=== PATIENT | female | born 1965 | race Asian ===

== ENCOUNTER 2021-03-09 21:14 | Emergency (ER) | payer OTHER, BC ==
--- NOTE | 2021-03-09 22:01 | EDM.PDOC ---
ED HPI GENERAL MEDICAL PROBLEM - General Chief Complaint: Fever Stated Complaint: HAD SURGERY LAST MONDAY/NOW HAS A FEVER Time Seen by Provider: 03/09/21 21:37 Source of Information: Reports: Patient, Family () History Limitations: Reports: No Limitations - History of Present Illness INITIAL COMMENTS - FREE TEXT/NARRATIVE: Mrs. Mullen is a very pleasant 55-year-old woman who now presents to the ED with a fever. She states that she underwent a laparoscopic complete hysterectomy for treatment of cervical cancer at [facility] in [place] 1 week ago today, 03/02/2021. She states that the pathology report was clean, and that no further treatment is necessary. She states that she was discharged home with a p rescription for [place], but told to take ibuprofen if her pain was only mild. She denies being given any other prescriptions, such as an antibiotic. The patient states that she was doing well until this afternoon, when she started feeling chilled. She had her go buy a thermometer, and found that she had a temperature of 103.4 degrees around 20:00 this evening. She took 2 regular strength acetaminophen at that time, and took a shower, with a subsequent temperature of 102.5. She spoke to her surgeon, who recommended that she come to the ED to be evaluated. The patient denies having any significant abdominal pain, or any other fever related symptoms, such as cough, dyspnea, nausea, vomiting, constipation, diarrhea, urinary symptoms, or a rash. Here in the ED, the patient is found to be tachycardic at 128 bpm, with tachypnea of 28 rpm. She has a slight fever of 100.4 degrees. Her oxygen saturation is 96% on room air. She appears to be very comfortable lying on the gurney, in no acute distress. The patient has not received a COVID vaccine. The patient's PCP is Dr. Jerman Davalos. Her Gynecologic Surgeon at [facility] in [place] is Dr. Delmi Birch. Her Treasury Accountant is Dr. Marilin Victor. Right Abdomen Pain Score (Numeric/FACES): 5 - Related Data Allergies Allergy/AdvReac Type Severity Reaction Status Date / Time No Known Allergies Allergy Verified 03/09/21 21:30 Home Meds: Home Meds Hydrocodone-Acetaminophen 5 - 325 mg PO ASDIRECTED PRN 03/09/21 [History] Sennosides [Senna] 8.6 - 50 mg PO DAILY 03/09/21 [History] lisinopriL [Lisinopril] 20 mg PO DAILY 03/09/21 [History] Past Medical History Cardiovascular History: Reports: Hypertension Oncologic (Cancer) History: Reports: Cervix (s/p hysterectomy) - Past Surgical History GI Surgical History: Reports: Cholecystectomy (around 2018) Female Surgical History: Reports: Hysterectomy (complete, 03/02/2021) Social & Family History - Tobacco Use Tobacco Use Status *Q: Never Tobacco User - Caffeine Use Caffeine Use: Reports: Coffee, Tea - Alcohol Use Alcohol Use History: Yes Alcohol Use Frequency: Rarely - Recreational Drug Use Recreational Drug Use: No - Living Situation & Occupation Living situation: Reports: , with Spouse, with Family (2 kids) Occupation: Employed ([employer]) ED ROS GENERAL - Review of Systems Review Of Systems: Comprehensive ROS is negative, except as noted in HPI. ED EXAM, GENERAL - Physical Exam Exam: See Below Exam Limited By: No Limitations General Appearance: Alert, WD/WN, No Apparent Distress Eye Exam: Bilateral Eye: EOMI, Normal Inspection Ears: Normal External Exam, Hearing Grossly Normal Nose: Normal Inspection Throat/Mouth: Normal Inspection, Normal Lips, Normal Voice, No Airway Compromise Head: Atraumatic, Normocephalic Neck: Normal Inspection, Full Range of Motion Respiratory/Chest: No Respiratory Distress, Lungs Clear, Normal Breath Sounds, No Accessory Muscle Use Cardiovascular: Normal Peripheral Pulses, No Edema, No Gallop, No JVD, No Murmur, No Rub, Tachycardia (regular) Peripheral Pulses: 3+: Radial (L), Radial (R) GI/Abdominal: Normal Bowel Sounds, Soft, Non-Tender (including no kalina- incisional tenderness), No Organomegaly, No Distention, No Abnormal Bruit, No Mass, Other (All laparoscopic surgical wounds are C/D/I, with steri-strips still attached. No surrounding erythema or swelling.) Back Exam: Normal Inspection, Full Range of Motion, NT Extremities: Normal Inspection, Normal Range of Motion, No Pedal Edema, Normal Capillary Refill Neurological: Alert, Oriented, Normal Cognition, No Motor/Sensory Deficits Psychiatric: Normal Affect Skin Exam: Warm, Dry, Intact, Normal Color, No Rash Course - Vital Signs Last Recorded V/S: Last Vital Signs Temp 38.0 C 03/09/21 21:27 Pulse 128 H 03/09/21 21:27 Resp 28 H 03/09/21 21:27 BP 106/76 03/09/21 21:27 Pulse Ox 96 03/09/21 21:27 - Orders/Labs/Meds Orders: Active Orders 24 hr Category Date Time Status Ang Chest [CT] Stat Exams 03/09/21 23:26 Taken Chest 2V [CR] Stat Exams 03/09/21 21:55 Taken CULTURE URINE [MREF] Stat Lab 03/09/21 22:08 Received Sodium Chloride 0.9% [Normal Saline] 1,000 ml Med 03/09/21 23:30 Active IV ASDIRECTED Medication Orders Sodium Chloride (Normal Saline) 1,000 mls @ 150 mls/hr IV ASDIRECTED LILA Last Admin: 03/09/21 23:38 Dose: 150 mls/hr Documented by: ILIA Labs: Laboratory Tests 03/09/21 03/09/21 03/09/21 Range/Units 22:05 22:08 22:25 WBC 14.53 H (3.98-10.04) K/mm3 RBC 3.99 (3.98-5.22) M/mm3 Hgb 12.2 (11.2-15.7) gm/dl Hct 36.0 (34.1-44.9) % MCV 90.2 (79.4-94.8) fl MCH 30.6 (25.6-32.2) pg MCHC 33.9 (32.2-35.5) g/dl RDW Std Deviation 41.9 (36.4-46.3) fL Plt Count 481 H (182-369) K/mm3 MPV 9.0 L (9.4-12.3) fl Neutrophils % (Manual) 66 H (40-60) % Band Neutrophils % 0 (0-10) % Lymphocytes % (Manual) 19 L (20-40) % Atypical Lymphs % 0 % Monocytes % (Manual) 8 (2-10) % Eosinophils % (Manual) 7 H (0.7-5.8) % Basophils % (Manual) 0 L (0.1-1.2) Platelet Estimate Increased Anisocytosis 1+ slight RBC Morph Comment Abnormal D-Dimer, Quantitative (0.19-0.50) mg/L Sodium (136-145) mEq/L Potassium (3.5-5.1) mEq/L Chloride (98-107) mEq/L Carbon Dioxide (21-32) mEq/L Anion Gap (5-15) BUN (7-18) mg/dL Creatinine (0.55-1.02) mg/dL Est Cr Clr Drug Dosing mL/min Estimated GFR (MDRD) (>60) mL/min BUN/Creatinine Ratio (14-18) Glucose (70-99) mg/dL Calcium (8.5-10.1) mg/dL Magnesium (1.8-2.4) mg/dL Total Bilirubin (0.2-1.0) mg/dL AST (15-37) U/L ALT (14-59) U/L Alkaline Phosphatase (46-116) U/L C-Reactive Protein (<1.0) mg/dL Total Protein (6.4-8.2) g/dl Albumin (3.4-5.0) g/dl Globulin gm/dL Albumin/Globulin Ratio (1-2) Urine Color Light yellow (Yellow) Urine Appearance Slt cloudy H (Clear) Urine pH 6.5 (5.0-8.0) Ur Specific [place] 1.010 (1.005-1.030) Urine Protein Negative (Negative) Urine Glucose (UA) Negative (Negative) Urine Ketones Negative (Negative) Urine Occult Blood 2+ H (Negative) Urine Nitrite Negative (Negative) Urine Bilirubin Negative (Negative) Urine Urobilinogen 0.2 (0.2-1.0) Ur Leukocyte Esterase 2+ H (Negative) Urine RBC 0-5 (0-5) /hpf Urine WBC 20-30 H (0-5) /hpf Ur Squamous Epith Cells 5-10 H (0-5) /hpf Urine Bacteria Few (FEW) /hpf Urine Mucus Few (FEW) /hpf Influenza Type A RNA Negative (NEGATIVE) Influenza Type B RNA Negative (NEGATIVE) SARS-CoV-2 RNA (MISBAH) Negative (NEGATIVE) 03/09/21 03/09/21 Range/Units 22:25 22:25 WBC (3.98-10.04) K/mm3 RBC (3.98-5.22) M/mm3 Hgb (11.2-15.7) gm/dl Hct (34.1-44.9) % MCV (79.4-94.8) fl MCH (25.6-32.2) pg MCHC (32.2-35.5) g/dl RDW Std Deviation (36.4-46.3) fL Plt Count (182-369) K/mm3 MPV (9.4-12.3) fl Neutrophils % (Manual) (40-60) % Band Neutrophils % (0-10) % Lymphocytes % (Manual) (20-40) % Atypical Lymphs % % Monocytes % (Manual) (2-10) % Eosinophils % (Manual) (0.7-5.8) % Basophils % (Manual) (0.1-1.2) Platelet Estimate Anisocytosis RBC Morph Comment D-Dimer, Quantitative 2.44 H (0.19-0.50) mg/L Sodium 135 L (136-145) mEq/L Potassium 3.8 (3.5-5.1) mEq/L Chloride 100 (98-107) mEq/L Carbon Dioxide 22 (21-32) mEq/L Anion Gap 16.8 H (5-15) BUN 12 (7-18) mg/dL Creatinine 1.0 (0.55-1.02) mg/dL Est Cr Clr Drug Dosing 44.58 mL/min Estimated GFR (MDRD) 57 (>60) mL/min BUN/Creatinine Ratio 12.0 L (14-18) Glucose 183 H (70-99) mg/dL Calcium 8.8 (8.5-10.1) mg/dL Magnesium 1.9 (1.8-2.4) mg/dL Total Bilirubin 0.7 (0.2-1.0) mg/dL AST 15 (15-37) U/L ALT 25 (14-59) U/L Alkaline Phosphatase 60 (46-116) U/L C-Reactive Protein 11.5 H* (<1.0) mg/dL Total Protein 7.9 (6.4-8.2) g/dl Albumin 3.4 (3.4-5.0) g/dl Globulin 4.5 gm/dL Albumin/Globulin Ratio 0.8 L (1-2) Urine Color (Yellow) Urine Appearance (Clear) Urine pH (5.0-8.0) Ur Specific [place] (1.005-1.030) Urine Protein (Negative) Urine Glucose (UA) (Negative) Urine Ketones (Negative) Urine Occult Blood (Negative) Urine Nitrite (Negative) Urine Bilirubin (Negative) Urine Urobilinogen (0.2-1.0) Ur Leukocyte Esterase (Negative) Urine RBC (0-5) /hpf Urine WBC (0-5) /hpf Ur Squamous Epith Cells (0-5) /hpf Urine Bacteria (FEW) /hpf Urine Mucus (FEW) /hpf Influenza Type A RNA (NEGATIVE) Influenza Type B RNA (NEGATIVE) SARS-CoV-2 RNA (MISBAH) (NEGATIVE) Meds: Medications Generic Name Dose Route Start Last Admin Trade Name Freq PRN Reason Stop Dose Admin Sodium Chloride 1,000 mls @ 150 mls/hr 03/09/21 23:30 03/09/21 23:38 Normal Saline IV 150 mls/hr ASDIRECTED [facility] Administration - Re-Assessments/Exams Free Text/Narrative Re-Assessment/Exam: 03/09/21 21:57 As above, the patient underwent a laparoscopic hysterectomy 1 week ago to do, then developed chills this afternoon, with a fever of 103.4 degrees this evening, down to 100.4 here in the ED, after she took 2 tablets of acetaminophen. She has no other complaints to suggest a source, and her physical exam, including her abdomen, is completely unremarkable. Because her surgeon sent her here for an evaluation, I have ordered a work-up that includes several blood tests, a urinalysis by clean-catch, a swab for the SARS-CoV-2 virus and influenza A + B viruses, and a chest x-ray. 03/09/21 23:00 Two-view chest radiograph appears to be grossly normal. The cardiac silhouette is within normal limits. No pulmonary vascular congestion. No pleural effusions. No focal infiltrate. No pneumothorax. Formal read per the Radiologist pending. The patient's CBC is remarkable for leukocytosis of 14.53, but with 0% bandemia. She has thrombocytosis of 481,000, with the remainder of her CBC being unremarkable. Her CMP is remarkable for an anion gap slightly elevated at 16.8, but with a bicarbonate normal at 22. She has hyperglycemia of 183, with remainder of her CMP being unremarkable. Her magnesium level is within normal limits at 1.9. Her CRP is significantly elevated at 11.5. Her D-dimer is significantly elevated at 2.44. Her urinalysis is remarkable for a slightly cloudy appearance, with 2+ occult blood and 0-5 RBCs, 2+ leukocyte esterase with 20-30 WBCs, nitrate negative with few bacteria, and 5-10 squamous epithelial cells. Her swab for the SARS-CoV-2 virus and influenza A + B viruses is negative for all. 03/09/21 23:27 Test results discussed with the patient and her . As above, the patient's CRP and D-dimer are elevated, although both of these could be from recent surgery. My suspicion for a pulmonary embolus is very low, however, a pulmonary embolus can cause a fever, therefore I feel it necessary to recommend a CT angiogram to rule out a PE. The patient and her agreed. 03/10/21 00:59 CT angiogram of the chest is read by [facility] as: 1. No evidence of pulmonary embolism. 2. Hepatic steatosis. 03/10/21 01:06 Test results discussed with patient and her . As above, with the exception of hyperglycemia, tonight's work-up is unremarkable, with no finding of an infection. It is possible that the patient's thermometer does not work very well, but if it is true that the patient had a fever, it is most likely viral in etiology. I recommended that the patient notify her surgeon in the morning of her negative work-up. I would also like her to follow-up with Dr. Davalos regarding her hyperglycemia, as she likely has prediabetes. Departure - Departure Time of Disposition: 01:07 Disposition: Home, Self-Care 01 Condition: Good Clinical Impression: Fever of unknown origin, Hyperglycemia - Discharge Information *PRESCRIPTION DRUG MONITORING PROGRAM REVIEWED*: Not Applicable *COPY OF PRESCRIPTION DRUG MONITORING REPORT IN PATIENT ANTONIO: Not Applicable Referrals: Jerman Davalos MD [Primary Care Provider] - Marilin Victor MD [Physician] - Delmi Birch MD [Ordering Only Provider] - Forms: ED Department Discharge Additional Instructions: You were seen in the emergency room after developing chills and fever. Work-up in the ER included numerous blood tests, a urinalysis, a swab for the SARS-CoV-2 virus and influenza A + B viruses, a chest x-ray, and a CT angiogram of your chest. Your work-up found your blood sugar to be elevated at 183. This indicates that you have either prediabetes or actual diabetes. The remainder of your work-up was unremarkable. No evidence for an infection was found. The cause of your fever is not known. It is possible that your thermometer does not work very well, however, if in fact you had a fever, it may be due to a virus. We recommend that you notify the office of your Surgeon, Dr. Delmi Birch, of your negative work-up, in the morning. We recommend that you follow-up with your PCP, Dr. Jerman Davalos, for further evaluation of your elevated blood sugar. If any other problems, please do not hesitate to return to the ER. Sepsis Event Note (ED) - Evaluation Sepsis Screening Result: No Definite Risk - Focused Exam Vital Signs: Vital Signs Temp Pulse Resp BP Pulse Ox 03/09/21 21:27 38.0 C 128 H 28 H 106/76 96 - My Orders Last 24 Hours: My Active Orders 03/09/21 21:55 Chest 2V [CR] Stat 03/09/21 22:08 CULTURE URINE [MREF] Stat 03/09/21 23:26 Ang Chest [CT] Stat 03/09/21 23:30 Sodium Chloride 0.9% [Normal Saline] 1,000 ml IV ASDIRECTED - Assessment/Plan Last 24 Hours: My Active Orders 03/09/21 21:55 Chest 2V [CR] Stat 03/09/21 22:08 CULTURE URINE [MREF] Stat 03/09/21 23:26 Ang Chest [CT] Stat 03/09/21 23:30 Sodium Chloride 0.9% [Normal Saline] 1,000 ml IV ASDIRECTED
[2021-03-09 22:48] LABS: CORONAVIRUS COVID-19 NAA NEGATIVE (NEGATIVE)
[2021-03-09] MEDS ORDERED: Sodium Chloride 0.9% 1,000 ML IV SCH (23:30)
--- NOTE | 2021-03-10 07:58 | CR ---
Chest: 2 views of the chest were obtained. Comparison: Subsequent chest CT study performed on 03/10/21. Heart size and mediastinum are normal. Lungs are clear with no acute parenchymal change. Bony structures are within normal limits for the patient's age. Surgical clips are seen from prior cholecystectomy. Impression: 1. Nothing acute is seen on 2 view chest x-ray. 2. Previous cholecystectomy. Diagnostic code #2
--- NOTE | 2021-03-10 08:05 | CT ---
CT chest Technique: Multiple axial sections through the chest were obtained. Intravenous contrast was utilized. Study has been performed as a pulmonary angiogram protocol. Findings: Thoracic aorta shows no aneurysm. Pulmonary arteries are well opacified. No filling defects are seen to indicate pulmonary embolism. Mediastinum and hilar regions show no adenopathy or mass. No pericardial thickening is seen. Diffuse fatty infiltration is noted within the liver. Small hiatal hernia is noted. Lung window settings were reviewed and show minimal atelectasis within the left lung base. No acute parenchymal change is seen. Bone window settings were reviewed. Minimal scattered degenerative change is seen within the spine. No acute osseous abnormality is appreciated. Impression: 1. Fatty infiltration within the liver. Small hiatal hernia. 2. No findings of pulmonary embolism. 3. Nothing acute is appreciated on contrast enhanced chest CT. Diagnostic code #3 I agree with preliminary report from [facility] finalized on 03/10/21, 1:56 AM CDT, code 1
== END 2021-03-10 01:33 | disposition home or self-care (01) ==
LOC: JD.ED 21:14
DX: R50.9 Fever, unspecified (principal); R73.9 Hyperglycemia, unspecified; I10 Essential (primary) hypertension; Z90.710 Acquired absence of both cervix and uterus; Z20.822 Contact with and (suspected) exposure to COVID-19; Z79.899 Other long term (current) drug therapy
CPT/HCPCS: 0240U; 36415; 71046; 71275; 80053; 81001; 83735; 85007; 85027; 85379; 86140; 87086; 87186; 99284; J7030

== ENCOUNTER 2021-06-01 05:52 | Inpatient (IN) | payer OTHER, BC ==
[2021-06-01] MEDS ORDERED: Dexamethasone 4 MG Tab PO STA (06:30)
--- NOTE | 2021-06-01 06:41 | EDM.PDOC ---
ED HPI GENERAL MEDICAL PROBLEM - General Chief Complaint: Respiratory Problem Stated Complaint: COVID +/LOW OXYGEN LEVEL Time Seen by Provider: 06/01/21 06:02 Source of Information: Reports: Patient, Family () History Limitations: Reports: No Limitations - History of Present Illness INITIAL COMMENTS - FREE TEXT/NARRATIVE: Mrs. Mullen is a very pleasant 56-year-old woman who now presents to the ED due to hypoxemia after testing positive for COVID-19. She states that she developed fever and a chills last 05/25/2021. She saw her PCP on 05/26/2021, where blood work was reportedly normal. She was not tested for the SARS-CoV-2 virus at that time. She subsequently took Tylenol and ibuprofen to treat her symptoms, but her symptoms persisted, where for she saw her PCP again this past 05/31/2021. A swab for the SARS-CoV-2 virus returned positive. Chest x-ray reportedly revealed "pneumonia" however, the patient cannot elaborate on what was seen. There was a discussion regarding treatment with an infusion of monoclonal antibodies, however, no specific arrangements were made. She was instructed to monitor her oxygen saturation at home, and go to the ED if it dropped. The patient reports that her oxygen saturation was in the upper-80s this morning, wherefore she came to the ED as instructed. The patient states that she has had a nonproductive cough, but no dyspnea or chest pain. She feels generally weak. She has not had any nausea or vomiting. Here in the ED, the patient is found to be tachycardic at 122 bpm and tachypneic at 32 rpm. She is afebrile, saturating 86% on room air. I placed her on 1 L of oxygen per nasal cannula, raising her SpO2 to 96%. Prior to 05/25/2021, the patient denies having a recent fever, chills, sore throat, ear pain, nasal or sinus congestion, cough, dyspnea, chest pain, palpitations, nausea, vomiting, constipation, diarrhea, abdominal pain, urinary symptoms, recent weight gain or weight loss, recent bloody bowel movements or black bowel movements, recent joint aches, headaches, or rashes. The patient's PCP is Dr. Jerman Davalos. Her Jewel Blocker And Sawyer is Dr. Marilin Santiago. Her Gynecologic Surgeon is Dr. Delmi Birch, at [facility] in [place]. She has not received a COVID vaccination. Chest Pain Score (Numeric/FACES): 4 - Related Data Allergies Allergy/AdvReac Type Severity Reaction Status Date / Time No Known Allergies Allergy Verified 06/01/21 13:49 Home Meds: Home Meds lisinopriL [Lisinopril] 20 mg PO DAILY 03/09/21 [History] Past Medical History Cardiovascular History: Reports: Hypertension Oncologic (Cancer) History: Reports: Cervix (s/p hysterectomy) - Infectious Disease History Infectious Disease History: Reports: Novel Coronavirus (dx'd 05/31/2021) - Past Surgical History GI Surgical History: Reports: Cholecystectomy (around 2018) Female Surgical History: Reports: Hysterectomy (complete, 03/02/2021) Social & Family History - Tobacco Use Tobacco Use Status *Q: Never Tobacco User Second Hand Smoke Exposure: No - Caffeine Use Caffeine Use: Reports: None - Alcohol Use Alcohol Use History: Yes Alcohol Use Frequency: Rarely - Recreational Drug Use Recreational Drug Use: No - Living Situation & Occupation Living situation: Reports: , with Spouse, with Family (2 kids) Occupation: Employed ([employer]) ED ROS GENERAL - Review of Systems Review Of Systems: Comprehensive ROS is negative, except as noted in HPI. ED EXAM, GENERAL - Physical Exam Exam: See Below Exam Limited By: No Limitations General Appearance: Alert, WD/WN, No Apparent Distress Eye Exam: Bilateral Eye: EOMI, Normal Inspection Ears: Normal External Exam, Hearing Grossly Normal Nose: Normal Inspection Throat/Mouth: Normal Inspection, Normal Lips, Normal Voice, No Airway Compromise Head: Atraumatic, Normocephalic Neck: Normal Inspection, Full Range of Motion Respiratory/Chest: No Respiratory Distress, Lungs Clear, Normal Breath Sounds, No Accessory Muscle Use. No: Decreased Breath Sounds, Crackles, Rhonchi, Wheezing, Stridor, Prolonged Expiration Cardiovascular: Normal Peripheral Pulses, No Edema, No Gallop, No JVD, No Murmur, No Rub, Tachycardia (regular) Peripheral Pulses: 3+: Radial (L), Radial (R) GI/Abdominal: Normal Bowel Sounds, Soft, Non-Tender, No Organomegaly, No Distention, No Abnormal Bruit, No Mass Back Exam: Normal Inspection, Full Range of Motion, NT Extremities: Normal Inspection, Normal Range of Motion, No Pedal Edema, Normal Capillary Refill Neurological: Alert, Oriented, Normal Cognition, No Motor/Sensory Deficits Psychiatric: Normal Affect Skin Exam: Warm, Dry, Intact, Normal Color, No Rash #1 Interpretation EKG Date: 06/01/21 Time: 06:04 Rhythm: Other (Sinus tachycardia) Rate (Beats/Min): 107 [place]: Normal P-Wave: Present QRS: Normal ST-T: Normal QT: Normal Comparison: NA - No Prior EKG Course - Vital Signs Last Recorded V/S: Last Vital Signs Temp 36.9 C 06/01/21 16:55 Pulse 85 06/01/21 16:55 Resp 16 06/01/21 16:55 BP 120/59 L 06/01/21 16:55 Pulse Ox 91 L 06/01/21 16:57 - Orders/Labs/Meds Orders: Active Orders 24 hr Category Date Time Status Admission Status [Patient Status] [ADT] Routine ADT 06/01/21 09:08 Active Acapella [RT Chest Physiotherapy] [RC] ASDIRECTED Care 06/01/21 09:11 Active Cardiac Monitoring [RC] . DIRECTED Care 06/01/21 09:08 Active Height and Weight [RC] 06 Care 06/01/21 11:28 Active Intake and Output [RC] 04,16 Care 06/01/21 11:28 Active Oxygen Therapy [RC] ASDIRECTED Care 06/01/21 09:10 Active Pulse Oximetry [RC] CONTINUOUS Care 06/01/21 11:28 Active RT Incentive Spirometry [RC] ASDIRECTED Care 06/01/21 09:11 Active Up ad Kayla [RC] ASDIRECTED Care 06/01/21 11:28 Active Vital Signs [RC] 03,09,15,21 Care 06/01/21 11:28 Active patient positioning [Positioning, Patient] [RC] Care 06/01/21 09:11 Active ASDIRECTED Respiratory Care Assess and Treatment [CONS] Routine Cons 06/01/21 11:29 Active BLOOD CULTURE [MREF] Stat Lab 06/01/21 06:10 Received BLOOD CULTURE [MREF] Stat Lab 06/01/21 06:22 Received C-REACTIVE PROTEIN [CHEM] AM Lab 06/02/21 05:11 Ordered C-REACTIVE PROTEIN [CHEM] AM Lab 06/03/21 05:11 Ordered C-REACTIVE PROTEIN [CHEM] AM Lab 06/04/21 05:11 Ordered C-REACTIVE PROTEIN [CHEM] AM Lab 06/05/21 05:11 Ordered CBC WITH AUTO DIFF [HEME] AM Lab 06/02/21 05:11 Ordered CBC WITH AUTO DIFF [HEME] AM Lab 06/03/21 05:11 Ordered CBC WITH AUTO DIFF [HEME] AM Lab 06/04/21 05:11 Ordered CBC WITH AUTO DIFF [HEME] AM Lab 06/05/21 05:11 Ordered COMPREHENSIVE METABOLIC PN,CMP [CHEM] AM Lab 06/02/21 05:11 Ordered COMPREHENSIVE METABOLIC PN,CMP [CHEM] AM Lab 06/03/21 05:11 Ordered COMPREHENSIVE METABOLIC PN,CMP [CHEM] AM Lab 06/04/21 05:11 Ordered COMPREHENSIVE METABOLIC PN,CMP [CHEM] AM Lab 06/05/21 05:11 Ordered MAGNESIUM [CHEM] AM Lab 06/02/21 05:11 Ordered MAGNESIUM [CHEM] AM Lab 06/03/21 05:11 Ordered MAGNESIUM [CHEM] AM Lab 06/04/21 05:11 Ordered MAGNESIUM [CHEM] AM Lab 06/05/21 05:11 Ordered Blood Culture x2 Reflex Set [OM.PC] Stat Oth 06/01/21 06:27 Ordered Isolation [COMM] Routine Oth 06/01/21 11:28 Ordered Pulse Oximetry Continuous Monitoring [OM.PC] Routine Oth 06/01/21 09:10 Active Code Status [Resuscitation Status] Stat Resus Stat 06/01/21 09:09 Ordered Medication Orders Acetaminophen (Acetaminophen 325 Mg Tab) 650 mg PO Q4H PRN PRN Reason: Pain (Mild 1-3)/fever Albuterol (Albuterol 6.7 Gm Inhaler) 0 gm INH Q2H PRN PRN Reason: SOB/Wheezing Dexamethasone (Dexamethasone 4 Mg Tab) 6 mg PO DAILY LILA Stop: 06/10/21 09:01 Enoxaparin Sodium (Enoxaparin 40 Mg/0.4 Ml Syringe) 40 mg SUBCUT DAILY [facility] Last Admin: 06/01/21 13:29 Dose: 40 mg Documented by: ZHEN Famotidine (Famotidine 20 Mg Tab) 20 mg PO BID [facility] Remdesivir 100 mg/ Sodium (Chloride) 100 mls @ 100 mls/hr IV Q24H LILA Stop: 06/05/21 16:29 Insulin Human Lispro (Insulin Lispro 100 Unit/Ml 10 Ml Vial) 0 unit SUBCUT QIDACANDBED [facility]; Protocol Last Admin: 06/01/21 18:39 Dose: 2 unit Documented by: ZHEN Ondansetron HCl (Ondansetron 4 Mg/2 Ml Sdv) 4 mg IV Q6H PRN PRN Reason: Nausea/Vomiting Labs: Laboratory Tests 06/01/21 06/01/21 06/01/21 Range/Units 06:10 06:10 06:10 WBC 4.89 (3.98-10.04) K/mm3 RBC 4.01 (3.98-5.22) M/mm3 Hgb 12.0 (11.2-15.7) gm/dl Hct 35.2 (34.1-44.9) % MCV 87.8 (79.4-94.8) fl MCH 29.9 (25.6-32.2) pg MCHC 34.1 (32.2-35.5) g/dl RDW Std Deviation 40.4 (36.4-46.3) fL Plt Count 400 H D (182-369) K/mm3 MPV 9.3 L (9.4-12.3) fl Neutrophils % (Manual) 58 (40-60) % Band Neutrophils % 12 H (0-10) % Lymphocytes % (Manual) 26 (20-40) % Atypical Lymphs % 0 % Monocytes % (Manual) 4 (2-10) % Eosinophils % (Manual) 0 L (0.7-5.8) % Basophils % (Manual) 0 L (0.1-1.2) Platelet Estimate Adequate Plt Morphology Comment Normal RBC Morph Comment Normal Sodium 135 L (136-145) mEq/L Potassium 3.6 (3.5-5.1) mEq/L Chloride 100 (98-107) mEq/L Carbon Dioxide 22 (21-32) mEq/L Anion Gap 16.6 H (5-15) BUN 12 (7-18) mg/dL Creatinine 0.9 (0.55-1.02) mg/dL Est Cr Clr Drug Dosing 48.94 mL/min Estimated GFR (MDRD) > 60 (>60) mL/min BUN/Creatinine Ratio 13.3 L (14-18) Glucose 188 H (70-99) mg/dL Hemoglobin A1c ( - 5.6) % Lactic Acid 1.3 (0.4-2.0) mmol/L Calcium 8.3 L (8.5-10.1) mg/dL Magnesium 1.8 (1.8-2.4) mg/dL Ferritin (8-252) ng/ml Total Bilirubin 0.3 (0.2-1.0) mg/dL AST 54 H (15-37) U/L ALT 47 (14-59) U/L Alkaline Phosphatase 45 L (46-116) U/L Lactate Dehydrogenase (81-234) U/L Troponin I < 0.017 (0.00-0.056) ng/mL C-Reactive Protein (<1.0) mg/dL Total Protein 8.0 (6.4-8.2) g/dl Albumin 3.1 L (3.4-5.0) g/dl Globulin 4.9 gm/dL Albumin/Globulin Ratio 0.6 L (1-2) 06/01/21 06/01/21 06/01/21 Range/Units 06:10 06:10 06:10 WBC (3.98-10.04) K/mm3 RBC (3.98-5.22) M/mm3 Hgb (11.2-15.7) gm/dl Hct (34.1-44.9) % MCV (79.4-94.8) fl MCH (25.6-32.2) pg MCHC (32.2-35.5) g/dl RDW Std Deviation (36.4-46.3) fL Plt Count (182-369) K/mm3 MPV (9.4-12.3) fl Neutrophils % (Manual) (40-60) % Band Neutrophils % (0-10) % Lymphocytes % (Manual) (20-40) % Atypical Lymphs % % Monocytes % (Manual) (2-10) % Eosinophils % (Manual) (0.7-5.8) % Basophils % (Manual) (0.1-1.2) Platelet Estimate Plt Morphology Comment RBC Morph Comment Sodium (136-145) mEq/L Potassium (3.5-5.1) mEq/L Chloride (98-107) mEq/L Carbon Dioxide (21-32) mEq/L Anion Gap (5-15) BUN (7-18) mg/dL Creatinine (0.55-1.02) mg/dL Est Cr Clr Drug Dosing mL/min Estimated GFR (MDRD) (>60) mL/min BUN/Creatinine Ratio (14-18) Glucose (70-99) mg/dL Hemoglobin A1c ( - 5.6) % Lactic Acid (0.4-2.0) mmol/L Calcium (8.5-10.1) mg/dL Magnesium (1.8-2.4) mg/dL Ferritin 1858 H (8-252) ng/ml Total Bilirubin (0.2-1.0) mg/dL AST (15-37) U/L ALT (14-59) U/L Alkaline Phosphatase (46-116) U/L Lactate Dehydrogenase 408 H (81-234) U/L Troponin I (0.00-0.056) ng/mL C-Reactive Protein 8.4 H* (<1.0) mg/dL Total Protein (6.4-8.2) g/dl Albumin (3.4-5.0) g/dl Globulin gm/dL Albumin/Globulin Ratio (1-2) // Range/Units 06:10 WBC (3.98-10.04) K/mm3 RBC (3.98-5.22) M/mm3 Hgb (11.2-15.7) gm/dl Hct (34.1-44.9) % MCV (79.4-94.8) fl MCH (25.6-32.2) pg MCHC (32.2-35.5) g/dl RDW Std Deviation (36.4-46.3) fL Plt Count (182-369) K/mm3 MPV (9.4-12.3) fl Neutrophils % (Manual) (40-60) % Band Neutrophils % (0-10) % Lymphocytes % (Manual) (20-40) % Atypical Lymphs % % Monocytes % (Manual) (2-10) % Eosinophils % (Manual) (0.7-5.8) % Basophils % (Manual) (0.1-1.2) Platelet Estimate Plt Morphology Comment RBC Morph Comment Sodium (136-145) mEq/L Potassium (3.5-5.1) mEq/L Chloride (98-107) mEq/L Carbon Dioxide (21-32) mEq/L Anion Gap (5-15) BUN (7-18) mg/dL Creatinine (0.55-1.02) mg/dL Est Cr Clr Drug Dosing mL/min Estimated GFR (MDRD) (>60) mL/min BUN/Creatinine Ratio (14-18) Glucose (70-99) mg/dL Hemoglobin A1c 7.7 H ( - 5.6) % Lactic Acid (0.4-2.0) mmol/L Calcium (8.5-10.1) mg/dL Magnesium (1.8-2.4) mg/dL Ferritin (8-252) ng/ml Total Bilirubin (0.2-1.0) mg/dL AST (15-37) U/L ALT (14-59) U/L Alkaline Phosphatase (46-116) U/L Lactate Dehydrogenase (81-234) U/L Troponin I (0.00-0.056) ng/mL C-Reactive Protein (<1.0) mg/dL Total Protein (6.4-8.2) g/dl Albumin (3.4-5.0) g/dl Globulin gm/dL Albumin/Globulin Ratio (1-2) Meds: Medications Generic Name Dose Route Start Last Admin Trade Name Freq PRN Reason Stop Dose Admin Acetaminophen 650 mg 06/01/21 11:46 Acetaminophen 325 Mg Tab PO Q4H PRN Pain (Mild 1-3)/fever Albuterol 0 gm 06/01/21 11:46 Albuterol 6.7 Gm Inhaler INH Q2H PRN SOB/Wheezing Dexamethasone 6 mg 06/02/21 09:00 Dexamethasone 4 Mg Tab PO 06/10/21 09:01 DAILY [facility] Enoxaparin Sodium 40 mg 06/01/21 09:00 06/01/21 13:29 Enoxaparin 40 Mg/0.4 Ml Syringe SUBCUT 40 mg DAILY LILA Administration Famotidine 20 mg 06/01/21 21:00 Famotidine 20 Mg Tab PO BID [facility] Remdesivir 100 mg/ Sodium 100 mls @ 100 mls/hr 06/02/21 15:30 Chloride IV 06/05/21 16:29 Q24H [facility] Insulin Human Lispro 0 unit 06/01/21 17:00 06/01/21 18:39 Insulin Lispro 100 Unit/Ml 10 Ml Vial SUBCUT 2 unit QIDACANDBED LILA Administration Protocol Ondansetron HCl 4 mg 06/01/21 11:46 Ondansetron 4 Mg/2 Ml Sdv IV Q6H PRN Nausea/Vomiting Discontinued Medications Generic Name Dose Route Start Last Admin Trade Name Marimar PRN Reason Stop Dose Admin Dexamethasone 6 mg 06/01/21 06:30 06/01/21 06:56 Dexamethasone 4 Mg Tab PO 06/01/21 06:31 6 mg ONETIME STA Administration Magnesium Sulfate 2 gm/ Premix 50 mls @ 25 mls/hr 06/01/21 11:31 06/01/21 13:30 IV 06/01/21 13:30 25 mls/hr ONETIME ONE Administration Remdesivir 200 mg/ Sodium 250 mls @ 250 mls/hr 06/01/21 15:30 06/01/21 15:40 Chloride IV 06/01/21 16:29 250 mls/hr ONETIME ONE Administration - Re-Assessments/Exams Free Text/Narrative Re-Assessment/Exam: 06/01/21 06:31 As above, the patient developed a fever and chills last Monday, saw Dr. Davalos last Monday where blood work was reportedly unremarkable, but because her symptoms persisted, she saw him again this past Monday, where a COVID test returned positive. A chest x-ray reportedly revealed pneumonia, but she is not able to elaborate. They discussed her getting an infusion of monoclonal antibodies, but no actual arrangements were made. She has been monitoring her oxygen saturation at home, and when it dipped down to the upper 80s this morning, she came to the ED. She is tachycardic and tachypneic, afebrile, but saturating 86% on room air. I placed her on 1 L of oxygen per nasal cannula, and she is currently saturating 96% on room air. She states that she has had a nonproductive cough but no dyspnea. She has been feeling general ly weak. Her examination is grossly unremarkable. An ECG, obtained at triage, demonstrates sinus tachycardia, but no ischemic changes. I have ordered a work- up that includes several blood tests and a chest x-ray. Because she is hypoxemic, she no longer qualifies for treatment of a monoclonal antibody infusion, however, she does qualify for treatment with dexamethasone. I have ordered 6 mg po. 06/01/21 07:17 Two-view chest radiograph reviewed. The cardiac silhouette is within normal limits. No pulmonary vascular congestion. No pleural effusions. The lung markings are more prominent than usual, suggesting bilateral hazy infiltrates, however, this may be due to poor aeration due to a poor inspiratory effort. No pneumothorax. Formal read per the Radiologist pending. 06/01/21 07:43 The patient's CBC is remarkable for thrombocytosis of 400,000, and is otherwise unremarkable. Her CMP is remarkable for slight hyponatremia of 135, and hyperglycemia of 188, with remainder of her CMP being unremarkable. Her magnesium level is within normal limits at 1.8. Her troponin is undetectably low. Her lactic acid level is within normal limits at 1.3. Results of her CRP are pending. Case discussed with Dr. Neal here in the ED. He accepted the patient for admission to Med-Surg. Departure - Departure Time of Disposition: 07:46 Disposition: Admitted As Inpatient 64 Condition: Good Clinical Impression: COVID-19, Hypoxemia - Discharge Information *PRESCRIPTION DRUG MONITORING PROGRAM REVIEWED*: Not Applicable *COPY OF PRESCRIPTION DRUG MONITORING REPORT IN PATIENT ANTONIO: Not Applicable Sepsis Event Note (ED) - Evaluation Sepsis Screening Result: Possible Sepsis Risk - My Orders Last 24 Hours: My Active Orders 06/01/21 06:10 BLOOD CULTURE [MREF] Stat 06/01/21 06:22 BLOOD CULTURE [MREF] Stat 06/01/21 06:27 Blood Culture x2 Reflex Set [OM.PC] Stat - Assessment/Plan Last 24 Hours: My Active Orders 06/01/21 06:10 BLOOD CULTURE [MREF] Stat 06/01/21 06:22 BLOOD CULTURE [MREF] Stat 06/01/21 06:27 Blood Culture x2 Reflex Set [OM.PC] Stat
--- NOTE | 2021-06-01 07:47 | PCM.HP.2 ---
<Rommel Jacques - Last Filed: 06/01/21 14:49> H&P History of Present Illness - General Date of Service: 06/01/21 Admit Problem/Dx: Hypoxia Source of Information: Patient, Family, Old Records, Provider, RN, RN Notes Reviewed History Limitations: Reports: No Limitations - History of Present Illness Initial Comments - Free Text/Narative: This is a 56-year-old female who presents the ED with low saturations after testing positive for COVID-19. She reports on 05/25/2021 she noted fever and chills. She saw her PCP the next day, 05/26/2021 and blood work was done which she states was normal, however she was not tested for COVID-19. She try to get by utilizing Tylenol and ibuprofen but her symptoms continued and she returned to her PCP on 05/31/2021 where she tested positive for SARS-CoV-2 RNA. Chest x- ray at that time was obtained and per the patient showed "pneumonia" however the patient is not sure what exactly was seen. They talked about monoclonal antibody infusion but she ultimately refused. She was instructed to return home and monitor her oxygen saturations. She was told if her saturations drop she should return to the ED. She noted saturations in the 80s this morning and came to the ED as instructed. She reports nonproductive cough but no acute dyspnea o r chest pain. She feels weak. Denies any nausea or vomiting. She has not received the Covid vaccine. In the ED twelve-lead EKG is obtained showing sinus tachycardia 107 bpm with no ischemic changes. Temp is 36.9 Celsius. Pulse 97. Respirations 29. Blood pressure 98/64. Pulse ox is 86%, rising to 96% on 1 L. Labs are obtained showing a WBC of 4.89. Hemoglobin 12.0. Platelet 400,000. Neutrophils 58%. Sodium 135. Potassium 3.6. Chloride 100. Carbon dioxide 22. Anion gap 16.6. BUN is 12. Creatinine 0.9. GFR greater than 60. Glucose 188. Lactic acid 1.3. Magnesium 1.8. Total bilirubin 0.3. AST is 54, ALT 47, alkaline phosphatase 45. Troponin less than 0.017. Protein 8.0. Albumin 3.1. CRP is 8.4 chest x-ray shows bilateral hazy infiltrates consistent with COVID-19 p neumonia. She is given 6 mg dexamethasone. She carries a history of hypertension and cervical cancer status post hysterectomy. She was never a smoker. Her PCP is Dr. Yao. Chest Pain Score (Numeric/FACES): 4 - Related Data Allergies/Adverse Reactions: Allergies Allergy/AdvReac Type Severity Reaction Status Date / Time No Known Allergies Allergy Verified 06/01/21 13:49 Home Medications: Home Meds lisinopriL [Lisinopril] 20 mg PO DAILY 03/09/21 [History] Past Medical History Cardiovascular History: Reports: Hypertension Oncologic (Cancer) History: Reports: Cervix Other Oncologic History: stage 1 - Infectious Disease History Infectious Disease History: Reports: Novel Coronavirus - Past Surgical History GI Surgical History: Reports: Cholecystectomy Female Surgical History: Reports: Hysterectomy Social & Family History - Tobacco Use Tobacco Use Status *Q: Never Tobacco User Second Hand Smoke Exposure: No - Caffeine Use Caffeine Use: Reports: None - Recreational Drug Use Recreational Drug Use: No - Living Situation & Occupation Living situation: Reports: , with Spouse, with Family (2 kids) Occupation: Employed ([employer]) H&P Review of Systems - Review of Systems: Review Of Systems: See Below General: Reports: Chills, Malaise, Weakness, Fatigue. Denies: Fever HEENT: Reports: No Symptoms. Denies: Headaches, Sore Throat Pulmonary: Reports: Cough. Denies: Shortness of Breath, Wheezing, Pleuritic Chest Pain, Sputum Cardiovascular: Reports: Dyspnea on Exertion. Denies: Chest Pain, Palpitations, Orthopnea, Edema, Lightheadedness Gastrointestinal: Reports: No Symptoms. Denies: Abdominal Pain, Constipation, Diarrhea, Nausea, Vomiting Genitourinary: Reports: No Symptoms. Denies: Pain Musculoskeletal: Reports: No Symptoms Skin: Reports: No Symptoms. Denies: Cyanosis Psychiatric: Reports: No Symptoms. Denies: Confusion Neurological: Denies: Pre-Existing Deficit, Difficulty Walking, Gait Disturbance Hematologic/Lymphatic: Reports: No Symptoms. Denies: Anemia Immunologic: Reports: No Symptoms Exam - Exam Exam: See Below - Vital Signs Vital Signs: Last Vital Signs Temp 98.5 F 06/01/21 06:01 Pulse 97 06/01/21 06:33 Resp 29 H 06/01/21 06:33 BP 98/64 06/01/21 06:33 Pulse Ox 96 06/01/21 06:33 Weight: 137 lb - Exam Quality Assessment: Supplemental Oxygen (2L), DVT Prophylaxis. No: Urinary Catheter General: Alert, Oriented, Cooperative. No: Mild Distress HEENT: Conjunctiva Clear, EACs Clear, Mucosa Moist & [place], Posterior Pharynx Clear Neck: Supple, Trachea Midline Lungs: Clear to Auscultation, Normal Respiratory Effort. No: Crackles, Rales, Rhonchi, Wheezing Cardiovascular: Regular Rate, Regular Rhythm GI/Abdominal Exam: Normal Bowel Sounds, Soft, Non-Tender, No Distention (Female) Exam: Deferred Rectal (Female) Exam: Deferred Back Exam: Normal Inspection, Full Range of Motion Extremities: Normal Inspection, Normal Range of Motion, Non-Tender, No Pedal Edema, Normal Capillary Refill Peripheral Pulses: 3+: Radial (L), Radial (R), Dorsalis Pedis (L), Dorsalis Pedis (R) Skin: Warm, Dry, Intact Neurological: Cranial Nerves Intact (Grossly) Neuro Extensive - Mental Status: Alert, Oriented x3 - Patient Data Lab Results Last 24 hrs: Laboratory Results - last 24 hr 06/01/21 06/01/21 06/01/21 Range/Units 06:10 06:10 06:10 WBC 4.89 (3.98-10.04) K/mm3 RBC 4.01 (3.98-5.22) M/mm3 Hgb 12.0 (11.2-15.7) gm/dl Hct 35.2 (34.1-44.9) % MCV 87.8 (79.4-94.8) fl MCH 29.9 (25.6-32.2) pg MCHC 34.1 (32.2-35.5) g/dl RDW Std Deviation 40.4 (36.4-46.3) fL Plt Count 400 H D (182-369) K/mm3 MPV 9.3 L (9.4-12.3) fl Neutrophils % (Manual) 58 (40-60) % Band Neutrophils % 12 H (0-10) % Lymphocytes % (Manual) 26 (20-40) % Atypical Lymphs % 0 % Monocytes % (Manual) 4 (2-10) % Eosinophils % (Manual) 0 L (0.7-5.8) % Basophils % (Manual) 0 L (0.1-1.2) Platelet Estimate Adequate Plt Morphology Comment Normal RBC Morph Comment Normal Sodium 135 L (136-145) mEq/L Potassium 3.6 (3.5-5.1) mEq/L Chloride 100 (98-107) mEq/L Carbon Dioxide 22 (21-32) mEq/L Anion Gap 16.6 H (5-15) BUN 12 (7-18) mg/dL Creatinine 0.9 (0.55-1.02) mg/dL Est Cr Clr Drug Dosing 48.94 mL/min Estimated GFR (MDRD) > 60 (>60) mL/min BUN/Creatinine Ratio 13.3 L (14-18) Glucose 188 H (70-99) mg/dL Lactic Acid 1.3 (0.4-2.0) mmol/L Calcium 8.3 L (8.5-10.1) mg/dL Magnesium 1.8 (1.8-2.4) mg/dL Total Bilirubin 0.3 (0.2-1.0) mg/dL AST 54 H (15-37) U/L ALT 47 (14-59) U/L Alkaline Phosphatase 45 L (46-116) U/L Troponin I < 0.017 (0.00-0.056) ng/mL Total Protein 8.0 (6.4-8.2) g/dl Albumin 3.1 L (3.4-5.0) g/dl Globulin 4.9 gm/dL Albumin/Globulin Ratio 0.6 L (1-2) Result Diagrams: 06/01/21 06:10 06/01/21 06:10 Sepsis Event Note - Evaluation Sepsis Screening Result: No Definite Risk - Focused Exam Vital Signs: Vital Signs Temp Pulse Resp BP Pulse Ox 06/01/21 06:33 97 29 H 98/64 96 06/01/21 06:01 98.5 F 122 H 32 H 105/68 86 L - Problem List (1) HTN (hypertension) SNOMED Code(s): 01706842 ICD Code: I10 - ESSENTIAL (PRIMARY) HYPERTENSION Status: Chronic Priority: Low Current Visit: No Qualifiers: Hypertension type: unspecified Qualified Code(s): I10 - Essential (primary) hypertension (2) S/P hysterectomy SNOMED Code(s): 870696868, 039139176, 308907620 ICD Code: Z90.710 - ACQUIRED ABSENCE OF BOTH CERVIX AND UTERUS Status: Chronic Priority: Low Current Visit: No (3) History of cervical cancer Status: Chronic Priority: Low Current Visit: No (4) COVID-19 SNOMED Code(s): 793823714 ICD Code: U07.1 - COVID-19 Status: Acute Priority: High Current Visit: Yes (5) Hyperglycemia SNOMED Code(s): 25299712 ICD Code: R73.9 - HYPERGLYCEMIA, UNSPECIFIED Status: Acute Current Visit: No (6) Hypoxemia SNOMED Code(s): 855074386 ICD Code: R09.02 - HYPOXEMIA Status: Acute Current Visit: No Problem List Initiated/Reviewed/Updated: Yes Orders Last 24hrs: Active Orders 24 hr Category Date Time Status EKG Documentation Completion [RC] STAT Care 06/01/21 06:26 Active Chest 2V [CR] Stat Exams 06/01/21 06:25 Taken BLOOD CULTURE [MREF] Stat Lab 06/01/21 06:10 Received BLOOD CULTURE [MREF] Stat Lab 06/01/21 06:22 Received C-REACTIVE PROTEIN [CHEM] Stat Lab 06/01/21 07:14 Ordered Blood Culture x2 Reflex Set [OM.PC] Stat Oth 06/01/21 06:27 Ordered Assessment/Plan Comment:: Assessment - day of admission 04/01/2021 * 56-year-old female who presents the ED with low saturations after testing positive for COVID-19 * History of hypertension and cervical cancer status post hysterectomy. * On 05/25/2021 she noted fever and chills. * Saw her PCP on 05/26/2021 and blood work was done which she states was normal, however she was not tested for COVID-19 * Utilizing Tylenol and ibuprofen but her symptoms continued * Returned to her PCP on 05/31/2021 where she tested positive for SARS-CoV-2 RNA. * Chest x-ray at that time was obtained and per the patient showed "pneumonia" however the patient is not sure what exactly was seen. * Noted saturations in the 80s this morning and came to the ED as instructed * Reports nonproductive cough but no acute dyspnea or chest pain. She feels weak. Denies any nausea or vomiting. * Has not received the Covid vaccine. * 12-lead EKG is obtained showing sinus tachycardia 107 bpm with no ischemic changes. Temp is 36.9 Celsius. Pulse 97. Respirations 29. Blood pressure 98/64. Pulse ox is 86%, rising to 96% on 1 L. * Labs are obtained: * WBC 4.89 * Hemoglobin 12.0 * Platelet 400,000 * Neutrophils 58% * Sodium 135 * Potassium 3.6 * Chloride 100 * Carbon dioxide 22 * Anion gap 16.6 * BUN 12. Creatinine 0.9. GFR greater than 60 * Glucose 188 * Lactic acid 1.3 * Magnesium 1.8 * Total bilirubin 0.3 * AST is 54, ALT 47, alkaline phosphatase 45. * Troponin less than 0.017 * Protein 8.0 * Albumin 3.1 * CRP 8.4 * Chest x-ray shows bilateral hazy infiltrates consistent with COVID-19 pneumonia * She is given 6 mg dexamethasone. * Admitted to floor on telemetry for management of COVID-19 PNA and hypoxia PLAN: COVID-19 Hypoxemia * O2 as needed with goal saturations 88-95% * Start pepcid 20mg BID * 6mg dexamethasone - day 10/25 * She is outside window for remdesivir so we will hold off for now * IS/Acapella * Prone whenever able * RT consultation * Telemetry * Continuous pulse ox * Tylenol for fever * Airborne/contact isolation * Ambulate around the room * Will hold off PT and OT for now * Check D- Dimer * Check ferritin * Check LDH * Daily labs * Await blood cultures * CM consultation HTN (hypertension) * Hold home lisinopril for now * Monitor vital signs Hyperglycemia * Has had 2 readings with glucose >180 * Check A1C S/P hysterectomy History of cervical cancer * No acute concerns Code Status: Full Code PCP: Dr. Davalos DVT prophylaxis: Lovenox Disposition: Admit patient to medical floor on telemetry for management of COVID-19 pneumonia with hypoxia. - Mortality Measure Prognosis:: Good <Kade Neal Jr - Last Filed: 06/01/21 16:44> H&P History of Present Illness - General Admit Problem/Dx: Admission Diagnosis/Problem Admission Diagnosis/Problem Hypoxia Exam - Vital Signs Vital Signs: Last Vital Signs Temp 98.2 F 06/01/21 12:44 Pulse 82 06/01/21 12:46 Resp 17 06/01/21 12:44 BP 115/70 06/01/21 12:44 Pulse Ox 92 L 06/01/21 12:46 - Patient Data Lab Results Last 24 hrs: Laboratory Results - last 24 hr 06/01/21 06/01/21 06/01/21 Range/Units 06:10 06:10 06:10 WBC 4.89 (3.98-10.04) K/mm3 RBC 4.01 (3.98-5.22) M/mm3 Hgb 12.0 (11.2-15.7) gm/dl Hct 35.2 (34.1-44.9) % MCV 87.8 (79.4-94.8) fl MCH 29.9 (25.6-32.2) pg MCHC 34.1 (32.2-35.5) g/dl RDW Std Deviation 40.4 (36.4-46.3) fL Plt Count 400 H D (182-369) K/mm3 MPV 9.3 L (9.4-12.3) fl Neutrophils % (Manual) 58 (40-60) % Band Neutrophils % 12 H (0-10) % Lymphocytes % (Manual) 26 (20-40) % Atypical Lymphs % 0 % Monocytes % (Manual) 4 (2-10) % Eosinophils % (Manual) 0 L (0.7-5.8) % Basophils % (Manual) 0 L (0.1-1.2) Platelet Estimate Adequate Plt Morphology Comment Normal RBC Morph Comment Normal D-Dimer, Quantitative (0.19-0.50) mg/L Sodium 135 L (136-145) mEq/L Potassium 3.6 (3.5-5.1) mEq/L Chloride 100 (98-107) mEq/L Carbon Dioxide 22 (21-32) mEq/L Anion Gap 16.6 H (5-15) BUN 12 (7-18) mg/dL Creatinine 0.9 (0.55-1.02) mg/dL Est Cr Clr Drug Dosing 48.94 mL/min Estimated GFR (MDRD) > 60 (>60) mL/min BUN/Creatinine Ratio 13.3 L (14-18) Glucose 188 H (70-99) mg/dL Hemoglobin A1c ( - 5.6) % Lactic Acid 1.3 (0.4-2.0) mmol/L Calcium 8.3 L (8.5-10.1) mg/dL Magnesium 1.8 (1.8-2.4) mg/dL Ferritin (8-252) ng/ml Total Bilirubin 0.3 (0.2-1.0) mg/dL AST 54 H (15-37) U/L ALT 47 (14-59) U/L Alkaline Phosphatase 45 L (46-116) U/L Lactate Dehydrogenase (81-234) U/L Troponin I < 0.017 (0.00-0.056) ng/mL C-Reactive Protein (<1.0) mg/dL Total Protein 8.0 (6.4-8.2) g/dl Albumin 3.1 L (3.4-5.0) g/dl Globulin 4.9 gm/dL Albumin/Globulin Ratio 0.6 L (1-2) 06/01/21 06/01/21 06/01/21 Range/Units 06:10 06:10 06:10 WBC (3.98-10.04) K/mm3 RBC (3.98-5.22) M/mm3 Hgb (11.2-15.7) gm/dl Hct (34.1-44.9) % MCV (79.4-94.8) fl MCH (25.6-32.2) pg MCHC (32.2-35.5) g/dl RDW Std Deviation (36.4-46.3) fL Plt Count (182-369) K/mm3 MPV (9.4-12.3) fl Neutrophils % (Manual) (40-60) % Band Neutrophils % (0-10) % Lymphocytes % (Manual) (20-40) % Atypical Lymphs % % Monocytes % (Manual) (2-10) % Eosinophils % (Manual) (0.7-5.8) % Basophils % (Manual) (0.1-1.2) Platelet Estimate Plt Morphology Comment RBC Morph Comment D-Dimer, Quantitative (0.19-0.50) mg/L Sodium (136-145) mEq/L Potassium (3.5-5.1) mEq/L Chloride (98-107) mEq/L Carbon Dioxide (21-32) mEq/L Anion Gap (5-15) BUN (7-18) mg/dL Creatinine (0.55-1.02) mg/dL Est Cr Clr Drug Dosing mL/min Estimated GFR (MDRD) (>60) mL/min BUN/Creatinine Ratio (14-18) Glucose (70-99) mg/dL Hemoglobin A1c ( - 5.6) % Lactic Acid (0.4-2.0) mmol/L Calcium (8.5-10.1) mg/dL Magnesium (1.8-2.4) mg/dL Ferritin 1858 H (8-252) ng/ml Total Bilirubin (0.2-1.0) mg/dL AST (15-37) U/L ALT (14-59) U/L Alkaline Phosphatase (46-116) U/L Lactate Dehydrogenase 408 H (81-234) U/L Troponin I (0.00-0.056) ng/mL C-Reactive Protein 8.4 H* (<1.0) mg/dL Total Protein (6.4-8.2) g/dl Albumin (3.4-5.0) g/dl Globulin gm/dL Albumin/Globulin Ratio (1-2) 06/01/21 06/01/21 Range/Units 06:10 12:03 WBC (3.98-10.04) K/mm3 RBC (3.98-5.22) M/mm3 Hgb (11.2-15.7) gm/dl Hct (34.1-44.9) % MCV (79.4-94.8) fl MCH (25.6-32.2) pg MCHC (32.2-35.5) g/dl RDW Std Deviation (36.4-46.3) fL Plt Count (182-369) K/mm3 MPV (9.4-12.3) fl Neutrophils % (Manual) (40-60) % Band Neutrophils % (0-10) % Lymphocytes % (Manual) (20-40) % Atypical Lymphs % % Monocytes % (Manual) (2-10) % Eosinophils % (Manual) (0.7-5.8) % Basophils % (Manual) (0.1-1.2) Platelet Estimate Plt Morphology Comment RBC Morph Comment D-Dimer, Quantitative 0.41 (0.19-0.50) mg/L Sodium (136-145) mEq/L Potassium (3.5-5.1) mEq/L Chloride (98-107) mEq/L Carbon Dioxide (21-32) mEq/L Anion Gap (5-15) BUN (7-18) mg/dL Creatinine (0.55-1.02) mg/dL Est Cr Clr Drug Dosing mL/min Estimated GFR (MDRD) (>60) mL/min BUN/Creatinine Ratio (14-18) Glucose (70-99) mg/dL Hemoglobin A1c 7.7 H ( - 5.6) % Lactic Acid (0.4-2.0) mmol/L Calcium (8.5-10.1) mg/dL Magnesium (1.8-2.4) mg/dL Ferritin (8-252) ng/ml Total Bilirubin (0.2-1.0) mg/dL AST (15-37) U/L ALT (14-59) U/L Alkaline Phosphatase (46-116) U/L Lactate Dehydrogenase (81-234) U/L Troponin I (0.00-0.056) ng/mL C-Reactive Protein (<1.0) mg/dL Total Protein (6.4-8.2) g/dl Albumin (3.4-5.0) g/dl Globulin gm/dL Albumin/Globulin Ratio (1-2) Result Diagrams: 06/01/21 06:10 06/01/21 06:10 Sepsis Event Note - Focused Exam Vital Signs: Vital Signs Temp Temp Pulse Pulse Resp BP BP 06/01/21 12:46 82 06/01/21 12:44 98.2 F 17 115/70 06/01/21 11:43 97.1 F 94 28 H 119/73 06/01/21 06:33 97 29 H 98/64 06/01/21 06:01 98.5 F 122 H 32 H 105/68 Pulse Ox 06/01/21 12:46 92 L 06/01/21 12:44 06/01/21 11:43 98 06/01/21 06:33 96 06/01/21 06:01 86 L Orders Last 24hrs: Active Orders 24 hr Category Date Time Status Admission Status [Patient Status] [ADT] Routine ADT 06/01/21 09:08 Active Acapella [RT Chest Physiotherapy] [RC] ASDIRECTED Care 06/01/21 09:11 Active Blood Glucose Check, Bedside [RC] QIDACANDBED Care 06/01/21 15:17 Active Cardiac Monitoring [RC] . DIRECTED Care 06/01/21 09:08 Active Height and Weight [RC] 06 Care 06/01/21 11:28 Active Intake and Output [RC] 04,16 Care 06/01/21 11:28 Active Oxygen Therapy [RC] ASDIRECTED Care 06/01/21 09:10 Active Pulse Oximetry [RC] CONTINUOUS Care 06/01/21 11:28 Active RT Incentive Spirometry [RC] ASDIRECTED Care 06/01/21 09:11 Active Up ad Kayla [RC] ASDIRECTED Care 06/01/21 11:28 Active Vital Signs [RC] 03,09,,21 Care 06/01/21 11:28 Active patient positioning [Positioning, Patient] [RC] Care 06/01/21 09:11 Active ASDIRECTED Consult to Case Management/Cyanide Furnace Operator [CONS] Cons 06/01/21 11:32 Active Routine Consult to Yard Specialist [CONS] Routine Cons 06/01/21 15:17 Active Respiratory Care Assess and Treatment [CONS] Routine Cons 06/01/21 11:29 Acti ve ADA Diabetic [[place] [employer] Diet] [DIET Diet 06/01/21 Dinner Active ] BLOOD CULTURE [MREF] Stat Lab 06/01/21 06:10 Received BLOOD CULTURE [MREF] Stat Lab 06/01/21 06:22 Received C-REACTIVE PROTEIN [CHEM] AM Lab 06/02/21 05:11 Ordered C-REACTIVE PROTEIN [CHEM] AM Lab 06/03/21 05:11 Ordered C-REACTIVE PROTEIN [CHEM] AM Lab 06/04/21 05:11 Ordered C-REACTIVE PROTEIN [CHEM] AM Lab 06/05/21 05:11 Ordered CBC WITH AUTO DIFF [HEME] AM Lab 06/02/21 05:11 Ordered CBC WITH AUTO DIFF [HEME] AM Lab 06/03/21 05:11 Ordered CBC WITH AUTO DIFF [HEME] AM Lab 06/04/21 05:11 Ordered CBC WITH AUTO DIFF [HEME] AM Lab 06/05/21 05:11 Ordered COMPREHENSIVE METABOLIC PN,CMP [CHEM] AM Lab 06/02/21 05:11 Ordered COMPREHENSIVE METABOLIC PN,CMP [CHEM] AM Lab 06/03/21 05:11 Ordered COMPREHENSIVE METABOLIC PN,CMP [CHEM] AM Lab 06/04/21 05:11 Ordered COMPREHENSIVE METABOLIC PN,CMP [CHEM] AM Lab 06/05/21 05:11 Ordered MAGNESIUM [CHEM] AM Lab 06/02/21 05:11 Ordered MAGNESIUM [CHEM] AM Lab 06/03/21 05:11 Ordered MAGNESIUM [CHEM] AM Lab 06/04/21 05:11 Ordered MAGNESIUM [CHEM] AM Lab 06/05/21 05:11 Ordered Acetaminophen [TylenoL] Med 06/01/21 11:46 Active 650 mg PO Q4H PRN Albuterol [Proventil HFA] Med 06/01/21 11:46 Active See Dose Instructions INH Q2H PRN Enoxaparin [Lovenox] Med 06/01/21 09:00 Active 40 mg SUBCUT DAILY Famotidine [Pepcid] Med 06/01/21 21:00 Active 20 mg PO BID Insulin Lispro [HumaLOG] Med 06/01/21 17:00 Active See Protocol SUBCUT QIDACANDBED Ondansetron [Zofran] Med 06/01/21 11:46 Active 4 mg IV Q6H PRN Remdesivir 100 mg Med 06/02/21 15:30 Active Sodium Chloride 0.9% [Normal Saline] 100 ml IV Q24H dexAMETHasone Med 06/02/21 09:00 Active 6 mg PO DAILY Blood Culture x2 Reflex Set [OM.PC] Stat Oth 06/01/21 06:27 Ordered Isolation [COMM] Routine Oth 06/01/21 11:28 Ordered Pulse Oximetry Continuous Monitoring [OM.PC] Routine Oth 06/01/21 09:10 Active Code Status [Resuscitation Status] Stat Resus Stat 06/01/21 09:09 Ordered Medication Orders Acetaminophen (Acetaminophen 325 Mg Tab) 650 mg PO Q4H PRN PRN Reason: Pain (Mild 1-3)/fever Albuterol (Albuterol 6.7 Gm Inhaler) 0 gm INH Q2H PRN PRN Reason: SOB/Wheezing Dexamethasone (Dexamethasone 4 Mg Tab) 6 mg PO DAILY [facility] Stop: 06/10/21 09:01 Enoxaparin Sodium (Enoxaparin 40 Mg/0.4 Ml Syringe) 40 mg SUBCUT DAILY [facility] Last Admin: 06/01/21 13:29 Dose: 40 mg Documented by: ZHEN Famotidine (Famotidine 20 Mg Tab) 20 mg PO BID [facility] Remdesivir 100 mg/ Sodium (Chloride) 100 mls @ 100 mls/hr IV Q24H [facility] Stop: 06/05/21 16:29 Insulin Human Lispro (Insulin Lispro 100 Unit/Ml 10 Ml Vial) 0 unit SUBCUT QIDACANDBED [facility]; Protocol Ondansetron HCl (Ondansetron 4 Mg/2 Ml Sdv) 4 mg IV Q6H PRN PRN Reason: Nausea/Vomiting Assessment/Plan Comment:: Case discussed in full. Agree with evaluation, assessment and plan.
--- NOTE | 2021-06-01 09:30 | CR ---
Chest: 2 views of the chest were obtained. Comparison: Prior chest CT study of 03/10/21 and chest x-ray of 03/09/21. Patchy areas of increased density are noted within both sides of the chest. Findings are an interval change from previous exam. Heart size and mediastinum are normal. Bony structures are unremarkable. Surgical clips are seen from prior cholecystectomy. Impression: 1. Increased density is seen on both sides of the chest most likely representing COVID pneumonia. Diagnostic code #3
[2021-06-01] MEDS ORDERED: Magnesium Sulfate/Water 2 GM in Premix Bag 1 BAG IV ONE (11:31)
[2021-06-01] MEDS ORDERED: Acetaminophen 325 MG Tab PO PRN (11:46)
[2021-06-01] MEDS ORDERED: Ondansetron 4 MG/2 ML SDV IV PRN (11:46)
[2021-06-01] MEDS: Enoxaparin 40 MG/0.4 ML Syringe SUBCUT SCH (13:29)
[2021-06-01 14:51] LABS: HEMOGLOBIN A1C 7.7 %
[2021-06-01] MEDS ORDERED: REMDESIVIR 200 MG in Sodium Chloride 0.9% 250 ML IV ONE (15:30)
[2021-06-01] MEDS: Insulin Lispro 100 UNIT/ML 10 ML Vial SUBCUT SCH ×2 (18:39→21:04)
[2021-06-01] MEDS: Famotidine 20 MG Tab PO SCH (21:05)
--- NOTE | 2021-06-02 07:22 | PCM.PN ---
<Rommel Jacques - Last Filed: 06/02/21 14:00> - General Info Date of Service: 06/02/21 Admission Dx/Problem (Free Text): Admission Diagnosis/Problem Admission Diagnosis/Problem Hypoxia Functional Status: Reports: Pain Controlled, Tolerating Diet, Ambulating, Urinating, Incentive Spirometry, Other (Acapella ). Denies: New Symptoms - Review of Systems General: Reports: Weakness, Fatigue, Malaise. Denies: Fever, Chills HEENT: Reports: No Symptoms. Denies: Headaches, Sore Throat Pulmonary: Reports: No Symptoms, Shortness of Breath, Cough. Denies: Pleuritic Chest Pain, Sputum, Wheezing Cardiovascular: Reports: No Symptoms, Dyspnea on Exertion. Denies: Chest Pain, Palpitations, Edema Gastrointestinal: Reports: No Symptoms. Denies: Abdominal Pain, Constipation, Diarrhea, Nausea, Vomiting Genitourinary: Reports: No Symptoms. Denies: Pain Musculoskeletal: Reports: No Symptoms Skin: Reports: No Symptoms. Denies: Cyanosis Neurological: Reports: No Symptoms. Denies: Confusion, Dizziness, Headache, Numbness, Pre-Existing Deficit, Syncope, Tingling, Difficulty Walking, Gait Disturbance Psychiatric: Reports: No Symptoms - Patient Data Vitals - Most Recent: Last Vital Signs Temp 98.5 F 06/02/21 03:00 Pulse 82 06/02/21 03:00 Resp 36 H 06/02/21 05:14 BP 100/58 L 06/02/21 03:00 Pulse Ox 93 L 06/02/21 05:26 Weight - Most Recent: 135 lb 1.6 oz I&O - Last 24 Hours: Intake & Output 06/01/21 06/02/21 06/02/21 22:59 06:59 14:59 Intake Total 820 Output Total 1200 Balance -380 Lab Results Last 24 Hours: Laboratory Results - last 24 hr 06/01/21 06/01/21 06/01/21 Range/Units 06:10 06:10 06:10 WBC (3.98-10.04) K/mm3 RBC (3.98-5.22) M/mm3 Hgb (11.2-15.7) gm/dl Hct (34.1-44.9) % MCV (79.4-94.8) fl MCH (25.6-32.2) pg MCHC (32.2-35.5) g/dl RDW Std Deviation (36.4-46.3) fL Plt Count (182-369) K/mm3 MPV (9.4-12.3) fl Neut % (Auto) (34.0-71.1) % Lymph % (Auto) (19.3-51.7) % [place] % (Auto) (4.7-12.5) % Eos % (Auto) (0.7-5.8) Baso % (Auto) (0.1-1.2) % Neut # (Auto) (1.56-6.13) K/mm3 Lymph # (Auto) (1.18-3.74) K/mm3 [place] # (Auto) (0.24-0.36) K/mm3 Eos # (Auto) (0.04-0.36) K/mm3 Baso # (Auto) (0.01-0.08) K/mm3 Manual Slide Review D-Dimer, Quantitative (0.19-0.50) mg/L Sodium (136-145) mEq/L Potassium (3.5-5.1) mEq/L Chloride (98-107) mEq/L Carbon Dioxide (21-32) mEq/L Anion Gap (5-15) BUN (7-18) mg/dL Creatinine (0.55-1.02) mg/dL Est Cr Clr Drug Dosing mL/min Estimated GFR (MDRD) (>60) mL/min BUN/Creatinine Ratio (14-18) Glucose (70-99) mg/dL POC Glucose (70-99) mg/dL Hemoglobin A1c ( - 5.6) % Calcium (8.5-10.1) mg/dL Magnesium (1.8-2.4) mg/dL Ferritin 1858 H (8-252) ng/ml Total Bilirubin (0.2-1.0) mg/dL AST (15-37) U/L ALT (14-59) U/L Alkaline Phosphatase (46-116) U/L Lactate Dehydrogenase 408 H (81-234) U/L C-Reactive Protein 8.4 H* (<1.0) mg/dL Total Protein (6.4-8.2) g/dl Albumin (3.4-5.0) g/dl Globulin gm/dL Albumin/Globulin Ratio (1-2) 06/01/21 06/01/21 06/01/21 Range/Units 06:10 12:03 17:53 WBC (3.98-10.04) K/mm3 RBC (3.98-5.22) M/mm3 Hgb (11.2-15.7) gm/dl Hct (34.1-44.9) % MCV (79.4-94.8) fl MCH (25.6-32.2) pg MCHC (32.2-35.5) g/dl RDW Std Deviation (36.4-46.3) fL Plt Count (182-369) K/mm3 MPV (9.4-12.3) fl Neut % (Auto) (34.0-71.1) % Lymph % (Auto) (19.3-51.7) % [place] % (Auto) (4.7-12.5) % Eos % (Auto) (0.7-5.8) Baso % (Auto) (0.1-1.2) % Neut # (Auto) (1.56-6.13) K/mm3 Lymph # (Auto) (1.18-3.74) K/mm3 [place] # (Auto) (0.24-0.36) K/mm3 Eos # (Auto) (0.04-0.36) K/mm3 Baso # (Auto) (0.01-0.08) K/mm3 Manual Slide Review D-Dimer, Quantitative 0.41 (0.19-0.50) mg/L Sodium (136-145) mEq/L Potassium (3.5-5.1) mEq/L Chloride (98-107) mEq/L Carbon Dioxide (21-32) mEq/L Anion Gap (5-15) BUN (7-18) mg/dL Creatinine (0.55-1.02) mg/dL Est Cr Clr Drug Dosing mL/min Estimated GFR (MDRD) (>60) mL/min BUN/Creatinine Ratio (14-18) Glucose (70-99) mg/dL POC Glucose 225 H (70-99) mg/dL Hemoglobin A1c 7.7 H ( - 5.6) % Calcium (8.5-10.1) mg/dL Magnesium (1.8-2.4) mg/dL Ferritin (8-252) ng/ml Total Bilirubin (0.2-1.0) mg/dL AST (15-37) U/L ALT (14-59) U/L Alkaline Phosphatase (46-116) U/L Lactate Dehydrogenase (81-234) U/L C-Reactive Protein (<1.0) mg/dL Total Protein (6.4-8.2) g/dl Albumin (3.4-5.0) g/dl Globulin gm/dL Albumin/Globulin Ratio (1-2) 06/01/21 06/02/21 06/02/21 Range/Units 20:58 05:21 05:21 WBC 5.54 (3.98-10.04) K/mm3 RBC 4.05 (3.98-5.22) M/mm3 Hgb 12.0 (11.2-15.7) gm/dl Hct 35.8 (34.1-44.9) % MCV 88.4 (79.4-94.8) fl MCH 29.6 (25.6-32.2) pg MCHC 33.5 (32.2-35.5) g/dl RDW Std Deviation 41.0 (36.4-46.3) fL Plt Count 441 H (182-369) K/mm3 MPV 9.6 (9.4-12.3) fl Neut % (Auto) 69.8 (34.0-71.1) % Lymph % (Auto) 18.6 L (19.3-51.7) % [place] % (Auto) 11.4 (4.7-12.5) % Eos % (Auto) 0 L (0.7-5.8) Baso % (Auto) 0.2 (0.1-1.2) % Neut # (Auto) 3.87 (1.56-6.13) K/mm3 Lymph # (Auto) 1.03 L (1.18-3.74) K/mm3 [place] # (Auto) 0.63 H (0.24-0.36) K/mm3 Eos # (Auto) 0.00 L (0.04-0.36) K/mm3 Baso # (Auto) 0.01 (0.01-0.08) K/mm3 Manual Slide Review Abnormal smear D-Dimer, Quantitative (0.19-0.50) mg/L Sodium 140 (136-145) mEq/L Potassium 4.1 (3.5-5.1) mEq/L Chloride 105 (98-107) mEq/L Carbon Dioxide 25 (21-32) mEq/L Anion Gap 14.1 (5-15) BUN 16 (7-18) mg/dL Creatinine 0.7 (0.55-1.02) mg/dL Est Cr Clr Drug Dosing 62.92 mL/min Estimated GFR (MDRD) > 60 (>60) mL/min BUN/Creatinine Ratio 22.9 H (14-18) Glucose 126 H (70-99) mg/dL POC Glucose 202 H (70-99) mg/dL Hemoglobin A1c ( - 5.6) % Calcium 8.5 (8.5-10.1) mg/dL Magnesium 2.4 (1.8-2.4) mg/dL Ferritin (8-252) ng/ml Total Bilirubin 0.2 (0.2-1.0) mg/dL AST 44 H (15-37) U/L ALT 41 (14-59) U/L Alkaline Phosphatase 48 (46-116) U/L Lactate Dehydrogenase (81-234) U/L C-Reactive Protein 6.8 H* (<1.0) mg/dL Total Protein 7.9 (6.4-8.2) g/dl Albumin 2.9 L (3.4-5.0) g/dl Globulin 5.0 gm/dL Albumin/Globulin Ratio 0.6 L (1-2) 06/02/21 Range/Units 06:33 WBC (3.98-10.04) K/mm3 RBC (3.98-5.22) M/mm3 Hgb (11.2-15.7) gm/dl Hct (34.1-44.9) % MCV (79.4-94.8) fl MCH (25.6-32.2) pg MCHC (32.2-35.5) g/dl RDW Std Deviation (36.4-46.3) fL Plt Count (182-369) K/mm3 MPV (9.4-12.3) fl Neut % (Auto) (34.0-71.1) % Lymph % (Auto) (19.3-51.7) % [place] % (Auto) (4.7-12.5) % Eos % (Auto) (0.7-5.8) Baso % (Auto) (0.1-1.2) % Neut # (Auto) (1.56-6.13) K/mm3 Lymph # (Auto) (1.18-3.74) K/mm3 [place] # (Auto) (0.24-0.36) K/mm3 Eos # (Auto) (0.04-0.36) K/mm3 Baso # (Auto) (0.01-0.08) K/mm3 Manual Slide Review D-Dimer, Quantitative (0.19-0.50) mg/L Sodium (136-145) mEq/L Potassium (3.5-5.1) mEq/L Chloride (98-107) mEq/L Carbon Dioxide (21-32) mEq/L Anion Gap (5-15) BUN (7-18) mg/dL Creatinine (0.55-1.02) mg/dL Est Cr Clr Drug Dosing mL/min Estimated GFR (MDRD) (>60) mL/min BUN/Creatinine Ratio (14-18) Glucose (70-99) mg/dL POC Glucose 124 H (70-99) mg/dL Hemoglobin A1c ( - 5.6) % Calcium (8.5-10.1) mg/dL Magnesium (1.8-2.4) mg/dL Ferritin (8-252) ng/ml Total Bilirubin (0.2-1.0) mg/dL AST (15-37) U/L ALT (14-59) U/L Alkaline Phosphatase (46-116) U/L Lactate Dehydrogenase (81-234) U/L C-Reactive Protein (<1.0) mg/dL Total Protein (6.4-8.2) g/dl Albumin (3.4-5.0) g/dl Globulin gm/dL Albumin/Globulin Ratio (1-2) Med Orders - Current: Current Medications Acetaminophen (Acetaminophen 325 Mg Tab) 650 mg PO Q4H PRN PRN Reason: Pain (Mild 1-3)/fever Albuterol (Albuterol 6.7 Gm Inhaler) 0 gm INH Q2H PRN PRN Reason: SOB/Wheezing Dexamethasone (Dexamethasone 4 Mg Tab) 6 mg PO DAILY [facility] Stop: 06/10/21 09:01 Enoxaparin Sodium (Enoxaparin 40 Mg/0.4 Ml Syringe) 40 mg SUBCUT DAILY [facility] Last Admin: 06/01/21 13:29 Dose: 40 mg Documented by: Famotidine (Famotidine 20 Mg Tab) 20 mg PO BID [facility] Last Admin: 06/01/21 21:05 Dose: 20 mg Documented by: Remdesivir 100 mg/ Sodium (Chloride) 100 mls @ 100 mls/hr IV Q24H [facility] Stop: 06/05/21 16:29 Insulin Human Lispro (Insulin Lispro 100 Unit/Ml 10 Ml Vial) 0 unit SUBCUT QIDACANDBED [facility]; Protocol Last Admin: 06/01/21 21:04 Dose: 2 unit Documented by: Ondansetron HCl (Ondansetron 4 Mg/2 Ml Sdv) 4 mg IV Q6H PRN PRN Reason: Nausea/Vomiting Discontinued Medications Dexamethasone (Dexamethasone 4 Mg Tab) 6 mg PO ONETIME STA Stop: 06/01/21 06:31 Last Admin: 06/01/21 06:56 Dose: 6 mg Documented by: Magnesium Sulfate 2 gm/ Premix 50 mls @ 25 mls/hr IV ONETIME ONE Stop: 06/01/21 13:30 Last Admin: 06/01/21 13:30 Dose: 25 mls/hr Documented by: Remdesivir 200 mg/ Sodium (Chloride) 250 mls @ 250 mls/hr IV ONETIME ONE Stop: 06/01/21 16:29 Last Admin: 06/01/21 15:40 Dose: 250 mls/hr Documented by: - Exam Quality Assessment: Supplemental Oxygen (High flow 50 L at 50% FiO2), DVT Prophylaxis. No: Urine Catheter General: Alert, Oriented, Cooperative, No Acute Distress HEENT: Pupils Equal, Pupils Reactive, Mucous Membr. Moist/[place] Neck: Supple, Trachea Midline Lungs: Normal Respiratory Effort, Decreased Breath Sounds. No: Crackles, Rales, Rhonchi, Wheezing Cardiovascular: Regular Rate, Regular Rhythm GI/Abdominal Exam: Normal Bowel Sounds, Soft, Non-Tender, No Distention (Female) Exam: Deferred Back Exam: Normal Inspection, Full Range of Motion Extremities: Normal Inspection, Normal Range of Motion, Non-Tender, No Pedal Edema, Normal Capillary Refill Peripheral Pulses: 3+: Radial (L), Radial (R), Dorsalis Pedis (L), Dorsalis Pedis (R) Skin: Warm, Dry, Intact Neurological: No New Focal Deficit Psy/Mental Status: Alert, Normal Affect, Normal Mood - Patient Data Lab Results Last 24 hrs: Laboratory Results - last 24 hr 06/01/21 06/01/21 06/01/21 Range/Units 06:10 06:10 06:10 WBC (3.98-10.04) K/mm3 RBC (3.98-5.22) M/mm3 Hgb (11.2-15.7) gm/dl Hct (34.1-44.9) % MCV (79.4-94.8) fl MCH (25.6-32.2) pg MCHC (32.2-35.5) g/dl RDW Std Deviation (36.4-46.3) fL Plt Count (182-369) K/mm3 MPV (9.4-12.3) fl Neut % (Auto) (34.0-71.1) % Lymph % (Auto) (19.3-51.7) % [place] % (Auto) (4.7-12.5) % Eos % (Auto) (0.7-5.8) Baso % (Auto) (0.1-1.2) % Neut # (Auto) (1.56-6.13) K/mm3 Lymph # (Auto) (1.18-3.74) K/mm3 [place] # (Auto) (0.24-0.36) K/mm3 Eos # (Auto) (0.04-0.36) K/mm3 Baso # (Auto) (0.01-0.08) K/mm3 Manual Slide Review D-Dimer, Quantitative (0.19-0.50) mg/L Sodium (136-145) mEq/L Potassium (3.5-5.1) mEq/L Chloride (98-107) mEq/L Carbon Dioxide (21-32) mEq/L Anion Gap (5-15) BUN (7-18) mg/dL Creatinine (0.55-1.02) mg/dL Est Cr Clr Drug Dosing mL/min Estimated GFR (MDRD) (>60) mL/min BUN/Creatinine Ratio (14-18) Glucose (70-99) mg/dL POC Glucose (70-99) mg/dL Hemoglobin A1c ( - 5.6) % Calcium (8.5-10.1) mg/dL Magnesium (1.8-2.4) mg/dL Ferritin 1858 H (8-252) ng/ml Total Bilirubin (0.2-1.0) mg/dL AST (15-37) U/L ALT (14-59) U/L Alkaline Phosphatase (46-116) U/L Lactate Dehydrogenase 408 H (81-234) U/L C-Reactive Protein 8.4 H* (<1.0) mg/dL Total Protein (6.4-8.2) g/dl Albumin (3.4-5.0) g/dl Globulin gm/dL Albumin/Globulin Ratio (1-2) 06/01/21 06/01/21 06/01/21 Range/Units 06:10 12:03 17:53 WBC (3.98-10.04) K/mm3 RBC (3.98-5.22) M/mm3 Hgb (11.2-15.7) gm/dl Hct (34.1-44.9) % MCV (79.4-94.8) fl MCH (25.6-32.2) pg MCHC (32.2-35.5) g/dl RDW Std Deviation (36.4-46.3) fL Plt Count (182-369) K/mm3 MPV (9.4-12.3) fl Neut % (Auto) (34.0-71.1) % Lymph % (Auto) (19.3-51.7) % [place] % (Auto) (4.7-12.5) % Eos % (Auto) (0.7-5.8) Baso % (Auto) (0.1-1.2) % Neut # (Auto) (1.56-6.13) K/mm3 Lymph # (Auto) (1.18-3.74) K/mm3 [place] # (Auto) (0.24-0.36) K/mm3 Eos # (Auto) (0.04-0.36) K/mm3 Baso # (Auto) (0.01-0.08) K/mm3 Manual Slide Review D-Dimer, Quantitative 0.41 (0.19-0.50) mg/L Sodium (136-145) mEq/L Potassium (3.5-5.1) mEq/L Chloride (98-107) mEq/L Carbon Dioxide (21-32) mEq/L Anion Gap (5-15) BUN (7-18) mg/dL Creatinine (0.55-1.02) mg/dL Est Cr Clr Drug Dosing mL/min Estimated GFR (MDRD) (>60) mL/min BUN/Creatinine Ratio (14-18) Glucose (70-99) mg/dL POC Glucose 225 H (70-99) mg/dL Hemoglobin A1c 7.7 H ( - 5.6) % Calcium (8.5-10.1) mg/dL Magnesium (1.8-2.4) mg/dL Ferritin (8-252) ng/ml Total Bilirubin (0.2-1.0) mg/dL AST (15-37) U/L ALT (14-59) U/L Alkaline Phosphatase (46-116) U/L Lactate Dehydrogenase (81-234) U/L C-Reactive Protein (<1.0) mg/dL Total Protein (6.4-8.2) g/dl Albumin (3.4-5.0) g/dl Globulin gm/dL Albumin/Globulin Ratio (1-2) 06/01/21 06/02/21 06/02/21 Range/Units 20:58 05:21 05:21 WBC 5.54 (3.98-10.04) K/mm3 RBC 4.05 (3.98-5.22) M/mm3 Hgb 12.0 (11.2-15.7) gm/dl Hct 35.8 (34.1-44.9) % MCV 88.4 (79.4-94.8) fl MCH 29.6 (25.6-32.2) pg MCHC 33.5 (32.2-35.5) g/dl RDW Std Deviation 41.0 (36.4-46.3) fL Plt Count 441 H (182-369) K/mm3 MPV 9.6 (9.4-12.3) fl Neut % (Auto) 69.8 (34.0-71.1) % Lymph % (Auto) 18.6 L (19.3-51.7) % [place] % (Auto) 11.4 (4.7-12.5) % Eos % (Auto) 0 L (0.7-5.8) Baso % (Auto) 0.2 (0.1-1.2) % Neut # (Auto) 3.87 (1.56-6.13) K/mm3 Lymph # (Auto) 1.03 L (1.18-3.74) K/mm3 [place] # (Auto) 0.63 H (0.24-0.36) K/mm3 Eos # (Auto) 0.00 L (0.04-0.36) K/mm3 Baso # (Auto) 0.01 (0.01-0.08) K/mm3 Manual Slide Review Abnormal smear D-Dimer, Quantitative (0.19-0.50) mg/L Sodium 140 (136-145) mEq/L Potassium 4.1 (3.5-5.1) mEq/L Chloride 105 (98-107) mEq/L Carbon Dioxide 25 (21-32) mEq/L Anion Gap 14.1 (5-15) BUN 16 (7-18) mg/dL Creatinine 0.7 (0.55-1.02) mg/dL Est Cr Clr Drug Dosing 62.92 mL/min Estimated GFR (MDRD) > 60 (>60) mL/min BUN/Creatinine Ratio 22.9 H (14-18) Glucose 126 H (70-99) mg/dL POC Glucose 202 H (70-99) mg/dL Hemoglobin A1c ( - 5.6) % Calcium 8.5 (8.5-10.1) mg/dL Magnesium 2.4 (1.8-2.4) mg/dL Ferritin (8-252) ng/ml Total Bilirubin 0.2 (0.2-1.0) mg/dL AST 44 H (15-37) U/L ALT 41 (14-59) U/L Alkaline Phosphatase 48 (46-116) U/L Lactate Dehydrogenase (81-234) U/L C-Reactive Protein 6.8 H* (<1.0) mg/dL Total Protein 7.9 (6.4-8.2) g/dl Albumin 2.9 L (3.4-5.0) g/dl Globulin 5.0 gm/dL Albumin/Globulin Ratio 0.6 L (1-2) 06/02/21 Range/Units 06:33 WBC (3.98-10.04) K/mm3 RBC (3.98-5.22) M/mm3 Hgb (11.2-15.7) gm/dl Hct (34.1-44.9) % MCV (79.4-94.8) fl MCH (25.6-32.2) pg MCHC (32.2-35.5) g/dl RDW Std Deviation (36.4-46.3) fL Plt Count (182-369) K/mm3 MPV (9.4-12.3) fl Neut % (Auto) (34.0-71.1) % Lymph % (Auto) (19.3-51.7) % [place] % (Auto) (4.7-12.5) % Eos % (Auto) (0.7-5.8) Baso % (Auto) (0.1-1.2) % Neut # (Auto) (1.56-6.13) K/mm3 Lymph # (Auto) (1.18-3.74) K/mm3 [place] # (Auto) (0.24-0.36) K/mm3 Eos # (Auto) (0.04-0.36) K/mm3 Baso # (Auto) (0.01-0.08) K/mm3 Manual Slide Review D-Dimer, Quantitative (0.19-0.50) mg/L Sodium (136-145) mEq/L Potassium (3.5-5.1) mEq/L Chloride (98-107) mEq/L Carbon Dioxide (21-32) mEq/L Anion Gap (5-15) BUN (7-18) mg/dL Creatinine (0.55-1.02) mg/dL Est Cr Clr Drug Dosing mL/min Estimated GFR (MDRD) (>60) mL/min BUN/Creatinine Ratio (14-18) Glucose (70-99) mg/dL POC Glucose 124 H (70-99) mg/dL Hemoglobin A1c ( - 5.6) % Calcium (8.5-10.1) mg/dL Magnesium (1.8-2.4) mg/dL Ferritin (8-252) ng/ml Total Bilirubin (0.2-1.0) mg/dL AST (15-37) U/L ALT (14-59) U/L Alkaline Phosphatase (46-116) U/L Lactate Dehydrogenase (81-234) U/L C-Reactive Protein (<1.0) mg/dL Total Protein (6.4-8.2) g/dl Albumin (3.4-5.0) g/dl Globulin gm/dL Albumin/Globulin Ratio (1-2) Result Diagrams: 06/02/21 05:21 06/02/21 05:21 Sepsis Event Note - Evaluation Sepsis Screening Result: No Definite Risk - Focused Exam Vital Signs: Vital Signs Temp Pulse Resp BP Pulse Ox Pulse Ox Pulse Ox 06/02/21 05:26 93 L 06/02/21 05:24 06/02/21 05:14 36 H 91 L 06/02/21 05:13 92 L 06/02/21 05:02 06/02/21 05:00 06/02/21 04:57 85 L 06/02/21 04:53 86 L 06/02/21 03:00 98.5 F 82 20 100/58 L 06/01/21 21:00 98.4 F 82 18 95/82 90 L Pulse Ox 06/02/21 05:26 06/02/21 05:24 95 06/02/21 05:14 06/02/21 05:13 06/02/21 05:02 93 L 06/02/21 05:00 93 L 06/02/21 04:57 06/02/21 04:53 06/02/21 03:00 06/01/21 21:00 - Problem List & Annotations (1) HTN (hypertension) SNOMED Code(s): 99092304 Code(s): I10 - ESSENTIAL (PRIMARY) HYPERTENSION Status: Chronic Priority: Low Current Visit: No Qualifiers: Hypertension type: unspecified Qualified Code(s): I10 - Essential (primary) hypertension (2) S/P hysterectomy SNOMED Code(s): 741553461, 735249939, 159120982 Code(s): Z90.710 - ACQUIRED ABSENCE OF BOTH CERVIX AND UTERUS Status: Chronic Priority: Low Current Visit: No (3) History of cervical cancer Status: Chronic Priority: Low Current Visit: No (4) COVID-19 SNOMED Code(s): 783515901 Code(s): U07.1 - COVID-19 Status: Acute Priority: High Current Visit: Yes (5) Hyperglycemia SNOMED Code(s): 21227685 Code(s): R73.9 - HYPERGLYCEMIA, UNSPECIFIED Status: Acute Current Visit: No (6) Hypoxemia SNOMED Code(s): 822285336 Code(s): R09.02 - HYPOXEMIA Status: Acute Current Visit: No (7) New onset type 2 diabetes mellitus SNOMED Code(s): 27397292 Code(s): E11.9 - TYPE 2 DIABETES MELLITUS WITHOUT COMPLICATIONS Status: Acute Priority: High Current Visit: Yes - Problem List Review Problem List Initiated/Reviewed/Updated: Yes - My Orders Last 24 Hours: My Active Orders 06/01/21 09:00 Enoxaparin [Lovenox] 40 mg SUBCUT DAILY 06/01/21 09:08 Admission Status [Patient Status] [ADT] Routine Cardiac Monitoring [RC] . DIRECTED 06/01/21 09:09 Code Status [Resuscitation Status] Stat 06/01/21 09:10 Oxygen Therapy [RC] ASDIRECTED Pulse Oximetry Continuous Monitoring [OM.PC] Routine 06/01/21 09:11 Acapella [RT Chest Physiotherapy] [RC] ASDIRECTED RT Incentive Spirometry [RC] ASDIRECTED patient positioning [Positioning, Patient] [RC] ASDIRECTED 06/01/21 11:28 Height and Weight [RC] 06 Intake and Output [RC] 04,16 Pulse Oximetry [RC] CONTINUOUS Up ad Kayla [RC] ASDIRECTED Vital Signs [RC] 03,09,15,21 Isolation [COMM] Routine 06/01/21 11:29 Respiratory Care Assess and Treatment [CONS] Routine 06/01/21 11:32 Consult to Case Management/Residential Team Leader [CONS] Routine 06/01/21 11:46 Acetaminophen [TylenoL] 650 mg PO Q4H PRN Albuterol [Proventil HFA] See Dose Instructions INH Q2H PRN Ondansetron [Zofran] 4 mg IV Q6H PRN 06/01/21 15:17 Blood Glucose Check, Bedside [RC] QIDACANDBED Consult to Wash Crew Person [CONS] Routine 06/01/21 Dinner ADA Diabetic [[employer] Diet] [DIET] Insulin Lispro [HumaLOG] See Protocol SUBCUT QIDACANDBED 06/01/21 21:00 Famotidine [Pepcid] 20 mg PO BID 06/02/21 09:00 dexAMETHasone 6 mg PO DAILY 06/02/21 15:30 Remdesivir 100 mg Sodium Chloride 0.9% [Normal Saline] 100 ml IV Q24H 06/03/21 05:11 C-REACTIVE PROTEIN [CHEM] AM CBC WITH AUTO DIFF [HEME] AM COMPREHENSIVE METABOLIC PN,CMP [CHEM] AM MAGNESIUM [CHEM] AM 06/04/21 05:11 C-REACTIVE PROTEIN [CHEM] AM CBC WITH AUTO DIFF [HEME] AM COMPREHENSIVE METABOLIC PN,CMP [CHEM] AM MAGNESIUM [CHEM] AM 06/05/21 05:11 C-REACTIVE PROTEIN [CHEM] AM CBC WITH AUTO DIFF [HEME] AM COMPREHENSIVE METABOLIC PN,CMP [CHEM] AM MAGNESIUM [CHEM] AM - Assessment Assessment:: Assessment - day of admission 04/01/2021 * 56-year-old female who presents the ED with low saturations after testing positive for COVID-19 * History of hypertension and cervical cancer status post hysterectomy. * On 05/25/2021 she noted fever and chills. * Saw her PCP on 05/26/2021 and blood work was done which she states was normal, however she was not tested for COVID-19 * Utilizing Tylenol and ibuprofen but her symptoms continued * Returned to her PCP on 05/31/2021 where she tested positive for SARS-CoV-2 RNA. * Chest x-ray at that time was obtained and per the patient showed "pneumonia" however the patient is not sure what exactly was seen. * Noted saturations in the 80s this morning and came to the ED as instructed * Reports nonproductive cough but no acute dyspnea or chest pain. She feels weak. Denies any nausea or vomiting. * Has not received the Covid vaccine. * 12-lead EKG is obtained showing sinus tachycardia 107 bpm with no ischemic changes. Temp is 36.9 Celsius. Pulse 97. Respirations 29. Blood pressure 98/64. Pulse ox is 86%, rising to 96% on 1 L. * Labs are obtained: * WBC 4.89 * Hemoglobin 12.0 * Platelet 400,000 * Neutrophils 58% * Sodium 135 * Potassium 3.6 * Chloride 100 * Carbon dioxide 22 * Anion gap 16.6 * BUN 12. Creatinine 0.9. GFR greater than 60 * Glucose 188 * Lactic acid 1.3 * Magnesium 1.8 * Total bilirubin 0.3 * AST is 54, ALT 47, alkaline phosphatase 45. * Troponin less than 0.017 * Protein 8.0 * Albumin 3.1 * CRP 8.4 * Chest x-ray shows bilateral hazy infiltrates consistent with COVID-19 pneumonia * She is given 6 mg dexamethasone. * Admitted to floor on telemetry for management of COVID-19 PNA and hypoxia 06/02/2021: This is a 56-year-old female who presented to ED with low saturations. She is recently been diagnosed with COVID-19 and was sent home with home monitoring. Her saturations were noted to be very low when she presented to her ED and was admitted. In the ED she was noted to have saturations in the low 90s on 2 L of oxygen. On the floor glucose was noted to be high and has been high on prior visits and her A1c was obtained which was 7.7. She was started on sliding scale insulin. Ferritin was 1858. LDH was 408. Today WBC is 5.54. Hemoglobin 12.0. Platelet 441,000. Neutrophils 69.8. Sodium 140. Potassium 4.1. Chloride 105. Carbon dioxide 25. Anion gap 14.1. BUN 16. Creatinine 0.7. GFR greater than 60. Glucose 126-225. Magnesium 2.4. Bilirubin 0.2. AST is 44, ALT 41, alkaline phosphatase 48. CRP is 6.8. Albumin 2.9. Unfortunately patient overnight had significant rapidly deteriorating oxygen saturations and was requiring up to 10 L. She was placed on high flow oxygen and is currently on 50 L with an FiO2 of 50%. Actemra 8 mg/kg was ordered today and her steroids were increased from 6 mg dexamethasone to 125 mg twice daily Solu-Medrol. She has been proning and nursing was instructed to continue to push for this. She does have incentive spirometry and Acapella in the room and has been using it. We will otherwise continue Covid treatment. Chest x-ray today is slightly worse than yesterday. We will check a procalcitonin. Dr. Neal, attending hospitalist, in to discuss plan with patient. Unknown length of stay due to severity of Covid symptoms. - Plan Plan:: COVID-19 Hypoxemia * O2 as needed with goal saturations 88-95% * Start pepcid 20mg BID * Discontinue dexamethasone and start 125 mg twice daily Solu-Medrol IV push. * Remdesivir - day 11/25 * Actemra given today * IS/Acapella * Prone whenever able * RT consultation * Telemetry * Continuous pulse ox * Tylenol for fever * Airborne/contact isolation * Ambulate around the room * Will hold off PT and OT for now * Daily labs * Await blood cultures * CM consultation * Started on high flow * Check procalcitonin HTN (hypertension) * Hold home lisinopril for now * Monitor vital signs Hyperglycemia Type II DM - new onset * Has had 2 readings with glucose >180 * A1C 7.7 * [employer] Person consultation once feeling better * health promotion educator consult once feeling better * Sliding scale low intensity insulin * QID AC and Bedtime blood glucose checks * Anticipate elevations in blood glucose due to steroids * Check urine microalbumin * Check UA without microscopy S/P hysterectomy History of cervical cancer * No acute concerns Code Status: Full Code PCP: Dr. Davalos DVT prophylaxis: Lovenox Disposition: Admit patient to medical floor on telemetry for management of COVID-19 pneumonia with hypoxia. Length of stay greater than 96 hours due to worsening Covid symptoms and requirement for treatment. <Kade Neal Jr - Last Filed: 06/02/21 18:18> - Patient Data Vitals - Most Recent: Last Vital Signs Temp 98.1 F 06/02/21 15:59 Pulse 83 06/02/21 15:59 Resp 18 06/02/21 15:59 BP 103/59 L 06/02/21 15:59 Pulse Ox 95 06/02/21 16:00 I&O - Last 24 Hours: Intake & Output 06/02/21 06/02/21 06/02/21 06:59 14:59 22:59 Intake Total 405 Output Total 500 Balance -95 Lab Results Last 24 Hours: Laboratory Results - last 24 hr 06/01/21 06/02/21 06/02/21 Range/Units 20:58 05:21 05:21 WBC 5.54 (3.98-10.04) K/mm3 RBC 4.05 (3.98-5.22) M/mm3 Hgb 12.0 (11.2-15.7) gm/dl Hct 35.8 (34.1-44.9) % MCV 88.4 (79.4-94.8) fl MCH 29.6 (25.6-32.2) pg MCHC 33.5 (32.2-35.5) g/dl RDW Std Deviation 41.0 (36.4-46.3) fL Plt Count 441 H (182-369) K/mm3 MPV 9.6 (9.4-12.3) fl Neut % (Auto) 69.8 (34.0-71.1) % Lymph % (Auto) 18.6 L (19.3-51.7) % [place] % (Auto) 11.4 (4.7-12.5) % Eos % (Auto) 0 L (0.7-5.8) Baso % (Auto) 0.2 (0.1-1.2) % Neut # (Auto) 3.87 (1.56-6.13) K/mm3 Lymph # (Auto) 1.03 L (1.18-3.74) K/mm3 [place] # (Auto) 0.63 H (0.24-0.36) K/mm3 Eos # (Auto) 0.00 L (0.04-0.36) K/mm3 Baso # (Auto) 0.01 (0.01-0.08) K/mm3 Manual Slide Review Abnormal smear Sodium 140 (136-145) mEq/L Potassium 4.1 (3.5-5.1) mEq/L Chloride 105 (98-107) mEq/L Carbon Dioxide 25 (21-32) mEq/L Anion Gap 14.1 (5-15) BUN 16 (7-18) mg/dL Creatinine 0.7 (0.55-1.02) mg/dL Est Cr Clr Drug Dosing 62.92 mL/min Estimated GFR (MDRD) > 60 (>60) mL/min BUN/Creatinine Ratio 22.9 H (14-18) Glucose 126 H (70-99) mg/dL POC Glucose 202 H (70-99) mg/dL Calcium 8.5 (8.5-10.1) mg/dL Magnesium 2.4 (1.8-2.4) mg/dL Total Bilirubin 0.2 (0.2-1.0) mg/dL AST 44 H (15-37) U/L ALT 41 (14-59) U/L Alkaline Phosphatase 48 (46-116) U/L C-Reactive Protein 6.8 H* (<1.0) mg/dL Total Protein 7.9 (6.4-8.2) g/dl Albumin 2.9 L (3.4-5.0) g/dl Globulin 5.0 gm/dL Albumin/Globulin Ratio 0.6 L (1-2) Urine Color (Yellow) Urine Appearance (Clear) Urine pH (5.0-8.0) Ur Specific [place] (1.005-1.030) Urine Protein (Negative) Urine Glucose (UA) (Negative) Urine Ketones (Negative) Urine Occult Blood (Negative) Urine Nitrite (Negative) Urine Bilirubin (Negative) Urine Urobilinogen (0.2-1.0) Ur Leukocyte Esterase (Negative) Ur Random Microalbumin (1.3-20.0) mg/L 06/02/21 06/02/21 06/02/21 Range/Units 06:33 11:11 14:45 WBC (3.98-10.04) K/mm3 RBC (3.98-5.22) M/mm3 Hgb (11.2-15.7) gm/dl Hct (34.1-44.9) % MCV (79.4-94.8) fl MCH (25.6-32.2) pg MCHC (32.2-35.5) g/dl RDW Std Deviation (36.4-46.3) fL Plt Count (182-369) K/mm3 MPV (9.4-12.3) fl Neut % (Auto) (34.0-71.1) % Lymph % (Auto) (19.3-51.7) % [place] % (Auto) (4.7-12.5) % Eos % (Auto) (0.7-5.8) Baso % (Auto) (0.1-1.2) % Neut # (Auto) (1.56-6.13) K/mm3 Lymph # (Auto) (1.18-3.74) K/mm3 [place] # (Auto) (0.24-0.36) K/mm3 Eos # (Auto) (0.04-0.36) K/mm3 Baso # (Auto) (0.01-0.08) K/mm3 Manual Slide Review Sodium (136-145) mEq/L Potassium (3.5-5.1) mEq/L Chloride (98-107) mEq/L Carbon Dioxide (21-32) mEq/L Anion Gap (5-15) BUN (7-18) mg/dL Creatinine (0.55-1.02) mg/dL Est Cr Clr Drug Dosing mL/min Estimated GFR (MDRD) (>60) mL/min BUN/Creatinine Ratio (14-18) Glucose (70-99) mg/dL POC Glucose 124 H 152 H (70-99) mg/dL Calcium (8.5-10.1) mg/dL Magnesium (1.8-2.4) mg/dL Total Bilirubin (0.2-1.0) mg/dL AST (15-37) U/L ALT (14-59) U/L Alkaline Phosphatase (46-116) U/L C-Reactive Protein (<1.0) mg/dL Total Protein (6.4-8.2) g/dl Albumin (3.4-5.0) g/dl Globulin gm/dL Albumin/Globulin Ratio (1-2) Urine Color Yellow (Yellow) Urine Appearance Slt cloudy H (Clear) Urine pH 6.0 (5.0-8.0) Ur Specific [place] 1.025 (1.005-1.030) Urine Protein 1+ H (Negative) Urine Glucose (UA) Negative (Negative) Urine Ketones Trace H (Negative) Urine Occult Blood Negative (Negative) Urine Nitrite Negative (Negative) Urine Bilirubin Negative (Negative) Urine Urobilinogen 0.2 (0.2-1.0) Ur Leukocyte Esterase Negative (Negative) Ur Random Microalbumin (1.3-20.0) mg/L 06/02/21 06/02/21 Range/Units 14:45 17:04 WBC (3.98-10.04) K/mm3 RBC (3.98-5.22) M/mm3 Hgb (11.2-15.7) gm/dl Hct (34.1-44.9) % MCV (79.4-94.8) fl MCH (25.6-32.2) pg MCHC (32.2-35.5) g/dl RDW Std Deviation (36.4-46.3) fL Plt Count (182-369) K/mm3 MPV (9.4-12.3) fl Neut % (Auto) (34.0-71.1) % Lymph % (Auto) (19.3-51.7) % [place] % (Auto) (4.7-12.5) % Eos % (Auto) (0.7-5.8) Baso % (Auto) (0.1-1.2) % Neut # (Auto) (1.56-6.13) K/mm3 Lymph # (Auto) (1.18-3.74) K/mm3 [place] # (Auto) (0.24-0.36) K/mm3 Eos # (Auto) (0.04-0.36) K/mm3 Baso # (Auto) (0.01-0.08) K/mm3 Manual Slide Review Sodium (136-145) mEq/L Potassium (3.5-5.1) mEq/L Chloride (98-107) mEq/L Carbon Dioxide (21-32) mEq/L Anion Gap (5-15) BUN (7-18) mg/dL Creatinine (0.55-1.02) mg/dL Est Cr Clr Drug Dosing mL/min Estimated GFR (MDRD) (>60) mL/min BUN/Creatinine Ratio (14-18) Glucose (70-99) mg/dL POC Glucose 268 H (70-99) mg/dL Calcium (8.5-10.1) mg/dL Magnesium (1.8-2.4) mg/dL Total Bilirubin (0.2-1.0) mg/dL AST (15-37) U/L ALT (14-59) U/L Alkaline Phosphatase (46-116) U/L C-Reactive Protein (<1.0) mg/dL Total Protein (6.4-8.2) g/dl Albumin (3.4-5.0) g/dl Globulin gm/dL Albumin/Globulin Ratio (1-2) Urine Color (Yellow) Urine Appearance (Clear) Urine pH (5.0-8.0) Ur Specific [place] (1.005-1.030) Urine Protein (Negative) Urine Glucose (UA) (Negative) Urine Ketones (Negative) Urine Occult Blood (Negative) Urine Nitrite (Negative) Urine Bilirubin (Negative) Urine Urobilinogen (0.2-1.0) Ur Leukocyte Esterase (Negative) Ur Random Microalbumin 29.7 H (1.3-20.0) mg/L [place] Results Last 24 Hours: Microbiology 06/01/21 06:22 Blood Culture - Preliminary Blood - Venous - Lab Draw 06/01/21 06:10 Blood Culture - Preliminary Blood - Venous Med Orders - Current: Current Medications Acetaminophen (Acetaminophen 325 Mg Tab) 650 mg PO Q4H PRN PRN Reason: Pain (Mild 1-3)/fever Albuterol (Albuterol 6.7 Gm Inhaler) 0 gm INH Q2H PRN PRN Reason: SOB/Wheezing Enoxaparin Sodium (Enoxaparin 40 Mg/0.4 Ml Syringe) 40 mg SUBCUT DAILY [facility] Last Admin: 06/02/21 09:29 Dose: 40 mg Documented by: Famotidine (Famotidine 20 Mg Tab) 20 mg PO BID [facility] Last Admin: 06/02/21 09:29 Dose: 20 mg Documented by: Remdesivir 100 mg/ Sodium (Chloride) 100 mls @ 100 mls/hr IV Q24H [facility] Stop: 06/05/21 16:29 Last Admin: 06/02/21 16:01 Dose: 100 mls/hr Documented by: Insulin Human Lispro (Insulin Lispro 100 Unit/Ml 10 Ml Vial) 0 unit SUBCUT QIDACANDBED [facility]; Protocol Last Admin: 06/02/21 17:35 Dose: 3 unit Documented by: Methylprednisolone Sodium Succinate (Methylprednisolone Sodium Succinate 125 Mg/2 Ml Sdv) 125 mg IVPUSH Q12H [facility] Last Admin: 06/02/21 09:29 Dose: 125 mg Documented by: Ondansetron HCl (Ondansetron 4 Mg/2 Ml Sdv) 4 mg IV Q6H PRN PRN Reason: Nausea/Vomiting Discontinued Medications Dexamethasone (Dexamethasone 4 Mg Tab) 6 mg PO ONETIME STA Stop: 06/01/21 06:31 Last Admin: 06/01/21 06:56 Dose: 6 mg Documented by: Dexamethasone (Dexamethasone 4 Mg Tab) 6 mg PO DAILY [facility] Stop: 06/10/21 09:01 Magnesium Sulfate 2 gm/ Premix 50 mls @ 25 mls/hr IV ONETIME ONE Stop: 06/01/21 13:30 Last Admin: 06/01/21 13:30 Dose: 25 mls/hr Documented by: Remdesivir 200 mg/ Sodium (Chloride) 250 mls @ 250 mls/hr IV ONETIME ONE Stop: 06/01/21 16:29 Last Admin: 06/01/21 15:40 Dose: 250 mls/hr Documented by: Tocilizumab 500 mg/ Sodium (Chloride) 105 mls @ 105 mls/hr IV ONETIME ONE Stop: 06/02/21 08:34 Last Admin: 06/02/21 09:28 Dose: 105 mls/hr Documented by: - Patient Data Lab Results Last 24 hrs: Laboratory Results - last 24 hr 06/01/21 06/02/21 06/02/21 Range/Units 20:58 05:21 05:21 WBC 5.54 (3.98-10.04) K/mm3 RBC 4.05 (3.98-5.22) M/mm3 Hgb 12.0 (11.2-15.7) gm/dl Hct 35.8 (34.1-44.9) % MCV 88.4 (79.4-94.8) fl MCH 29.6 (25.6-32.2) pg MCHC 33.5 (32.2-35.5) g/dl RDW Std Deviation 41.0 (36.4-46.3) fL Plt Count 441 H (182-369) K/mm3 MPV 9.6 (9.4-12.3) fl Neut % (Auto) 69.8 (34.0-71.1) % Lymph % (Auto) 18.6 L (19.3-51.7) % [place] % (Auto) 11.4 (4.7-12.5) % Eos % (Auto) 0 L (0.7-5.8) Baso % (Auto) 0.2 (0.1-1.2) % Neut # (Auto) 3.87 (1.56-6.13) K/mm3 Lymph # (Auto) 1.03 L (1.18-3.74) K/mm3 [place] # (Auto) 0.63 H (0.24-0.36) K/mm3 Eos # (Auto) 0.00 L (0.04-0.36) K/mm3 Baso # (Auto) 0.01 (0.01-0.08) K/mm3 Manual Slide Review Abnormal smear Sodium 140 (136-145) mEq/L Potassium 4.1 (3.5-5.1) mEq/L Chloride 105 (98-107) mEq/L Carbon Dioxide 25 (21-32) mEq/L Anion Gap 14.1 (5-15) BUN 16 (7-18) mg/dL Creatinine 0.7 (0.55-1.02) mg/dL Est Cr Clr Drug Dosing 62.92 mL/min Estimated GFR (MDRD) > 60 (>60) mL/min BUN/Creatinine Ratio 22.9 H (14-18) Glucose 126 H (70-99) mg/dL POC Glucose 202 H (70-99) mg/dL Calcium 8.5 (8.5-10.1) mg/dL Magnesium 2.4 (1.8-2.4) mg/dL Total Bilirubin 0.2 (0.2-1.0) mg/dL AST 44 H (15-37) U/L ALT 41 (14-59) U/L Alkaline Phosphatase 48 (46-116) U/L C-Reactive Protein 6.8 H* (<1.0) mg/dL Total Protein 7.9 (6.4-8.2) g/dl Albumin 2.9 L (3.4-5.0) g/dl Globulin 5.0 gm/dL Albumin/Globulin Ratio 0.6 L (1-2) Urine Color (Yellow) Urine Appearance (Clear) Urine pH (5.0-8.0) Ur Specific [place] (1.005-1.030) Urine Protein (Negative) Urine Glucose (UA) (Negative) Urine Ketones (Negative) Urine Occult Blood (Negative) Urine Nitrite (Negative) Urine Bilirubin (Negative) Urine Urobilinogen (0.2-1.0) Ur Leukocyte Esterase (Negative) Ur Random Microalbumin (1.3-20.0) mg/L 06/02/21 06/02/21 06/02/21 Range/Units 06:33 11:11 14:45 WBC (3.98-10.04) K/mm3 RBC (3.98-5.22) M/mm3 Hgb (11.2-15.7) gm/dl Hct (34.1-44.9) % MCV (79.4-94.8) fl MCH (25.6-32.2) pg MCHC (32.2-35.5) g/dl RDW Std Deviation (36.4-46.3) fL Plt Count (182-369) K/mm3 MPV (9.4-12.3) fl Neut % (Auto) (34.0-71.1) % Lymph % (Auto) (19.3-51.7) % [place] % (Auto) (4.7-12.5) % Eos % (Auto) (0.7-5.8) Baso % (Auto) (0.1-1.2) % Neut # (Auto) (1.56-6.13) K/mm3 Lymph # (Auto) (1.18-3.74) K/mm3 [place] # (Auto) (0.24-0.36) K/mm3 Eos # (Auto) (0.04-0.36) K/mm3 Baso # (Auto) (0.01-0.08) K/mm3 Manual Slide Review Sodium (136-145) mEq/L Potassium (3.5-5.1) mEq/L Chloride (98-107) mEq/L Carbon Dioxide (21-32) mEq/L Anion Gap (5-15) BUN (7-18) mg/dL Creatinine (0.55-1.02) mg/dL Est Cr Clr Drug Dosing mL/min Estimated GFR (MDRD) (>60) mL/min BUN/Creatinine Ratio (14-18) Glucose (70-99) mg/dL POC Glucose 124 H 152 H (70-99) mg/dL Calcium (8.5-10.1) mg/dL Magnesium (1.8-2.4) mg/dL Total Bilirubin (0.2-1.0) mg/dL AST (15-37) U/L ALT (14-59) U/L Alkaline Phosphatase (46-116) U/L C-Reactive Protein (<1.0) mg/dL Total Protein (6.4-8.2) g/dl Albumin (3.4-5.0) g/dl Globulin gm/dL Albumin/Globulin Ratio (1-2) Urine Color Yellow (Yellow) Urine Appearance Slt cloudy H (Clear) Urine pH 6.0 (5.0-8.0) Ur Specific [place] 1.025 (1.005-1.030) Urine Protein 1+ H (Negative) Urine Glucose (UA) Negative (Negative) Urine Ketones Trace H (Negative) Urine Occult Blood Negative (Negative) Urine Nitrite Negative (Negative) Urine Bilirubin Negative (Negative) Urine Urobilinogen 0.2 (0.2-1.0) Ur Leukocyte Esterase Negative (Negative) Ur Random Microalbumin (1.3-20.0) mg/L 06/02/21 06/02/21 Range/Units 14:45 17:04 WBC (3.98-10.04) K/mm3 RBC (3.98-5.22) M/mm3 Hgb (11.2-15.7) gm/dl Hct (34.1-44.9) % MCV (79.4-94.8) fl MCH (25.6-32.2) pg MCHC (32.2-35.5) g/dl RDW Std Deviation (36.4-46.3) fL Plt Count (182-369) K/mm3 MPV (9.4-12.3) fl Neut % (Auto) (34.0-71.1) % Lymph % (Auto) (19.3-51.7) % [place] % (Auto) (4.7-12.5) % Eos % (Auto) (0.7-5.8) Baso % (Auto) (0.1-1.2) % Neut # (Auto) (1.56-6.13) K/mm3 Lymph # (Auto) (1.18-3.74) K/mm3 [place] # (Auto) (0.24-0.36) K/mm3 Eos # (Auto) (0.04-0.36) K/mm3 Baso # (Auto) (0.01-0.08) K/mm3 Manual Slide Review Sodium (136-145) mEq/L Potassium (3.5-5.1) mEq/L Chloride (98-107) mEq/L Carbon Dioxide (21-32) mEq/L Anion Gap (5-15) BUN (7-18) mg/dL Creatinine (0.55-1.02) mg/dL Est Cr Clr Drug Dosing mL/min Estimated GFR (MDRD) (>60) mL/min BUN/Creatinine Ratio (14-18) Glucose (70-99) mg/dL POC Glucose 268 H (70-99) mg/dL Calcium (8.5-10.1) mg/dL Magnesium (1.8-2.4) mg/dL Total Bilirubin (0.2-1.0) mg/dL AST (15-37) U/L ALT (14-59) U/L Alkaline Phosphatase (46-116) U/L C-Reactive Protein (<1.0) mg/dL Total Protein (6.4-8.2) g/dl Albumin (3.4-5.0) g/dl Globulin gm/dL Albumin/Globulin Ratio (1-2) Urine Color (Yellow) Urine Appearance (Clear) Urine pH (5.0-8.0) Ur Specific [place] (1.005-1.030) Urine Protein (Negative) Urine Glucose (UA) (Negative) Urine Ketones (Negative) Urine Occult Blood (Negative) Urine Nitrite (Negative) Urine Bilirubin (Negative) Urine Urobilinogen (0.2-1.0) Ur Leukocyte Esterase (Negative) Ur Random Microalbumin 29.7 H (1.3-20.0) mg/L Result Diagrams: 06/02/21 05:21 06/02/21 05:21 [place] Results Last 24 hrs: Microbiology 06/01/21 06:22 Blood Culture - Preliminary Blood - Venous - Lab Draw 06/01/21 06:10 Blood Culture - Preliminary Blood - Venous Sepsis Event Note - Focused Exam Vital Signs: Vital Signs Temp Pulse Resp BP Pulse Ox 06/02/21 16:00 95 06/02/21 15:59 98.1 F 83 18 103/59 L 06/02/21 09:27 90 L 06/02/21 09:25 98.2 F 84 20 100/58 L - Plan Plan:: Case discussed in full. Agree with evaluation, assessment, and plan.
[2021-06-02] MEDS ORDERED: SODIUM CHLORIDE 0.9% IV ONE (07:35)
[2021-06-02] MEDS ORDERED: TOCILIZUMAB IV ONE (07:35)
[2021-06-02] MEDS: Insulin Lispro 100 UNIT/ML 10 ML Vial SUBCUT SCH ×4 (07:43→21:18)
[2021-06-02] MEDS ORDERED: Dexamethasone 4 MG Tab PO SCH (09:00)
[2021-06-02] MEDS: Enoxaparin 40 MG/0.4 ML Syringe SUBCUT SCH (09:29)
[2021-06-02] MEDS: methylPREDNISolone Sodium Succinate 125 MG/2 ML SDV IVPUSH SCH ×2 (09:29→20:05)
[2021-06-02] MEDS: Famotidine 20 MG Tab PO SCH ×2 (09:29→20:05)
--- NOTE | 2021-06-02 11:40 | CR ---
Chest: Portable view of the chest was obtained. Comparison: Prior chest x-ray of 06/01/21. Patchy increased density is seen within the left chest. Minimal increased density is noted within the right chest. Findings are felt to be fairly similar to most recent chest x-ray. Heart size and mediastinum are normal. Bony structures show nothing acute. Impression: 1. Stable increased density within both sides of the chest when compared to recent exam compatible with stable COVID pneumonia. Diagnostic code #3
[2021-06-02] MEDS: REMDESIVIR 100 MG in Sodium Chloride 0.9% 100 ML IV SCH (16:01)
--- NOTE | 2021-06-03 07:29 | PCM.PN ---
<Rommel Jacques - Last Filed: 06/03/21 10:54> - General Info Date of Service: 06/03/21 Admission Dx/Problem (Free Text): Admission Diagnosis/Problem Admission Diagnosis/Problem Hypoxia Functional Status: Reports: Pain Controlled, Tolerating Diet, Ambulating, Urinating, Incentive Spirometry, Other (Acapella ). Denies: New Symptoms - Review of Systems General: Reports: Weakness, Fatigue, Malaise. Denies: Fever, Chills HEENT: Reports: No Symptoms. Denies: Headaches, Sore Throat Pulmonary: Reports: Shortness of Breath, Cough. Denies: Sputum, Wheezing Cardiovascular: Reports: No Symptoms. Denies: Chest Pain, Palpitations, Dyspnea on Exertion, Edema Gastrointestinal: Reports: No Symptoms. Denies: Abdominal Pain, Constipation, Diarrhea, Nausea, Vomiting Genitourinary: Reports: No Symptoms. Denies: Pain Musculoskeletal: Reports: No Symptoms Skin: Reports: No Symptoms. Denies: Cyanosis Neurological: Reports: No Symptoms. Denies: Confusion, Dizziness, Headache, Numbness, Pre-Existing Deficit, Tingling, Difficulty Walking, Gait Disturbance Psychiatric: Reports: No Symptoms - Patient Data Vitals - Most Recent: Last Vital Signs Temp 98.4 F 06/03/21 05:14 Pulse 77 06/03/21 05:14 Resp 22 H 06/03/21 05:14 BP 121/72 06/03/21 05:14 Pulse Ox 93 L 06/03/21 05:14 Weight - Most Recent: 136 lb 9.6 oz I&O - Last 24 Hours: Intake & Output 06/02/21 06/03/21 06/03/21 22:59 06:59 14:59 Intake Total 405 Output Total 500 Balance -95 Lab Results Last 24 Hours: Laboratory Results - last 24 hr 06/02/21 06/02/21 06/02/21 Range/Units 11:11 14:45 14:45 WBC (3.98-10.04) K/mm3 RBC (3.98-5.22) M/mm3 Hgb (11.2-15.7) gm/dl Hct (34.1-44.9) % MCV (79.4-94.8) fl MCH (25.6-32.2) pg MCHC (32.2-35.5) g/dl RDW Std Deviation (36.4-46.3) fL Plt Count (182-369) K/mm3 MPV (9.4-12.3) fl Neut % (Auto) (34.0-71.1) % Lymph % (Auto) (19.3-51.7) % [place] % (Auto) (4.7-12.5) % Eos % (Auto) (0.7-5.8) Baso % (Auto) (0.1-1.2) % Neut # (Auto) (1.56-6.13) K/mm3 Lymph # (Auto) (1.18-3.74) K/mm3 [place] # (Auto) (0.24-0.36) K/mm3 Eos # (Auto) (0.04-0.36) K/mm3 Baso # (Auto) (0.01-0.08) K/mm3 Sodium (136-145) mEq/L Potassium (3.5-5.1) mEq/L Chloride (98-107) mEq/L Carbon Dioxide (21-32) mEq/L Anion Gap (5-15) BUN (7-18) mg/dL Creatinine (0.55-1.02) mg/dL Est Cr Clr Drug Dosing mL/min Estimated GFR (MDRD) (>60) mL/min BUN/Creatinine Ratio (14-18) Glucose (70-99) mg/dL POC Glucose 152 H (70-99) mg/dL Calcium (8.5-10.1) mg/dL Magnesium (1.8-2.4) mg/dL Total Bilirubin (0.2-1.0) mg/dL AST (15-37) U/L ALT (14-59) U/L Alkaline Phosphatase (46-116) U/L C-Reactive Protein (<1.0) mg/dL Total Protein (6.4-8.2) g/dl Albumin (3.4-5.0) g/dl Globulin gm/dL Albumin/Globulin Ratio (1-2) Urine Color Yellow (Yellow) Urine Appearance Slt cloudy H (Clear) Urine pH 6.0 (5.0-8.0) Ur Specific [place] 1.025 (1.005-1.030) Urine Protein 1+ H (Negative) Urine Glucose (UA) Negative (Negative) Urine Ketones Trace H (Negative) Urine Occult Blood Negative (Negative) Urine Nitrite Negative (Negative) Urine Bilirubin Negative (Negative) Urine Urobilinogen 0.2 (0.2-1.0) Ur Leukocyte Esterase Negative (Negative) Ur Random Microalbumin 29.7 H (1.3-20.0) mg/L 06/02/21 06/02/21 06/03/21 Range/Units 17:04 21:10 06:05 WBC 1.39 L* (3.98-10.04) K/mm3 RBC 4.24 (3.98-5.22) M/mm3 Hgb 12.6 (11.2-15.7) gm/dl Hct 37.1 (34.1-44.9) % MCV 87.5 (79.4-94.8) fl MCH 29.7 (25.6-32.2) pg MCHC 34.0 (32.2-35.5) g/dl RDW Std Deviation 40.0 (36.4-46.3) fL Plt Count 470 H (182-369) K/mm3 MPV 9.3 L (9.4-12.3) fl Neut % (Auto) 50.4 (34.0-71.1) % Lymph % (Auto) 34.5 (19.3-51.7) % [place] % (Auto) 13.7 H (4.7-12.5) % Eos % (Auto) 0 L (0.7-5.8) Baso % (Auto) 1.4 H (0.1-1.2) % Neut # (Auto) 0.70 L (1.56-6.13) K/mm3 Lymph # (Auto) 0.48 L (1.18-3.74) K/mm3 [place] # (Auto) 0.19 L (0.24-0.36) K/mm3 Eos # (Auto) 0.00 L (0.04-0.36) K/mm3 Baso # (Auto) 0.02 (0.01-0.08) K/mm3 Sodium (136-145) mEq/L Potassium (3.5-5.1) mEq/L Chloride (98-107) mEq/L Carbon Dioxide (21-32) mEq/L Anion Gap (5-15) BUN (7-18) mg/dL Creatinine (0.55-1.02) mg/dL Est Cr Clr Drug Dosing mL/min Estimated GFR (MDRD) (>60) mL/min BUN/Creatinine Ratio (14-18) Glucose (70-99) mg/dL POC Glucose 268 H 237 H (70-99) mg/dL Calcium (8.5-10.1) mg/dL Magnesium (1.8-2.4) mg/dL Total Bilirubin (0.2-1.0) mg/dL AST (15-37) U/L ALT (14-59) U/L Alkaline Phosphatase (46-116) U/L C-Reactive Protein (<1.0) mg/dL Total Protein (6.4-8.2) g/dl Albumin (3.4-5.0) g/dl Globulin gm/dL Albumin/Globulin Ratio (1-2) Urine Color (Yellow) Urine Appearance (Clear) Urine pH (5.0-8.0) Ur Specific [place] (1.005-1.030) Urine Protein (Negative) Urine Glucose (UA) (Negative) Urine Ketones (Negative) Urine Occult Blood (Negative) Urine Nitrite (Negative) Urine Bilirubin (Negative) Urine Urobilinogen (0.2-1.0) Ur Leukocyte Esterase (Negative) Ur Random Microalbumin (1.3-20.0) mg/L 06/03/21 06/03/21 Range/Units 06:05 06:38 WBC (3.98-10.04) K/mm3 RBC (3.98-5.22) M/mm3 Hgb (11.2-15.7) gm/dl Hct (34.1-44.9) % MCV (79.4-94.8) fl MCH (25.6-32.2) pg MCHC (32.2-35.5) g/dl RDW Std Deviation (36.4-46.3) fL Plt Count (182-369) K/mm3 MPV (9.4-12.3) fl Neut % (Auto) (34.0-71.1) % Lymph % (Auto) (19.3-51.7) % [place] % (Auto) (4.7-12.5) % Eos % (Auto) (0.7-5.8) Baso % (Auto) (0.1-1.2) % Neut # (Auto) (1.56-6.13) K/mm3 Lymph # (Auto) (1.18-3.74) K/mm3 [place] # (Auto) (0.24-0.36) K/mm3 Eos # (Auto) (0.04-0.36) K/mm3 Baso # (Auto) (0.01-0.08) K/mm3 Sodium 142 (136-145) mEq/L Potassium 4.3 (3.5-5.1) mEq/L Chloride 107 (98-107) mEq/L Carbon Dioxide 25 (21-32) mEq/L Anion Gap 14.3 (5-15) BUN 23 H (7-18) mg/dL Creatinine 0.8 (0.55-1.02) mg/dL Est Cr Clr Drug Dosing 55.06 mL/min Estimated GFR (MDRD) > 60 (>60) mL/min BUN/Creatinine Ratio 28.8 H (14-18) Glucose 196 H (70-99) mg/dL POC Glucose 203 H (70-99) mg/dL Calcium 8.5 (8.5-10.1) mg/dL Magnesium 2.3 (1.8-2.4) mg/dL Total Bilirubin 0.2 (0.2-1.0) mg/dL AST 38 H (15-37) U/L ALT 41 (14-59) U/L Alkaline Phosphatase 48 (46-116) U/L C-Reactive Protein 3.3 H* (<1.0) mg/dL Total Protein 7.7 (6.4-8.2) g/dl Albumin 2.8 L (3.4-5.0) g/dl Globulin 4.9 gm/dL Albumin/Globulin Ratio 0.6 L (1-2) Urine Color (Yellow) Urine Appearance (Clear) Urine pH (5.0-8.0) Ur Specific [place] (1.005-1.030) Urine Protein (Negative) Urine Glucose (UA) (Negative) Urine Ketones (Negative) Urine Occult Blood (Negative) Urine Nitrite (Negative) Urine Bilirubin (Negative) Urine Urobilinogen (0.2-1.0) Ur Leukocyte Esterase (Negative) Ur Random Microalbumin (1.3-20.0) mg/L [place] Results Last 24 Hours: Microbiology 06/01/21 06:22 Blood Culture - Preliminary Blood - Venous - Lab Draw 06/01/21 06:10 Blood Culture - Preliminary Blood - Venous Med Orders - Current: Current Medications Acetaminophen (Acetaminophen 325 Mg Tab) 650 mg PO Q4H PRN PRN Reason: Pain (Mild 1-3)/fever Albuterol (Albuterol 6.7 Gm Inhaler) 0 gm INH Q2H PRN PRN Reason: SOB/Wheezing Enoxaparin Sodium (Enoxaparin 40 Mg/0.4 Ml Syringe) 40 mg SUBCUT DAILY [facility] Last Admin: 06/02/21 09:29 Dose: 40 mg Documented by: Famotidine (Famotidine 20 Mg Tab) 20 mg PO BID [facility] Last Admin: 06/02/21 20:05 Dose: 20 mg Documented by: Remdesivir 100 mg/ Sodium (Chloride) 100 mls @ 100 mls/hr IV Q24H [facility] Stop: 06/05/21 16:29 Last Admin: 06/02/21 16:01 Dose: 100 mls/hr Documented by: Insulin Human Lispro (Insulin Lispro 100 Unit/Ml 10 Ml Vial) 0 unit SUBCUT QIDACANDBED [facility]; Protocol Last Admin: 06/02/21 21:18 Dose: 2 unit Documented by: Methylprednisolone Sodium Succinate (Methylprednisolone Sodium Succinate 125 Mg/2 Ml Sdv) 125 mg IVPUSH Q12H [facility] Last Admin: 06/02/21 20:05 Dose: 125 mg Documented by: Ondansetron HCl (Ondansetron 4 Mg/2 Ml Sdv) 4 mg IV Q6H PRN PRN Reason: Nausea/Vomiting Discontinued Medications Dexamethasone (Dexamethasone 4 Mg Tab) 6 mg PO ONETIME STA Stop: 06/01/21 06:31 Last Admin: 06/01/21 06:56 Dose: 6 mg Documented by: Dexamethasone (Dexamethasone 4 Mg Tab) 6 mg PO DAILY [facility] Stop: 06/10/21 09:01 Magnesium Sulfate 2 gm/ Premix 50 mls @ 25 mls/hr IV ONETIME ONE Stop: 06/01/21 13:30 Last Admin: 06/01/21 13:30 Dose: 25 mls/hr Documented by: Remdesivir 200 mg/ Sodium (Chloride) 250 mls @ 250 mls/hr IV ONETIME ONE Stop: 06/01/21 16:29 Last Admin: 06/01/21 15:40 Dose: 250 mls/hr Documented by: Tocilizumab 500 mg/ Sodium (Chloride) 105 mls @ 105 mls/hr IV ONETIME ONE Stop: 06/02/21 08:34 Last Admin: 06/02/21 09:28 Dose: 105 mls/hr Documented by: - Exam Quality Assessment: Supplemental Oxygen (High flow 60 L with FiO2 of 80%), DVT Prophylaxis. No: Urine Catheter General: Alert, Oriented, Cooperative, No Acute Distress HEENT: Pupils Equal, Pupils Reactive, Mucous Membr. Moist/[place] Neck: Supple, Trachea Midline Lungs: Normal Respiratory Effort, Decreased Breath Sounds. No: Crackles, Rhonchi, Wheezing Cardiovascular: Regular Rate, Regular Rhythm GI/Abdominal Exam: Normal Bowel Sounds, Soft, Non-Tender, No Distention (Female) Exam: Deferred Back Exam: Normal Inspection, Full Range of Motion Extremities: Normal Inspection, Normal Range of Motion, Non-Tender, No Pedal Edema, Normal Capillary Refill Peripheral Pulses: 3+: Radial (L), Radial (R), Dorsalis Pedis (L), Dorsalis Pedis (R) Skin: Warm, Dry, Intact Neurological: No New Focal Deficit Psy/Mental Status: Alert, Normal Affect, Normal Mood - Patient Data Lab Results Last 24 hrs: Laboratory Results - last 24 hr 06/02/21 06/02/21 06/02/21 Range/Units 11:11 14:45 14:45 WBC (3.98-10.04) K/mm3 RBC (3.98-5.22) M/mm3 Hgb (11.2-15.7) gm/dl Hct (34.1-44.9) % MCV (79.4-94.8) fl MCH (25.6-32.2) pg MCHC (32.2-35.5) g/dl RDW Std Deviation (36.4-46.3) fL Plt Count (182-369) K/mm3 MPV (9.4-12.3) fl Neut % (Auto) (34.0-71.1) % Lymph % (Auto) (19.3-51.7) % [place] % (Auto) (4.7-12.5) % Eos % (Auto) (0.7-5.8) Baso % (Auto) (0.1-1.2) % Neut # (Auto) (1.56-6.13) K/mm3 Lymph # (Auto) (1.18-3.74) K/mm3 [place] # (Auto) (0.24-0.36) K/mm3 Eos # (Auto) (0.04-0.36) K/mm3 Baso # (Auto) (0.01-0.08) K/mm3 Sodium (136-145) mEq/L Potassium (3.5-5.1) mEq/L Chloride (98-107) mEq/L Carbon Dioxide (21-32) mEq/L Anion Gap (5-15) BUN (7-18) mg/dL Creatinine (0.55-1.02) mg/dL Est Cr Clr Drug Dosing mL/min Estimated GFR (MDRD) (>60) mL/min BUN/Creatinine Ratio (14-18) Glucose (70-99) mg/dL POC Glucose 152 H (70-99) mg/dL Calcium (8.5-10.1) mg/dL Magnesium (1.8-2.4) mg/dL Total Bilirubin (0.2-1.0) mg/dL AST (15-37) U/L ALT (14-59) U/L Alkaline Phosphatase (46-116) U/L C-Reactive Protein (<1.0) mg/dL Total Protein (6.4-8.2) g/dl Albumin (3.4-5.0) g/dl Globulin gm/dL Albumin/Globulin Ratio (1-2) Urine Color Yellow (Yellow) Urine Appearance Slt cloudy H (Clear) Urine pH 6.0 (5.0-8.0) Ur Specific [place] 1.025 (1.005-1.030) Urine Protein 1+ H (Negative) Urine Glucose (UA) Negative (Negative) Urine Ketones Trace H (Negative) Urine Occult Blood Negative (Negative) Urine Nitrite Negative (Negative) Urine Bilirubin Negative (Negative) Urine Urobilinogen 0.2 (0.2-1.0) Ur Leukocyte Esterase Negative (Negative) Ur Random Microalbumin 29.7 H (1.3-20.0) mg/L 06/02/21 06/02/21 06/03/21 Range/Units 17:04 21:10 06:05 WBC 1.39 L* (3.98-10.04) K/mm3 RBC 4.24 (3.98-5.22) M/mm3 Hgb 12.6 (11.2-15.7) gm/dl Hct 37.1 (34.1-44.9) % MCV 87.5 (79.4-94.8) fl MCH 29.7 (25.6-32.2) pg MCHC 34.0 (32.2-35.5) g/dl RDW Std Deviation 40.0 (36.4-46.3) fL Plt Count 470 H (182-369) K/mm3 MPV 9.3 L (9.4-12.3) fl Neut % (Auto) 50.4 (34.0-71.1) % Lymph % (Auto) 34.5 (19.3-51.7) % [place] % (Auto) 13.7 H (4.7-12.5) % Eos % (Auto) 0 L (0.7-5.8) Baso % (Auto) 1.4 H (0.1-1.2) % Neut # (Auto) 0.70 L (1.56-6.13) K/mm3 Lymph # (Auto) 0.48 L (1.18-3.74) K/mm3 [place] # (Auto) 0.19 L (0.24-0.36) K/mm3 Eos # (Auto) 0.00 L (0.04-0.36) K/mm3 Baso # (Auto) 0.02 (0.01-0.08) K/mm3 Sodium (136-145) mEq/L Potassium (3.5-5.1) mEq/L Chloride (98-107) mEq/L Carbon Dioxide (21-32) mEq/L Anion Gap (5-15) BUN (7-18) mg/dL Creatinine (0.55-1.02) mg/dL Est Cr Clr Drug Dosing mL/min Estimated GFR (MDRD) (>60) mL/min BUN/Creatinine Ratio (14-18) Glucose (70-99) mg/dL POC Glucose 268 H 237 H (70-99) mg/dL Calcium (8.5-10.1) mg/dL Magnesium (1.8-2.4) mg/dL Total Bilirubin (0.2-1.0) mg/dL AST (15-37) U/L ALT (14-59) U/L Alkaline Phosphatase (46-116) U/L C-Reactive Protein (<1.0) mg/dL Total Protein (6.4-8.2) g/dl Albumin (3.4-5.0) g/dl Globulin gm/dL Albumin/Globulin Ratio (1-2) Urine Color (Yellow) Urine Appearance (Clear) Urine pH (5.0-8.0) Ur Specific [place] (1.005-1.030) Urine Protein (Negative) Urine Glucose (UA) (Negative) Urine Ketones (Negative) Urine Occult Blood (Negative) Urine Nitrite (Negative) Urine Bilirubin (Negative) Urine Urobilinogen (0.2-1.0) Ur Leukocyte Esterase (Negative) Ur Random Microalbumin (1.3-20.0) mg/L 06/03/21 06/03/21 Range/Units 06:05 06:38 WBC (3.98-10.04) K/mm3 RBC (3.98-5.22) M/mm3 Hgb (11.2-15.7) gm/dl Hct (34.1-44.9) % MCV (79.4-94.8) fl MCH (25.6-32.2) pg MCHC (32.2-35.5) g/dl RDW Std Deviation (36.4-46.3) fL Plt Count (182-369) K/mm3 MPV (9.4-12.3) fl Neut % (Auto) (34.0-71.1) % Lymph % (Auto) (19.3-51.7) % [place] % (Auto) (4.7-12.5) % Eos % (Auto) (0.7-5.8) Baso % (Auto) (0.1-1.2) % Neut # (Auto) (1.56-6.13) K/mm3 Lymph # (Auto) (1.18-3.74) K/mm3 [place] # (Auto) (0.24-0.36) K/mm3 Eos # (Auto) (0.04-0.36) K/mm3 Baso # (Auto) (0.01-0.08) K/mm3 Sodium 142 (136-145) mEq/L Potassium 4.3 (3.5-5.1) mEq/L Chloride 107 (98-107) mEq/L Carbon Dioxide 25 (21-32) mEq/L Anion Gap 14.3 (5-15) BUN 23 H (7-18) mg/dL Creatinine 0.8 (0.55-1.02) mg/dL Est Cr Clr Drug Dosing 55.06 mL/min Estimated GFR (MDRD) > 60 (>60) mL/min BUN/Creatinine Ratio 28.8 H (14-18) Glucose 196 H (70-99) mg/dL POC Glucose 203 H (70-99) mg/dL Calcium 8.5 (8.5-10.1) mg/dL Magnesium 2.3 (1.8-2.4) mg/dL Total Bilirubin 0.2 (0.2-1.0) mg/dL AST 38 H (15-37) U/L ALT 41 (14-59) U/L Alkaline Phosphatase 48 (46-116) U/L C-Reactive Protein 3.3 H* (<1.0) mg/dL Total Protein 7.7 (6.4-8.2) g/dl Albumin 2.8 L (3.4-5.0) g/dl Globulin 4.9 gm/dL Albumin/Globulin Ratio 0.6 L (1-2) Urine Color (Yellow) Urine Appearance (Clear) Urine pH (5.0-8.0) Ur Specific [place] (1.005-1.030) Urine Protein (Negative) Urine Glucose (UA) (Negative) Urine Ketones (Negative) Urine Occult Blood (Negative) Urine Nitrite (Negative) Urine Bilirubin (Negative) Urine Urobilinogen (0.2-1.0) Ur Leukocyte Esterase (Negative) Ur Random Microalbumin (1.3-20.0) mg/L Result Diagrams: 06/03/21 06:05 06/03/21 06:05 [place] Results Last 24 hrs: Microbiology 06/01/21 06:22 Blood Culture - Preliminary Blood - Venous - Lab Draw 06/01/21 06:10 Blood Culture - Preliminary Blood - Venous Sepsis Event Note - Evaluation Sepsis Screening Result: Possible Sepsis Risk - Focused Exam Vital Signs: Vital Signs Temp Pulse Resp BP Pulse Ox Pulse Ox 06/03/21 05:14 98.4 F 77 22 H 121/72 93 L 06/03/21 01:25 69 95 06/02/21 21:52 97 06/02/21 21:50 99 06/02/21 21:22 91 L 06/02/21 20:14 91 L 06/02/21 20:04 98.1 F 86 24 H 123/68 91 L - Problem List & Annotations (1) HTN (hypertension) SNOMED Code(s): 48281205 Code(s): I10 - ESSENTIAL (PRIMARY) HYPERTENSION Status: Chronic Priority: Low Current Visit: No Qualifiers: Hypertension type: unspecified Qualified Code(s): I10 - Essential (primary) hypertension (2) S/P hysterectomy SNOMED Code(s): 026988720, 799946691, 940086234 Code(s): Z90.710 - ACQUIRED ABSENCE OF BOTH CERVIX AND UTERUS Status: Chronic Priority: Low Current Visit: No (3) History of cervical cancer Status: Chronic Priority: Low Current Visit: No (4) COVID-19 SNOMED Code(s): 550927530 Code(s): U07.1 - COVID-19 Status: Acute Priority: High Current Visit: Yes (5) Hyperglycemia SNOMED Code(s): 71579742 Code(s): R73.9 - HYPERGLYCEMIA, UNSPECIFIED Status: Acute Current Visit: No (6) Hypoxemia SNOMED Code(s): 335427173 Code(s): R09.02 - HYPOXEMIA Status: Acute Current Visit: No (7) New onset type 2 diabetes mellitus SNOMED Code(s): 90152616 Code(s): E11.9 - TYPE 2 DIABETES MELLITUS WITHOUT COMPLICATIONS Status: Acute Priority: High Current Visit: Yes - Problem List Review Problem List Initiated/Reviewed/Updated: Yes - My Orders Last 24 Hours: My Active Orders 06/02/21 07:45 methylPREDNISolone Sod Succ [Solu-MEDROL] 125 mg IVPUSH Q12H 06/02/21 Lunch ADA Diabetic [[employer] Diet] [DIET] 06/02/21 15:30 Remdesivir 100 mg Sodium Chloride 0.9% [Normal Saline] 100 ml IV Q24H 06/03/21 06:05 CBC WITH AUTO DIFF [HEME] AM 06/04/21 05:11 C-REACTIVE PROTEIN [CHEM] AM CBC WITH AUTO DIFF [HEME] AM COMPREHENSIVE METABOLIC PN,CMP [CHEM] AM MAGNESIUM [CHEM] AM 06/05/21 05:11 C-REACTIVE PROTEIN [CHEM] AM CBC WITH AUTO DIFF [HEME] AM COMPREHENSIVE METABOLIC PN,CMP [CHEM] AM MAGNESIUM [CHEM] AM - Assessment Assessment:: Assessment - day of admission 04/01/2021 * 56-year-old female who presents the ED with low saturations after testing positive for COVID-19 * History of hypertension and cervical cancer status post hysterectomy. * On 05/25/2021 she noted fever and chills. * Saw her PCP on 05/26/2021 and blood work was done which she states was normal, however she was not tested for COVID-19 * Utilizing Tylenol and ibuprofen but her symptoms continued * Returned to her PCP on 05/31/2021 where she tested positive for SARS-CoV-2 RNA. * Chest x-ray at that time was obtained and per the patient showed "pneumonia" however the patient is not sure what exactly was seen. * Noted saturations in the 80s this morning and came to the ED as instructed * Reports nonproductive cough but no acute dyspnea or chest pain. She feels weak. Denies any nausea or vomiting. * Has not received the Covid vaccine. * 12-lead EKG is obtained showing sinus tachycardia 107 bpm with no ischemic changes. Temp is 36.9 Celsius. Pulse 97. Respirations 29. Blood pressure 98/64. Pulse ox is 86%, rising to 96% on 1 L. * Labs are obtained: * WBC 4.89 * Hemoglobin 12.0 * Platelet 400,000 * Neutrophils 58% * Sodium 135 * Potassium 3.6 * Chloride 100 * Carbon dioxide 22 * Anion gap 16.6 * BUN 12. Creatinine 0.9. GFR greater than 60 * Glucose 188 * Lactic acid 1.3 * Magnesium 1.8 * Total bilirubin 0.3 * AST is 54, ALT 47, alkaline phosphatase 45. * Troponin less than 0.017 * Protein 8.0 * Albumin 3.1 * CRP 8.4 * Chest x-ray shows bilateral hazy infiltrates consistent with COVID-19 pneumonia * She is given 6 mg dexamethasone. * Admitted to floor on telemetry for management of COVID-19 PNA and hypoxia 06/02/2021: This is a 56-year-old female who presented to ED with low saturations. She is recently been diagnosed with COVID-19 and was sent home with home monitoring. Her saturations were noted to be very low when she presented to her ED and was admitted. In the ED she was noted to have saturations in the low 90s on 2 L of oxygen. On the floor glucose was noted to be high and has been high on prior visits and her A1c was obtained which was 7.7. She was started on sliding scale insulin. Ferritin was 1858. LDH was 408. Today WBC is 5.54. Hemoglobin 12.0. Platelet 441,000. Neutrophils 69.8. Sodium 140. Potassium 4.1. Chlor tristin 105. Carbon dioxide 25. Anion gap 14.1. BUN 16. Creatinine 0.7. GFR greater than 60. Glucose 126-225. Magnesium 2.4. Bilirubin 0.2. AST is 44, ALT 41, alkaline phosphatase 48. CRP is 6.8. Albumin 2.9. Unfortunately patient overnight had significant rapidly deteriorating oxygen saturations and was requiring up to 10 L. She was placed on high flow oxygen and is currently on 50 L with an FiO2 of 50%. Actemra 8 mg/kg was ordered today and her steroids were increased from 6 mg dexamethasone to 125 mg twice daily Solu-Medrol. She has been proning and nursing was instructed to continue to push for this. She does have incentive spirometry and Acapella in the room and has been using it. We will otherwise continue Covid treatment. Chest x-ray today is slightly worse than yesterday. We will check a procalcitonin. Dr. Neal, attending hospitalist, in to discuss plan with patient. Unknown length of stay due to severity of Covid symptoms. 06/03/2021 This is a 56-year-old female admitted to the floor with Covid pneumonia. She also appears to be a new onset diabetic with an A1c of 7.7. UA was obtained and was cloudy with 1+ protein and trace ketones. Urine random microalbumin was obtained and was elevated at 29.7. Blood sugars have been 196-268. We will increase sliding scale insulin to medium intensity. She is neutropenic today with a WBC of 1.39. Hemoglobin 12.6. Platelet 470,000. Neutrophils are 50.4. Sodium 142. Potassium 4.3. Chloride 107. Carbon dioxide 25. Anion gap 14.3. BUN 23. Creatinine 0.8. GFR greater than 60. Calcium 8.5. Magnesium 2.3. Bilirubin 0.2. AST 38, ALT 41, alkaline phosphatase 48. CRP is 3.3. Protein 7.7. Albumin 2.8. We will continue current treatment plan with steroids, high flow, and respiratory exercises. If patient saturations continued to drop we will start her on BiPAP and likely admit her to the ICU at that time. At this point saturations have been in the upper 90s while patient is proning. We will continue to encourage this as well. Unknown length of stay due to duration and severity of Covid 19 pneumonia. - Plan Plan:: COVID-19 Hypoxemia * O2 as needed with goal saturations 88-95% * Start pepcid 20mg BID * Discontinue dexamethasone and start 125 mg twice daily Solu-Medrol IV push. * Remdesivir - day 12/23 * Actemra given 06/02/2021 * IS/Acapella * Prone whenever able * RT consultation * Telemetry * Continuous pulse ox * Tylenol for fever * Airborne/contact isolation * Ambulate around the room * Will hold off PT and OT for now * Daily labs * Blood cultures negative thus far * CM consultation * Started on high flow * Procalcitonin pending HTN (hypertension) * Hold home lisinopril for now * Monitor vital signs Hyperglycemia Type II DM - new onset * Has had 2 readings with glucose >180 * A1C 7.7 * Supervisor Of Communications consultation once feeling better * nurses educator consult once feeling better * Sliding scale medium intensity insulin * QID AC and Bedtime blood glucose checks * Anticipate elevations in blood glucose due to steroids S/P hysterectomy History of cervical cancer * No acute concerns Code Status: Full Code PCP: Dr. Davalos DVT prophylaxis: Lovenox Disposition: Admit patient to medical floor on telemetry for management of COVID-19 pneumonia with hypoxia. Length of stay greater than 96 hours due to worsening Covid symptoms and requirement for treatment. <Kade Neal Jr - Last Filed: 06/04/21 05:53> - Patient Data Vitals - Most Recent: Last Vital Signs Temp 98.0 F 06/03/21 21:00 Pulse 74 06/03/21 21:00 Resp 22 H 06/03/21 21:00 BP 118/87 06/03/21 21:00 Pulse Ox 96 06/03/21 21:00 I&O - Last 24 Hours: Intake & Output 06/03/21 06/03/21 06/04/21 14:59 22:59 06:59 Intake Total 900 Output Total 550 300 Balance 350 -300 Lab Results Last 24 Hours: Laboratory Results - last 24 hr 06/02/21 06/03/21 06/03/21 Range/Units 05:21 06:05 06:05 WBC 1.39 L* (3.98-10.04) K/mm3 RBC 4.24 (3.98-5.22) M/mm3 Hgb 12.6 (11.2-15.7) gm/dl Hct 37.1 (34.1-44.9) % MCV 87.5 (79.4-94.8) fl MCH 29.7 (25.6-32.2) pg MCHC 34.0 (32.2-35.5) g/dl RDW Std Deviation 40.0 (36.4-46.3) fL Plt Count 470 H (182-369) K/mm3 MPV 9.3 L (9.4-12.3) fl Neut % (Auto) 50.4 (34.0-71.1) % Lymph % (Auto) 34.5 (19.3-51.7) % [place] % (Auto) 13.7 H (4.7-12.5) % Eos % (Auto) 0 L (0.7-5.8) Baso % (Auto) 1.4 H (0.1-1.2) % Neut # (Auto) 0.70 L (1.56-6.13) K/mm3 Lymph # (Auto) 0.48 L (1.18-3.74) K/mm3 [place] # (Auto) 0.19 L (0.24-0.36) K/mm3 Eos # (Auto) 0.00 L (0.04-0.36) K/mm3 Baso # (Auto) 0.02 (0.01-0.08) K/mm3 Manual Slide Review Abnormal smear Sodium 142 (136-145) mEq/L Potassium 4.3 (3.5-5.1) mEq/L Chloride 107 (98-107) mEq/L Carbon Dioxide 25 (21-32) mEq/L Anion Gap 14.3 (5-15) BUN 23 H (7-18) mg/dL Creatinine 0.8 (0.55-1.02) mg/dL Est Cr Clr Drug Dosing 55.06 mL/min Estimated GFR (MDRD) > 60 (>60) mL/min BUN/Creatinine Ratio 28.8 H (14-18) Glucose 196 H (70-99) mg/dL POC Glucose (70-99) mg/dL Calcium 8.5 (8.5-10.1) mg/dL Magnesium 2.3 (1.8-2.4) mg/dL Total Bilirubin 0.2 (0.2-1.0) mg/dL AST 38 H (15-37) U/L ALT 41 (14-59) U/L Alkaline Phosphatase 48 (46-116) U/L C-Reactive Protein 3.3 H* (<1.0) mg/dL Total Protein 7.7 (6.4-8.2) g/dl Albumin 2.8 L (3.4-5.0) g/dl Globulin 4.9 gm/dL Albumin/Globulin Ratio 0.6 L (1-2) Procalcitonin 0.15 H ng/mL 06/03/21 06/03/21 06/03/21 Range/Units 06:38 11:50 16:27 WBC (3.98-10.04) K/mm3 RBC (3.98-5.22) M/mm3 Hgb (11.2-15.7) gm/dl Hct (34.1-44.9) % MCV (79.4-94.8) fl MCH (25.6-32.2) pg MCHC (32.2-35.5) g/dl RDW Std Deviation (36.4-46.3) fL Plt Count (182-369) K/mm3 MPV (9.4-12.3) fl Neut % (Auto) (34.0-71.1) % Lymph % (Auto) (19.3-51.7) % [place] % (Auto) (4.7-12.5) % Eos % (Auto) (0.7-5.8) Baso % (Auto) (0.1-1.2) % Neut # (Auto) (1.56-6.13) K/mm3 Lymph # (Auto) (1.18-3.74) K/mm3 [place] # (Auto) (0.24-0.36) K/mm3 Eos # (Auto) (0.04-0.36) K/mm3 Baso # (Auto) (0.01-0.08) K/mm3 Manual Slide Review Sodium (136-145) mEq/L Potassium (3.5-5.1) mEq/L Chloride (98-107) mEq/L Carbon Dioxide (21-32) mEq/L Anion Gap (5-15) BUN (7-18) mg/dL Creatinine (0.55-1.02) mg/dL Est Cr Clr Drug Dosing mL/min Estimated GFR (MDRD) (>60) mL/min BUN/Creatinine Ratio (14-18) Glucose (70-99) mg/dL POC Glucose 203 H 194 H 221 H (70-99) mg/dL Calcium (8.5-10.1) mg/dL Magnesium (1.8-2.4) mg/dL Total Bilirubin (0.2-1.0) mg/dL AST (15-37) U/L ALT (14-59) U/L Alkaline Phosphatase (46-116) U/L C-Reactive Protein (<1.0) mg/dL Total Protein (6.4-8.2) g/dl Albumin (3.4-5.0) g/dl Globulin gm/dL Albumin/Globulin Ratio (1-2) Procalcitonin ng/mL 06/03/21 06/04/21 Range/Units 21:34 05:00 WBC 2.43 L* (3.98-10.04) K/mm3 RBC 4.30 (3.98-5.22) M/mm3 Hgb 13.0 (11.2-15.7) gm/dl Hct 37.7 (34.1-44.9) % MCV 87.7 (79.4-94.8) fl MCH 30.2 (25.6-32.2) pg MCHC 34.5 (32.2-35.5) g/dl RDW Std Deviation 39.5 (36.4-46.3) fL Plt Count 485 H (182-369) K/mm3 MPV 9.6 (9.4-12.3) fl Neut % (Auto) 68.4 (34.0-71.1) % Lymph % (Auto) 18.9 L (19.3-51.7) % [place] % (Auto) 11.9 (4.7-12.5) % Eos % (Auto) 0 L (0.7-5.8) Baso % (Auto) 0.4 (0.1-1.2) % Neut # (Auto) 1.66 (1.56-6.13) K/mm3 Lymph # (Auto) 0.46 L (1.18-3.74) K/mm3 [place] # (Auto) 0.29 (0.24-0.36) K/mm3 Eos # (Auto) 0.00 L (0.04-0.36) K/mm3 Baso # (Auto) 0.01 (0.01-0.08) K/mm3 Manual Slide Review Sodium (136-145) mEq/L Potassium (3.5-5.1) mEq/L Chloride (98-107) mEq/L Carbon Dioxide (21-32) mEq/L Anion Gap (5-15) BUN (7-18) mg/dL Creatinine (0.55-1.02) mg/dL Est Cr Clr Drug Dosing mL/min Estimated GFR (MDRD) (>60) mL/min BUN/Creatinine Ratio (14-18) Glucose (70-99) mg/dL POC Glucose 228 H (70-99) mg/dL Calcium (8.5-10.1) mg/dL Magnesium (1.8-2.4) mg/dL Total Bilirubin (0.2-1.0) mg/dL AST (15-37) U/L ALT (14-59) U/L Alkaline Phosphatase (46-116) U/L C-Reactive Protein (<1.0) mg/dL Total Protein (6.4-8.2) g/dl Albumin (3.4-5.0) g/dl Globulin gm/dL Albumin/Globulin Ratio (1-2) Procalcitonin ng/mL Med Orders - Current: Current Medications Acetaminophen (Acetaminophen 325 Mg Tab) 650 mg PO Q4H PRN PRN Reason: Pain (Mild 1-3)/fever Albuterol (Albuterol 6.7 Gm Inhaler) 0 gm INH Q2H PRN PRN Reason: SOB/Wheezing Enoxaparin Sodium (Enoxaparin 40 Mg/0.4 Ml Syringe) 40 mg SUBCUT DAILY [facility] Last Admin: 06/03/21 08:56 Dose: 40 mg Documented by: Famotidine (Famotidine 20 Mg Tab) 20 mg PO BID [facility] Last Admin: 06/03/21 21:35 Dose: 20 mg Documented by: Remdesivir 100 mg/ Sodium (Chloride) 100 mls @ 100 mls/hr IV Q24H [facility] Stop: 06/05/21 16:29 Last Admin: 06/03/21 15:07 Dose: 100 mls/hr Documented by: Insulin Human Lispro (Insulin Lispro 100 Unit/Ml 10 Ml Vial) 0 unit SUBCUT QIDACANDBED [facility]; Protocol Last Admin: 06/03/21 21:48 Dose: 4 unit Documented by: Methylprednisolone Sodium Succinate (Methylprednisolone Sodium Succinate 125 Mg/2 Ml Sdv) 125 mg IVPUSH Q12H [facility] Last Admin: 06/03/21 21:35 Dose: 125 mg Documented by: Ondansetron HCl (Ondansetron 4 Mg/2 Ml Sdv) 4 mg IV Q6H PRN PRN Reason: Nausea/Vomiting Discontinued Medications Dexamethasone (Dexamethasone 4 Mg Tab) 6 mg PO ONETIME STA Stop: 06/01/21 06:31 Last Admin: 06/01/21 06:56 Dose: 6 mg Documented by: Dexamethasone (Dexamethasone 4 Mg Tab) 6 mg PO DAILY [facility] Stop: 06/10/21 09:01 Magnesium Sulfate 2 gm/ Premix 50 mls @ 25 mls/hr IV ONETIME ONE Stop: 06/01/21 13:30 Last Admin: 06/01/21 13:30 Dose: 25 mls/hr Documented by: Remdesivir 200 mg/ Sodium (Chloride) 250 mls @ 250 mls/hr IV ONETIME ONE Stop: 06/01/21 16:29 Last Admin: 06/01/21 15:40 Dose: 250 mls/hr Documented by: Tocilizumab 500 mg/ Sodium (Chloride) 105 mls @ 105 mls/hr IV ONETIME ONE Stop: 06/02/21 08:34 Last Admin: 06/02/21 09:28 Dose: 105 mls/hr Documented by: - Patient Data Lab Results Last 24 hrs: Laboratory Results - last 24 hr 06/02/21 06/03/21 06/03/21 Range/Units 05:21 06:05 06:05 WBC 1.39 L* (3.98-10.04) K/mm3 RBC 4.24 (3.98-5.22) M/mm3 Hgb 12.6 (11.2-15.7) gm/dl Hct 37.1 (34.1-44.9) % MCV 87.5 (79.4-94.8) fl MCH 29.7 (25.6-32.2) pg MCHC 34.0 (32.2-35.5) g/dl RDW Std Deviation 40.0 (36.4-46.3) fL Plt Count 470 H (182-369) K/mm3 MPV 9.3 L (9.4-12.3) fl Neut % (Auto) 50.4 (34.0-71.1) % Lymph % (Auto) 34.5 (19.3-51.7) % [place] % (Auto) 13.7 H (4.7-12.5) % Eos % (Auto) 0 L (0.7-5.8) Baso % (Auto) 1.4 H (0.1-1.2) % Neut # (Auto) 0.70 L (1.56-6.13) K/mm3 Lymph # (Auto) 0.48 L (1.18-3.74) K/mm3 [place] # (Auto) 0.19 L (0.24-0.36) K/mm3 Eos # (Auto) 0.00 L (0.04-0.36) K/mm3 Baso # (Auto) 0.02 (0.01-0.08) K/mm3 Manual Slide Review Abnormal smear Sodium 142 (136-145) mEq/L Potassium 4.3 (3.5-5.1) mEq/L Chloride 107 (98-107) mEq/L Carbon Dioxide 25 (21-32) mEq/L Anion Gap 14.3 (5-15) BUN 23 H (7-18) mg/dL Creatinine 0.8 (0.55-1.02) mg/dL Est Cr Clr Drug Dosing 55.06 mL/min Estimated GFR (MDRD) > 60 (>60) mL/min BUN/Creatinine Ratio 28.8 H (14-18) Glucose 196 H (70-99) mg/dL POC Glucose (70-99) mg/dL Calcium 8.5 (8.5-10.1) mg/dL Magnesium 2.3 (1.8-2.4) mg/dL Total Bilirubin 0.2 (0.2-1.0) mg/dL AST 38 H (15-37) U/L ALT 41 (14-59) U/L Alkaline Phosphatase 48 (46-116) U/L C-Reactive Protein 3.3 H* (<1.0) mg/dL Total Protein 7.7 (6.4-8.2) g/dl Albumin 2.8 L (3.4-5.0) g/dl Globulin 4.9 gm/dL Albumin/Globulin Ratio 0.6 L (1-2) Procalcitonin 0.15 H ng/mL 06/03/21 06/03/21 06/03/21 Range/Units 06:38 11:50 16:27 WBC (3.98-10.04) K/mm3 RBC (3.98-5.22) M/mm3 Hgb (11.2-15.7) gm/dl Hct (34.1-44.9) % MCV (79.4-94.8) fl MCH (25.6-32.2) pg MCHC (32.2-35.5) g/dl RDW Std Deviation (36.4-46.3) fL Plt Count (182-369) K/mm3 MPV (9.4-12.3) fl Neut % (Auto) (34.0-71.1) % Lymph % (Auto) (19.3-51.7) % [place] % (Auto) (4.7-12.5) % Eos % (Auto) (0.7-5.8) Baso % (Auto) (0.1-1.2) % Neut # (Auto) (1.56-6.13) K/mm3 Lymph # (Auto) (1.18-3.74) K/mm3 [place] # (Auto) (0.24-0.36) K/mm3 Eos # (Auto) (0.04-0.36) K/mm3 Baso # (Auto) (0.01-0.08) K/mm3 Manual Slide Review Sodium (136-145) mEq/L Potassium (3.5-5.1) mEq/L Chloride (98-107) mEq/L Carbon Dioxide (21-32) mEq/L Anion Gap (5-15) BUN (7-18) mg/dL Creatinine (0.55-1.02) mg/dL Est Cr Clr Drug Dosing mL/min Estimated GFR (MDRD) (>60) mL/min BUN/Creatinine Ratio (14-18) Glucose (70-99) mg/dL POC Glucose 203 H 194 H 221 H (70-99) mg/dL Calcium (8.5-10.1) mg/dL Magnesium (1.8-2.4) mg/dL Total Bilirubin (0.2-1.0) mg/dL AST (15-37) U/L ALT (14-59) U/L Alkaline Phosphatase (46-116) U/L C-Reactive Protein (<1.0) mg/dL Total Protein (6.4-8.2) g/dl Albumin (3.4-5.0) g/dl Globulin gm/dL Albumin/Globulin Ratio (1-2) Procalcitonin ng/mL 06/03/21 06/04/21 Range/Units 21:34 05:00 WBC 2.43 L* (3.98-10.04) K/mm3 RBC 4.30 (3.98-5.22) M/mm3 Hgb 13.0 (11.2-15.7) gm/dl Hct 37.7 (34.1-44.9) % MCV 87.7 (79.4-94.8) fl MCH 30.2 (25.6-32.2) pg MCHC 34.5 (32.2-35.5) g/dl RDW Std Deviation 39.5 (36.4-46.3) fL Plt Count 485 H (182-369) K/mm3 MPV 9.6 (9.4-12.3) fl Neut % (Auto) 68.4 (34.0-71.1) % Lymph % (Auto) 18.9 L (19.3-51.7) % [place] % (Auto) 11.9 (4.7-12.5) % Eos % (Auto) 0 L (0.7-5.8) Baso % (Auto) 0.4 (0.1-1.2) % Neut # (Auto) 1.66 (1.56-6.13) K/mm3 Lymph # (Auto) 0.46 L (1.18-3.74) K/mm3 [place] # (Auto) 0.29 (0.24-0.36) K/mm3 Eos # (Auto) 0.00 L (0.04-0.36) K/mm3 Baso # (Auto) 0.01 (0.01-0.08) K/mm3 Manual Slide Review Sodium (136-145) mEq/L Potassium (3.5-5.1) mEq/L Chloride (98-107) mEq/L Carbon Dioxide (21-32) mEq/L Anion Gap (5-15) BUN (7-18) mg/dL Creatinine (0.55-1.02) mg/dL Est Cr Clr Drug Dosing mL/min Estimated GFR (MDRD) (>60) mL/min BUN/Creatinine Ratio (14-18) Glucose (70-99) mg/dL POC Glucose 228 H (70-99) mg/dL Calcium (8.5-10.1) mg/dL Magnesium (1.8-2.4) mg/dL Total Bilirubin (0.2-1.0) mg/dL AST (15-37) U/L ALT (14-59) U/L Alkaline Phosphatase (46-116) U/L C-Reactive Protein (<1.0) mg/dL Total Protein (6.4-8.2) g/dl Albumin (3.4-5.0) g/dl Globulin gm/dL Albumin/Globulin Ratio (1-2) Procalcitonin ng/mL Result Diagrams: 06/04/21 05:00 06/03/21 06:05 Sepsis Event Note - Focused Exam Vital Signs: Vital Signs Temp Pulse Resp BP Pulse Ox Pulse Ox 06/03/21 21:00 98.0 F 74 22 H 118/87 96 06/03/21 20:14 97 - Plan Plan:: Case discussed in full. Agree with evaluation, assessment and plan.
[2021-06-03] MEDS: Famotidine 20 MG Tab PO SCH ×2 (08:56→21:35)
[2021-06-03] MEDS: methylPREDNISolone Sodium Succinate 125 MG/2 ML SDV IVPUSH SCH ×2 (08:56→21:35)
[2021-06-03] MEDS: Insulin Lispro 100 UNIT/ML 10 ML Vial SUBCUT SCH ×4 (08:56→21:48)
[2021-06-03] MEDS: Enoxaparin 40 MG/0.4 ML Syringe SUBCUT SCH (08:56)
[2021-06-03] MEDS: REMDESIVIR 100 MG in Sodium Chloride 0.9% 100 ML IV SCH (15:07)
--- NOTE | 2021-06-04 07:57 | PCM.PN ---
<Rommel Jacques - Last Filed: 06/04/21 12:56> - General Info Date of Service: 06/04/21 Admission Dx/Problem (Free Text): Admission Diagnosis/Problem Admission Diagnosis/Problem Hypoxia Functional Status: Reports: Pain Controlled, Tolerating Diet, Ambulating, Urinating, Incentive Spirometry, Other (Acapella). Denies: New Symptoms - Review of Systems General: Reports: Weakness, Fatigue. Denies: Fever, Malaise, Chills HEENT: Reports: No Symptoms. Denies: Headaches, Sore Throat Pulmonary: Reports: Shortness of Breath, Cough. Denies: Pleuritic Chest Pain, Sputum, Wheezing Cardiovascular: Reports: Dyspnea on Exertion. Denies: Chest Pain, Palpitations, Edema, Lightheadedness Gastrointestinal: Reports: No Symptoms. Denies: Abdominal Pain, Constipation, Diarrhea, Nausea, Vomiting Genitourinary: Reports: No Symptoms. Denies: Pain Musculoskeletal: Reports: No Symptoms Skin: Reports: No Symptoms. Denies: Cyanosis Neurological: Reports: No Symptoms. Denies: Confusion, Dizziness, Headache, Numbness, Pre-Existing Deficit, Syncope, Tingling, Difficulty Walking, Weakness, Gait Disturbance Psychiatric: Reports: No Symptoms - Patient Data Vitals - Most Recent: Last Vital Signs Temp 97.9 F 06/04/21 03:00 Pulse 73 06/04/21 03:00 Resp 20 06/04/21 03:00 BP 130/110 H 06/04/21 03:00 Pulse Ox 94 L 06/04/21 06:40 Weight - Most Recent: 135 lb 8 oz I&O - Last 24 Hours: Intake & Output 06/03/21 06/04/21 06/04/21 22:59 06:59 14:59 Intake Total 900 Output Total 550 300 Balance 350 -300 Lab Results Last 24 Hours: Laboratory Results - last 24 hr 06/02/21 06/03/21 06/03/21 Range/Units 05:21 06:05 11:50 WBC (3.98-10.04) K/mm3 RBC (3.98-5.22) M/mm3 Hgb (11.2-15.7) gm/dl Hct (34.1-44.9) % MCV (79.4-94.8) fl MCH (25.6-32.2) pg MCHC (32.2-35.5) g/dl RDW Std Deviation (36.4-46.3) fL Plt Count (182-369) K/mm3 MPV (9.4-12.3) fl Neut % (Auto) (34.0-71.1) % Lymph % (Auto) (19.3-51.7) % Robeson % (Auto) (4.7-12.5) % Eos % (Auto) (0.7-5.8) Baso % (Auto) (0.1-1.2) % Neut # (Auto) (1.56-6.13) K/mm3 Lymph # (Auto) (1.18-3.74) K/mm3 Robeson # (Auto) (0.24-0.36) K/mm3 Eos # (Auto) (0.04-0.36) K/mm3 Baso # (Auto) (0.01-0.08) K/mm3 Manual Slide Review Abnormal smear D-Dimer, Quantitative (0.19-0.50) mg/L Sodium (136-145) mEq/L Potassium (3.5-5.1) mEq/L Chloride (98-107) mEq/L Carbon Dioxide (21-32) mEq/L Anion Gap (5-15) BUN (7-18) mg/dL Creatinine (0.55-1.02) mg/dL Est Cr Clr Drug Dosing mL/min Estimated GFR (MDRD) (>60) mL/min BUN/Creatinine Ratio (14-18) Glucose (70-99) mg/dL POC Glucose 194 H (70-99) mg/dL Calcium (8.5-10.1) mg/dL Magnesium (1.8-2.4) mg/dL Total Bilirubin (0.2-1.0) mg/dL AST (15-37) U/L ALT (14-59) U/L Alkaline Phosphatase (46-116) U/L C-Reactive Protein (<1.0) mg/dL Total Protein (6.4-8.2) g/dl Albumin (3.4-5.0) g/dl Globulin gm/dL Albumin/Globulin Ratio (1-2) Procalcitonin 0.15 H ng/mL 06/03/21 06/03/21 06/04/21 Range/Units 16:27 21:34 05:00 WBC 2.43 L* (3.98-10.04) K/mm3 RBC 4.30 (3.98-5.22) M/mm3 Hgb 13.0 (11.2-15.7) gm/dl Hct 37.7 (34.1-44.9) % MCV 87.7 (79.4-94.8) fl MCH 30.2 (25.6-32.2) pg MCHC 34.5 (32.2-35.5) g/dl RDW Std Deviation 39.5 (36.4-46.3) fL Plt Count 485 H (182-369) K/mm3 MPV 9.6 (9.4-12.3) fl Neut % (Auto) 68.4 (34.0-71.1) % Lymph % (Auto) 18.9 L (19.3-51.7) % Robeson % (Auto) 11.9 (4.7-12.5) % Eos % (Auto) 0 L (0.7-5.8) Baso % (Auto) 0.4 (0.1-1.2) % Neut # (Auto) 1.66 (1.56-6.13) K/mm3 Lymph # (Auto) 0.46 L (1.18-3.74) K/mm3 Robeson # (Auto) 0.29 (0.24-0.36) K/mm3 Eos # (Auto) 0.00 L (0.04-0.36) K/mm3 Baso # (Auto) 0.01 (0.01-0.08) K/mm3 Manual Slide Review Not Reportable D-Dimer, Quantitative (0.19-0.50) mg/L Sodium (136-145) mEq/L Potassium (3.5-5.1) mEq/L Chloride (98-107) mEq/L Carbon Dioxide (21-32) mEq/L Anion Gap (5-15) BUN (7-18) mg/dL Creatinine (0.55-1.02) mg/dL Est Cr Clr Drug Dosing mL/min Estimated GFR (MDRD) (>60) mL/min BUN/Creatinine Ratio (14-18) Glucose (70-99) mg/dL POC Glucose 221 H 228 H (70-99) mg/dL Calcium (8.5-10.1) mg/dL Magnesium (1.8-2.4) mg/dL Total Bilirubin (0.2-1.0) mg/dL AST (15-37) U/L ALT (14-59) U/L Alkaline Phosphatase (46-116) U/L C-Reactive Protein (<1.0) mg/dL Total Protein (6.4-8.2) g/dl Albumin (3.4-5.0) g/dl Globulin gm/dL Albumin/Globulin Ratio (1-2) Procalcitonin ng/mL 06/04/21 06/04/21 06/04/21 Range/Units 05:00 05:00 06:23 WBC (3.98-10.04) K/mm3 RBC (3.98-5.22) M/mm3 Hgb (11.2-15.7) gm/dl Hct (34.1-44.9) % MCV (79.4-94.8) fl MCH (25.6-32.2) pg MCHC (32.2-35.5) g/dl RDW Std Deviation (36.4-46.3) fL Plt Count (182-369) K/mm3 MPV (9.4-12.3) fl Neut % (Auto) (34.0-71.1) % Lymph % (Auto) (19.3-51.7) % Robeson % (Auto) (4.7-12.5) % Eos % (Auto) (0.7-5.8) Baso % (Auto) (0.1-1.2) % Neut # (Auto) (1.56-6.13) K/mm3 Lymph # (Auto) (1.18-3.74) K/mm3 Robeson # (Auto) (0.24-0.36) K/mm3 Eos # (Auto) (0.04-0.36) K/mm3 Baso # (Auto) (0.01-0.08) K/mm3 Manual Slide Review D-Dimer, Quantitative 0.87 H (0.19-0.50) mg/L Sodium 144 (136-145) mEq/L Potassium 4.3 (3.5-5.1) mEq/L Chloride 108 H (98-107) mEq/L Carbon Dioxide 26 (21-32) mEq/L Anion Gap 14.3 (5-15) BUN 24 H (7-18) mg/dL Creatinine 0.9 (0.55-1.02) mg/dL Est Cr Clr Drug Dosing 48.94 mL/min Estimated GFR (MDRD) > 60 (>60) mL/min BUN/Creatinine Ratio 26.7 H (14-18) Glucose 216 H (70-99) mg/dL POC Glucose 220 H (70-99) mg/dL Calcium 8.3 L (8.5-10.1) mg/dL Magnesium 2.4 (1.8-2.4) mg/dL Total Bilirubin 0.3 (0.2-1.0) mg/dL AST 28 (15-37) U/L ALT 36 (14-59) U/L Alkaline Phosphatase 45 L (46-116) U/L C-Reactive Protein 1.5 H* (<1.0) mg/dL Total Protein 7.4 (6.4-8.2) g/dl Albumin 2.7 L (3.4-5.0) g/dl Globulin 4.7 gm/dL Albumin/Globulin Ratio 0.6 L (1-2) Procalcitonin ng/mL Med Orders - Current: Current Medications Acetaminophen (Acetaminophen 325 Mg Tab) 650 mg PO Q4H PRN PRN Reason: Pain (Mild 1-3)/fever Albuterol (Albuterol 6.7 Gm Inhaler) 0 gm INH Q2H PRN PRN Reason: SOB/Wheezing Enoxaparin Sodium (Enoxaparin 40 Mg/0.4 Ml Syringe) 40 mg SUBCUT DAILY [facility] Last Admin: 06/03/21 08:56 Dose: 40 mg Documented by: Famotidine (Famotidine 20 Mg Tab) 20 mg PO BID [facility] Last Admin: 06/03/21 21:35 Dose: 20 mg Documented by: Remdesivir 100 mg/ Sodium (Chloride) 100 mls @ 100 mls/hr IV Q24H [facility] Stop: 06/05/21 16:29 Last Admin: 06/03/21 15:07 Dose: 100 mls/hr Documented by: Insulin Human Lispro (Insulin Lispro 100 Unit/Ml 10 Ml Vial) 0 unit SUBCUT QIDACANDBED [facility]; Protocol Last Admin: 06/03/21 21:48 Dose: 4 unit Documented by: Methylprednisolone Sodium Succinate (Methylprednisolone Sodium Succinate 125 Mg/2 Ml Sdv) 125 mg IVPUSH Q12H [facility] Last Admin: 06/03/21 21:35 Dose: 125 mg Documented by: Ondansetron HCl (Ondansetron 4 Mg/2 Ml Sdv) 4 mg IV Q6H PRN PRN Reason: Nausea/Vomiting Discontinued Medications Dexamethasone (Dexamethasone 4 Mg Tab) 6 mg PO ONETIME STA Stop: 06/01/21 06:31 Last Admin: 06/01/21 06:56 Dose: 6 mg Documented by: Dexamethasone (Dexamethasone 4 Mg Tab) 6 mg PO DAILY [facility] Stop: 06/10/21 09:01 Magnesium Sulfate 2 gm/ Premix 50 mls @ 25 mls/hr IV ONETIME ONE Stop: 06/01/21 13:30 Last Admin: 06/01/21 13:30 Dose: 25 mls/hr Documented by: Remdesivir 200 mg/ Sodium (Chloride) 250 mls @ 250 mls/hr IV ONETIME ONE Stop: 06/01/21 16:29 Last Admin: 06/01/21 15:40 Dose: 250 mls/hr Documented by: Tocilizumab 500 mg/ Sodium (Chloride) 105 mls @ 105 mls/hr IV ONETIME ONE Stop: 06/02/21 08:34 Last Admin: 06/02/21 09:28 Dose: 105 mls/hr Documented by: - Exam Quality Assessment: Supplemental Oxygen (High flow 50 L with 65% FiO2), DVT Prophylaxis. No: Urine Catheter General: Alert, Oriented, Cooperative, No Acute Distress HEENT: Pupils Equal, Pupils Reactive, Mucous Membr. Moist/[place] Neck: Supple, Trachea Midline Lungs: Normal Respiratory Effort, Decreased Breath Sounds. No: Rales, Rhonchi, Wheezing Cardiovascular: Regular Rate, Regular Rhythm GI/Abdominal Exam: Normal Bowel Sounds, Soft, Non-Tender, No Distention (Female) Exam: Deferred Back Exam: Normal Inspection, Full Range of Motion Extremities: Normal Inspection, Normal Range of Motion, Non-Tender, No Pedal Edema, Normal Capillary Refill Peripheral Pulses: 2+: Radial (L), Radial (R), Dorsalis Pedis (L), Dorsalis Pedis (R) Skin: Warm, Dry, Intact Neurological: No New Focal Deficit Psy/Mental Status: Alert, Normal Affect, Normal Mood - Patient Data Lab Results Last 24 hrs: Laboratory Results - last 24 hr 06/02/21 06/03/21 06/03/21 Range/Units 05:21 06:05 11:50 WBC (3.98-10.04) K/mm3 RBC (3.98-5.22) M/mm3 Hgb (11.2-15.7) gm/dl Hct (34.1-44.9) % MCV (79.4-94.8) fl MCH (25.6-32.2) pg MCHC (32.2-35.5) g/dl RDW Std Deviation (36.4-46.3) fL Plt Count (182-369) K/mm3 MPV (9.4-12.3) fl Neut % (Auto) (34.0-71.1) % Lymph % (Auto) (19.3-51.7) % Robeson % (Auto) (4.7-12.5) % Eos % (Auto) (0.7-5.8) Baso % (Auto) (0.1-1.2) % Neut # (Auto) (1.56-6.13) K/mm3 Lymph # (Auto) (1.18-3.74) K/mm3 Robeson # (Auto) (0.24-0.36) K/mm3 Eos # (Auto) (0.04-0.36) K/mm3 Baso # (Auto) (0.01-0.08) K/mm3 Manual Slide Review Abnormal smear D-Dimer, Quantitative (0.19-0.50) mg/L Sodium (136-145) mEq/L Potassium (3.5-5.1) mEq/L Chloride (98-107) mEq/L Carbon Dioxide (21-32) mEq/L Anion Gap (5-15) BUN (7-18) mg/dL Creatinine (0.55-1.02) mg/dL Est Cr Clr Drug Dosing mL/min Estimated GFR (MDRD) (>60) mL/min BUN/Creatinine Ratio (14-18) Glucose (70-99) mg/dL POC Glucose 194 H (70-99) mg/dL Calcium (8.5-10.1) mg/dL Magnesium (1.8-2.4) mg/dL Total Bilirubin (0.2-1.0) mg/dL AST (15-37) U/L ALT (14-59) U/L Alkaline Phosphatase (46-116) U/L C-Reactive Protein (<1.0) mg/dL Total Protein (6.4-8.2) g/dl Albumin (3.4-5.0) g/dl Globulin gm/dL Albumin/Globulin Ratio (1-2) Procalcitonin 0.15 H ng/mL 06/03/21 06/03/21 06/04/21 Range/Units 16:27 21:34 05:00 WBC 2.43 L* (3.98-10.04) K/mm3 RBC 4.30 (3.98-5.22) M/mm3 Hgb 13.0 (11.2-15.7) gm/dl Hct 37.7 (34.1-44.9) % MCV 87.7 (79.4-94.8) fl MCH 30.2 (25.6-32.2) pg MCHC 34.5 (32.2-35.5) g/dl RDW Std Deviation 39.5 (36.4-46.3) fL Plt Count 485 H (182-369) K/mm3 MPV 9.6 (9.4-12.3) fl Neut % (Auto) 68.4 (34.0-71.1) % Lymph % (Auto) 18.9 L (19.3-51.7) % Robeson % (Auto) 11.9 (4.7-12.5) % Eos % (Auto) 0 L (0.7-5.8) Baso % (Auto) 0.4 (0.1-1.2) % Neut # (Auto) 1.66 (1.56-6.13) K/mm3 Lymph # (Auto) 0.46 L (1.18-3.74) K/mm3 Robeson # (Auto) 0.29 (0.24-0.36) K/mm3 Eos # (Auto) 0.00 L (0.04-0.36) K/mm3 Baso # (Auto) 0.01 (0.01-0.08) K/mm3 Manual Slide Review Not Reportable D-Dimer, Quantitative (0.19-0.50) mg/L Sodium (136-145) mEq/L Potassium (3.5-5.1) mEq/L Chloride (98-107) mEq/L Carbon Dioxide (21-32) mEq/L Anion Gap (5-15) BUN (7-18) mg/dL Creatinine (0.55-1.02) mg/dL Est Cr Clr Drug Dosing mL/min Estimated GFR (MDRD) (>60) mL/min BUN/Creatinine Ratio (14-18) Glucose (70-99) mg/dL POC Glucose 221 H 228 H (70-99) mg/dL Calcium (8.5-10.1) mg/dL Magnesium (1.8-2.4) mg/dL Total Bilirubin (0.2-1.0) mg/dL AST (15-37) U/L ALT (14-59) U/L Alkaline Phosphatase (46-116) U/L C-Reactive Protein (<1.0) mg/dL Total Protein (6.4-8.2) g/dl Albumin (3.4-5.0) g/dl Globulin gm/dL Albumin/Globulin Ratio (1-2) Procalcitonin ng/mL 06/04/21 06/04/21 06/04/21 Range/Units 05:00 05:00 06:23 WBC (3.98-10.04) K/mm3 RBC (3.98-5.22) M/mm3 Hgb (11.2-15.7) gm/dl Hct (34.1-44.9) % MCV (79.4-94.8) fl MCH (25.6-32.2) pg MCHC (32.2-35.5) g/dl RDW Std Deviation (36.4-46.3) fL Plt Count (182-369) K/mm3 MPV (9.4-12.3) fl Neut % (Auto) (34.0-71.1) % Lymph % (Auto) (19.3-51.7) % Robeson % (Auto) (4.7-12.5) % Eos % (Auto) (0.7-5.8) Baso % (Auto) (0.1-1.2) % Neut # (Auto) (1.56-6.13) K/mm3 Lymph # (Auto) (1.18-3.74) K/mm3 Robeson # (Auto) (0.24-0.36) K/mm3 Eos # (Auto) (0.04-0.36) K/mm3 Baso # (Auto) (0.01-0.08) K/mm3 Manual Slide Review D-Dimer, Quantitative 0.87 H (0.19-0.50) mg/L Sodium 144 (136-145) mEq/L Potassium 4.3 (3.5-5.1) mEq/L Chloride 108 H (98-107) mEq/L Carbon Dioxide 26 (21-32) mEq/L Anion Gap 14.3 (5-15) BUN 24 H (7-18) mg/dL Creatinine 0.9 (0.55-1.02) mg/dL Est Cr Clr Drug Dosing 48.94 mL/min Estimated GFR (MDRD) > 60 (>60) mL/min BUN/Creatinine Ratio 26.7 H (14-18) Glucose 216 H (70-99) mg/dL POC Glucose 220 H (70-99) mg/dL Calcium 8.3 L (8.5-10.1) mg/dL Magnesium 2.4 (1.8-2.4) mg/dL Total Bilirubin 0.3 (0.2-1.0) mg/dL AST 28 (15-37) U/L ALT 36 (14-59) U/L Alkaline Phosphatase 45 L (46-116) U/L C-Reactive Protein 1.5 H* (<1.0) mg/dL Total Protein 7.4 (6.4-8.2) g/dl Albumin 2.7 L (3.4-5.0) g/dl Globulin 4.7 gm/dL Albumin/Globulin Ratio 0.6 L (1-2) Procalcitonin ng/mL Result Diagrams: 06/04/21 05:00 06/04/21 05:00 Sepsis Event Note - Evaluation Sepsis Screening Result: Possible Sepsis Risk - Focused Exam Vital Signs: Vital Signs Temp Pulse Resp BP Pulse Ox Pulse Ox 06/04/21 06:40 94 L 06/04/21 06:20 98 06/04/21 03:00 97.9 F 73 20 130/110 H 97 06/03/21 21:00 98.0 F 74 22 H 118/87 96 06/03/21 20:14 97 - Problem List & Annotations (1) HTN (hypertension) SNOMED Code(s): 46541230 Code(s): I10 - ESSENTIAL (PRIMARY) HYPERTENSION Status: Chronic Priority: Low Current Visit: No Qualifiers: Hypertension type: unspecified Qualified Code(s): I10 - Essential (primary) hypertension (2) S/P hysterectomy SNOMED Code(s): 289730438, 510506910, 524989550 Code(s): Z90.710 - ACQUIRED ABSENCE OF BOTH CERVIX AND UTERUS Status: Chronic Priority: Low Current Visit: No (3) History of cervical cancer Status: Chronic Priority: Low Current Visit: No (4) COVID-19 SNOMED Code(s): 633910563 Code(s): U07.1 - COVID-19 Status: Acute Priority: High Current Visit: Yes (5) Hyperglycemia SNOMED Code(s): 84105560 Code(s): R73.9 - HYPERGLYCEMIA, UNSPECIFIED Status: Acute Current Visit: No (6) Hypoxemia SNOMED Code(s): 047267079 Code(s): R09.02 - HYPOXEMIA Status: Acute Current Visit: No (7) New onset type 2 diabetes mellitus SNOMED Code(s): 76156523 Code(s): E11.9 - TYPE 2 DIABETES MELLITUS WITHOUT COMPLICATIONS Status: Acute Priority: High Current Visit: Yes (8) Elevated d-dimer SNOMED Code(s): 723861886 Code(s): R79.89 - OTHER SPECIFIED ABNORMAL FINDINGS OF BLOOD CHEMISTRY Status: Acute Priority: Medium Current Visit: Yes (9) Leukopenia SNOMED Code(s): 15073496, 977983523 Code(s): D72.819 - DECREASED WHITE BLOOD CELL COUNT, UNSPECIFIED Status: Acute Priority: High Current Visit: Yes Qualifiers: Leukopenia type: neutropenia Neutropenia type: due to infection Qualified Code(s): D70.3 - Neutropenia due to infection - Problem List Review Problem List Initiated/Reviewed/Updated: Yes - My Orders Last 24 Hours: My Active Orders 06/05/21 05:11 C-REACTIVE PROTEIN [CHEM] AM CBC WITH AUTO DIFF [HEME] AM COMPREHENSIVE METABOLIC PN,CMP [CHEM] AM MAGNESIUM [CHEM] AM - Assessment Assessment:: Assessment - day of admission 04/01/2021 * 56-year-old female who presents the ED with low saturations after testing positive for COVID-19 * History of hypertension and cervical cancer status post hysterectomy. * On 05/25/2021 she noted fever and chills. * Saw her PCP on 05/26/2021 and blood work was done which she states was normal, however she was not tested for COVID-19 * Utilizing Tylenol and ibuprofen but her symptoms continued * Returned to her PCP on 05/31/2021 where she tested positive for SARS-CoV-2 RNA. * Chest x-ray at that time was obtained and per the patient showed "pneumonia" however the patient is not sure what exactly was seen. * Noted saturations in the 80s this morning and came to the ED as instructed * Reports nonproductive cough but no acute dyspnea or chest pain. She feels weak. Denies any nausea or vomiting. * Has not received the Covid vaccine. * 12-lead EKG is obtained showing sinus tachycardia 107 bpm with no ischemic changes. Temp is 36.9 Celsius. Pulse 97. Respirations 29. Blood pressure 98/64. Pulse ox is 86%, rising to 96% on 1 L. * Labs are obtained: * WBC 4.89 * Hemoglobin 12.0 * Platelet 400,000 * Neutrophils 58% * Sodium 135 * Potassium 3.6 * Chloride 100 * Carbon dioxide 22 * Anion gap 16.6 * BUN 12. Creatinine 0.9. GFR greater than 60 * Glucose 188 * Lactic acid 1.3 * Magnesium 1.8 * Total bilirubin 0.3 * AST is 54, ALT 47, alkaline phosphatase 45. * Troponin less than 0.017 * Protein 8.0 * Albumin 3.1 * CRP 8.4 * Chest x-ray shows bilateral hazy infiltrates consistent with COVID-19 pneumonia * She is given 6 mg dexamethasone. * Admitted to floor on telemetry for management of COVID-19 PNA and hypoxia 06/02/2021: This is a 56-year-old female who presented to ED with low saturations. She is recently been diagnosed with COVID-19 and was sent home with home monitoring. Her saturations were noted to be very low when she presented to her ED and was admitted. In the ED she was noted to have saturations in the low 90s on 2 L of oxygen. On the floor glucose was noted to be high and has been high on prior visits and her A1c was obtained which was 7.7. She was started on sliding scale insulin. Ferritin was 1858. LDH was 408. Today WBC is 5.54. Hemoglobin 12.0. Platelet 441,000. Neutrophils 69.8. Sodium 140. Potassium 4.1. Chloride 105. Carbon dioxide 25. Anion gap 14.1. BUN 16. Creatinine 0.7. GFR greater than 60. Glucose 126-225. Magnesium 2.4. Bilirubin 0.2. AST is 44, ALT 41, alkaline phosphatase 48. CRP is 6.8. Albumin 2.9. Unfortunately patient overnight had significant rapidly deteriorating oxygen saturations and was requiring up to 10 L. She was placed on high flow oxygen and is currently on 50 L with an FiO2 of 50%. Actemra 8 mg/kg was ordered today and her steroids were increased from 6 mg dexamethasone to 125 mg twice daily Solu-Medrol. She has been proning and nursing was instructed to continue to push for this. She does have incentive spirometry and Acapella in the room and has been using it. We will otherwise continue Covid treatment. Chest x-ray today is slightly worse than yesterday. We will check a procalcitonin. Dr. Neal, attending hospitalist, in to discuss plan with patient. Unknown length of stay due to severity of Covid symptoms. 06/03/2021 This is a 56-year-old female admitted to the floor with Covid pneumonia. She also appears to be a new onset diabetic with an A1c of 7.7. UA was obtained and was cloudy with 1+ protein and trace ketones. Urine random microalbumin was obtained and was elevated at 29.7. Blood sugars have been 196-268. We will increase sliding scale insulin to medium intensity. She is neutropenic today with a WBC of 1.39. Hemoglobin 12.6. Platelet 470,000. Neutrophils are 50.4. Sodium 142. Potassium 4.3. Chloride 107. Carbon dioxide 25. Anion gap 14.3. BUN 23. Creatinine 0.8. GFR greater than 60. Calcium 8.5. Magnesium 2.3. Bilirubin 0.2. AST 38, ALT 41, alkaline phosphatase 48. CRP is 3.3. Protein 7.7. Albumin 2.8. We will continue current treatment plan with steroids, high flow, and respiratory exercises. If patient saturations continued to drop we will start her on BiPAP and likely admit her to the ICU at that time. At this point saturations have been in the upper 90s while patient is proning. We will continue to encourage this as well. Unknown length of stay due to duration and severity of Covid 19 pneumonia. 06/04/2021 This is a 56-year-old female admitted for COVID-19 pneumonia. She continues with treatment including Solu-Medrol and remdesivir. We will decrease Solu- Medrol dosing to 60 mg every 8 hours today. Remains on high flow oxygen 50 L and 65% FiO2. This is a improvement over yesterday. She has been proning and utilizing her incentive spirometry/Acapella. She states she feels pretty good overall. Labs today show a continued neutropenia at 2.43. Hemoglobin 13.0. Platelet 485,000. Neutrophils are 60.4%. D-dimer is 0.87. Sodium 144. Potassium 4.3. Chloride 108. Carbon dioxide 26. Anion gap 14.3. BUN 24. Creatinine 0.9. GFR greater than 60. Glucose has been 2 20-2 80 and we will increase her sliding scale tube high intensity. Calcium 8.3. Magnesium 2.4. Total bilirubin 0.3. AST 28, ALT 36, alkaline phosphatase 45. CRP is 1.5. Protein 7.4. Albumin 2.7. We will continue to watch blood sugars and add long- acting insulin if indicated. We will address elevated A1c/diabetes more at disc harge. Continue current treatment plan. Unknown length of stay pending continued improvement. - Plan Plan:: COVID-19 Hypoxemia Elevated D-Dimer Leukopenia * O2 as needed with goal saturations 88-95% * Pepcid 20mg BID * Decrease IV push Solu-Medrol to 60 mg every 8 hour. * Remdesivir - day 01/23 * Actemra given 06/02/2021 * IS/Acapella * Prone whenever able * RT consultation * Telemetry * Continuous pulse ox * Tylenol for fever * Airborne/contact isolation * Ambulate around the room * Will hold off PT and OT for now * Daily labs * Blood cultures negative thus far * CM consultation * Started on high flow * Procalcitonin negative * Blood cultures negative thus far HTN (hypertension) * Hold home lisinopril for now * Monitor vital signs Hyperglycemia Type II DM - new onset * Has had 2 readings with glucose >180 * A1C 7.7 * Security Monitor consultation once feeling better * diabetic educator consult once feeling better * Sliding scale high intensity insulin * QID AC and Bedtime blood glucose checks * Anticipate elevations in blood glucose due to steroids * Monitor need for long acting insulin while on steroids S/P hysterectomy History of cervical cancer * No acute concerns Code Status: Full Code PCP: Dr. Davalos DVT prophylaxis: Lovenox Disposition: Admit patient to medical floor on telemetry for management of COVID-19 pneumonia with hypoxia. Length of stay greater than 96 hours due to worsening Covid symptoms and requirement for treatment. <Kade Neal Jr - Last Filed: 06/04/21 14:43> - Patient Data Vitals - Most Recent: Last Vital Signs Temp 98.1 F 06/04/21 08:55 Pulse 71 06/04/21 08:59 Resp 20 06/04/21 08:55 BP 116/88 06/04/21 08:55 Pulse Ox 94 L 06/04/21 08:59 I&O - Last 24 Hours: Intake & Output 06/03/21 06/04/21 06/04/21 22:59 06:59 14:59 Intake Total 900 0 Output Total 550 300 Balance 350 -300 0 Lab Results Last 24 Hours: Laboratory Results - last 24 hr 06/03/21 06/03/21 06/04/21 Range/Units 16:27 21:34 05:00 WBC 2.43 L* (3.98-10.04) K/mm3 RBC 4.30 (3.98-5.22) M/mm3 Hgb 13.0 (11.2-15.7) gm/dl Hct 37.7 (34.1-44.9) % MCV 87.7 (79.4-94.8) fl MCH 30.2 (25.6-32.2) pg MCHC 34.5 (32.2-35.5) g/dl RDW Std Deviation 39.5 (36.4-46.3) fL Plt Count 485 H (182-369) K/mm3 MPV 9.6 (9.4-12.3) fl Neut % (Auto) 68.4 (34.0-71.1) % Lymph % (Auto) 18.9 L (19.3-51.7) % Robeson % (Auto) 11.9 (4.7-12.5) % Eos % (Auto) 0 L (0.7-5.8) Baso % (Auto) 0.4 (0.1-1.2) % Neut # (Auto) 1.66 (1.56-6.13) K/mm3 Lymph # (Auto) 0.46 L (1.18-3.74) K/mm3 Robeson # (Auto) 0.29 (0.24-0.36) K/mm3 Eos # (Auto) 0.00 L (0.04-0.36) K/mm3 Baso # (Auto) 0.01 (0.01-0.08) K/mm3 Manual Slide Review Abnormal smear D-Dimer, Quantitative (0.19-0.50) mg/L Sodium (136-145) mEq/L Potassium (3.5-5.1) mEq/L Chloride (98-107) mEq/L Carbon Dioxide (21-32) mEq/L Anion Gap (5-15) BUN (7-18) mg/dL Creatinine (0.55-1.02) mg/dL Est Cr Clr Drug Dosing mL/min Estimated GFR (MDRD) (>60) mL/min BUN/Creatinine Ratio (14-18) Glucose (70-99) mg/dL POC Glucose 221 H 228 H (70-99) mg/dL Calcium (8.5-10.1) mg/dL Magnesium (1.8-2.4) mg/dL Total Bilirubin (0.2-1.0) mg/dL AST (15-37) U/L ALT (14-59) U/L Alkaline Phosphatase (46-116) U/L C-Reactive Protein (<1.0) mg/dL Total Protein (6.4-8.2) g/dl Albumin (3.4-5.0) g/dl Globulin gm/dL Albumin/Globulin Ratio (1-2) 06/04/21 06/04/21 06/04/21 Range/Units 05:00 05:00 06:23 WBC (3.98-10.04) K/mm3 RBC (3.98-5.22) M/mm3 Hgb (11.2-15.7) gm/dl Hct (34.1-44.9) % MCV (79.4-94.8) fl MCH (25.6-32.2) pg MCHC (32.2-35.5) g/dl RDW Std Deviation (36.4-46.3) fL Plt Count (182-369) K/mm3 MPV (9.4-12.3) fl Neut % (Auto) (34.0-71.1) % Lymph % (Auto) (19.3-51.7) % Robeson % (Auto) (4.7-12.5) % Eos % (Auto) (0.7-5.8) Baso % (Auto) (0.1-1.2) % Neut # (Auto) (1.56-6.13) K/mm3 Lymph # (Auto) (1.18-3.74) K/mm3 Robeson # (Auto) (0.24-0.36) K/mm3 Eos # (Auto) (0.04-0.36) K/mm3 Baso # (Auto) (0.01-0.08) K/mm3 Manual Slide Review D-Dimer, Quantitative 0.87 H (0.19-0.50) mg/L Sodium 144 (136-145) mEq/L Potassium 4.3 (3.5-5.1) mEq/L Chloride 108 H (98-107) mEq/L Carbon Dioxide 26 (21-32) mEq/L Anion Gap 14.3 (5-15) BUN 24 H (7-18) mg/dL Creatinine 0.9 (0.55-1.02) mg/dL Est Cr Clr Drug Dosing 48.94 mL/min Estimated GFR (MDRD) > 60 (>60) mL/min BUN/Creatinine Ratio 26.7 H (14-18) Glucose 216 H (70-99) mg/dL POC Glucose 220 H (70-99) mg/dL Calcium 8.3 L (8.5-10.1) mg/dL Magnesium 2.4 (1.8-2.4) mg/dL Total Bilirubin 0.3 (0.2-1.0) mg/dL AST 28 (15-37) U/L ALT 36 (14-59) U/L Alkaline Phosphatase 45 L (46-116) U/L C-Reactive Protein 1.5 H* (<1.0) mg/dL Total Protein 7.4 (6.4-8.2) g/dl Albumin 2.7 L (3.4-5.0) g/dl Globulin 4.7 gm/dL Albumin/Globulin Ratio 0.6 L (1-2) // Range/Units 10:58 WBC (3.98-10.04) K/mm3 RBC (3.98-5.22) M/mm3 Hgb (11.2-15.7) gm/dl Hct (34.1-44.9) % MCV (79.4-94.8) fl MCH (25.6-32.2) pg MCHC (32.2-35.5) g/dl RDW Std Deviation (36.4-46.3) fL Plt Count (182-369) K/mm3 MPV (9.4-12.3) fl Neut % (Auto) (34.0-71.1) % Lymph % (Auto) (19.3-51.7) % Robeson % (Auto) (4.7-12.5) % Eos % (Auto) (0.7-5.8) Baso % (Auto) (0.1-1.2) % Neut # (Auto) (1.56-6.13) K/mm3 Lymph # (Auto) (1.18-3.74) K/mm3 Robeson # (Auto) (0.24-0.36) K/mm3 Eos # (Auto) (0.04-0.36) K/mm3 Baso # (Auto) (0.01-0.08) K/mm3 Manual Slide Review D-Dimer, Quantitative (0.19-0.50) mg/L Sodium (136-145) mEq/L Potassium (3.5-5.1) mEq/L Chloride (98-107) mEq/L Carbon Dioxide (21-32) mEq/L Anion Gap (5-15) BUN (7-18) mg/dL Creatinine (0.55-1.02) mg/dL Est Cr Clr Drug Dosing mL/min Estimated GFR (MDRD) (>60) mL/min BUN/Creatinine Ratio (14-18) Glucose (70-99) mg/dL POC Glucose 280 H (70-99) mg/dL Calcium (8.5-10.1) mg/dL Magnesium (1.8-2.4) mg/dL Total Bilirubin (0.2-1.0) mg/dL AST (15-37) U/L ALT (14-59) U/L Alkaline Phosphatase (46-116) U/L C-Reactive Protein (<1.0) mg/dL Total Protein (6.4-8.2) g/dl Albumin (3.4-5.0) g/dl Globulin gm/dL Albumin/Globulin Ratio (1-2) Med Orders - Current: Current Medications Acetaminophen (Acetaminophen 325 Mg Tab) 650 mg PO Q4H PRN PRN Reason: Pain (Mild 1-3)/fever Albuterol (Albuterol 6.7 Gm Inhaler) 0 gm INH Q2H PRN PRN Reason: SOB/Wheezing Enoxaparin Sodium (Enoxaparin 40 Mg/0.4 Ml Syringe) 40 mg SUBCUT DAILY [facility] Last Admin: 06/04/21 08:07 Dose: 40 mg Documented by: Famotidine (Famotidine 20 Mg Tab) 20 mg PO BID [facility] Last Admin: 06/04/21 08:06 Dose: 20 mg Documented by: Remdesivir 100 mg/ Sodium (Chloride) 100 mls @ 100 mls/hr IV Q24H [facility] Stop: 06/05/21 16:29 Last Admin: 06/04/21 14:37 Dose: 100 mls/hr Documented by: Insulin Human Lispro (Insulin Lispro 100 Unit/Ml 10 Ml Vial) 0 unit SUBCUT QIDACANDBED [facility]; Protocol Last Admin: 06/04/21 11:32 Dose: 9 unit Documented by: Methylprednisolone Sodium Succinate (Methylprednisolone Sodium Succinate 125 Mg/2 Ml Sdv) 60 mg IVPUSH Q8H [facility] Ondansetron HCl (Ondansetron 4 Mg/2 Ml Sdv) 4 mg IV Q6H PRN PRN Reason: Nausea/Vomiting Discontinued Medications Dexamethasone (Dexamethasone 4 Mg Tab) 6 mg PO ONETIME [facility] Stop: 06/01/21 06:31 Last Admin: 06/01/21 06:56 Dose: 6 mg Documented by: Dexamethasone (Dexamethasone 4 Mg Tab) 6 mg PO DAILY [facility] Stop: 06/10/21 09:01 Magnesium Sulfate 2 gm/ Premix 50 mls @ 25 mls/hr IV ONETIME ONE Stop: 06/01/21 13:30 Last Admin: 06/01/21 13:30 Dose: 25 mls/hr Documented by: Remdesivir 200 mg/ Sodium (Chloride) 250 mls @ 250 mls/hr IV ONETIME ONE Stop: 06/01/21 16:29 Last Admin: 06/01/21 15:40 Dose: 250 mls/hr Documented by: Tocilizumab 500 mg/ Sodium (Chloride) 105 mls @ 105 mls/hr IV ONETIME ONE Stop: 06/02/21 08:34 Last Admin: 06/02/21 09:28 Dose: 105 mls/hr Documented by: Methylprednisolone Sodium Succinate (Methylprednisolone Sodium Succinate 125 Mg/2 Ml Sdv) 125 mg IVPUSH Q12H [facility] Last Admin: 06/04/21 08:07 Dose: 125 mg Documented by: - Patient Data Lab Results Last 24 hrs: Laboratory Results - last 24 hr 06/03/21 06/03/21 06/04/21 Range/Units 16:27 21:34 05:00 WBC 2.43 L* (3.98-10.04) K/mm3 RBC 4.30 (3.98-5.22) M/mm3 Hgb 13.0 (11.2-15.7) gm/dl Hct 37.7 (34.1-44.9) % MCV 87.7 (79.4-94.8) fl MCH 30.2 (25.6-32.2) pg MCHC 34.5 (32.2-35.5) g/dl RDW Std Deviation 39.5 (36.4-46.3) fL Plt Count 485 H (182-369) K/mm3 MPV 9.6 (9.4-12.3) fl Neut % (Auto) 68.4 (34.0-71.1) % Lymph % (Auto) 18.9 L (19.3-51.7) % Robeson % (Auto) 11.9 (4.7-12.5) % Eos % (Auto) 0 L (0.7-5.8) Baso % (Auto) 0.4 (0.1-1.2) % Neut # (Auto) 1.66 (1.56-6.13) K/mm3 Lymph # (Auto) 0.46 L (1.18-3.74) K/mm3 Robeson # (Auto) 0.29 (0.24-0.36) K/mm3 Eos # (Auto) 0.00 L (0.04-0.36) K/mm3 Baso # (Auto) 0.01 (0.01-0.08) K/mm3 Manual Slide Review Abnormal smear D-Dimer, Quantitative (0.19-0.50) mg/L Sodium (136-145) mEq/L Potassium (3.5-5.1) mEq/L Chloride (98-107) mEq/L Carbon Dioxide (21-32) mEq/L Anion Gap (5-15) BUN (7-18) mg/dL Creatinine (0.55-1.02) mg/dL Est Cr Clr Drug Dosing mL/min Estimated GFR (MDRD) (>60) mL/min BUN/Creatinine Ratio (14-18) Glucose (70-99) mg/dL POC Glucose 221 H 228 H (70-99) mg/dL Calcium (8.5-10.1) mg/dL Magnesium (1.8-2.4) mg/dL Total Bilirubin (0.2-1.0) mg/dL AST (15-37) U/L ALT (14-59) U/L Alkaline Phosphatase (46-116) U/L C-Reactive Protein (<1.0) mg/dL Total Protein (6.4-8.2) g/dl Albumin (3.4-5.0) g/dl Globulin gm/dL Albumin/Globulin Ratio (1-2) 06/04/21 06/04/21 06/04/21 Range/Units 05:00 05:00 06:23 WBC (3.98-10.04) K/mm3 RBC (3.98-5.22) M/mm3 Hgb (11.2-15.7) gm/dl Hct (34.1-44.9) % MCV (79.4-94.8) fl MCH (25.6-32.2) pg MCHC (32.2-35.5) g/dl RDW Std Deviation (36.4-46.3) fL Plt Count (182-369) K/mm3 MPV (9.4-12.3) fl Neut % (Auto) (34.0-71.1) % Lymph % (Auto) (19.3-51.7) % Robeson % (Auto) (4.7-12.5) % Eos % (Auto) (0.7-5.8) Baso % (Auto) (0.1-1.2) % Neut # (Auto) (1.56-6.13) K/mm3 Lymph # (Auto) (1.18-3.74) K/mm3 Robeson # (Auto) (0.24-0.36) K/mm3 Eos # (Auto) (0.04-0.36) K/mm3 Baso # (Auto) (0.01-0.08) K/mm3 Manual Slide Review D-Dimer, Quantitative 0.87 H (0.19-0.50) mg/L Sodium 144 (136-145) mEq/L Potassium 4.3 (3.5-5.1) mEq/L Chloride 108 H (98-107) mEq/L Carbon Dioxide 26 (21-32) mEq/L Anion Gap 14.3 (5-15) BUN 24 H (7-18) mg/dL Creatinine 0.9 (0.55-1.02) mg/dL Est Cr Clr Drug Dosing 48.94 mL/min Estimated GFR (MDRD) > 60 (>60) mL/min BUN/Creatinine Ratio 26.7 H (14-18) Glucose 216 H (70-99) mg/dL POC Glucose 220 H (70-99) mg/dL Calcium 8.3 L (8.5-10.1) mg/dL Magnesium 2.4 (1.8-2.4) mg/dL Total Bilirubin 0.3 (0.2-1.0) mg/dL AST 28 (15-37) U/L ALT 36 (14-59) U/L Alkaline Phosphatase 45 L (46-116) U/L C-Reactive Protein 1.5 H* (<1.0) mg/dL Total Protein 7.4 (6.4-8.2) g/dl Albumin 2.7 L (3.4-5.0) g/dl Globulin 4.7 gm/dL Albumin/Globulin Ratio 0.6 L (1-2) // Range/Units 10:58 WBC (3.98-10.04) K/mm3 RBC (3.98-5.22) M/mm3 Hgb (11.2-15.7) gm/dl Hct (34.1-44.9) % MCV (79.4-94.8) fl MCH (25.6-32.2) pg MCHC (32.2-35.5) g/dl RDW Std Deviation (36.4-46.3) fL Plt Count (182-369) K/mm3 MPV (9.4-12.3) fl Neut % (Auto) (34.0-71.1) % Lymph % (Auto) (19.3-51.7) % Robeson % (Auto) (4.7-12.5) % Eos % (Auto) (0.7-5.8) Baso % (Auto) (0.1-1.2) % Neut # (Auto) (1.56-6.13) K/mm3 Lymph # (Auto) (1.18-3.74) K/mm3 Robeson # (Auto) (0.24-0.36) K/mm3 Eos # (Auto) (0.04-0.36) K/mm3 Baso # (Auto) (0.01-0.08) K/mm3 Manual Slide Review D-Dimer, Quantitative (0.19-0.50) mg/L Sodium (136-145) mEq/L Potassium (3.5-5.1) mEq/L Chloride (98-107) mEq/L Carbon Dioxide (21-32) mEq/L Anion Gap (5-15) BUN (7-18) mg/dL Creatinine (0.55-1.02) mg/dL Est Cr Clr Drug Dosing mL/min Estimated GFR (MDRD) (>60) mL/min BUN/Creatinine Ratio (14-18) Glucose (70-99) mg/dL POC Glucose 280 H (70-99) mg/dL Calcium (8.5-10.1) mg/dL Magnesium (1.8-2.4) mg/dL Total Bilirubin (0.2-1.0) mg/dL AST (15-37) U/L ALT (14-59) U/L Alkaline Phosphatase (46-116) U/L C-Reactive Protein (<1.0) mg/dL Total Protein (6.4-8.2) g/dl Albumin (3.4-5.0) g/dl Globulin gm/dL Albumin/Globulin Ratio (1-2) Result Diagrams: 06/04/21 05:00 06/04/21 05:00 Sepsis Event Note - Focused Exam Vital Signs: Vital Signs Temp Temp Pulse Resp BP BP Pulse Ox 06/04/21 08:59 71 94 L 06/04/21 08:55 98.1 F 20 116/88 06/04/21 08:36 06/04/21 06:40 06/04/21 06:20 06/04/21 03:00 97.9 F 73 20 130/110 H 97 Pulse Ox 06/04/21 08:59 06/04/21 08:55 06/04/21 08:36 97 06/04/21 06:40 94 L 06/04/21 06:20 98 06/04/21 03:00 - Plan Plan:: Case discussed in full. Agree with evaluation, assessment and plan.
[2021-06-04] MEDS: Famotidine 20 MG Tab PO SCH ×2 (08:06→20:56)
[2021-06-04] MEDS: Insulin Lispro 100 UNIT/ML 10 ML Vial SUBCUT SCH ×4 (08:06→21:14)
[2021-06-04] MEDS: Enoxaparin 40 MG/0.4 ML Syringe SUBCUT SCH (08:07)
[2021-06-04] MEDS: methylPREDNISolone Sodium Succinate 125 MG/2 ML SDV IVPUSH SCH ×2 (08:07→20:55)
[2021-06-04] MEDS: REMDESIVIR 100 MG in Sodium Chloride 0.9% 100 ML IV SCH (14:37)
[2021-06-05] MEDS: methylPREDNISolone Sodium Succinate 125 MG/2 ML SDV IVPUSH SCH ×3 (04:47→21:20)
--- NOTE | 2021-06-05 07:11 | PCM.PN ---
- General Info Date of Service: 06/05/21 Admission Dx/Problem (Free Text): Admission Diagnosis/Problem Admission Diagnosis/Problem Hypoxia Subjective Update: The patient is a 56-year-old lady who had been admitted to acute hospitalization due to COVID-19 pneumonia. Patient upon presentation to emergency department was noted to be hypoxic. The patient is currently on bag 3 of 4 of remdesivir. She says that she is feeling better. Her breathing has improved somewhat. The patient has been tolerating diet. She has no other complaints. Functional Status: Reports: Pain Controlled, Tolerating Diet - Review of Systems General: Reports: Weakness, Fatigue HEENT: Reports: No Symptoms Pulmonary: Reports: Shortness of Breath Cardiovascular: Reports: No Symptoms Gastrointestinal: Reports: No Symptoms Genitourinary: Reports: No Symptoms Musculoskeletal: Reports: No Symptoms Skin: Reports: No Symptoms Neurological: Reports: No Symptoms Psychiatric: Reports: No Symptoms - Patient Data Vitals - Most Recent: Last Vital Signs Temp 36.7 C 06/05/21 03:06 Pulse 77 06/05/21 03:06 Resp 20 06/05/21 03:06 BP 144/80 H 06/05/21 03:06 Pulse Ox 90 L 06/05/21 06:51 Weight - Most Recent: 61.825 kg I&O - Last 24 Hours: Intake & Output 06/04/21 06/05/21 06/05/21 22:59 06:59 14:59 Intake Total 700 475 Output Total 500 625 Balance 200 -150 Lab Results Last 24 Hours: Laboratory Results - last 24 hr 06/04/21 06/04/21 06/04/21 Range/Units 05:00 10:58 17:03 WBC (3.98-10.04) K/mm3 RBC (3.98-5.22) M/mm3 Hgb (11.2-15.7) gm/dl Hct (34.1-44.9) % MCV (79.4-94.8) fl MCH (25.6-32.2) pg MCHC (32.2-35.5) g/dl RDW Std Deviation (36.4-46.3) fL Plt Count (182-369) K/mm3 MPV (9.4-12.3) fl Neut % (Auto) (34.0-71.1) % Lymph % (Auto) (19.3-51.7) % Bee % (Auto) (4.7-12.5) % Eos % (Auto) (0.7-5.8) Baso % (Auto) (0.1-1.2) % Neut # (Auto) (1.56-6.13) K/mm3 Lymph # (Auto) (1.18-3.74) K/mm3 Bee # (Auto) (0.24-0.36) K/mm3 Eos # (Auto) (0.04-0.36) K/mm3 Baso # (Auto) (0.01-0.08) K/mm3 Manual Slide Review Abnormal smear Sodium (136-145) mEq/L Potassium (3.5-5.1) mEq/L Chloride (98-107) mEq/L Carbon Dioxide (21-32) mEq/L Anion Gap (5-15) BUN (7-18) mg/dL Creatinine (0.55-1.02) mg/dL Est Cr Clr Drug Dosing mL/min Estimated GFR (MDRD) (>60) mL/min BUN/Creatinine Ratio (14-18) Glucose (70-99) mg/dL POC Glucose 280 H 243 H (70-99) mg/dL Calcium (8.5-10.1) mg/dL Magnesium (1.8-2.4) mg/dL Total Bilirubin (0.2-1.0) mg/dL AST (15-37) U/L ALT (14-59) U/L Alkaline Phosphatase (46-116) U/L C-Reactive Protein (<1.0) mg/dL Total Protein (6.4-8.2) g/dl Albumin (3.4-5.0) g/dl Globulin gm/dL Albumin/Globulin Ratio (1-2) 06/04/21 06/05/21 06/05/21 Range/Units 20:48 04:55 04:55 WBC 3.85 L (3.98-10.04) K/mm3 RBC 4.32 (3.98-5.22) M/mm3 Hgb 12.8 (11.2-15.7) gm/dl Hct 37.3 (34.1-44.9) % MCV 86.3 (79.4-94.8) fl MCH 29.6 (25.6-32.2) pg MCHC 34.3 (32.2-35.5) g/dl RDW Std Deviation 38.1 (36.4-46.3) fL Plt Count 527 H (182-369) K/mm3 MPV 9.6 (9.4-12.3) fl Neut % (Auto) 69.6 (34.0-71.1) % Lymph % (Auto) 14.3 L (19.3-51.7) % Bee % (Auto) 15.3 H (4.7-12.5) % Eos % (Auto) 0 L (0.7-5.8) Baso % (Auto) 0.3 (0.1-1.2) % Neut # (Auto) 2.68 (1.56-6.13) K/mm3 Lymph # (Auto) 0.55 L (1.18-3.74) K/mm3 Bee # (Auto) 0.59 H (0.24-0.36) K/mm3 Eos # (Auto) 0.00 L (0.04-0.36) K/mm3 Baso # (Auto) 0.01 (0.01-0.08) K/mm3 Manual Slide Review Normal smear Sodium 141 (136-145) mEq/L Potassium 4.2 (3.5-5.1) mEq/L Chloride 106 (98-107) mEq/L Carbon Dioxide 24 (21-32) mEq/L Anion Gap 15.2 H (5-15) BUN 21 H (7-18) mg/dL Creatinine 0.8 (0.55-1.02) mg/dL Est Cr Clr Drug Dosing 55.06 mL/min Estimated GFR (MDRD) > 60 (>60) mL/min BUN/Creatinine Ratio 26.3 H (14-18) Glucose 213 H (70-99) mg/dL POC Glucose 238 H (70-99) mg/dL Calcium 8.2 L (8.5-10.1) mg/dL Magnesium 2.4 (1.8-2.4) mg/dL Total Bilirubin 0.4 (0.2-1.0) mg/dL AST 26 (15-37) U/L ALT 33 (14-59) U/L Alkaline Phosphatase 47 (46-116) U/L C-Reactive Protein 0.7 (<1.0) mg/dL Total Protein 7.0 (6.4-8.2) g/dl Albumin 2.7 L (3.4-5.0) g/dl Globulin 4.3 gm/dL Albumin/Globulin Ratio 0.6 L (1-2) 06/05/21 Range/Units 05:55 WBC (3.98-10.04) K/mm3 RBC (3.98-5.22) M/mm3 Hgb (11.2-15.7) gm/dl Hct (34.1-44.9) % MCV (79.4-94.8) fl MCH (25.6-32.2) pg MCHC (32.2-35.5) g/dl RDW Std Deviation (36.4-46.3) fL Plt Count (182-369) K/mm3 MPV (9.4-12.3) fl Neut % (Auto) (34.0-71.1) % Lymph % (Auto) (19.3-51.7) % Bee % (Auto) (4.7-12.5) % Eos % (Auto) (0.7-5.8) Baso % (Auto) (0.1-1.2) % Neut # (Auto) (1.56-6.13) K/mm3 Lymph # (Auto) (1.18-3.74) K/mm3 Bee # (Auto) (0.24-0.36) K/mm3 Eos # (Auto) (0.04-0.36) K/mm3 Baso # (Auto) (0.01-0.08) K/mm3 Manual Slide Review Sodium (136-145) mEq/L Potassium (3.5-5.1) mEq/L Chloride (98-107) mEq/L Carbon Dioxide (21-32) mEq/L Anion Gap (5-15) BUN (7-18) mg/dL Creatinine (0.55-1.02) mg/dL Est Cr Clr Drug Dosing mL/min Estimated GFR (MDRD) (>60) mL/min BUN/Creatinine Ratio (14-18) Glucose (70-99) mg/dL POC Glucose 208 H (70-99) mg/dL Calcium (8.5-10.1) mg/dL Magnesium (1.8-2.4) mg/dL Total Bilirubin (0.2-1.0) mg/dL AST (15-37) U/L ALT (14-59) U/L Alkaline Phosphatase (46-116) U/L C-Reactive Protein (<1.0) mg/dL Total Protein (6.4-8.2) g/dl Albumin (3.4-5.0) g/dl Globulin gm/dL Albumin/Globulin Ratio (1-2) Med Orders - Current: Current Medications Acetaminophen (Acetaminophen 325 Mg Tab) 650 mg PO Q4H PRN PRN Reason: Pain (Mild 1-3)/fever Albuterol (Albuterol 6.7 Gm Inhaler) 0 gm INH Q2H PRN PRN Reason: SOB/Wheezing Enoxaparin Sodium (Enoxaparin 40 Mg/0.4 Ml Syringe) 40 mg SUBCUT DAILY [facility] Last Admin: 06/04/21 08:07 Dose: 40 mg Documented by: Famotidine (Famotidine 20 Mg Tab) 20 mg PO BID [facility] Last Admin: 06/04/21 20:56 Dose: 20 mg Documented by: Remdesivir 100 mg/ Sodium (Chloride) 100 mls @ 100 mls/hr IV Q24H [facility] Stop: 06/05/21 16:29 Last Admin: 06/04/21 14:37 Dose: 100 mls/hr Documented by: Insulin Human Lispro (Insulin Lispro 100 Unit/Ml 10 Ml Vial) 0 unit SUBCUT QIDACANDBED [facility]; Protocol Last Admin: 06/04/21 21:14 Dose: 6 unit Documented by: Methylprednisolone Sodium Succinate (Methylprednisolone Sodium Succinate 125 Mg/2 Ml Sdv) 60 mg IVPUSH Q8H [facility] Last Admin: 06/05/21 04:47 Dose: 60 mg Documented by: Ondansetron HCl (Ondansetron 4 Mg/2 Ml Sdv) 4 mg IV Q6H PRN PRN Reason: Nausea/Vomiting Discontinued Medications Dexamethasone (Dexamethasone 4 Mg Tab) 6 mg PO ONETIME [facility] Stop: 06/01/21 06:31 Last Admin: 06/01/21 06:56 Dose: 6 mg Documented by: Dexamethasone (Dexamethasone 4 Mg Tab) 6 mg PO DAILY [facility] Stop: 06/10/21 09:01 Magnesium Sulfate 2 gm/ Premix 50 mls @ 25 mls/hr IV ONETIME ONE Stop: 06/01/21 13:30 Last Admin: 06/01/21 13:30 Dose: 25 mls/hr Documented by: Remdesivir 200 mg/ Sodium (Chloride) 250 mls @ 250 mls/hr IV ONETIME ONE Stop: 06/01/21 16:29 Last Admin: 06/01/21 15:40 Dose: 250 mls/hr Documented by: Tocilizumab 500 mg/ Sodium (Chloride) 105 mls @ 105 mls/hr IV ONETIME ONE Stop: 06/02/21 08:34 Last Admin: 06/02/21 09:28 Dose: 105 mls/hr Documented by: Methylprednisolone Sodium Succinate (Methylprednisolone Sodium Succinate 125 Mg/2 Ml Sdv) 125 mg IVPUSH Q12H [facility] Last Admin: 06/04/21 08:07 Dose: 125 mg Documented by: - Exam Quality Assessment: Supplemental Oxygen, DVT Prophylaxis General: Alert, Oriented, Cooperative, No Acute Distress HEENT: Pupils Equal, Pupils Reactive, EOMI, Mucous Membr. Moist/[employer] Lungs: Decreased Breath Sounds, Crackles (Bibasilar) Cardiovascular: Regular Rate, Regular Rhythm GI/Abdominal Exam: Normal Bowel Sounds, Soft, Non-Tender, No Distention (Female) Exam: Deferred Back Exam: Normal Inspection, Full Range of Motion Extremities: Normal Inspection, No Pedal Edema Skin: Warm, Dry, Intact Neurological: No New Focal Deficit Psy/Mental Status: Alert, Normal Affect, Normal Mood - Patient Data Lab Results Last 24 hrs: Laboratory Results - last 24 hr 06/04/21 06/04/21 06/04/21 Range/Units 05:00 10:58 17:03 WBC (3.98-10.04) K/mm3 RBC (3.98-5.22) M/mm3 Hgb (11.2-15.7) gm/dl Hct (34.1-44.9) % MCV (79.4-94.8) fl MCH (25.6-32.2) pg MCHC (32.2-35.5) g/dl RDW Std Deviation (36.4-46.3) fL Plt Count (182-369) K/mm3 MPV (9.4-12.3) fl Neut % (Auto) (34.0-71.1) % Lymph % (Auto) (19.3-51.7) % Bee % (Auto) (4.7-12.5) % Eos % (Auto) (0.7-5.8) Baso % (Auto) (0.1-1.2) % Neut # (Auto) (1.56-6.13) K/mm3 Lymph # (Auto) (1.18-3.74) K/mm3 Bee # (Auto) (0.24-0.36) K/mm3 Eos # (Auto) (0.04-0.36) K/mm3 Baso # (Auto) (0.01-0.08) K/mm3 Manual Slide Review Abnormal smear Sodium (136-145) mEq/L Potassium (3.5-5.1) mEq/L Chloride (98-107) mEq/L Carbon Dioxide (21-32) mEq/L Anion Gap (5-15) BUN (7-18) mg/dL Creatinine (0.55-1.02) mg/dL Est Cr Clr Drug Dosing mL/min Estimated GFR (MDRD) (>60) mL/min BUN/Creatinine Ratio (14-18) Glucose (70-99) mg/dL POC Glucose 280 H 243 H (70-99) mg/dL Calcium (8.5-10.1) mg/dL Magnesium (1.8-2.4) mg/dL Total Bilirubin (0.2-1.0) mg/dL AST (15-37) U/L ALT (14-59) U/L Alkaline Phosphatase (46-116) U/L C-Reactive Protein (<1.0) mg/dL Total Protein (6.4-8.2) g/dl Albumin (3.4-5.0) g/dl Globulin gm/dL Albumin/Globulin Ratio (1-2) 06/04/21 06/05/21 06/05/21 Range/Units 20:48 04:55 04:55 WBC 3.85 L (3.98-10.04) K/mm3 RBC 4.32 (3.98-5.22) M/mm3 Hgb 12.8 (11.2-15.7) gm/dl Hct 37.3 (34.1-44.9) % MCV 86.3 (79.4-94.8) fl MCH 29.6 (25.6-32.2) pg MCHC 34.3 (32.2-35.5) g/dl RDW Std Deviation 38.1 (36.4-46.3) fL Plt Count 527 H (182-369) K/mm3 MPV 9.6 (9.4-12.3) fl Neut % (Auto) 69.6 (34.0-71.1) % Lymph % (Auto) 14.3 L (19.3-51.7) % Bee % (Auto) 15.3 H (4.7-12.5) % Eos % (Auto) 0 L (0.7-5.8) Baso % (Auto) 0.3 (0.1-1.2) % Neut # (Auto) 2.68 (1.56-6.13) K/mm3 Lymph # (Auto) 0.55 L (1.18-3.74) K/mm3 Bee # (Auto) 0.59 H (0.24-0.36) K/mm3 Eos # (Auto) 0.00 L (0.04-0.36) K/mm3 Baso # (Auto) 0.01 (0.01-0.08) K/mm3 Manual Slide Review Normal smear Sodium 141 (136-145) mEq/L Potassium 4.2 (3.5-5.1) mEq/L Chloride 106 (98-107) mEq/L Carbon Dioxide 24 (21-32) mEq/L Anion Gap 15.2 H (5-15) BUN 21 H (7-18) mg/dL Creatinine 0.8 (0.55-1.02) mg/dL Est Cr Clr Drug Dosing 55.06 mL/min Estimated GFR (MDRD) > 60 (>60) mL/min BUN/Creatinine Ratio 26.3 H (14-18) Glucose 213 H (70-99) mg/dL POC Glucose 238 H (70-99) mg/dL Calcium 8.2 L (8.5-10.1) mg/dL Magnesium 2.4 (1.8-2.4) mg/dL Total Bilirubin 0.4 (0.2-1.0) mg/dL AST 26 (15-37) U/L ALT 33 (14-59) U/L Alkaline Phosphatase 47 (46-116) U/L C-Reactive Protein 0.7 (<1.0) mg/dL Total Protein 7.0 (6.4-8.2) g/dl Albumin 2.7 L (3.4-5.0) g/dl Globulin 4.3 gm/dL Albumin/Globulin Ratio 0.6 L (1-2) 06/05/21 Range/Units 05:55 WBC (3.98-10.04) K/mm3 RBC (3.98-5.22) M/mm3 Hgb (11.2-15.7) gm/dl Hct (34.1-44.9) % MCV (79.4-94.8) fl MCH (25.6-32.2) pg MCHC (32.2-35.5) g/dl RDW Std Deviation (36.4-46.3) fL Plt Count (182-369) K/mm3 MPV (9.4-12.3) fl Neut % (Auto) (34.0-71.1) % Lymph % (Auto) (19.3-51.7) % Bee % (Auto) (4.7-12.5) % Eos % (Auto) (0.7-5.8) Baso % (Auto) (0.1-1.2) % Neut # (Auto) (1.56-6.13) K/mm3 Lymph # (Auto) (1.18-3.74) K/mm3 Bee # (Auto) (0.24-0.36) K/mm3 Eos # (Auto) (0.04-0.36) K/mm3 Baso # (Auto) (0.01-0.08) K/mm3 Manual Slide Review Sodium (136-145) mEq/L Potassium (3.5-5.1) mEq/L Chloride (98-107) mEq/L Carbon Dioxide (21-32) mEq/L Anion Gap (5-15) BUN (7-18) mg/dL Creatinine (0.55-1.02) mg/dL Est Cr Clr Drug Dosing mL/min Estimated GFR (MDRD) (>60) mL/min BUN/Creatinine Ratio (14-18) Glucose (70-99) mg/dL POC Glucose 208 H (70-99) mg/dL Calcium (8.5-10.1) mg/dL Magnesium (1.8-2.4) mg/dL Total Bilirubin (0.2-1.0) mg/dL AST (15-37) U/L ALT (14-59) U/L Alkaline Phosphatase (46-116) U/L C-Reactive Protein (<1.0) mg/dL Total Protein (6.4-8.2) g/dl Albumin (3.4-5.0) g/dl Globulin gm/dL Albumin/Globulin Ratio (1-2) Result Diagrams: 06/05/21 04:55 06/05/21 04:55 Sepsis Event Note - Evaluation Sepsis Screening Result: No Definite Risk - Focused Exam Vital Signs: Vital Signs Temp Pulse Resp BP Pulse Ox Pulse Ox 06/05/21 06:51 90 L 06/05/21 03:07 90 L 06/05/21 03:06 36.7 C 77 20 144/80 H 77 L 06/05/21 02:55 88 L 06/04/21 23:55 91 L 06/04/21 20:50 36.8 C 78 18 134/74 89 L 06/04/21 19:39 95 - Problem List & Annotations (1) Acute respiratory failure due to COVID-19 SNOMED Code(s): 183633674 Code(s): U07.1 - COVID-19; J96.00 - ACUTE RESPIRATORY FAILURE, UNSP W HYPOXIA OR HYPERCAPNIA Status: Acute Priority: High Current Visit: Yes (2) Elevated d-dimer SNOMED Code(s): 433067777 Code(s): R79.89 - OTHER SPECIFIED ABNORMAL FINDINGS OF BLOOD CHEMISTRY Status: Acute Priority: High Current Visit: Yes (3) New onset type 2 diabetes mellitus SNOMED Code(s): 54738754 Code(s): E11.9 - TYPE 2 DIABETES MELLITUS WITHOUT COMPLICATIONS Status: Chronic Priority: Medium Current Visit: Yes - Problem List Review Problem List Initiated/Reviewed/Updated: Yes - Assessment Assessment:: Assessment - day of admission 04/01/2021 * 56-year-old female who presents the ED with low saturations after testing positive for COVID-19 * History of hypertension and cervical cancer status post hysterectomy. * On 05/25/2021 she noted fever and chills. * Saw her PCP on 05/26/2021 and blood work was done which she states was normal, however she was not tested for COVID-19 * Utilizing Tylenol and ibuprofen but her symptoms continued * Returned to her PCP on 05/31/2021 where she tested positive for SARS-CoV-2 RNA. * Chest x-ray at that time was obtained and per the patient showed "pneumonia" however the patient is not sure what exactly was seen. * Noted saturations in the 80s this morning and came to the ED as instructed * Reports nonproductive cough but no acute dyspnea or chest pain. She feels weak. Denies any nausea or vomiting. * Has not received the Covid vaccine. * 12-lead EKG is obtained showing sinus tachycardia 107 bpm with no ischemic ch anges. Temp is 36.9 Celsius. Pulse 97. Respirations 29. Blood pressure 98/64. Pulse ox is 86%, rising to 96% on 1 L. * Labs are obtained: * WBC 4.89 * Hemoglobin 12.0 * Platelet 400,000 * Neutrophils 58% * Sodium 135 * Potassium 3.6 * Chloride 100 * Carbon dioxide 22 * Anion gap 16.6 * BUN 12. Creatinine 0.9. GFR greater than 60 * Glucose 188 * Lactic acid 1.3 * Magnesium 1.8 * Total bilirubin 0.3 * AST is 54, ALT 47, alkaline phosphatase 45. * Troponin less than 0.017 * Protein 8.0 * Albumin 3.1 * CRP 8.4 * Chest x-ray shows bilateral hazy infiltrates consistent with COVID-19 pneumonia * She is given 6 mg dexamethasone. * Admitted to floor on telemetry for management of COVID-19 PNA and hypoxia 06/02/2021: This is a 56-year-old female who presented to ED with low saturations. She is recently been diagnosed with COVID-19 and was sent home with home monitoring. Her saturations were noted to be very low when she presented to her ED and was admitted. In the ED she was noted to have saturations in the low 90s on 2 L of oxygen. On the floor glucose was noted to be high and has been high on prior visits and her A1c was obtained which was 7.7. She was started on sliding scale insulin. Ferritin was 1858. LDH was 408. Today WBC is 5.54. Hemoglobin 12.0. Platelet 441,000. Neutrophils 69.8. Sodium 140. Potassium 4.1. Chloride 105. Carbon dioxide 25. Anion gap 14.1. BUN 16. Creatinine 0.7. GFR greater than 60. Glucose 126-225. Magnesium 2.4. Bilirubin 0.2. AST is 44, ALT 41, alkaline phosphatase 48. CRP is 6.8. Albumin 2.9. Unfortunately patient overnight had significant rapidly deteriorating oxygen saturations and was requiring up to 10 L. She was placed on high flow oxygen and is currently on 50 L with an FiO2 of 50%. Actemra 8 mg/kg was ordered today and her steroids were increased from 6 mg dexamethasone to 125 mg twice daily Solu-Medrol. She has been proning and nursing was instructed to continue to push for this. She does have incentive spirometry and Acapella in the room and has been using it. We will otherwise continue Covid treatment. Chest x-ray today is slightly worse than yesterday. We will check a procalcitonin. Dr. Neal, attending hospitalist, in to discuss plan with patient. Unknown length of stay due to severity of Covid symptoms. 06/03/2021 This is a 56-year-old female admitted to the floor with Covid pneumonia. She also appears to be a new onset diabetic with an A1c of 7.7. UA was obtained and was cloudy with 1+ protein and trace ketones. Urine random microalbumin was obtained and was elevated at 29.7. Blood sugars have been 196-268. We will increase sliding scale insulin to medium intensity. She is neutropenic today with a WBC of 1.39. Hemoglobin 12.6. Platelet 470,000. Neutrophils are 50.4. Sodium 142. Potassium 4.3. Chloride 107. Carbon dioxide 25. Anion gap 14.3. BUN 23. Creatinine 0.8. GFR greater than 60. Calcium 8.5. Magnesium 2.3. Bilirubin 0.2. AST 38, ALT 41, alkaline phosphatase 48. CRP is 3.3. Protein 7.7. Albumin 2.8. We will continue current treatment plan with steroids, high flow, and respiratory exercises. If patient saturations continued to drop we will start her on BiPAP and likely admit her to the ICU at that time. At this point saturations have been in the upper 90s while patient is proning. We will continue to encourage this as well. Unknown length of stay due to duration and severity of Covid 19 pneumonia. 06/04/2021 This is a 56-year-old female admitted for COVID-19 pneumonia. She continues with treatment including Solu-Medrol and remdesivir. We will decrease Solu- Medrol dosing to 60 mg every 8 hours today. Remains on high flow oxygen 50 L and 65% FiO2. This is a improvement over yesterday. She has been proning and utilizing her incentive spirometry/Acapella. She states she feels pretty good overall. Labs today show a continued neutropenia at 2.43. Hemoglobin 13.0. Platelet 485,000. Neutrophils are 60.4%. D-dimer is 0.87. Sodium 144. Potassium 4.3. Chloride 108. Carbon dioxide 26. Anion gap 14.3. BUN 24. Creatinine 0.9. GFR greater than 60. Glucose has been 2 20-2 80 and we will increase her sliding scale tube high intensity. Calcium 8.3. Magnesium 2.4. Total bilirubin 0.3. AST 28, ALT 36, alkaline phosphatase 45. CRP is 1.5. Protein 7.4. Albumin 2.7. We will continue to watch blood sugars and add long-acting insulin if indicated. We will address elevated A1c/diabetes more at discharge. Continue current treatment plan. Unknown length of stay pending continued improvement. 06/05/2021 The patient is a 56-year-old lady who is currently on back 3 of 4 of remdesivir. This will be continued. Her oxygen demands remain high and her oxygen saturations will be kept around 92% with oxygen support. We will attempt to taper oxygen. The patient will be kept on high-dose steroids and these will be tapered as necessary. The patient also has been instructed in the use of incentive spirometer as well as Acapella. The patient has been encouraged to ambulate within the confines of the room. The patient should be appropriate for discharge in 1 to 2 days when her oxygen demands have been improved. The patient will also be kept on the appropriate diabetic diet and insulin sliding scale. The patient has repeat laboratory studies ordered for the morning. - Plan Plan:: Case discussed in full. Agree with evaluation, assessment and plan.
[2021-06-05] MEDS: Insulin Lispro 100 UNIT/ML 10 ML Vial SUBCUT SCH ×4 (08:09→21:21)
[2021-06-05] MEDS: Famotidine 20 MG Tab PO SCH ×2 (08:10→21:19)
[2021-06-05] MEDS: Enoxaparin 40 MG/0.4 ML Syringe SUBCUT SCH (08:10)
[2021-06-05] MEDS: REMDESIVIR 100 MG in Sodium Chloride 0.9% 100 ML IV SCH (14:56)
[2021-06-05] MEDS ORDERED: Magnesium Hydroxide 400 MG/5 ML Susp 30 ML Cup PO PRN (23:06)
[2021-06-06] MEDS: methylPREDNISolone Sodium Succinate 125 MG/2 ML SDV IVPUSH SCH ×3 (05:15→22:43)
[2021-06-06] MEDS: Insulin Lispro 100 UNIT/ML 10 ML Vial SUBCUT SCH ×4 (07:20→22:43)
--- NOTE | 2021-06-06 08:40 | PCM.PN ---
- General Info Date of Service: 06/06/21 Admission Dx/Problem (Free Text): Admission Diagnosis/Problem Admission Diagnosis/Problem Hypoxia Subjective Update: The patient is a 56-year-old lady who was admitted secondary to COVID-19 associated hypoxia. The patient today says that she is feeling better. She has been breathing better. The patient has been tolerating her diet. She has finished all doses of remdesivir. She is still on oxygen. Functional Status: Reports: Pain Controlled, Tolerating Diet - Review of Systems General: Reports: No Symptoms HEENT: Reports: No Symptoms Pulmonary: Reports: Cough Cardiovascular: Reports: No Symptoms Gastrointestinal: Reports: No Symptoms Genitourinary: Reports: No Symptoms Musculoskeletal: Reports: No Symptoms Skin: Reports: No Symptoms Neurological: Reports: No Symptoms Psychiatric: Reports: No Symptoms - Patient Data Vitals - Most Recent: Last Vital Signs Temp 36.8 C 06/06/21 05:18 Pulse 78 06/06/21 05:18 Resp 13 06/06/21 05:18 BP 105/55 L 06/06/21 05:20 Pulse Ox 91 L 06/06/21 06:50 Weight - Most Recent: 60.282 kg I&O - Last 24 Hours: Intake & Output 06/05/21 06/06/21 06/06/21 22:59 06:59 14:59 Intake Total 400 350 Output Total 500 475 Balance -100 -125 Lab Results Last 24 Hours: Laboratory Results - last 24 hr 06/05/21 06/05/21 06/05/21 Range/Units 10:52 16:21 21:14 WBC (3.98-10.04) K/mm3 RBC (3.98-5.22) M/mm3 Hgb (11.2-15.7) gm/dl Hct (34.1-44.9) % MCV (79.4-94.8) fl MCH (25.6-32.2) pg MCHC (32.2-35.5) g/dl RDW Std Deviation (36.4-46.3) fL Plt Count (182-369) K/mm3 MPV (9.4-12.3) fl Neut % (Auto) (34.0-71.1) % Lymph % (Auto) (19.3-51.7) % [place] % (Auto) (4.7-12.5) % Eos % (Auto) (0.7-5.8) Baso % (Auto) (0.1-1.2) % Neut # (Auto) (1.56-6.13) K/mm3 Lymph # (Auto) (1.18-3.74) K/mm3 [place] # (Auto) (0.24-0.36) K/mm3 Eos # (Auto) (0.04-0.36) K/mm3 Baso # (Auto) (0.01-0.08) K/mm3 Manual Slide Review Sodium (136-145) mEq/L Potassium (3.5-5.1) mEq/L Chloride (98-107) mEq/L Carbon Dioxide (21-32) mEq/L Anion Gap (5-15) BUN (7-18) mg/dL Creatinine (0.55-1.02) mg/dL Est Cr Clr Drug Dosing mL/min Estimated GFR (MDRD) (>60) mL/min BUN/Creatinine Ratio (14-18) Glucose (70-99) mg/dL POC Glucose 231 H 295 H 268 H (70-99) mg/dL Calcium (8.5-10.1) mg/dL 06/06/21 06/06/21 06/06/21 Range/Units 07:00 07:00 07:06 WBC 5.04 (3.98-10.04) K/mm3 RBC 4.56 (3.98-5.22) M/mm3 Hgb 13.5 (11.2-15.7) gm/dl Hct 39.2 (34.1-44.9) % MCV 86.0 (79.4-94.8) fl MCH 29.6 (25.6-32.2) pg MCHC 34.4 (32.2-35.5) g/dl RDW Std Deviation 38.5 (36.4-46.3) fL Plt Count 563 H (182-369) K/mm3 MPV 9.4 (9.4-12.3) fl Neut % (Auto) 52.3 (34.0-71.1) % Lymph % (Auto) 28.4 (19.3-51.7) % [place] % (Auto) 17.5 H (4.7-12.5) % Eos % (Auto) 0 L (0.7-5.8) Baso % (Auto) 0.2 (0.1-1.2) % Neut # (Auto) 2.64 (1.56-6.13) K/mm3 Lymph # (Auto) 1.43 (1.18-3.74) K/mm3 [place] # (Auto) 0.88 H (0.24-0.36) K/mm3 Eos # (Auto) 0.00 L (0.04-0.36) K/mm3 Baso # (Auto) 0.01 (0.01-0.08) K/mm3 Manual Slide Review Normal smear Sodium 141 (136-145) mEq/L Potassium 4.1 (3.5-5.1) mEq/L Chloride 107 (98-107) mEq/L Carbon Dioxide 27 (21-32) mEq/L Anion Gap 11.1 (5-15) BUN 17 (7-18) mg/dL Creatinine 0.8 (0.55-1.02) mg/dL Est Cr Clr Drug Dosing 55.06 mL/min Estimated GFR (MDRD) > 60 (>60) mL/min BUN/Creatinine Ratio 21.3 H (14-18) Glucose 126 H (70-99) mg/dL POC Glucose 115 H (70-99) mg/dL Calcium 8.2 L (8.5-10.1) mg/dL Med Orders - Current: Current Medications Acetaminophen (Acetaminophen 325 Mg Tab) 650 mg PO Q4H PRN PRN Reason: Pain (Mild 1-3)/fever Albuterol (Albuterol 6.7 Gm Inhaler) 0 gm INH Q2H PRN PRN Reason: SOB/Wheezing Enoxaparin Sodium (Enoxaparin 40 Mg/0.4 Ml Syringe) 40 mg SUBCUT DAILY [facility] Last Admin: 06/05/21 08:10 Dose: 40 mg Documented by: Famotidine (Famotidine 20 Mg Tab) 20 mg PO BID [facility] Last Admin: 06/05/21 21:19 Dose: 20 mg Documented by: Insulin Human Lispro (Insulin Lispro 100 Unit/Ml 10 Ml Vial) 0 unit SUBCUT QIDACANDBED [facility]; Protocol Last Admin: 06/06/21 07:20 Dose: Not Given Documented by: Magnesium Hydroxide (Magnesium Hydroxide 400 Mg/5 Ml Susp 30 Ml Cup) 30 ml PO DAILY PRN PRN Reason: Constipation Methylprednisolone Sodium Succinate (Methylprednisolone Sodium Succinate 125 Mg/2 Ml Sdv) 60 mg IVPUSH Q8H [facility] Last Admin: 06/06/21 05:15 Dose: 60 mg Documented by: Ondansetron HCl (Ondansetron 4 Mg/2 Ml Sdv) 4 mg IV Q6H PRN PRN Reason: Nausea/Vomiting Discontinued Medications Dexamethasone (Dexamethasone 4 Mg Tab) 6 mg PO ONETIME STA Stop: 06/01/21 06:31 Last Admin: 06/01/21 06:56 Dose: 6 mg Documented by: Dexamethasone (Dexamethasone 4 Mg Tab) 6 mg PO DAILY [facility] Stop: 06/10/21 09:01 Magnesium Sulfate 2 gm/ Premix 50 mls @ 25 mls/hr IV ONETIME ONE Stop: 06/01/21 13:30 Last Admin: 06/01/21 13:30 Dose: 25 mls/hr Documented by: Remdesivir 200 mg/ Sodium (Chloride) 250 mls @ 250 mls/hr IV ONETIME ONE Stop: 06/01/21 16:29 Last Admin: 06/01/21 15:40 Dose: 250 mls/hr Documented by: Remdesivir 100 mg/ Sodium (Chloride) 100 mls @ 100 mls/hr IV Q24H [facility] Stop: 06/05/21 16:29 Last Admin: 06/05/21 14:56 Dose: 100 mls/hr Documented by: Tocilizumab 500 mg/ Sodium (Chloride) 105 mls @ 105 mls/hr IV ONETIME ONE Stop: 06/02/21 08:34 Last Admin: 06/02/21 09:28 Dose: 105 mls/hr Documented by: Methylprednisolone Sodium Succinate (Methylprednisolone Sodium Succinate 125 Mg/2 Ml Sdv) 125 mg IVPUSH Q12H [facility] Last Admin: 06/04/21 08:07 Dose: 125 mg Documented by: - Exam Quality Assessment: Supplemental Oxygen, DVT Prophylaxis General: Alert, Oriented, Cooperative, No Acute Distress HEENT: Pupils Equal, Pupils Reactive, EOMI, Mucous Membr. Moist/[place] Neck: Supple, Trachea Midline Lungs: Clear to Auscultation, Normal Respiratory Effort Cardiovascular: Regular Rate, Regular Rhythm GI/Abdominal Exam: Normal Bowel Sounds, Soft, Non-Tender, No Distention (Female) Exam: Deferred Back Exam: Normal Inspection, Full Range of Motion Extremities: Normal Inspection, No Pedal Edema Skin: Warm, Dry, Intact Neurological: No New Focal Deficit Psy/Mental Status: Alert, Normal Affect, Normal Mood - Patient Data Lab Results Last 24 hrs: Laboratory Results - last 24 hr 06/05/21 06/05/21 06/05/21 Range/Units 10:52 16:21 21:14 WBC (3.98-10.04) K/mm3 RBC (3.98-5.22) M/mm3 Hgb (11.2-15.7) gm/dl Hct (34.1-44.9) % MCV (79.4-94.8) fl MCH (25.6-32.2) pg MCHC (32.2-35.5) g/dl RDW Std Deviation (36.4-46.3) fL Plt Count (182-369) K/mm3 MPV (9.4-12.3) fl Neut % (Auto) (34.0-71.1) % Lymph % (Auto) (19.3-51.7) % [place] % (Auto) (4.7-12.5) % Eos % (Auto) (0.7-5.8) Baso % (Auto) (0.1-1.2) % Neut # (Auto) (1.56-6.13) K/mm3 Lymph # (Auto) (1.18-3.74) K/mm3 [place] # (Auto) (0.24-0.36) K/mm3 Eos # (Auto) (0.04-0.36) K/mm3 Baso # (Auto) (0.01-0.08) K/mm3 Manual Slide Review Sodium (136-145) mEq/L Potassium (3.5-5.1) mEq/L Chloride (98-107) mEq/L Carbon Dioxide (21-32) mEq/L Anion Gap (5-15) BUN (7-18) mg/dL Creatinine (0.55-1.02) mg/dL Est Cr Clr Drug Dosing mL/min Estimated GFR (MDRD) (>60) mL/min BUN/Creatinine Ratio (14-18) Glucose (70-99) mg/dL POC Glucose 231 H 295 H 268 H (70-99) mg/dL Calcium (8.5-10.1) mg/dL 06/06/21 06/06/21 06/06/21 Range/Units 07:00 07:00 07:06 WBC 5.04 (3.98-10.04) K/mm3 RBC 4.56 (3.98-5.22) M/mm3 Hgb 13.5 (11.2-15.7) gm/dl Hct 39.2 (34.1-44.9) % MCV 86.0 (79.4-94.8) fl MCH 29.6 (25.6-32.2) pg MCHC 34.4 (32.2-35.5) g/dl RDW Std Deviation 38.5 (36.4-46.3) fL Plt Count 563 H (182-369) K/mm3 MPV 9.4 (9.4-12.3) fl Neut % (Auto) 52.3 (34.0-71.1) % Lymph % (Auto) 28.4 (19.3-51.7) % [place] % (Auto) 17.5 H (4.7-12.5) % Eos % (Auto) 0 L (0.7-5.8) Baso % (Auto) 0.2 (0.1-1.2) % Neut # (Auto) 2.64 (1.56-6.13) K/mm3 Lymph # (Auto) 1.43 (1.18-3.74) K/mm3 [place] # (Auto) 0.88 H (0.24-0.36) K/mm3 Eos # (Auto) 0.00 L (0.04-0.36) K/mm3 Baso # (Auto) 0.01 (0.01-0.08) K/mm3 Manual Slide Review Normal smear Sodium 141 (136-145) mEq/L Potassium 4.1 (3.5-5.1) mEq/L Chloride 107 (98-107) mEq/L Carbon Dioxide 27 (21-32) mEq/L Anion Gap 11.1 (5-15) BUN 17 (7-18) mg/dL Creatinine 0.8 (0.55-1.02) mg/dL Est Cr Clr Drug Dosing 55.06 mL/min Estimated GFR (MDRD) > 60 (>60) mL/min BUN/Creatinine Ratio 21.3 H (14-18) Glucose 126 H (70-99) mg/dL POC Glucose 115 H (70-99) mg/dL Calcium 8.2 L (8.5-10.1) mg/dL Result Diagrams: 06/06/21 07:00 06/06/21 07:00 Sepsis Event Note - Evaluation Sepsis Screening Result: No Definite Risk - Focused Exam Vital Signs: Vital Signs Temp Pulse Resp BP BP Pulse Ox Pulse Ox 06/06/21 06:50 91 L 06/06/21 05:20 105/55 L 88 L 06/06/21 05:18 36.8 C 78 13 81 L 06/05/21 21:16 36.8 C 73 16 113/85 92 L - Problem List & Annotations (1) Acute respiratory failure due to COVID-19 SNOMED Code(s): 760914726 Code(s): U07.1 - COVID-19; J96.00 - ACUTE RESPIRATORY FAILURE, UNSP W HYPOXIA OR HYPERCAPNIA Status: Acute Priority: High Current Visit: Yes (2) Elevated d-dimer SNOMED Code(s): 485991166 Code(s): R79.89 - OTHER SPECIFIED ABNORMAL FINDINGS OF BLOOD CHEMISTRY Status: Acute Priority: High Current Visit: Yes (3) New onset type 2 diabetes mellitus SNOMED Code(s): 07977243 Code(s): E11.9 - TYPE 2 DIABETES MELLITUS WITHOUT COMPLICATIONS Status: Chronic Priority: Medium Current Visit: Yes - Problem List Review Problem List Initiated/Reviewed/Updated: Yes - My Orders Last 24 Hours: My Active Orders 06/05/21 23:06 Magnesium Hydroxide [Milk of Magnesia] 30 ml PO DAILY PRN 06/06/21 05:11 CXR [Chest 1V Frontal] [CR] Routine - Assessment Assessment:: Assessment - day of admission 04/01/2021 * 56-year-old female who presents the ED with low saturations after testing positive for COVID-19 * History of hypertension and cervical cancer status post hysterectomy. * On 05/25/2021 she noted fever and chills. * Saw her PCP on 05/26/2021 and blood work was done which she states was normal, however she was not tested for COVID-19 * Utilizing Tylenol and ibuprofen but her symptoms continued * Returned to her PCP on 05/31/2021 where she tested positive for SARS-CoV-2 RNA. * Chest x-ray at that time was obtained and per the patient showed "pneumonia" however the patient is not sure what exactly was seen. * Noted saturations in the 80s this morning and came to the ED as instructed * Reports nonproductive cough but no acute dyspnea or chest pain. She feels weak. Denies any nausea or vomiting. * Has not received the Covid vaccine. * 12-lead EKG is obtained showing sinus tachycardia 107 bpm with no ischemic changes. Temp is 36.9 Celsius. Pulse 97. Respirations 29. Blood pressure 98/64. Pulse ox is 86%, rising to 96% on 1 L. * Labs are obtained: * WBC 4.89 * Hemoglobin 12.0 * Platelet 400,000 * Neutrophils 58% * Sodium 135 * Potassium 3.6 * Chloride 100 * Carbon dioxide 22 * Anion gap 16.6 * BUN 12. Creatinine 0.9. GFR greater than 60 * Glucose 188 * Lactic acid 1.3 * Magnesium 1.8 * Total bilirubin 0.3 * AST is 54, ALT 47, alkaline phosphatase 45. * Troponin less than 0.017 * Protein 8.0 * Albumin 3.1 * CRP 8.4 * Chest x-ray shows bilateral hazy infiltrates consistent with COVID-19 pneumonia * She is given 6 mg dexamethasone. * Admitted to floor on telemetry for management of COVID-19 PNA and hypoxia 06/02/2021: This is a 56-year-old female who presented to ED with low saturations. She is recently been diagnosed with COVID-19 and was sent home with home monitoring. Her saturations were noted to be very low when she presented to her ED and was admitted. In the ED she was noted to have saturations in the low 90s on 2 L of oxygen. On the floor glucose was noted to be high and has been high on prior visits and her A1c was obtained which was 7.7. She was started on sliding scale insulin. Ferritin was 1858. LDH was 408. Today WBC is 5.54. Hemoglobin 12.0. Platelet 441,000. Neutrophils 69.8. Sodium 140. Potassium 4.1. Chloride 105. Carbon dioxide 25. Anion gap 14.1. BUN 16. Creatinine 0.7. GFR greater than 60. Glucose 126-225. Magnesium 2.4. Bilirubin 0.2. AST is 44, ALT 41, alkaline phosphatase 48. CRP is 6.8. Albumin 2.9. Unfortunately patient overnight had significant rapidly deteriorating oxygen saturations and was requiring up to 10 L. She was placed on high flow oxygen and is currently on 50 L with an FiO2 of 50%. Actemra 8 mg/kg was ordered today and her steroids were increased from 6 mg dexamethasone to 125 mg twice daily Solu-Medrol. She has been proning and nursing was instructed to continue to push for this. She does have incentive spirometry and Acapella in the room and has been using it. We will otherwise continue Covid treatment. Chest x-ray today is slightly worse than yesterday. We will check a procalcitonin. Dr. Neal, attending hospitalist, in to discuss plan with patient. Unknown length of stay due to severity of Covid symptoms. 06/03/2021 This is a 56-year-old female admitted to the floor with Covid pneumonia. She also appears to be a new onset diabetic with an A1c of 7.7. UA was obtained and was cloudy with 1+ protein and trace ketones. Urine random microalbumin was obtained and was elevated at 29.7. Blood sugars have been 196-268. We will increase sliding scale insulin to medium intensity. She is neutropenic today with a WBC of 1.39. Hemoglobin 12.6. Platelet 470,000. Neutrophils are 50.4. Sodium 142. Potassium 4.3. Chloride 107. Carbon dioxide 25. Anion gap 14.3. BUN 23. Creatinine 0.8. GFR greater than 60. Calcium 8.5. Magnesium 2.3. Bilirubin 0.2. AST 38, ALT 41, alkaline phosphatase 48. CRP is 3.3. Protein 7.7. Albumin 2.8. We will continue current treatment plan with steroids, high flow, and respiratory exercises. If patient saturations continued to drop we will start her on BiPAP and likely admit her to the ICU at that time. At this point saturations have been in the upper 90s while patient is proning. We will continue to encourage this as well. Unknown length of stay due to duration and severity of Covid 19 pneumonia. 06/04/2021 This is a 56-year-old female admitted for COVID-19 pneumonia. She continues with treatment including Solu-Medrol and remdesivir. We will decrease Solu- Medrol dosing to 60 mg every 8 hours today. Remains on high flow oxygen 50 L and 65% FiO2. This is a improvement over yesterday. She has been proning and utilizing her incentive spirometry/Acapella. She states she feels pretty good overall. Labs today show a continued neutropenia at 2.43. Hemoglobin 13.0. Platelet 485,000. Neutrophils are 60.4%. D-dimer is 0.87. Sodium 144. Potassium 4.3. Chloride 108. Carbon dioxide 26. Anion gap 14.3. BUN 24. Creatinine 0.9. GFR greater than 60. Glucose has been 2 20-2 80 and we will increase her sliding scale tube high intensity. Calcium 8.3. Magnesium 2.4. Total bilirubin 0.3. AST 28, ALT 36, alkaline phosphatase 45. CRP is 1.5. Protein 7.4. Albumin 2.7. We will continue to watch blood sugars and add long- acting insulin if indicated. We will address elevated A1c/diabetes more at [facility]. Continue current treatment plan. Unknown length of stay pending continued improvement. 06/05/2021 The patient is a 56-year-old lady who is currently on back 3 of 4 of remdesivir. This will be continued. Her oxygen demands remain high and her oxygen saturations will be kept around 92% with oxygen support. We will attempt to taper oxygen. The patient will be kept on high-dose steroids and these will be tapered as necessary. The patient also has been instructed in the use of incentive spirometer as well as Acapella. The patient has been encouraged to ambulate within the confines of the room. The patient should be appropriate for discharge in 1 to 2 days when her oxygen demands have been improved. The patient will also be kept on the appropriate diabetic diet and insulin sliding scale. The patient has repeat laboratory studies ordered for the morning. 06/06/2021 The patient is a 56-year-old lady who is doing better today. She will remain in hospitalization for at least 1 more day. The patient still requires at least 6 L of oxygen via nasal cannula. It has been noted that she desaturates very quickly. The patient has been recommended to continue with the use of the incentive spirometer as well as the Acapella. The patient will continue on the IV steroids. The patient will continue on DVT prophylaxis. Repeat laboratory studies have been ordered. Her oxygen will remain to maintain her oxygen saturations around 92%. - Plan Plan:: Case discussed in full. Agree with evaluation, assessment and plan.
--- NOTE | 2021-06-06 09:12 | CR ---
Chest: Frontal view of the chest was obtained. Comparison: Prior chest x-rays of 06/02/21 and 06/01/21. Heart size and mediastinum are within normal limits. Slight density is seen within the lateral left lung base most likely due to atelectasis. Lungs otherwise are clear. Bony structures show nothing acute. Impression: 1. Presumed left basilar atelectasis. 2. Nothing acute is otherwise seen on frontal chest x-ray. Diagnostic code #2
[2021-06-06] MEDS: Famotidine 20 MG Tab PO SCH ×2 (11:07→22:44)
[2021-06-06] MEDS: Enoxaparin 40 MG/0.4 ML Syringe SUBCUT SCH (11:08)
[2021-06-07] MEDS: Insulin Lispro 100 UNIT/ML 10 ML Vial SUBCUT SCH ×4 (06:11→21:19)
[2021-06-07] MEDS: methylPREDNISolone Sodium Succinate 125 MG/2 ML SDV IVPUSH SCH ×3 (06:11→20:35)
--- NOTE | 2021-06-07 08:01 | PCM.PN ---
<Rommel Jacques - Last Filed: 06/07/21 12:44> - General Info Date of Service: 06/07/21 Admission Dx/Problem (Free Text): Admission Diagnosis/Problem Admission Diagnosis/Problem Hypoxia - Patient Data Vitals - Most Recent: Last Vital Signs Temp 98.2 F 06/07/21 06:10 Pulse 71 06/07/21 06:10 Resp 14 06/07/21 06:10 BP 109/68 06/07/21 06:10 Pulse Ox 92 L 06/07/21 06:15 Weight - Most Recent: 59.965 kg I&O - Last 24 Hours: Intake & Output 06/06/21 06/07/21 06/07/21 22:59 06:59 14:59 Intake Total 300 300 Output Total 500 525 Balance -200 -225 Lab Results Last 24 Hours: Laboratory Results - last 24 hr 06/06/21 06/06/21 06/06/21 Range/Units 11:06 16:40 21:32 WBC (3.98-10.04) K/mm3 RBC (3.98-5.22) M/mm3 Hgb (11.2-15.7) gm/dl Hct (34.1-44.9) % MCV (79.4-94.8) fl MCH (25.6-32.2) pg MCHC (32.2-35.5) g/dl RDW Std Deviation (36.4-46.3) fL Plt Count (182-369) K/mm3 MPV (9.4-12.3) fl Neut % (Auto) (34.0-71.1) % Lymph % (Auto) (19.3-51.7) % Morrison % (Auto) (4.7-12.5) % Eos % (Auto) (0.7-5.8) Baso % (Auto) (0.1-1.2) % Neut # (Auto) (1.56-6.13) K/mm3 Lymph # (Auto) (1.18-3.74) K/mm3 Morrison # (Auto) (0.24-0.36) K/mm3 Eos # (Auto) (0.04-0.36) K/mm3 Baso # (Auto) (0.01-0.08) K/mm3 Manual Slide Review Sodium (136-145) mEq/L Potassium (3.5-5.1) mEq/L Chloride (98-107) mEq/L Carbon Dioxide (21-32) mEq/L Anion Gap (5-15) BUN (7-18) mg/dL Creatinine (0.55-1.02) mg/dL Est Cr Clr Drug Dosing mL/min Estimated GFR (MDRD) (>60) mL/min BUN/Creatinine Ratio (14-18) Glucose (70-99) mg/dL POC Glucose 189 H 269 H 328 H (70-99) mg/dL Calcium (8.5-10.1) mg/dL 06/07/21 06/07/21 Range/Units 05:55 05:55 WBC 3.71 L (3.98-10.04) K/mm3 RBC 4.50 (3.98-5.22) M/mm3 Hgb 13.3 (11.2-15.7) gm/dl Hct 38.4 (34.1-44.9) % MCV 85.3 (79.4-94.8) fl MCH 29.6 (25.6-32.2) pg MCHC 34.6 (32.2-35.5) g/dl RDW Std Deviation 37.4 (36.4-46.3) fL Plt Count 593 H (182-369) K/mm3 MPV 9.1 L (9.4-12.3) fl Neut % (Auto) 52.6 (34.0-71.1) % Lymph % (Auto) 29.6 (19.3-51.7) % Morrison % (Auto) 16.4 H (4.7-12.5) % Eos % (Auto) 0.3 L (0.7-5.8) Baso % (Auto) 0.0 L (0.1-1.2) % Neut # (Auto) 1.95 (1.56-6.13) K/mm3 Lymph # (Auto) 1.10 L (1.18-3.74) K/mm3 Morrison # (Auto) 0.61 H (0.24-0.36) K/mm3 Eos # (Auto) 0.01 L (0.04-0.36) K/mm3 Baso # (Auto) 0.00 L (0.01-0.08) K/mm3 Manual Slide Review Normal smear Sodium 142 (136-145) mEq/L Potassium 4.2 (3.5-5.1) mEq/L Chloride 107 (98-107) mEq/L Carbon Dioxide 29 (21-32) mEq/L Anion Gap 10.2 (5-15) BUN 15 (7-18) mg/dL Creatinine 0.7 (0.55-1.02) mg/dL Est Cr Clr Drug Dosing 62.92 mL/min Estimated GFR (MDRD) > 60 (>60) mL/min BUN/Creatinine Ratio 21.4 H (14-18) Glucose 106 H (70-99) mg/dL POC Glucose (70-99) mg/dL Calcium 8.1 L (8.5-10.1) mg/dL [place] Results Last 24 Hours: Microbiology 06/01/21 06:22 Blood Culture - Final Blood - Venous - Lab Draw 06/01/21 06:10 Blood Culture - Final Blood - Venous Med Orders - Current: Current Medications Acetaminophen (Acetaminophen 325 Mg Tab) 650 mg PO Q4H PRN PRN Reason: Pain (Mild 1-3)/fever Albuterol (Albuterol 6.7 Gm Inhaler) 0 gm INH Q2H PRN PRN Reason: SOB/Wheezing Enoxaparin Sodium (Enoxaparin 40 Mg/0.4 Ml Syringe) 40 mg SUBCUT DAILY [facility] Last Admin: 06/06/21 11:08 Dose: 40 mg Documented by: Famotidine (Famotidine 20 Mg Tab) 20 mg PO BID [facility] Last Admin: 06/06/21 22:44 Dose: 20 mg Documented by: Insulin Human Lispro (Insulin Lispro 100 Unit/Ml 10 Ml Vial) 0 unit SUBCUT QIDACANDBED [facility]; Protocol Last Admin: 06/07/21 06:11 Dose: Not Given Documented by: Magnesium Hydroxide (Magnesium Hydroxide 400 Mg/5 Ml Susp 30 Ml Cup) 30 ml PO DAILY PRN PRN Reason: Constipation Methylprednisolone Sodium Succinate (Methylprednisolone Sodium Succinate 125 Mg/2 Ml Sdv) 60 mg IVPUSH Q8H [facility] Last Admin: 06/07/21 06:11 Dose: 60 mg Documented by: Ondansetron HCl (Ondansetron 4 Mg/2 Ml Sdv) 4 mg IV Q6H PRN PRN Reason: Nausea/Vomiting Discontinued Medications Dexamethasone (Dexamethasone 4 Mg Tab) 6 mg PO ONETIME STA Stop: 06/01/21 06:31 Last Admin: 06/01/21 06:56 Dose: 6 mg Documented by: Dexamethasone (Dexamethasone 4 Mg Tab) 6 mg PO DAILY [facility] Stop: 06/10/21 09:01 Magnesium Sulfate 2 gm/ Premix 50 mls @ 25 mls/hr IV ONETIME ONE Stop: 06/01/21 13:30 Last Admin: 06/01/21 13:30 Dose: 25 mls/hr Documented by: Remdesivir 200 mg/ Sodium (Chloride) 250 mls @ 250 mls/hr IV ONETIME ONE Stop: 06/01/21 16:29 Last Admin: 06/01/21 15:40 Dose: 250 mls/hr Documented by: Remdesivir 100 mg/ Sodium (Chloride) 100 mls @ 100 mls/hr IV Q24H [facility] Stop: 06/05/21 16:29 Last Admin: 06/05/21 14:56 Dose: 100 mls/hr Documented by: Tocilizumab 500 mg/ Sodium (Chloride) 105 mls @ 105 mls/hr IV ONETIME ONE Stop: 06/02/21 08:34 Last Admin: 06/02/21 09:28 Dose: 105 mls/hr Documented by: Methylprednisolone Sodium Succinate (Methylprednisolone Sodium Succinate 125 Mg/2 Ml Sdv) 125 mg IVPUSH Q12H [facility] Last Admin: 06/04/21 08:07 Dose: 125 mg Documented by: - Patient Data Lab Results Last 24 hrs: Laboratory Results - last 24 hr 06/06/21 06/06/21 06/06/21 Range/Units 11:06 16:40 21:32 WBC (3.98-10.04) K/mm3 RBC (3.98-5.22) M/mm3 Hgb (11.2-15.7) gm/dl Hct (34.1-44.9) % MCV (79.4-94.8) fl MCH (25.6-32.2) pg MCHC (32.2-35.5) g/dl RDW Std Deviation (36.4-46.3) fL Plt Count (182-369) K/mm3 MPV (9.4-12.3) fl Neut % (Auto) (34.0-71.1) % Lymph % (Auto) (19.3-51.7) % Morrison % (Auto) (4.7-12.5) % Eos % (Auto) (0.7-5.8) Baso % (Auto) (0.1-1.2) % Neut # (Auto) (1.56-6.13) K/mm3 Lymph # (Auto) (1.18-3.74) K/mm3 Morrison # (Auto) (0.24-0.36) K/mm3 Eos # (Auto) (0.04-0.36) K/mm3 Baso # (Auto) (0.01-0.08) K/mm3 Manual Slide Review Sodium (136-145) mEq/L Potassium (3.5-5.1) mEq/L Chloride (98-107) mEq/L Carbon Dioxide (21-32) mEq/L Anion Gap (5-15) BUN (7-18) mg/dL Creatinine (0.55-1.02) mg/dL Est Cr Clr Drug Dosing mL/min Estimated GFR (MDRD) (>60) mL/min BUN/Creatinine Ratio (14-18) Glucose (70-99) mg/dL POC Glucose 189 H 269 H 328 H (70-99) mg/dL Calcium (8.5-10.1) mg/dL 06/07/21 06/07/21 Range/Units 05:55 05:55 WBC 3.71 L (3.98-10.04) K/mm3 RBC 4.50 (3.98-5.22) M/mm3 Hgb 13.3 (11.2-15.7) gm/dl Hct 38.4 (34.1-44.9) % MCV 85.3 (79.4-94.8) fl MCH 29.6 (25.6-32.2) pg MCHC 34.6 (32.2-35.5) g/dl RDW Std Deviation 37.4 (36.4-46.3) fL Plt Count 593 H (182-369) K/mm3 MPV 9.1 L (9.4-12.3) fl Neut % (Auto) 52.6 (34.0-71.1) % Lymph % (Auto) 29.6 (19.3-51.7) % Morrison % (Auto) 16.4 H (4.7-12.5) % Eos % (Auto) 0.3 L (0.7-5.8) Baso % (Auto) 0.0 L (0.1-1.2) % Neut # (Auto) 1.95 (1.56-6.13) K/mm3 Lymph # (Auto) 1.10 L (1.18-3.74) K/mm3 Morrison # (Auto) 0.61 H (0.24-0.36) K/mm3 Eos # (Auto) 0.01 L (0.04-0.36) K/mm3 Baso # (Auto) 0.00 L (0.01-0.08) K/mm3 Manual Slide Review Normal smear Sodium 142 (136-145) mEq/L Potassium 4.2 (3.5-5.1) mEq/L Chloride 107 (98-107) mEq/L Carbon Dioxide 29 (21-32) mEq/L Anion Gap 10.2 (5-15) BUN 15 (7-18) mg/dL Creatinine 0.7 (0.55-1.02) mg/dL Est Cr Clr Drug Dosing 62.92 mL/min Estimated GFR (MDRD) > 60 (>60) mL/min BUN/Creatinine Ratio 21.4 H (14-18) Glucose 106 H (70-99) mg/dL POC Glucose (70-99) mg/dL Calcium 8.1 L (8.5-10.1) mg/dL Result Diagrams: 06/07/21 05:55 06/07/21 05:55 [place]erson Results Last 24 hrs: Microbiology 06/01/21 06:22 Blood Culture - Final Blood - Venous - Lab Draw 06/01/21 06:10 Blood Culture - Final Blood - Venous Sepsis Event Note - Evaluation Sepsis Screening Result: No Definite Risk - Focused Exam Vital Signs: Vital Signs Temp Pulse Resp BP Pulse Ox Pulse Ox 06/07/21 06:15 92 L 06/07/21 06:12 89 L 06/07/21 06:10 98.2 F 71 14 109/68 87 L 06/07/21 00:50 72 89 L 93 L 06/07/21 00:44 76 20 90/64 80 L 06/06/21 21:33 98.1 F 71 18 104/82 93 L 06/06/21 20:21 95 06/06/21 20:01 96 - Problem List & Annotations (1) HTN (hypertension) SNOMED Code(s): 97503515 Code(s): I10 - ESSENTIAL (PRIMARY) HYPERTENSION Status: Chronic Priority: Medium Current Visit: Yes Qualifiers: Hypertension type: primary hypertension Qualified Code(s): I10 - Essential (primary) hypertension (2) S/P hysterectomy SNOMED Code(s): 679297482, 792119204, 480702447 Code(s): Z90.710 - ACQUIRED ABSENCE OF BOTH CERVIX AND UTERUS Status: Chronic Priority: Low Current Visit: No (3) History of cervical cancer Status: Chronic Priority: Low Current Visit: No (4) COVID-19 SNOMED Code(s): 968219039 Code(s): U07.1 - COVID-19 Status: Acute Priority: High Current Visit: Yes (5) Hyperglycemia SNOMED Code(s): 00180458 Code(s): R73.9 - HYPERGLYCEMIA, UNSPECIFIED Status: Acute Current Visit: No (6) Hypoxemia SNOMED Code(s): 073575521 Code(s): R09.02 - HYPOXEMIA Status: Acute Current Visit: No (7) New onset type 2 diabetes mellitus SNOMED Code(s): 75294396 Code(s): E11.9 - TYPE 2 DIABETES MELLITUS WITHOUT COMPLICATIONS Status: Chronic Priority: Medium Current Visit: Yes (8) Elevated d-dimer SNOMED Code(s): 299081341 Code(s): R79.89 - OTHER SPECIFIED ABNORMAL FINDINGS OF BLOOD CHEMISTRY Status: Acute Priority: High Current Visit: Yes (9) Leukopenia SNOMED Code(s): 02709516, 606769516 Code(s): D72.819 - DECREASED WHITE BLOOD CELL COUNT, UNSPECIFIED Status: Acute Priority: High Current Visit: Yes Qualifiers: Leukopenia type: neutropenia Neutropenia type: due to infection Qualified Code(s): D70.3 - Neutropenia due to infection - Problem List Review Problem List Initiated/Reviewed/Updated: Yes - Assessment Assessment:: Assessment - day of admission 04/01/2021 * 56-year-old female who presents the ED with low saturations after testing positive for COVID-19 * History of hypertension and cervical cancer status post hysterectomy. * On 05/25/2021 she noted fever and chills. * Saw her PCP on 05/26/2021 and blood work was done which she states was normal, however she was not tested for COVID-19 * Utilizing Tylenol and ibuprofen but her symptoms continued * Returned to her PCP on 05/31/2021 where she tested positive for SARS-CoV-2 RNA. * Chest x-ray at that time was obtained and per the patient showed "pneumonia" however the patient is not sure what exactly was seen. * Noted saturations in the 80s this morning and came to the ED as instructed * Reports nonproductive cough but no acute dyspnea or chest pain. She feels weak. Denies any nausea or vomiting. * Has not received the Covid vaccine. * 12-lead EKG is obtained showing sinus tachycardia 107 bpm with no ischemic changes. Temp is 36.9 Celsius. Pulse 97. Respirations 29. Blood pressure 98/64. Pulse ox is 86%, rising to 96% on 1 L. * Labs are obtained: * WBC 4.89 * Hemoglobin 12.0 * Platelet 400,000 * Neutrophils 58% * Sodium 135 * Potassium 3.6 * Chloride 100 * Carbon dioxide 22 * Anion gap 16.6 * BUN 12. Creatinine 0.9. GFR greater than 60 * Glucose 188 * Lactic acid 1.3 * Magnesium 1.8 * Total bilirubin 0.3 * AST is 54, ALT 47, alkaline phosphatase 45. * Troponin less than 0.017 * Protein 8.0 * Albumin 3.1 * CRP 8.4 * Chest x-ray shows bilateral hazy infiltrates consistent with COVID-19 pneumo rosa * She is given 6 mg dexamethasone. * Admitted to floor on telemetry for management of COVID-19 PNA and hypoxia 06/02/2021: This is a 56-year-old female who presented to ED with low saturations. She is recently been diagnosed with COVID-19 and was sent home with home monitoring. Her saturations were noted to be very low when she presented to her ED and was admitted. In the ED she was noted to have saturations in the low 90s on 2 L of oxygen. On the floor glucose was noted to be high and has been high on prior visits and her A1c was obtained which was 7.7. She was started on sliding scale insulin. Ferritin was 1858. LDH was 408. Today WBC is 5.54. Hemoglobin 12.0. Platelet 441,000. Neutrophils 69.8. Sodium 140. Potassium 4.1. Chloride 105. Carbon dioxide 25. Anion gap 14.1. BUN 16. Creatinine 0.7. GFR greater than 60. Glucose 126-225. Magnesium 2.4. Bilirubin 0.2. AST is 44, ALT 41, alkaline phosphatase 48. CRP is 6.8. Albumin 2.9. Unfortunately patient overnight had significant rapidly deteriorating oxygen saturations and was requi ring up to 10 L. She was placed on high flow oxygen and is currently on 50 L with an FiO2 of 50%. Actemra 8 mg/kg was ordered today and her steroids were increased from 6 mg dexamethasone to 125 mg twice daily Solu-Medrol. She has been proning and nursing was instructed to continue to push for this. She does have incentive spirometry and Acapella in the room and has been using it. We will otherwise continue Covid treatment. Chest x-ray today is slightly worse than yesterday. We will check a procalcitonin. Dr. Neal, attending hospitalist, in to discuss plan with patient. Unknown length of stay due to severity of Covid symptoms. 06/03/2021 This is a 56-year-old female admitted to the floor with Covid pneumonia. She also appears to be a new onset diabetic with an A1c of 7.7. UA was obtained and was cloudy with 1+ protein and trace ketones. Urine random microalbumin was obtained and was elevated at 29.7. Blood sugars have been 196-268. We will increase sliding scale insulin to medium intensity. She is neutropenic today with a WBC of 1.39. Hemoglobin 12.6. Platelet 470,000. Neutrophils are 50.4. Sodium 142. Potassium 4.3. Chloride 107. Carbon dioxide 25. Anion gap 14.3. BUN 23. Creatinine 0.8. GFR greater than 60. Calcium 8.5. Magnesium 2.3. Bilirubin 0.2. AST 38, ALT 41, alkaline phosphatase 48. CRP is 3.3. Protein 7.7. Albumin 2.8. We will continue current treatment plan with steroids, high flow, and respiratory exercises. If patient saturations continued to drop we will start her on BiPAP and likely admit her to the ICU at that time. At this point saturations have been in the upper 90s while patient is proning. We will continue to encourage this as well. Unknown length of stay due to duration and severity of Covid 19 pneumonia. 06/04/2021 This is a 56-year-old female admitted for COVID-19 pneumonia. She continues with treatment including Solu-Medrol and remdesivir. We will decrease Solu- Medrol dosing to 60 mg every 8 hours today. Remains on high flow oxygen 50 L and 65% FiO2. This is a improvement over yesterday. She has been proning and utilizing her incentive spirometry/Acapella. She states she feels pretty good overall. Labs today show a continued neutropenia at 2.43. Hemoglobin 13.0. Platelet 485,000. Neutrophils are 60.4%. D-dimer is 0.87. Sodium 144. Potass ium 4.3. Chloride 108. Carbon dioxide 26. Anion gap 14.3. BUN 24. Creatinine 0.9. GFR greater than 60. Glucose has been 2 20-2 80 and we will increase her sliding scale tube high intensity. Calcium 8.3. Magnesium 2.4. Total bilirubin 0.3. AST 28, ALT 36, alkaline phosphatase 45. CRP is 1.5. Protein 7.4. Albumin 2.7. We will continue to watch blood sugars and add long- acting insulin if indicated. We will address elevated A1c/diabetes more at discharge. Continue current treatment plan. Unknown length of stay pending continued improvement. 06/05/2021 The patient is a 56-year-old lady who is currently on back 3 of 4 of remdesivir. This will be continued. Her oxygen demands remain high and her oxygen saturations will be kept around 92% with oxygen support. We will attempt to taper oxygen. The patient will be kept on high-dose steroids and these will be tapered as necessary. The patient also has been instructed in the use of incentive spirometer as well as Acapella. The patient has been encouraged to ambulate within the confines of the room. The patient should be appropriate for discharge in 1 to 2 days when her oxygen demands have been improved. The patient will also be kept on the appropriate diabetic diet and insulin sliding scale. The patient has repeat laboratory studies ordered for the morning. 06/06/2021 The patient is a 56-year-old lady who is doing better today. She will remain in hospitalization for at least 1 more day. The patient still requires at least 6 L of oxygen via nasal cannula. It has been noted that she desaturates very quickly. The patient has been recommended to continue with the use of the incentive spirometer as well as the Acapella. The patient will continue on the IV steroids. The patient will continue on DVT prophylaxis. Repeat laboratory s tudies have been ordered. Her oxygen will remain to maintain her oxygen saturations around 92%. 06/07/2021 This is a 56-year-old female admitted to the floor for treatment of Covid pneumonia. She was doing better yesterday and was actually tolerating nasal cannula, although noted to desaturate quite quickly. Her saturations today have worsened and she is back on high flow 55 L with an FiO2 of 90. WBC is 3.71. Hemoglobin 13.3. Platelet 593,000. BMP has been stable. Blood glucose readings have been from 106 to 328. She remains on high-dose sliding scale insulin and this is ranged from 12 units to not given. She remains on 60 mg every 8 hour Solu-Medrol. We will recheck D-dimer today. Imaging yesterday was grossly stable. Will consider imaging tomorrow. Patient remains on high flow and will be switched to BiPAP if needed. If she does switch to BiPAP we will likely upgrade to ICU status. Unknown length of stay due to worsening Covid symptoms. Continue current treatment plan. - Plan Plan:: COVID-19 Hypoxemia Elevated D-Dimer Leukopenia * O2 as needed with goal saturations 88-95% * Pepcid 20mg BID * Solu-Medrol to 60 mg every 8 hour. * Completed Remdesivir * Actemra given 06/02/2021 * IS/Acapella * Prone whenever able * RT consultation * Telemetry * Continuous pulse ox * Tylenol for fever * Airborne/contact isolation * Ambulate around the room * Will hold off PT and OT for now * Daily labs * Blood cultures negative thus far * CM consultation * Continue high flow * Procalcitonin negative * Blood cultures negative thus far * Start BiPAP if indicated * Re-check D-Dimer HTN (hypertension) * Hold home lisinopril for now * Monitor vital signs Hyperglycemia Type II DM - new onset * Has had 2 readings with glucose >180 * A1C 7.7 * Soil Field Technician consultation once feeling better * coding educator consult once feeling better * Sliding scale high intensity insulin * QID AC and Bedtime blood glucose checks * Anticipate elevations in blood glucose due to steroids * Monitor need for long acting insulin while on steroids S/P hysterectomy History of cervical cancer * No acute concerns Code Status: Full Code PCP: Dr. Davalos DVT prophylaxis: Lovenox Disposition: Admit patient to medical floor on telemetry for management of COVID-19 pneumonia with hypoxia. Length of stay greater than 96 hours due to worsening Covid symptoms and requirement for treatment. <Pablito Kicnaid - Last Filed: 06/07/21 13:41> - Patient Data Vitals - Most Recent: Last Vital Signs Temp 36.6 C 06/07/21 08:12 Pulse 80 06/07/21 08:12 Resp 24 H 06/07/21 08:12 BP 103/61 06/07/21 08:12 Pulse Ox 86 L 06/07/21 08:42 I&O - Last 24 Hours: Intake & Output 06/06/21 06/07/21 06/07/21 22:59 06:59 14:59 Intake Total 300 300 Output Total 500 525 Balance -200 -225 Lab Results Last 24 Hours: Laboratory Results - last 24 hr 06/06/21 06/06/21 06/07/21 Range/Units 16:40 21:32 05:55 WBC 3.71 L (3.98-10.04) K/mm3 RBC 4.50 (3.98-5.22) M/mm3 Hgb 13.3 (11.2-15.7) gm/dl Hct 38.4 (34.1-44.9) % MCV 85.3 (79.4-94.8) fl MCH 29.6 (25.6-32.2) pg MCHC 34.6 (32.2-35.5) g/dl RDW Std Deviation 37.4 (36.4-46.3) fL Plt Count 593 H (182-369) K/mm3 MPV 9.1 L (9.4-12.3) fl Neut % (Auto) 52.6 (34.0-71.1) % Lymph % (Auto) 29.6 (19.3-51.7) % Morrison % (Auto) 16.4 H (4.7-12.5) % Eos % (Auto) 0.3 L (0.7-5.8) Baso % (Auto) 0.0 L (0.1-1.2) % Neut # (Auto) 1.95 (1.56-6.13) K/mm3 Lymph # (Auto) 1.10 L (1.18-3.74) K/mm3 Morrison # (Auto) 0.61 H (0.24-0.36) K/mm3 Eos # (Auto) 0.01 L (0.04-0.36) K/mm3 Baso # (Auto) 0.00 L (0.01-0.08) K/mm3 Manual Slide Review Normal smear Sodium (136-145) mEq/L Potassium (3.5-5.1) mEq/L Chloride (98-107) mEq/L Carbon Dioxide (21-32) mEq/L Anion Gap (5-15) BUN (7-18) mg/dL Creatinine (0.55-1.02) mg/dL Est Cr Clr Drug Dosing mL/min Estimated GFR (MDRD) (>60) mL/min BUN/Creatinine Ratio (14-18) Glucose (70-99) mg/dL POC Glucose 269 H 328 H (70-99) mg/dL Calcium (8.5-10.1) mg/dL C-Reactive Protein (<1.0) mg/dL 06/07/21 06/07/21 Range/Units 05:55 13:05 WBC (3.98-10.04) K/mm3 RBC (3.98-5.22) M/mm3 Hgb (11.2-15.7) gm/dl Hct (34.1-44.9) % MCV (79.4-94.8) fl MCH (25.6-32.2) pg MCHC (32.2-35.5) g/dl RDW Std Deviation (36.4-46.3) fL Plt Count (182-369) K/mm3 MPV (9.4-12.3) fl Neut % (Auto) (34.0-71.1) % Lymph % (Auto) (19.3-51.7) % Morrison % (Auto) (4.7-12.5) % Eos % (Auto) (0.7-5.8) Baso % (Auto) (0.1-1.2) % Neut # (Auto) (1.56-6.13) K/mm3 Lymph # (Auto) (1.18-3.74) K/mm3 Morrison # (Auto) (0.24-0.36) K/mm3 Eos # (Auto) (0.04-0.36) K/mm3 Baso # (Auto) (0.01-0.08) K/mm3 Manual Slide Review Sodium 142 (136-145) mEq/L Potassium 4.2 (3.5-5.1) mEq/L Chloride 107 (98-107) mEq/L Carbon Dioxide 29 (21-32) mEq/L Anion Gap 10.2 (5-15) BUN 15 (7-18) mg/dL Creatinine 0.7 (0.55-1.02) mg/dL Est Cr Clr Drug Dosing 62.92 mL/min Estimated GFR (MDRD) > 60 (>60) mL/min BUN/Creatinine Ratio 21.4 H (14-18) Glucose 106 H (70-99) mg/dL POC Glucose (70-99) mg/dL Calcium 8.1 L (8.5-10.1) mg/dL C-Reactive Protein < 0.2 (<1.0) mg/dL [place] Results Last 24 Hours: Microbiology 06/01/21 06:22 Blood Culture - Final Blood - Venous - Lab Draw 06/01/21 06:10 Blood Culture - Final Blood - Venous Med Orders - Current: Current Medications Acetaminophen (Acetaminophen 325 Mg Tab) 650 mg PO Q4H PRN PRN Reason: Pain (Mild 1-3)/fever Albuterol (Albuterol 6.7 Gm Inhaler) 0 gm INH Q2H PRN PRN Reason: SOB/Wheezing Enoxaparin Sodium (Enoxaparin 40 Mg/0.4 Ml Syringe) 40 mg SUBCUT DAILY [facility] Last Admin: 06/07/21 08:43 Dose: 40 mg Documented by: Famotidine (Famotidine 20 Mg Tab) 20 mg PO BID [facility] Last Admin: 06/07/21 08:43 Dose: 20 mg Documented by: Insulin Human Lispro (Insulin Lispro 100 Unit/Ml 10 Ml Vial) 0 unit SUBCUT QIDACANDBED [facility]; Protocol Last Admin: 06/07/21 12:16 Dose: 3 unit Documented by: Magnesium Hydroxide (Magnesium Hydroxide 400 Mg/5 Ml Susp 30 Ml Cup) 30 ml PO DAILY PRN PRN Reason: Constipation Methylprednisolone Sodium Succinate (Methylprednisolone Sodium Succinate 125 Mg/2 Ml Sdv) 60 mg IVPUSH Q8H [facility] Last Admin: 06/07/21 12:18 Dose: 60 mg Documented by: Ondansetron HCl (Ondansetron 4 Mg/2 Ml Sdv) 4 mg IV Q6H PRN PRN Reason: Nausea/Vomiting Discontinued Medications Dexamethasone (Dexamethasone 4 Mg Tab) 6 mg PO ONETIME STA Stop: 06/01/21 06:31 Last Admin: 06/01/21 06:56 Dose: 6 mg Documented by: Dexamethasone (Dexamethasone 4 Mg Tab) 6 mg PO DAILY [facility] Stop: 06/10/21 09:01 Magnesium Sulfate 2 gm/ Premix 50 mls @ 25 mls/hr IV ONETIME ONE Stop: 06/01/21 13:30 Last Admin: 06/01/21 13:30 Dose: 25 mls/hr Documented by: Remdesivir 200 mg/ Sodium (Chloride) 250 mls @ 250 mls/hr IV ONETIME ONE Stop: 06/01/21 16:29 Last Admin: 06/01/21 15:40 Dose: 250 mls/hr Documented by: Remdesivir 100 mg/ Sodium (Chloride) 100 mls @ 100 mls/hr IV Q24H [facility] Stop: 06/05/21 16:29 Last Admin: 06/05/21 14:56 Dose: 100 mls/hr Documented by: Tocilizumab 500 mg/ Sodium (Chloride) 105 mls @ 105 mls/hr IV ONETIME ONE Stop: 06/02/21 08:34 Last Admin: 06/02/21 09:28 Dose: 105 mls/hr Documented by: Methylprednisolone Sodium Succinate (Methylprednisolone Sodium Succinate 125 Mg/2 Ml Sdv) 125 mg IVPUSH Q12H [facility] Last Admin: 06/04/21 08:07 Dose: 125 mg Documented by: - Patient Data Lab Results Last 24 hrs: Laboratory Results - last 24 hr 06/06/21 06/06/21 06/07/21 Range/Units 16:40 21:32 05:55 WBC 3.71 L (3.98-10.04) K/mm3 RBC 4.50 (3.98-5.22) M/mm3 Hgb 13.3 (11.2-15.7) gm/dl Hct 38.4 (34.1-44.9) % MCV 85.3 (79.4-94.8) fl MCH 29.6 (25.6-32.2) pg MCHC 34.6 (32.2-35.5) g/dl RDW Std Deviation 37.4 (36.4-46.3) fL Plt Count 593 H (182-369) K/mm3 MPV 9.1 L (9.4-12.3) fl Neut % (Auto) 52.6 (34.0-71.1) % Lymph % (Auto) 29.6 (19.3-51.7) % Morrison % (Auto) 16.4 H (4.7-12.5) % Eos % (Auto) 0.3 L (0.7-5.8) Baso % (Auto) 0.0 L (0.1-1.2) % Neut # (Auto) 1.95 (1.56-6.13) K/mm3 Lymph # (Auto) 1.10 L (1.18-3.74) K/mm3 Morrison # (Auto) 0.61 H (0.24-0.36) K/mm3 Eos # (Auto) 0.01 L (0.04-0.36) K/mm3 Baso # (Auto) 0.00 L (0.01-0.08) K/mm3 Manual Slide Review Normal smear Sodium (136-145) mEq/L Potassium (3.5-5.1) mEq/L Chloride (98-107) mEq/L Carbon Dioxide (21-32) mEq/L Anion Gap (5-15) BUN (7-18) mg/dL Creatinine (0.55-1.02) mg/dL Est Cr Clr Drug Dosing mL/min Estimated GFR (MDRD) (>60) mL/min BUN/Creatinine Ratio (14-18) Glucose (70-99) mg/dL POC Glucose 269 H 328 H (70-99) mg/dL Calcium (8.5-10.1) mg/dL C-Reactive Protein (<1.0) mg/dL 06/07/21 06/07/21 Range/Units 05:55 13:05 WBC (3.98-10.04) K/mm3 RBC (3.98-5.22) M/mm3 Hgb (11.2-15.7) gm/dl Hct (34.1-44.9) % MCV (79.4-94.8) fl MCH (25.6-32.2) pg MCHC (32.2-35.5) g/dl RDW Std Deviation (36.4-46.3) fL Plt Count (182-369) K/mm3 MPV (9.4-12.3) fl Neut % (Auto) (34.0-71.1) % Lymph % (Auto) (19.3-51.7) % Morrison % (Auto) (4.7-12.5) % Eos % (Auto) (0.7-5.8) Baso % (Auto) (0.1-1.2) % Neut # (Auto) (1.56-6.13) K/mm3 Lymph # (Auto) (1.18-3.74) K/mm3 Morrison # (Auto) (0.24-0.36) K/mm3 Eos # (Auto) (0.04-0.36) K/mm3 Baso # (Auto) (0.01-0.08) K/mm3 Manual Slide Review Sodium 142 (136-145) mEq/L Potassium 4.2 (3.5-5.1) mEq/L Chloride 107 (98-107) mEq/L Carbon Dioxide 29 (21-32) mEq/L Anion Gap 10.2 (5-15) BUN 15 (7-18) mg/dL Creatinine 0.7 (0.55-1.02) mg/dL Est Cr Clr Drug Dosing 62.92 mL/min Estimated GFR (MDRD) > 60 (>60) mL/min BUN/Creatinine Ratio 21.4 H (14-18) Glucose 106 H (70-99) mg/dL POC Glucose (70-99) mg/dL Calcium 8.1 L (8.5-10.1) mg/dL C-Reactive Protein < 0.2 (<1.0) mg/dL Result Diagrams: 06/07/21 05:55 06/07/21 05:55 [place] Results Last 24 hrs: Microbiology 06/01/21 06:22 Blood Culture - Final Blood - Venous - Lab Draw 06/01/21 06:10 Blood Culture - Final Blood - Venous Sepsis Event Note - Focused Exam Vital Signs: Vital Signs Temp Pulse Resp BP Pulse Ox Pulse Ox 06/07/21 08:42 86 L 06/07/21 08:12 36.6 C 80 24 H 103/61 86 L 06/07/21 06:15 92 L 06/07/21 06:12 89 L 06/07/21 06:10 36.8 C 71 14 109/68 87 L - Problem List & Annotations (1) Acute respiratory failure due to COVID-19 SNOMED Code(s): 567124489 Code(s): U07.1 - COVID-19; J96.00 - ACUTE RESPIRATORY FAILURE, UNSP W HYPOXIA OR HYPERCAPNIA Status: Acute Priority: High Current Visit: Yes (2) Elevated d-dimer SNOMED Code(s): 935814470 Code(s): R79.89 - OTHER SPECIFIED ABNORMAL FINDINGS OF BLOOD CHEMISTRY Status: Acute Priority: High Current Visit: Yes (3) New onset type 2 diabetes mellitus SNOMED Code(s): 76613535 Code(s): E11.9 - TYPE 2 DIABETES MELLITUS WITHOUT COMPLICATIONS Status: Chronic Priority: Medium Current Visit: Yes - Free Text/Narrative Note: I have seen and examined the patient independently of Rommel Jacques PA-C and have discussed the case with him. I have reviewed and agree with the orders and plan of care outlined by him. Please see orders.
[2021-06-07] MEDS: Enoxaparin 40 MG/0.4 ML Syringe SUBCUT SCH (08:43)
[2021-06-07] MEDS: Famotidine 20 MG Tab PO SCH ×2 (08:43→20:35)
[2021-06-07] MEDS ORDERED: Lactated Ringers 500 ML IV ONE (15:16)
[2021-06-08] MEDS: methylPREDNISolone Sodium Succinate 125 MG/2 ML SDV IVPUSH SCH ×2 (04:38→22:26)
[2021-06-08] MEDS: Insulin Lispro 100 UNIT/ML 10 ML Vial SUBCUT SCH ×4 (06:00→22:26)
[2021-06-08] MEDS ORDERED: Lactated Ringers 1,000 ML IV SCH (07:45)
[2021-06-08] MEDS: cefTRIAXone 2 GM in Sodium Chloride 0.9% 100 ML IV SCH (08:29)
[2021-06-08] MEDS: Famotidine 20 MG Tab PO SCH ×2 (08:30→22:26)
[2021-06-08] MEDS: Enoxaparin 40 MG/0.4 ML Syringe SUBCUT SCH (08:30)
--- NOTE | 2021-06-08 09:28 | CR ---
Chest: Frontal view of the chest was obtained. Comparison: Prior chest x-ray of 06/06/21. Increasing density is seen within the left perihilar region and left base from prior study compatible with worsening pneumonia likely relating to COVID. Mild increasing density is seen within the right perihilar region also felt to represent perihilar change from COVID. Heart size and mediastinum are normal. No pleural effusions are seen. No acute osseous abnormality is noted. Previous cholecystectomy is seen. Impression: 1. Worsening change within the chest from prior exam compatible with worsening change from COVID. Diagnostic code #3
--- NOTE | 2021-06-08 10:02 | PCM.PN ---
<Rommel Jacques - Last Filed: 06/08/21 10:29> - General Info Date of Service: 06/08/21 Admission Dx/Problem (Free Text): Admission Diagnosis/Problem Admission Diagnosis/Problem Hypoxia Functional Status: Reports: Pain Controlled, Tolerating Diet, Ambulating, Urinating, Incentive Spirometry, Other (Acapella). Denies: New Symptoms - Review of Systems General: Reports: No Symptoms. Denies: Fever, Weakness, Fatigue, Malaise, Chills HEENT: Reports: No Symptoms. Denies: Headaches, Sore Throat Pulmonary: Reports: Shortness of Breath, Cough, Sputum. Denies: Pleuritic Chest Pain, Wheezing Cardiovascular: Reports: Dyspnea on Exertion. Denies: Chest Pain, Palpitations, Edema Gastrointestinal: Denies: Abdominal Pain, Constipation, Decreased Appetite (Reports appetite is improving), Diarrhea, Nausea, Vomiting Genitourinary: Reports: No Symptoms. Denies: Pain Musculoskeletal: Reports: No Symptoms Skin: Reports: No Symptoms. Denies: Cyanosis Neurological: Reports: No Symptoms. Denies: Confusion, Pre-Existing Deficit, Difficulty Walking, Gait Disturbance Psychiatric: Reports: No Symptoms - Patient Data Vitals - Most Recent: Last Vital Signs Temp 97.5 F 06/08/21 04:43 Pulse 73 06/08/21 04:43 Resp 18 06/08/21 04:43 BP 125/88 06/08/21 04:43 Pulse Ox 94 L 06/08/21 08:57 Weight - Most Recent: 60.555 kg I&O - Last 24 Hours: Intake & Output 06/07/21 06/08/21 06/08/21 22:59 06:59 14:59 Intake Total 1840 700 Output Total 1000 550 Balance 840 150 Lab Results Last 24 Hours: Laboratory Results - last 24 hr 06/07/21 06/07/21 06/07/21 Range/Units 06:06 10:38 13:05 WBC (3.98-10.04) K/mm3 RBC (3.98-5.22) M/mm3 Hgb (11.2-15.7) gm/dl Hct (34.1-44.9) % MCV (79.4-94.8) fl MCH (25.6-32.2) pg MCHC (32.2-35.5) g/dl RDW Std Deviation (36.4-46.3) fL Plt Count (182-369) K/mm3 MPV (9.4-12.3) fl Neut % (Auto) (34.0-71.1) % Lymph % (Auto) (19.3-51.7) % Dyer % (Auto) (4.7-12.5) % Eos % (Auto) (0.7-5.8) Baso % (Auto) (0.1-1.2) % Neut # (Auto) (1.56-6.13) K/mm3 Lymph # (Auto) (1.18-3.74) K/mm3 Dyer # (Auto) (0.24-0.36) K/mm3 Eos # (Auto) (0.04-0.36) K/mm3 Baso # (Auto) (0.01-0.08) K/mm3 D-Dimer, Quantitative 0.87 H (0.19-0.50) mg/L Sodium (136-145) mEq/L Potassium (3.5-5.1) mEq/L Chloride (98-107) mEq/L Carbon Dioxide (21-32) mEq/L Anion Gap (5-15) BUN (7-18) mg/dL Creatinine (0.55-1.02) mg/dL Est Cr Clr Drug Dosing mL/min Estimated GFR (MDRD) (>60) mL/min BUN/Creatinine Ratio (14-18) Glucose (70-99) mg/dL POC Glucose 100 H 196 H (70-99) mg/dL Lactic Acid (0.4-2.0) mmol/L Calcium (8.5-10.1) mg/dL Magnesium (1.8-2.4) mg/dL C-Reactive Protein (<1.0) mg/dL 06/07/21 06/07/21 06/07/21 Range/Units 13:05 13:05 16:08 WBC (3.98-10.04) K/mm3 RBC (3.98-5.22) M/mm3 Hgb (11.2-15.7) gm/dl Hct (34.1-44.9) % MCV (79.4-94.8) fl MCH (25.6-32.2) pg MCHC (32.2-35.5) g/dl RDW Std Deviation (36.4-46.3) fL Plt Count (182-369) K/mm3 MPV (9.4-12.3) fl Neut % (Auto) (34.0-71.1) % Lymph % (Auto) (19.3-51.7) % Dyer % (Auto) (4.7-12.5) % Eos % (Auto) (0.7-5.8) Baso % (Auto) (0.1-1.2) % Neut # (Auto) (1.56-6.13) K/mm3 Lymph # (Auto) (1.18-3.74) K/mm3 Dyer # (Auto) (0.24-0.36) K/mm3 Eos # (Auto) (0.04-0.36) K/mm3 Baso # (Auto) (0.01-0.08) K/mm3 D-Dimer, Quantitative (0.19-0.50) mg/L Sodium (136-145) mEq/L Potassium (3.5-5.1) mEq/L Chloride (98-107) mEq/L Carbon Dioxide (21-32) mEq/L Anion Gap (5-15) BUN (7-18) mg/dL Creatinine (0.55-1.02) mg/dL Est Cr Clr Drug Dosing mL/min Estimated GFR (MDRD) (>60) mL/min BUN/Creatinine Ratio (14-18) Glucose (70-99) mg/dL POC Glucose 302 H (70-99) mg/dL Lactic Acid 3.0 H* (0.4-2.0) mmol/L Calcium (8.5-10.1) mg/dL Magnesium (1.8-2.4) mg/dL C-Reactive Protein < 0.2 (<1.0) mg/dL 06/07/21 06/07/21 06/08/21 Range/Units 16:15 20:41 05:06 WBC 4.54 (3.98-10.04) K/mm3 RBC 4.77 (3.98-5.22) M/mm3 Hgb 14.0 (11.2-15.7) gm/dl Hct 40.5 (34.1-44.9) % MCV 84.9 (79.4-94.8) fl MCH 29.4 (25.6-32.2) pg MCHC 34.6 (32.2-35.5) g/dl RDW Std Deviation 37.7 (36.4-46.3) fL Plt Count 583 H (182-369) K/mm3 MPV 9.3 L (9.4-12.3) fl Neut % (Auto) 80.2 H (34.0-71.1) % Lymph % (Auto) 11.0 L (19.3-51.7) % Dyer % (Auto) 7.3 (4.7-12.5) % Eos % (Auto) 0 L (0.7-5.8) Baso % (Auto) 0.2 (0.1-1.2) % Neut # (Auto) 3.64 (1.56-6.13) K/mm3 Lymph # (Auto) 0.50 L (1.18-3.74) K/mm3 Dyer # (Auto) 0.33 (0.24-0.36) K/mm3 Eos # (Auto) 0.00 L (0.04-0.36) K/mm3 Baso # (Auto) 0.01 (0.01-0.08) K/mm3 D-Dimer, Quantitative (0.19-0.50) mg/L Sodium (136-145) mEq/L Potassium (3.5-5.1) mEq/L Chloride (98-107) mEq/L Carbon Dioxide (21-32) mEq/L Anion Gap (5-15) BUN (7-18) mg/dL Creatinine (0.55-1.02) mg/dL Est Cr Clr Drug Dosing mL/min Estimated GFR (MDRD) (>60) mL/min BUN/Creatinine Ratio (14-18) Glucose (70-99) mg/dL POC Glucose 306 H (70-99) mg/dL Lactic Acid 2.7 H* (0.4-2.0) mmol/L Calcium (8.5-10.1) mg/dL Magnesium (1.8-2.4) mg/dL C-Reactive Protein (<1.0) mg/dL 06/08/21 06/08/21 06/08/21 Range/Units 05:06 05:06 05:12 WBC (3.98-10.04) K/mm3 RBC (3.98-5.22) M/mm3 Hgb (11.2-15.7) gm/dl Hct (34.1-44.9) % MCV (79.4-94.8) fl MCH (25.6-32.2) pg MCHC (32.2-35.5) g/dl RDW Std Deviation (36.4-46.3) fL Plt Count (182-369) K/mm3 MPV (9.4-12.3) fl Neut % (Auto) (34.0-71.1) % Lymph % (Auto) (19.3-51.7) % Dyer % (Auto) (4.7-12.5) % Eos % (Auto) (0.7-5.8) Baso % (Auto) (0.1-1.2) % Neut # (Auto) (1.56-6.13) K/mm3 Lymph # (Auto) (1.18-3.74) K/mm3 Dyer # (Auto) (0.24-0.36) K/mm3 Eos # (Auto) (0.04-0.36) K/mm3 Baso # (Auto) (0.01-0.08) K/mm3 D-Dimer, Quantitative (0.19-0.50) mg/L Sodium 138 (136-145) mEq/L Potassium 4.7 (3.5-5.1) mEq/L Chloride 102 (98-107) mEq/L Carbon Dioxide 30 (21-32) mEq/L Anion Gap 10.7 (5-15) BUN 16 (7-18) mg/dL Creatinine 0.8 (0.55-1.02) mg/dL Est Cr Clr Drug Dosing 55.06 mL/min Estimated GFR (MDRD) > 60 (>60) mL/min BUN/Creatinine Ratio 20.0 H (14-18) Glucose 233 H (70-99) mg/dL POC Glucose 90 (70-99) mg/dL Lactic Acid 2.2 H* (0.4-2.0) mmol/L Calcium 8.4 L (8.5-10.1) mg/dL Magnesium 2.6 H (1.8-2.4) mg/dL C-Reactive Protein <0.2 (<1.0) mg/dL Med Orders - Current: Current Medications Acetaminophen (Acetaminophen 325 Mg Tab) 650 mg PO Q4H PRN PRN Reason: Pain (Mild 1-3)/fever Albuterol (Albuterol 6.7 Gm Inhaler) 0 gm INH Q2H PRN PRN Reason: SOB/Wheezing Enoxaparin Sodium (Enoxaparin 40 Mg/0.4 Ml Syringe) 40 mg SUBCUT DAILY [facility] Last Admin: 06/08/21 08:30 Dose: 40 mg Documented by: Famotidine (Famotidine 20 Mg Tab) 20 mg PO BID [facility] Last Admin: 06/08/21 08:30 Dose: 20 mg Documented by: Ceftriaxone Sodium 2 gm/ (Sodium Chloride) 100 mls @ 200 mls/hr IV Q24H [facility] Last Admin: 06/08/21 08:29 Dose: 200 mls/hr Documented by: Lactated Ringer's (Ringers, Lactated) 1,000 mls @ 75 mls/hr IV ASDIRECTED [facility] Stop: 06/08/21 21:04 Last Admin: 06/08/21 09:17 Dose: 75 mls/hr Documented by: Insulin Human Lispro (Insulin Lispro 100 Unit/Ml 10 Ml Vial) 0 unit SUBCUT QIDACANDBED [facility]; Protocol Last Admin: 06/08/21 06:00 Dose: Not Given Documented by: Magnesium Hydroxide (Magnesium Hydroxide 400 Mg/5 Ml Susp 30 Ml Cup) 30 ml PO DAILY PRN PRN Reason: Constipation Last Admin: 06/07/21 17:56 Dose: 30 ml Documented by: Methylprednisolone Sodium Succinate (Methylprednisolone Sodium Succinate 125 Mg/2 Ml Sdv) 60 mg IVPUSH Q8H [facility] Last Admin: 06/08/21 04:38 Dose: 60 mg Documented by: Ondansetron HCl (Ondansetron 4 Mg/2 Ml Sdv) 4 mg IV Q6H PRN PRN Reason: Nausea/Vomiting Discontinued Medications Dexamethasone (Dexamethasone 4 Mg Tab) 6 mg PO ONETIME [facility]UST Stop: 06/01/21 06:31 Last Admin: 06/01/21 06:56 Dose: 6 mg Documented by: Dexamethasone (Dexamethasone 4 Mg Tab) 6 mg PO DAILY [facility] Stop: 06/10/21 09:01 Magnesium Sulfate 2 gm/ Premix 50 mls @ 25 mls/hr IV ONETIME ONE Stop: 06/01/21 13:30 Last Admin: 06/01/21 13:30 Dose: 25 mls/hr Documented by: Remdesivir 200 mg/ Sodium (Chloride) 250 mls @ 250 mls/hr IV ONETIME ONE Stop: 06/01/21 16:29 Last Admin: 06/01/21 15:40 Dose: 250 mls/hr Documented by: Remdesivir 100 mg/ Sodium (Chloride) 100 mls @ 100 mls/hr IV Q24H [facility] Stop: 06/05/21 16:29 Last Admin: 06/05/21 14:56 Dose: 100 mls/hr Documented by: Tocilizumab 500 mg/ Sodium (Chloride) 105 mls @ 105 mls/hr IV ONETIME ONE Stop: 06/02/21 08:34 Last Admin: 06/02/21 09:28 Dose: 105 mls/hr Documented by: Lactated Ringer's (Ringers, Lactated) 500 mls @ 999 mls/hr IV .BOLUS ONE Stop: 06/07/21 15:46 Last Admin: 06/07/21 16:43 Dose: 999 mls/hr Documented by: Methylprednisolone Sodium Succinate (Methylprednisolone Sodium Succinate 125 Mg/2 Ml Sdv) 125 mg IVPUSH Q12H [facility] Last Admin: 06/04/21 08:07 Dose: 125 mg Documented by: - Exam Quality Assessment: Supplemental Oxygen (50 L with FiO2 of 60%), DVT Prophylaxis. No: Urine Catheter General: Alert, Oriented, Cooperative HEENT: Pupils Equal, Pupils Reactive, Mucous Membr. Moist/[place] Neck: Supple, Trachea Midline Lungs: Normal Respiratory Effort, Decreased Breath Sounds (Stable from yesterday ). No: Crackles, Rhonchi, Wheezing Cardiovascular: Regular Rate, Regular Rhythm GI/Abdominal Exam: Normal Bowel Sounds, Soft, Non-Tender, No Distention (Female) Exam: Deferred Back Exam: Normal Inspection, Full Range of Motion Extremities: Normal Inspection, Normal Range of Motion, Non-Tender, No Pedal Edema, Normal Capillary Refill Peripheral Pulses: 2+: Radial (L), Radial (R), Dorsalis Pedis (L), Dorsalis Pedis (R) Skin: Warm, Dry, Intact Neurological: No New Focal Deficit Psy/Mental Status: Alert, Normal Affect, Normal Mood - Patient Data Lab Results Last 24 hrs: Laboratory Results - last 24 hr 06/07/21 06/07/21 06/07/21 Range/Units 06:06 10:38 13:05 WBC (3.98-10.04) K/mm3 RBC (3.98-5.22) M/mm3 Hgb (11.2-15.7) gm/dl Hct (34.1-44.9) % MCV (79.4-94.8) fl MCH (25.6-32.2) pg MCHC (32.2-35.5) g/dl RDW Std Deviation (36.4-46.3) fL Plt Count (182-369) K/mm3 MPV (9.4-12.3) fl Neut % (Auto) (34.0-71.1) % Lymph % (Auto) (19.3-51.7) % Dyer % (Auto) (4.7-12.5) % Eos % (Auto) (0.7-5.8) Baso % (Auto) (0.1-1.2) % Neut # (Auto) (1.56-6.13) K/mm3 Lymph # (Auto) (1.18-3.74) K/mm3 Dyer # (Auto) (0.24-0.36) K/mm3 Eos # (Auto) (0.04-0.36) K/mm3 Baso # (Auto) (0.01-0.08) K/mm3 D-Dimer, Quantitative 0.87 H (0.19-0.50) mg/L Sodium (136-145) mEq/L Potassium (3.5-5.1) mEq/L Chloride (98-107) mEq/L Carbon Dioxide (21-32) mEq/L Anion Gap (5-15) BUN (7-18) mg/dL Creatinine (0.55-1.02) mg/dL Est Cr Clr Drug Dosing mL/min Estimated GFR (MDRD) (>60) mL/min BUN/Creatinine Ratio (14-18) Glucose (70-99) mg/dL POC Glucose 100 H 196 H (70-99) mg/dL Lactic Acid (0.4-2.0) mmol/L Calcium (8.5-10.1) mg/dL Magnesium (1.8-2.4) mg/dL C-Reactive Protein (<1.0) mg/dL 06/07/21 06/07/21 06/07/21 Range/Units 13:05 13:05 16:08 WBC (3.98-10.04) K/mm3 RBC (3.98-5.22) M/mm3 Hgb (11.2-15.7) gm/dl Hct (34.1-44.9) % MCV (79.4-94.8) fl MCH (25.6-32.2) pg MCHC (32.2-35.5) g/dl RDW Std Deviation (36.4-46.3) fL Plt Count (182-369) K/mm3 MPV (9.4-12.3) fl Neut % (Auto) (34.0-71.1) % Lymph % (Auto) (19.3-51.7) % Dyer % (Auto) (4.7-12.5) % Eos % (Auto) (0.7-5.8) Baso % (Auto) (0.1-1.2) % Neut # (Auto) (1.56-6.13) K/mm3 Lymph # (Auto) (1.18-3.74) K/mm3 Dyer # (Auto) (0.24-0.36) K/mm3 Eos # (Auto) (0.04-0.36) K/mm3 Baso # (Auto) (0.01-0.08) K/mm3 D-Dimer, Quantitative (0.19-0.50) mg/L Sodium (136-145) mEq/L Potassium (3.5-5.1) mEq/L Chloride (98-107) mEq/L Carbon Dioxide (21-32) mEq/L Anion Gap (5-15) BUN (7-18) mg/dL Creatinine (0.55-1.02) mg/dL Est Cr Clr Drug Dosing mL/min Estimated GFR (MDRD) (>60) mL/min BUN/Creatinine Ratio (14-18) Glucose (70-99) mg/dL POC Glucose 302 H (70-99) mg/dL Lactic Acid 3.0 H* (0.4-2.0) mmol/L Calcium (8.5-10.1) mg/dL Magnesium (1.8-2.4) mg/dL C-Reactive Protein < 0.2 (<1.0) mg/dL 06/07/21 06/07/21 06/08/21 Range/Units 16:15 20:41 05:06 WBC 4.54 (3.98-10.04) K/mm3 RBC 4.77 (3.98-5.22) M/mm3 Hgb 14.0 (11.2-15.7) gm/dl Hct 40.5 (34.1-44.9) % MCV 84.9 (79.4-94.8) fl MCH 29.4 (25.6-32.2) pg MCHC 34.6 (32.2-35.5) g/dl RDW Std Deviation 37.7 (36.4-46.3) fL Plt Count 583 H (182-369) K/mm3 MPV 9.3 L (9.4-12.3) fl Neut % (Auto) 80.2 H (34.0-71.1) % Lymph % (Auto) 11.0 L (19.3-51.7) % Dyer % (Auto) 7.3 (4.7-12.5) % Eos % (Auto) 0 L (0.7-5.8) Baso % (Auto) 0.2 (0.1-1.2) % Neut # (Auto) 3.64 (1.56-6.13) K/mm3 Lymph # (Auto) 0.50 L (1.18-3.74) K/mm3 Dyer # (Auto) 0.33 (0.24-0.36) K/mm3 Eos # (Auto) 0.00 L (0.04-0.36) K/mm3 Baso # (Auto) 0.01 (0.01-0.08) K/mm3 D-Dimer, Quantitative (0.19-0.50) mg/L Sodium (136-145) mEq/L Potassium (3.5-5.1) mEq/L Chloride (98-107) mEq/L Carbon Dioxide (21-32) mEq/L Anion Gap (5-15) BUN (7-18) mg/dL Creatinine (0.55-1.02) mg/dL Est Cr Clr Drug Dosing mL/min Estimated GFR (MDRD) (>60) mL/min BUN/Creatinine Ratio (14-18) Glucose (70-99) mg/dL POC Glucose 306 H (70-99) mg/dL Lactic Acid 2.7 H* (0.4-2.0) mmol/L Calcium (8.5-10.1) mg/dL Magnesium (1.8-2.4) mg/dL C-Reactive Protein (<1.0) mg/dL 06/08/21 06/08/21 06/08/21 Range/Units 05:06 05:06 05:12 WBC (3.98-10.04) K/mm3 RBC (3.98-5.22) M/mm3 Hgb (11.2-15.7) gm/dl Hct (34.1-44.9) % MCV (79.4-94.8) fl MCH (25.6-32.2) pg MCHC (32.2-35.5) g/dl RDW Std Deviation (36.4-46.3) fL Plt Count (182-369) K/mm3 MPV (9.4-12.3) fl Neut % (Auto) (34.0-71.1) % Lymph % (Auto) (19.3-51.7) % Dyer % (Auto) (4.7-12.5) % Eos % (Auto) (0.7-5.8) Baso % (Auto) (0.1-1.2) % Neut # (Auto) (1.56-6.13) K/mm3 Lymph # (Auto) (1.18-3.74) K/mm3 Dyer # (Auto) (0.24-0.36) K/mm3 Eos # (Auto) (0.04-0.36) K/mm3 Baso # (Auto) (0.01-0.08) K/mm3 D-Dimer, Quantitative (0.19-0.50) mg/L Sodium 138 (136-145) mEq/L Potassium 4.7 (3.5-5.1) mEq/L Chloride 102 (98-107) mEq/L Carbon Dioxide 30 (21-32) mEq/L Anion Gap 10.7 (5-15) BUN 16 (7-18) mg/dL Creatinine 0.8 (0.55-1.02) mg/dL Est Cr Clr Drug Dosing 55.06 mL/min Estimated GFR (MDRD) > 60 (>60) mL/min BUN/Creatinine Ratio 20.0 H (14-18) Glucose 233 H (70-99) mg/dL POC Glucose 90 (70-99) mg/dL Lactic Acid 2.2 H* (0.4-2.0) mmol/L Calcium 8.4 L (8.5-10.1) mg/dL Magnesium 2.6 H (1.8-2.4) mg/dL C-Reactive Protein <0.2 (<1.0) mg/dL Result Diagrams: 06/08/21 05:06 06/08/21 05:06 Sepsis Event Note - Evaluation Sepsis Screening Result: Possible Sepsis Risk - Focused Exam Vital Signs: Vital Signs Temp Pulse Resp BP Pulse Ox Pulse Ox 06/08/21 08:57 94 L 06/08/21 05:55 96 06/08/21 05:45 98 06/08/21 04:43 97.5 F 73 18 125/88 94 L - Problem List & Annotations (1) HTN (hypertension) SNOMED Code(s): 12902784 Code(s): I10 - ESSENTIAL (PRIMARY) HYPERTENSION Status: Chronic Priority: Medium Current Visit: Yes Qualifiers: Hypertension type: primary hypertension Qualified Code(s): I10 - Essential (primary) hypertension (2) S/P hysterectomy SNOMED Code(s): 356445647, 917643078, 955940991 Code(s): Z90.710 - ACQUIRED ABSENCE OF BOTH CERVIX AND UTERUS Status: Chronic Priority: Low Current Visit: No (3) History of cervical cancer Status: Chronic Priority: Low Current Visit: No (4) COVID-19 SNOMED Code(s): 888482711 Code(s): U07.1 - COVID-19 Status: Acute Priority: High Current Visit: Yes (5) Hyperglycemia SNOMED Code(s): 72275657 Code(s): R73.9 - HYPERGLYCEMIA, UNSPECIFIED Status: Acute Current Visit: No (6) Hypoxemia SNOMED Code(s): 410263628 Code(s): R09.02 - HYPOXEMIA Status: Acute Current Visit: No (7) New onset type 2 diabetes mellitus SNOMED Code(s): 00205907 Code(s): E11.9 - TYPE 2 DIABETES MELLITUS WITHOUT COMPLICATIONS Status: Chronic Priority: Medium Current Visit: Yes (8) Elevated d-dimer SNOMED Code(s): 750576701 Code(s): R79.89 - OTHER SPECIFIED ABNORMAL FINDINGS OF BLOOD CHEMISTRY Status: Acute Priority: High Current Visit: Yes (9) Leukopenia SNOMED Code(s): 53989810, 302972357 Code(s): D72.819 - DECREASED WHITE BLOOD CELL COUNT, UNSPECIFIED Status: Acute Priority: High Current Visit: Yes Qualifiers: Leukopenia type: neutropenia Neutropenia type: due to infection Qualified Code(s): D70.3 - Neutropenia due to infection (10) Elevated lactic acid level SNOMED Code(s): 4213432 Code(s): R79.89 - OTHER SPECIFIED ABNORMAL FINDINGS OF BLOOD CHEMISTRY Status: Acute Priority: High Current Visit: Yes - Problem List Review Problem List Initiated/Reviewed/Updated: Yes - My Orders Last 24 Hours: My Active Orders 06/07/21 13:05 PROCALCITONIN [REF] Routine 06/08/21 07:45 Lactated Ringers [Ringers, Lactated] 1,000 ml IV ASDIRECTED 06/08/21 08:00 cefTRIAXone [Rocephin] 2 gm Sodium Chloride 0.9% [Normal Saline] 100 ml IV Q24H 06/09/21 05:11 BASIC METABOLIC PANEL,BMP [CHEM] AM CBC WITH AUTO DIFF [HEME] AM CRP [C-REACTIVE PROTEIN] [CHEM] AM MAGNESIUM [CHEM] AM 06/10/21 05:11 BASIC METABOLIC PANEL,BMP [CHEM] AM CBC WITH AUTO DIFF [HEME] AM CRP [C-REACTIVE PROTEIN] [CHEM] AM MAGNESIUM [CHEM] AM 06/11/21 05:11 BASIC METABOLIC PANEL,BMP [CHEM] AM CBC WITH AUTO DIFF [HEME] AM CRP [C-REACTIVE PROTEIN] [CHEM] AM MAGNESIUM [CHEM] AM - Assessment Assessment:: Assessment - day of admission 04/01/2021 * 56-year-old female who presents the ED with low saturations after testing positive for COVID-19 * History of hypertension and cervical cancer status post hysterectomy. * On 05/25/2021 she noted fever and chills. * Saw her PCP on 05/26/2021 and blood work was done which she states was normal, however she was not tested for COVID-19 * Utilizing Tylenol and ibuprofen but her symptoms continued * Returned to her PCP on 05/31/2021 where she tested positive for SARS-CoV-2 RNA. * Chest x-ray at that time was obtained and per the patient showed "pneumonia" however the patient is not sure what exactly was seen. * Noted saturations in the 80s this morning and came to the ED as instructed * Reports nonproductive cough but no acute dyspnea or chest pain. She feels weak. Denies any nausea or vomiting. * Has not received the Covid vaccine. * 12-lead EKG is obtained showing sinus tachycardia 107 bpm with no ischemic ch anges. Temp is 36.9 Celsius. Pulse 97. Respirations 29. Blood pressure 98/64. Pulse ox is 86%, rising to 96% on 1 L. * Labs are obtained: * WBC 4.89 * Hemoglobin 12.0 * Platelet 400,000 * Neutrophils 58% * Sodium 135 * Potassium 3.6 * Chloride 100 * Carbon dioxide 22 * Anion gap 16.6 * BUN 12. Creatinine 0.9. GFR greater than 60 * Glucose 188 * Lactic acid 1.3 * Magnesium 1.8 * Total bilirubin 0.3 * AST is 54, ALT 47, alkaline phosphatase 45. * Troponin less than 0.017 * Protein 8.0 * Albumin 3.1 * CRP 8.4 * Chest x-ray shows bilateral hazy infiltrates consistent with COVID-19 pneumonia * She is given 6 mg dexamethasone. * Admitted to floor on telemetry for management of COVID-19 PNA and hypoxia 06/02/2021: This is a 56-year-old female who presented to ED with low saturations. She is recently been diagnosed with COVID-19 and was sent home with home monitoring. Her saturations were noted to be very low when she presented to her ED and was admitted. In the ED she was noted to have saturations in the low 90s on 2 L of oxygen. On the floor glucose was noted to be high and has been high on prior visits and her A1c was obtained which was 7.7. She was started on sliding scale insulin. Ferritin was 1858. LDH was 408. Today WBC is 5.54. Hemoglobin 12.0. Platelet 441,000. Neutrophils 69.8. Sodium 140. Potassium 4.1. Chloride 105. Carbon dioxide 25. Anion gap 14.1. BUN 16. Creatinine 0.7. GFR greater than 60. Glucose 126-225. Magnesium 2.4. Bilirubin 0.2. AST is 44, ALT 41, alkaline phosphatase 48. CRP is 6.8. Albumin 2.9. Unfortunately patient overnight had significant rapidly deteriorating oxygen saturations and was requiring up to 10 L. She was placed on high flow oxygen and is currently on 50 L with an FiO2 of 50%. Actemra 8 mg/kg was ordered today and her steroids were increased from 6 mg dexamethasone to 125 mg twice daily Solu-Medrol. She has been proning and nursing was instructed to continue to push for this. She does have incentive spirometry and Acapella in the room and has been using it. We will otherwise continue Covid treatment. Chest x-ray today is slightly worse than yesterday. We will check a procalcitonin. Dr. Neal, attending hospitalist, in to discuss plan with patient. Unknown length of stay due to severity of Covid symptoms. 06/03/2021 This is a 56-year-old female admitted to the floor with Covid pneumonia. She also appears to be a new onset diabetic with an A1c of 7.7. UA was obtained and was cloudy with 1+ protein and trace ketones. Urine random microalbumin was obtained and was elevated at 29.7. Blood sugars have been 196-268. We will increase sliding scale insulin to medium intensity. She is neutropenic today with a WBC of 1.39. Hemoglobin 12.6. Platelet 470,000. Neutrophils are 50.4. Sodium 142. Potassium 4.3. Chloride 107. Carbon dioxide 25. Anion gap 14.3. BUN 23. Creatinine 0.8. GFR greater than 60. Calcium 8.5. Magnesium 2.3. Bilirubin 0.2. AST 38, ALT 41, alkaline phosphatase 48. CRP is 3.3. Protein 7.7. Albumin 2.8. We will continue current treatment plan with steroids, high flow, and respiratory exercises. If patient saturations continued to drop we will start her on BiPAP and likely admit her to the ICU at that time. At this point saturations have been in the upper 90s while patient is proning. We will continue to encourage this as well. Unknown length of stay due to duration and severity of Covid 19 pneumonia. 06/04/2021 This is a 56-year-old female admitted for COVID-19 pneumonia. She continues with treatment including Solu-Medrol and remdesivir. We will decrease Solu- Medrol dosing to 60 mg every 8 hours today. Remains on high flow oxygen 50 L and 65% FiO2. This is a improvement over yesterday. She has been proning and utilizing her incentive spirometry/Acapella. She states she feels pretty good overall. Labs today show a continued neutropenia at 2.43. Hemoglobin 13.0. Platelet 485,000. Neutrophils are 60.4%. D-dimer is 0.87. Sodium 144. Potassium 4.3. Chloride 108. Carbon dioxide 26. Anion gap 14.3. BUN 24. Creatinine 0.9. GFR greater than 60. Glucose has been 2 20-2 80 and we will increase her sliding scale tube high intensity. Calcium 8.3. Magnesium 2.4. Total bilirubin 0.3. AST 28, ALT 36, alkaline phosphatase 45. CRP is 1.5. Protein 7.4. Albumin 2.7. We will continue to watch blood sugars and add long-acting insulin if indicated. We will address elevated A1c/diabetes more at discharge. Continue current treatment plan. Unknown length of stay pending continued improvement. 06/05/2021 The patient is a 56-year-old lady who is currently on back 3 of 4 of remdesivir. This will be continued. Her oxygen demands remain high and her oxygen saturations will be kept around 92% with oxygen support. We will attempt to taper oxygen. The patient will be kept on high-dose steroids and these will be tapered as necessary. The patient also has been instructed in the use of incentive spirometer as well as Acapella. The patient has been encouraged to ambulate within the confines of the room. The patient should be appropriate for discharge in 1 to 2 days when her oxygen demands have been improved. The patient will also be kept on the appropriate diabetic diet and insulin sliding scale. The patient has repeat laboratory studies ordered for the morning. 06/06/2021 The patient is a 56-year-old lady who is doing better today. She will remain in hospitalization for at least 1 more day. The patient still requires at least 6 L of oxygen via nasal cannula. It has been noted that she desaturates very quickly. The patient has been recommended to continue with the use of the incentive spirometer as well as the Acapella. The patient will continue on the IV steroids. The patient will continue on DVT prophylaxis. Repeat laboratory studies have been ordered. Her oxygen will remain to maintain her oxygen saturations around 92%. 06/07/2021 This is a 56-year-old female admitted to the floor for treatment of Covid pneumonia. She was doing better yesterday and was actually tolerating nasal cannula, although noted to desaturate quite quickly. Her saturations today have worsened and she is back on high flow 55 L with an FiO2 of 90. WBC is 3.71. Hemoglobin 13.3. Platelet 593,000. BMP has been stable. Blood glucose readings have been from 106 to 328. She remains on high-dose sliding scale insulin and this is ranged from 12 units to not given. She remains on 60 mg every 8 hour Solu-Medrol. We will recheck D-dimer today. Imaging yesterday was grossly stable. Will consider imaging tomorrow. Patient remains on high flow and will be switched to BiPAP if needed. If she does switch to BiPAP we will likely upgrade to ICU status. Unknown length of stay due to worsening Covid symptoms. Continue current treatment plan. 06/08/2021 56-year-old female admitted in continue treatment for COVID-19 pneumonia. Labs today show a WBC of 4.54. Hemoglobin 14.0. Platelet 583,000. D-dimer obtained yesterday was 0.87. Sodium 138. Potassium 4.7. Chloride 102. Carbon dioxide 30. Anion gap 10.7. BUN is 16. Creatinine 0.8. GFR greater than 60. Glucose was 90-306. Lactic acid was obtained yesterday and was elevated at 3.0. Repeat was 2.7 and repeat today was 2.2. CRP has been less than 0.2. Discussed with Dr. Kincaid, attending hospitalist, and patient is started on Rocephin 2 g. We will also give 1 L lactated Ringer's at 75 mL an hour. Chest x-ray obtained today shows slightly worsening Covid pneumonia. Clinically patient is doing better. She reports that she feels better. She reports her appetite is improving. She remains on high flow and we are working on weaning slowly. Currently she is on 50 L with 60% FiO2. She has been proning and utilizing her incentive spirometer and Acapella. Unknown length of stay due to severity of COVID-19 symptoms. Given her inflammatory markers are significantly improved we will start decreasing steroid dosing. - Plan Plan:: COVID-19 Hypoxemia Elevated D-Dimer Leukopenia Elevated lactic acid * O2 as needed with goal saturations 88-95% * Pepcid 20mg BID * Decrease Solu-Medrol to 60 mg BID. * Completed Remdesivir * Actemra given 06/02/2021 * IS/Acapella * Prone whenever able * RT consultation * Telemetry * Continuous pulse ox * Tylenol for fever * Airborne/contact isolation * Ambulate around the room * Will hold off PT and OT for now * Daily labs * Blood cultures negative thus far * CM consultation * Continue high flow * Procalcitonin negative * Blood cultures negative thus far * 1L maxine LR infusion * Start 2gm daily rocephin pending procalcitonin HTN (hypertension) * Hold home lisinopril for now * Monitor vital signs Hyperglycemia Type II DM - new onset * Has had 2 readings with glucose >180 * A1C 7.7 * Capital Campaign Fundraiser consultation once feeling better * family educator consult once feeling better * Sliding scale high intensity insulin * QID AC and Bedtime blood glucose checks * Anticipate elevations in blood glucose due to steroids * Monitor need for long acting insulin while on steroids S/P hysterectomy History of cervical cancer * No acute concerns Code Status: Full Code PCP: Dr. Davalos DVT prophylaxis: Lovenox Disposition: Admit patient to medical floor on telemetry for management of COVID-19 pneumonia with hypoxia. Length of stay greater than 96 hours due to worsening Covid symptoms and requirement for treatment. <Pablito Kincaid - Last Filed: 06/08/21 17:03> - Patient Data Vitals - Most Recent: Last Vital Signs Temp 37.0 C 06/08/21 08:49 Pulse 86 06/08/21 08:49 Resp 18 06/08/21 08:49 BP 103/58 L 06/08/21 08:49 Pulse Ox 94 L 06/08/21 08:57 I&O - Last 24 Hours: Intake & Output 06/08/21 06/08/21 06/08/21 06:59 14:59 22:59 Intake Total 700 0 1000 Output Total 550 Balance 150 0 1000 Lab Results Last 24 Hours: Laboratory Results - last 24 hr 06/07/21 06/07/21 06/08/21 Range/Units 13:05 20:41 05:06 WBC 4.54 (3.98-10.04) K/mm3 RBC 4.77 (3.98-5.22) M/mm3 Hgb 14.0 (11.2-15.7) gm/dl Hct 40.5 (34.1-44.9) % MCV 84.9 (79.4-94.8) fl MCH 29.4 (25.6-32.2) pg MCHC 34.6 (32.2-35.5) g/dl RDW Std Deviation 37.7 (36.4-46.3) fL Plt Count 583 H (182-369) K/mm3 MPV 9.3 L (9.4-12.3) fl Neut % (Auto) 80.2 H (34.0-71.1) % Lymph % (Auto) 11.0 L (19.3-51.7) % Dyer % (Auto) 7.3 (4.7-12.5) % Eos % (Auto) 0 L (0.7-5.8) Baso % (Auto) 0.2 (0.1-1.2) % Neut # (Auto) 3.64 (1.56-6.13) K/mm3 Lymph # (Auto) 0.50 L (1.18-3.74) K/mm3 Dyer # (Auto) 0.33 (0.24-0.36) K/mm3 Eos # (Auto) 0.00 L (0.04-0.36) K/mm3 Baso # (Auto) 0.01 (0.01-0.08) K/mm3 Sodium (136-145) mEq/L Potassium (3.5-5.1) mEq/L Chloride (98-107) mEq/L Carbon Dioxide (21-32) mEq/L Anion Gap (5-15) BUN (7-18) mg/dL Creatinine (0.55-1.02) mg/dL Est Cr Clr Drug Dosing mL/min Estimated GFR (MDRD) (>60) mL/min BUN/Creatinine Ratio (14-18) Glucose (70-99) mg/dL POC Glucose 306 H (70-99) mg/dL Lactic Acid (0.4-2.0) mmol/L Calcium (8.5-10.1) mg/dL Magnesium (1.8-2.4) mg/dL C-Reactive Protein (<1.0) mg/dL Procalcitonin <0.05 ng/mL 06/08/21 06/08/21 06/08/21 Range/Units 05:06 05:06 05:12 WBC (3.98-10.04) K/mm3 RBC (3.98-5.22) M/mm3 Hgb (11.2-15.7) gm/dl Hct (34.1-44.9) % MCV (79.4-94.8) fl MCH (25.6-32.2) pg MCHC (32.2-35.5) g/dl RDW Std Deviation (36.4-46.3) fL Plt Count (182-369) K/mm3 MPV (9.4-12.3) fl Neut % (Auto) (34.0-71.1) % Lymph % (Auto) (19.3-51.7) % Dyer % (Auto) (4.7-12.5) % Eos % (Auto) (0.7-5.8) Baso % (Auto) (0.1-1.2) % Neut # (Auto) (1.56-6.13) K/mm3 Lymph # (Auto) (1.18-3.74) K/mm3 Dyer # (Auto) (0.24-0.36) K/mm3 Eos # (Auto) (0.04-0.36) K/mm3 Baso # (Auto) (0.01-0.08) K/mm3 Sodium 138 (136-145) mEq/L Potassium 4.7 (3.5-5.1) mEq/L Chloride 102 (98-107) mEq/L Carbon Dioxide 30 (21-32) mEq/L Anion Gap 10.7 (5-15) BUN 16 (7-18) mg/dL Creatinine 0.8 (0.55-1.02) mg/dL Est Cr Clr Drug Dosing 55.06 mL/min Estimated GFR (MDRD) > 60 (>60) mL/min BUN/Creatinine Ratio 20.0 H (14-18) Glucose 233 H (70-99) mg/dL POC Glucose 90 (70-99) mg/dL Lactic Acid 2.2 H* (0.4-2.0) mmol/L Calcium 8.4 L (8.5-10.1) mg/dL Magnesium 2.6 H (1.8-2.4) mg/dL C-Reactive Protein <0.2 (<1.0) mg/dL Procalcitonin ng/mL 06/08/21 Range/Units 13:06 WBC (3.98-10.04) K/mm3 RBC (3.98-5.22) M/mm3 Hgb (11.2-15.7) gm/dl Hct (34.1-44.9) % MCV (79.4-94.8) fl MCH (25.6-32.2) pg MCHC (32.2-35.5) g/dl RDW Std Deviation (36.4-46.3) fL Plt Count (182-369) K/mm3 MPV (9.4-12.3) fl Neut % (Auto) (34.0-71.1) % Lymph % (Auto) (19.3-51.7) % Dyer % (Auto) (4.7-12.5) % Eos % (Auto) (0.7-5.8) Baso % (Auto) (0.1-1.2) % Neut # (Auto) (1.56-6.13) K/mm3 Lymph # (Auto) (1.18-3.74) K/mm3 Dyer # (Auto) (0.24-0.36) K/mm3 Eos # (Auto) (0.04-0.36) K/mm3 Baso # (Auto) (0.01-0.08) K/mm3 Sodium (136-145) mEq/L Potassium (3.5-5.1) mEq/L Chloride (98-107) mEq/L Carbon Dioxide (21-32) mEq/L Anion Gap (5-15) BUN (7-18) mg/dL Creatinine (0.55-1.02) mg/dL Est Cr Clr Drug Dosing mL/min Estimated GFR (MDRD) (>60) mL/min BUN/Creatinine Ratio (14-18) Glucose (70-99) mg/dL POC Glucose 284 H (70-99) mg/dL Lactic Acid (0.4-2.0) mmol/L Calcium (8.5-10.1) mg/dL Magnesium (1.8-2.4) mg/dL C-Reactive Protein (<1.0) mg/dL Procalcitonin ng/mL Med Orders - Current: Current Medications Acetaminophen (Acetaminophen 325 Mg Tab) 650 mg PO Q4H PRN PRN Reason: Pain (Mild 1-3)/fever Albuterol (Albuterol 6.7 Gm Inhaler) 0 gm INH Q2H PRN PRN Reason: SOB/Wheezing Enoxaparin Sodium (Enoxaparin 40 Mg/0.4 Ml Syringe) 40 mg SUBCUT DAILY [facility] Last Admin: 06/08/21 08:30 Dose: 40 mg Documented by: Famotidine (Famotidine 20 Mg Tab) 20 mg PO BID [facility] Last Admin: 06/08/21 08:30 Dose: 20 mg Documented by: Ceftriaxone Sodium 2 gm/ (Sodium Chloride) 100 mls @ 200 mls/hr IV Q24H [facility] Last Admin: 06/08/21 08:29 Dose: 200 mls/hr Documented by: Lactated Ringer's (Ringers, Lactated) 1,000 mls @ 75 mls/hr IV ASDIRECTED [facility] Stop: 06/08/21 21:04 Last Admin: 06/08/21 09:17 Dose: 75 mls/hr Documented by: Insulin Human Lispro (Insulin Lispro 100 Unit/Ml 10 Ml Vial) 0 unit SUBCUT QIDACANDBED [facility]; Protocol Last Admin: 06/08/21 13:30 Dose: 9 unit Documented by: Magnesium Hydroxide (Magnesium Hydroxide 400 Mg/5 Ml Susp 30 Ml Cup) 30 ml PO DAILY PRN PRN Reason: Constipation Last Admin: 06/07/21 17:56 Dose: 30 ml Documented by: Methylprednisolone Sodium Succinate (Methylprednisolone Sodium Succinate 125 Mg/2 Ml Sdv) 60 mg IVPUSH BID [facility] Ondansetron HCl (Ondansetron 4 Mg/2 Ml Sdv) 4 mg IV Q6H PRN PRN Reason: Nausea/Vomiting Discontinued Medications Dexamethasone (Dexamethasone 4 Mg Tab) 6 mg PO ONETIME [facility] Stop: 06/01/21 06:31 Last Admin: 06/01/21 06:56 Dose: 6 mg Documented by: Dexamethasone (Dexamethasone 4 Mg Tab) 6 mg PO DAILY [facility] Stop: 06/10/21 09:01 Magnesium Sulfate 2 gm/ Premix 50 mls @ 25 mls/hr IV ONETIME ONE Stop: 06/01/21 13:30 Last Admin: 06/01/21 13:30 Dose: 25 mls/hr Documented by: Remdesivir 200 mg/ Sodium (Chloride) 250 mls @ 250 mls/hr IV ONETIME ONE Stop: 06/01/21 16:29 Last Admin: 06/01/21 15:40 Dose: 250 mls/hr Documented by: Remdesivir 100 mg/ Sodium (Chloride) 100 mls @ 100 mls/hr IV Q24H [facility] Stop: 06/05/21 16:29 Last Admin: 06/05/21 14:56 Dose: 100 mls/hr Documented by: Tocilizumab 500 mg/ Sodium (Chloride) 105 mls @ 105 mls/hr IV ONETIME ONE Stop: 06/02/21 08:34 Last Admin: 06/02/21 09:28 Dose: 105 mls/hr Documented by: Lactated Ringer's (Ringers, Lactated) 500 mls @ 999 mls/hr IV .BOLUS ONE Stop: 06/07/21 15:46 Last Admin: 06/07/21 16:43 Dose: 999 mls/hr Documented by: Methylprednisolone Sodium Succinate (Methylprednisolone Sodium Succinate 125 Mg/2 Ml Sdv) 125 mg IVPUSH Q12H [facility] Last Admin: 06/04/21 08:07 Dose: 125 mg Documented by: Methylprednisolone Sodium Succinate (Methylprednisolone Sodium Succinate 125 Mg/2 Ml Sdv) 60 mg IVPUSH Q8H [facility] Last Admin: 06/08/21 04:38 Dose: 60 mg Documented by: - Patient Data Lab Results Last 24 hrs: Laboratory Results - last 24 hr 06/07/21 06/07/21 06/08/21 Range/Units 13:05 20:41 05:06 WBC 4.54 (3.98-10.04) K/mm3 RBC 4.77 (3.98-5.22) M/mm3 Hgb 14.0 (11.2-15.7) gm/dl Hct 40.5 (34.1-44.9) % MCV 84.9 (79.4-94.8) fl MCH 29.4 (25.6-32.2) pg MCHC 34.6 (32.2-35.5) g/dl RDW Std Deviation 37.7 (36.4-46.3) fL Plt Count 583 H (182-369) K/mm3 MPV 9.3 L (9.4-12.3) fl Neut % (Auto) 80.2 H (34.0-71.1) % Lymph % (Auto) 11.0 L (19.3-51.7) % Dyer % (Auto) 7.3 (4.7-12.5) % Eos % (Auto) 0 L (0.7-5.8) Baso % (Auto) 0.2 (0.1-1.2) % Neut # (Auto) 3.64 (1.56-6.13) K/mm3 Lymph # (Auto) 0.50 L (1.18-3.74) K/mm3 Dyer # (Auto) 0.33 (0.24-0.36) K/mm3 Eos # (Auto) 0.00 L (0.04-0.36) K/mm3 Baso # (Auto) 0.01 (0.01-0.08) K/mm3 Sodium (136-145) mEq/L Potassium (3.5-5.1) mEq/L Chloride (98-107) mEq/L Carbon Dioxide (21-32) mEq/L Anion Gap (5-15) BUN (7-18) mg/dL Creatinine (0.55-1.02) mg/dL Est Cr Clr Drug Dosing mL/min Estimated GFR (MDRD) (>60) mL/min BUN/Creatinine Ratio (14-18) Glucose (70-99) mg/dL POC Glucose 306 H (70-99) mg/dL Lactic Acid (0.4-2.0) mmol/L Calcium (8.5-10.1) mg/dL Magnesium (1.8-2.4) mg/dL C-Reactive Protein (<1.0) mg/dL Procalcitonin <0.05 ng/mL 06/08/21 06/08/21 06/08/21 Range/Units 05:06 05:06 05:12 WBC (3.98-10.04) K/mm3 RBC (3.98-5.22) M/mm3 Hgb (11.2-15.7) gm/dl Hct (34.1-44.9) % MCV (79.4-94.8) fl MCH (25.6-32.2) pg MCHC (32.2-35.5) g/dl RDW Std Deviation (36.4-46.3) fL Plt Count (182-369) K/mm3 MPV (9.4-12.3) fl Neut % (Auto) (34.0-71.1) % Lymph % (Auto) (19.3-51.7) % Dyer % (Auto) (4.7-12.5) % Eos % (Auto) (0.7-5.8) Baso % (Auto) (0.1-1.2) % Neut # (Auto) (1.56-6.13) K/mm3 Lymph # (Auto) (1.18-3.74) K/mm3 Dyer # (Auto) (0.24-0.36) K/mm3 Eos # (Auto) (0.04-0.36) K/mm3 Baso # (Auto) (0.01-0.08) K/mm3 Sodium 138 (136-145) mEq/L Potassium 4.7 (3.5-5.1) mEq/L Chloride 102 (98-107) mEq/L Carbon Dioxide 30 (21-32) mEq/L Anion Gap 10.7 (5-15) BUN 16 (7-18) mg/dL Creatinine 0.8 (0.55-1.02) mg/dL Est Cr Clr Drug Dosing 55.06 mL/min Estimated GFR (MDRD) > 60 (>60) mL/min BUN/Creatinine Ratio 20.0 H (14-18) Glucose 233 H (70-99) mg/dL POC Glucose 90 (70-99) mg/dL Lactic Acid 2.2 H* (0.4-2.0) mmol/L Calcium 8.4 L (8.5-10.1) mg/dL Magnesium 2.6 H (1.8-2.4) mg/dL C-Reactive Protein <0.2 (<1.0) mg/dL Procalcitonin ng/mL 06/08/21 Range/Units 13:06 WBC (3.98-10.04) K/mm3 RBC (3.98-5.22) M/mm3 Hgb (11.2-15.7) gm/dl Hct (34.1-44.9) % MCV (79.4-94.8) fl MCH (25.6-32.2) pg MCHC (32.2-35.5) g/dl RDW Std Deviation (36.4-46.3) fL Plt Count (182-369) K/mm3 MPV (9.4-12.3) fl Neut % (Auto) (34.0-71.1) % Lymph % (Auto) (19.3-51.7) % Dyer % (Auto) (4.7-12.5) % Eos % (Auto) (0.7-5.8) Baso % (Auto) (0.1-1.2) % Neut # (Auto) (1.56-6.13) K/mm3 Lymph # (Auto) (1.18-3.74) K/mm3 Dyer # (Auto) (0.24-0.36) K/mm3 Eos # (Auto) (0.04-0.36) K/mm3 Baso # (Auto) (0.01-0.08) K/mm3 Sodium (136-145) mEq/L Potassium (3.5-5.1) mEq/L Chloride (98-107) mEq/L Carbon Dioxide (21-32) mEq/L Anion Gap (5-15) BUN (7-18) mg/dL Creatinine (0.55-1.02) mg/dL Est Cr Clr Drug Dosing mL/min Estimated GFR (MDRD) (>60) mL/min BUN/Creatinine Ratio (14-18) Glucose (70-99) mg/dL POC Glucose 284 H (70-99) mg/dL Lactic Acid (0.4-2.0) mmol/L Calcium (8.5-10.1) mg/dL Magnesium (1.8-2.4) mg/dL C-Reactive Protein (<1.0) mg/dL Procalcitonin ng/mL Result Diagrams: 06/08/21 05:06 06/08/21 05:06 Sepsis Event Note - Focused Exam Vital Signs: Vital Signs Temp Pulse Resp BP Pulse Ox Pulse Ox 06/08/21 08:57 94 L 06/08/21 08:49 37.0 C 86 18 103/58 L 84 L 06/08/21 05:55 96 06/08/21 05:45 98 - Problem List & Annotations (1) Acute respiratory failure due to COVID-19 SNOMED Code(s): 545506466 Code(s): U07.1 - COVID-19; J96.00 - ACUTE RESPIRATORY FAILURE, UNSP W HYPOXIA OR HYPERCAPNIA Status: Acute Priority: High Current Visit: Yes (2) Elevated d-dimer SNOMED Code(s): 693429376 Code(s): R79.89 - OTHER SPECIFIED ABNORMAL FINDINGS OF BLOOD CHEMISTRY Status: Acute Priority: High Current Visit: Yes (3) New onset type 2 diabetes mellitus SNOMED Code(s): 10696498 Code(s): E11.9 - TYPE 2 DIABETES MELLITUS WITHOUT COMPLICATIONS Status: Chronic Priority: Medium Current Visit: Yes - Free Text/Narrative Note: I have seen and examined the patient independently of Rommel Jacques PA-C and have discussed the case with him. I have reviewed and agree with the orders and plan of care outlined by him. Please see orders.
--- NOTE | 2021-06-09 07:20 | PCM.PN ---
<Rommel Jacques - Last Filed: 06/09/21 12:58> - General Info Date of Service: 06/09/21 Admission Dx/Problem (Free Text): Admission Diagnosis/Problem Admission Diagnosis/Problem Hypoxia Functional Status: Reports: Pain Controlled, Tolerating Diet (improving ), Ambulating, Urinating, Incentive Spirometry, Other (Acapella ). Denies: New Symptoms - Review of Systems General: Reports: No Symptoms. Denies: Fever, Weakness, Fatigue, Malaise, Chills HEENT: Reports: No Symptoms. Denies: Headaches, Sore Throat Pulmonary: Reports: Shortness of Breath, Cough, Sputum. Denies: Wheezing Cardiovascular: Reports: No Symptoms, Dyspnea on Exertion. Denies: Chest Pain, Palpitations, Edema, Lightheadedness Gastrointestinal: Reports: No Symptoms. Denies: Abdominal Pain, Constipation, Diarrhea, Nausea, Vomiting Genitourinary: Reports: No Symptoms. Denies: Pain Musculoskeletal: Reports: No Symptoms Skin: Reports: No Symptoms. Denies: Cyanosis Neurological: Reports: No Symptoms. Denies: Confusion, Dizziness, Headache, Numbness, Pre-Existing Deficit, Seizure, Syncope, Tingling, Difficulty Walking, Weakness, Gait Disturbance Psychiatric: Reports: No Symptoms - Patient Data Vitals - Most Recent: Last Vital Signs Temp 98.6 F 06/09/21 05:53 Pulse 81 06/09/21 05:53 Resp 20 06/09/21 05:53 BP 113/71 06/09/21 05:53 Pulse Ox 92 L 06/09/21 06:39 Weight - Most Recent: 60.781 kg I&O - Last 24 Hours: Intake & Output 06/08/21 06/09/21 06/09/21 22:59 06:59 14:59 Intake Total 1388 792 Output Total 1000 1400 Balance 388 -608 Lab Results Last 24 Hours: Laboratory Results - last 24 hr 06/07/21 06/08/21 06/08/21 Range/Units 13:05 13:06 17:17 WBC (3.98-10.04) K/mm3 RBC (3.98-5.22) M/mm3 Hgb (11.2-15.7) gm/dl Hct (34.1-44.9) % MCV (79.4-94.8) fl MCH (25.6-32.2) pg MCHC (32.2-35.5) g/dl RDW Std Deviation (36.4-46.3) fL Plt Count (182-369) K/mm3 MPV (9.4-12.3) fl Neut % (Auto) (34.0-71.1) % Lymph % (Auto) (19.3-51.7) % [place] % (Auto) (4.7-12.5) % Eos % (Auto) (0.7-5.8) Baso % (Auto) (0.1-1.2) % Neut # (Auto) (1.56-6.13) K/mm3 Lymph # (Auto) (1.18-3.74) K/mm3 [place] # (Auto) (0.24-0.36) K/mm3 Eos # (Auto) (0.04-0.36) K/mm3 Baso # (Auto) (0.01-0.08) K/mm3 Manual Slide Review Sodium (136-145) mEq/L Potassium (3.5-5.1) mEq/L Chloride (98-107) mEq/L Carbon Dioxide (21-32) mEq/L Anion Gap (5-15) BUN (7-18) mg/dL Creatinine (0.55-1.02) mg/dL Est Cr Clr Drug Dosing mL/min Estimated GFR (MDRD) (>60) mL/min BUN/Creatinine Ratio (14-18) Glucose (70-99) mg/dL POC Glucose 284 H 294 H (70-99) mg/dL Calcium (8.5-10.1) mg/dL Magnesium (1.8-2.4) mg/dL C-Reactive Protein (<1.0) mg/dL Procalcitonin <0.05 ng/mL 06/08/21 06/09/21 06/09/21 Range/Units 20:34 05:08 05:08 WBC 5.38 (3.98-10.04) K/mm3 RBC 4.56 (3.98-5.22) M/mm3 Hgb 13.5 (11.2-15.7) gm/dl Hct 38.9 (34.1-44.9) % MCV 85.3 (79.4-94.8) fl MCH 29.6 (25.6-32.2) pg MCHC 34.7 (32.2-35.5) g/dl RDW Std Deviation 37.7 (36.4-46.3) fL Plt Count 521 H (182-369) K/mm3 MPV 9.3 L (9.4-12.3) fl Neut % (Auto) 73.6 H (34.0-71.1) % Lymph % (Auto) 13.2 L (19.3-51.7) % [place] % (Auto) 10.6 (4.7-12.5) % Eos % (Auto) 0.2 L (0.7-5.8) Baso % (Auto) 0.2 (0.1-1.2) % Neut # (Auto) 3.96 (1.56-6.13) K/mm3 Lymph # (Auto) 0.71 L (1.18-3.74) K/mm3 [place] # (Auto) 0.57 H (0.24-0.36) K/mm3 Eos # (Auto) 0.01 L (0.04-0.36) K/mm3 Baso # (Auto) 0.01 (0.01-0.08) K/mm3 Manual Slide Review Abnormal smear Sodium 140 (136-145) mEq/L Potassium 4.8 (3.5-5.1) mEq/L Chloride 102 (98-107) mEq/L Carbon Dioxide 30 (21-32) mEq/L Anion Gap 12.8 (5-15) BUN 20 H (7-18) mg/dL Creatinine 0.9 (0.55-1.02) mg/dL Est Cr Clr Drug Dosing 48.94 mL/min Estimated GFR (MDRD) > 60 (>60) mL/min BUN/Creatinine Ratio 22.2 H (14-18) Glucose 237 H (70-99) mg/dL POC Glucose 212 H (70-99) mg/dL Calcium 8.4 L (8.5-10.1) mg/dL Magnesium 2.4 (1.8-2.4) mg/dL C-Reactive Protein <0.2 (<1.0) mg/dL Procalcitonin ng/mL 06/09/21 Range/Units 05:55 WBC (3.98-10.04) K/mm3 RBC (3.98-5.22) M/mm3 Hgb (11.2-15.7) gm/dl Hct (34.1-44.9) % MCV (79.4-94.8) fl MCH (25.6-32.2) pg MCHC (32.2-35.5) g/dl RDW Std Deviation (36.4-46.3) fL Plt Count (182-369) K/mm3 MPV (9.4-12.3) fl Neut % (Auto) (34.0-71.1) % Lymph % (Auto) (19.3-51.7) % [place] % (Auto) (4.7-12.5) % Eos % (Auto) (0.7-5.8) Baso % (Auto) (0.1-1.2) % Neut # (Auto) (1.56-6.13) K/mm3 Lymph # (Auto) (1.18-3.74) K/mm3 [place] # (Auto) (0.24-0.36) K/mm3 Eos # (Auto) (0.04-0.36) K/mm3 Baso # (Auto) (0.01-0.08) K/mm3 Manual Slide Review Sodium (136-145) mEq/L Potassium (3.5-5.1) mEq/L Chloride (98-107) mEq/L Carbon Dioxide (21-32) mEq/L Anion Gap (5-15) BUN (7-18) mg/dL Creatinine (0.55-1.02) mg/dL Est Cr Clr Drug Dosing mL/min Estimated GFR (MDRD) (>60) mL/min BUN/Creatinine Ratio (14-18) Glucose (70-99) mg/dL POC Glucose 240 H (70-99) mg/dL Calcium (8.5-10.1) mg/dL Magnesium (1.8-2.4) mg/dL C-Reactive Protein (<1.0) mg/dL Procalcitonin ng/mL Med Orders - Current: Current Medications Acetaminophen (Acetaminophen 325 Mg Tab) 650 mg PO Q4H PRN PRN Reason: Pain (Mild 1-3)/fever Albuterol (Albuterol 6.7 Gm Inhaler) 0 gm INH Q2H PRN PRN Reason: SOB/Wheezing Enoxaparin Sodium (Enoxaparin 40 Mg/0.4 Ml Syringe) 40 mg SUBCUT DAILY [facility] Last Admin: 06/08/21 08:30 Dose: 40 mg Documented by: Famotidine (Famotidine 20 Mg Tab) 20 mg PO BID [facility] Last Admin: 06/08/21 22:26 Dose: 20 mg Documented by: Ceftriaxone Sodium 2 gm/ (Sodium Chloride) 100 mls @ 200 mls/hr IV Q24H [facility] Last Admin: 06/08/21 08:29 Dose: 200 mls/hr Documented by: Insulin Human Lispro (Insulin Lispro 100 Unit/Ml 10 Ml Vial) 0 unit SUBCUT QIDACANDBED [facility]; Protocol Last Admin: 06/08/21 22:26 Dose: 6 unit Documented by: Magnesium Hydroxide (Magnesium Hydroxide 400 Mg/5 Ml Susp 30 Ml Cup) 30 ml PO DAILY PRN PRN Reason: Constipation Last Admin: 06/07/21 17:56 Dose: 30 ml Documented by: Methylprednisolone Sodium Succinate (Methylprednisolone Sodium Succinate 125 Mg/2 Ml Sdv) 60 mg IVPUSH BID [facility] Last Admin: 06/08/21 22:26 Dose: 60 mg Documented by: Ondansetron HCl (Ondansetron 4 Mg/2 Ml Sdv) 4 mg IV Q6H PRN PRN Reason: Nausea/Vomiting Discontinued Medications Dexamethasone (Dexamethasone 4 Mg Tab) 6 mg PO ONETIME [facility] Stop: 06/01/21 06:31 Last Admin: 06/01/21 06:56 Dose: 6 mg Documented by: Dexamethasone (Dexamethasone 4 Mg Tab) 6 mg PO DAILY [facility] Stop: 06/10/21 09:01 Magnesium Sulfate 2 gm/ Premix 50 mls @ 25 mls/hr IV ONETIME [facility] Stop: 06/01/21 13:30 Last Admin: 06/01/21 13:30 Dose: 25 mls/hr Documented by: Remdesivir 200 mg/ Sodium (Chloride) 250 mls @ 250 mls/hr IV ONETIME ONE Stop: 06/01/21 16:29 Last Admin: 06/01/21 15:40 Dose: 250 mls/hr Documented by: Remdesivir 100 mg/ Sodium (Chloride) 100 mls @ 100 mls/hr IV Q24H [facility] Stop: 06/05/21 16:29 Last Admin: 06/05/21 14:56 Dose: 100 mls/hr Documented by: Tocilizumab 500 mg/ Sodium (Chloride) 105 mls @ 105 mls/hr IV ONETIME ONE Stop: 06/02/21 08:34 Last Admin: 06/02/21 09:28 Dose: 105 mls/hr Documented by: Lactated Ringer's (Ringers, Lactated) 500 mls @ 999 mls/hr IV .BOLUS ONE Stop: 06/07/21 15:46 Last Admin: 06/07/21 16:43 Dose: 999 mls/hr Documented by: Lactated Ringer's (Ringers, Lactated) 1,000 mls @ 75 mls/hr IV ASDIRECTED [facility] Stop: 06/08/21 21:04 Last Admin: 06/08/21 09:17 Dose: 75 mls/hr Documented by: Methylprednisolone Sodium Succinate (Methylprednisolone Sodium Succinate 125 Mg/2 Ml Sdv) 125 mg IVPUSH Q12H [facility] Last Admin: 06/04/21 08:07 Dose: 125 mg Documented by: Methylprednisolone Sodium Succinate (Methylprednisolone Sodium Succinate 125 Mg/2 Ml Sdv) 60 mg IVPUSH Q8H [facility] Last Admin: 06/08/21 04:38 Dose: 60 mg Documented by: - Exam Quality Assessment: Supplemental Oxygen (High flow 50 L with 65% FiO2), DVT Prophylaxis. No: Urine Catheter General: Alert, Oriented, Cooperative, No Acute Distress HEENT: Pupils Equal, Pupils Reactive, Mucous Membr. Moist/[place] Neck: Supple, Trachea Midline Lungs: Normal Respiratory Effort, Decreased Breath Sounds (Greatly improved over yesterday). No: Crackles, Rhonchi, Stridor, Wheezing Cardiovascular: Regular Rate, Regular Rhythm GI/Abdominal Exam: Normal Bowel Sounds, Soft, Non-Tender, No Distention (Female) Exam: Deferred Back Exam: Normal Inspection, Full Range of Motion Extremities: Normal Inspection, Normal Range of Motion, Non-Tender, No Pedal Edema, Normal Capillary Refill Peripheral Pulses: 3+: Radial (L), Radial (R), Dorsalis Pedis (L), Dorsalis Pedis (R) Skin: Warm, Dry, Intact Neurological: No New Focal Deficit Psy/Mental Status: Alert, Normal Affect, Normal Mood - Patient Data Lab Results Last 24 hrs: Laboratory Results - last 24 hr 06/07/21 06/08/21 06/08/21 Range/Units 13:05 13:06 17:17 WBC (3.98-10.04) K/mm3 RBC (3.98-5.22) M/mm3 Hgb (11.2-15.7) gm/dl Hct (34.1-44.9) % MCV (79.4-94.8) fl MCH (25.6-32.2) pg MCHC (32.2-35.5) g/dl RDW Std Deviation (36.4-46.3) fL Plt Count (182-369) K/mm3 MPV (9.4-12.3) fl Neut % (Auto) (34.0-71.1) % Lymph % (Auto) (19.3-51.7) % [place] % (Auto) (4.7-12.5) % Eos % (Auto) (0.7-5.8) Baso % (Auto) (0.1-1.2) % Neut # (Auto) (1.56-6.13) K/mm3 Lymph # (Auto) (1.18-3.74) K/mm3 [place] # (Auto) (0.24-0.36) K/mm3 Eos # (Auto) (0.04-0.36) K/mm3 Baso # (Auto) (0.01-0.08) K/mm3 Manual Slide Review Sodium (136-145) mEq/L Potassium (3.5-5.1) mEq/L Chloride (98-107) mEq/L Carbon Dioxide (21-32) mEq/L Anion Gap (5-15) BUN (7-18) mg/dL Creatinine (0.55-1.02) mg/dL Est Cr Clr Drug Dosing mL/min Estimated GFR (MDRD) (>60) mL/min BUN/Creatinine Ratio (14-18) Glucose (70-99) mg/dL POC Glucose 284 H 294 H (70-99) mg/dL Calcium (8.5-10.1) mg/dL Magnesium (1.8-2.4) mg/dL C-Reactive Protein (<1.0) mg/dL Procalcitonin <0.05 ng/mL 06/08/21 06/09/21 06/09/21 Range/Units 20:34 05:08 05:08 WBC 5.38 (3.98-10.04) K/mm3 RBC 4.56 (3.98-5.22) M/mm3 Hgb 13.5 (11.2-15.7) gm/dl Hct 38.9 (34.1-44.9) % MCV 85.3 (79.4-94.8) fl MCH 29.6 (25.6-32.2) pg MCHC 34.7 (32.2-35.5) g/dl RDW Std Deviation 37.7 (36.4-46.3) fL Plt Count 521 H (182-369) K/mm3 MPV 9.3 L (9.4-12.3) fl Neut % (Auto) 73.6 H (34.0-71.1) % Lymph % (Auto) 13.2 L (19.3-51.7) % [place] % (Auto) 10.6 (4.7-12.5) % Eos % (Auto) 0.2 L (0.7-5.8) Baso % (Auto) 0.2 (0.1-1.2) % Neut # (Auto) 3.96 (1.56-6.13) K/mm3 Lymph # (Auto) 0.71 L (1.18-3.74) K/mm3 [place] # (Auto) 0.57 H (0.24-0.36) K/mm3 Eos # (Auto) 0.01 L (0.04-0.36) K/mm3 Baso # (Auto) 0.01 (0.01-0.08) K/mm3 Manual Slide Review Abnormal smear Sodium 140 (136-145) mEq/L Potassium 4.8 (3.5-5.1) mEq/L Chloride 102 (98-107) mEq/L Carbon Dioxide 30 (21-32) mEq/L Anion Gap 12.8 (5-15) BUN 20 H (7-18) mg/dL Creatinine 0.9 (0.55-1.02) mg/dL Est Cr Clr Drug Dosing 48.94 mL/min Estimated GFR (MDRD) > 60 (>60) mL/min BUN/Creatinine Ratio 22.2 H (14-18) Glucose 237 H (70-99) mg/dL POC Glucose 212 H (70-99) mg/dL Calcium 8.4 L (8.5-10.1) mg/dL Magnesium 2.4 (1.8-2.4) mg/dL C-Reactive Protein <0.2 (<1.0) mg/dL Procalcitonin ng/mL 06/09/21 Range/Units 05:55 WBC (3.98-10.04) K/mm3 RBC (3.98-5.22) M/mm3 Hgb (11.2-15.7) gm/dl Hct (34.1-44.9) % MCV (79.4-94.8) fl MCH (25.6-32.2) pg MCHC (32.2-35.5) g/dl RDW Std Deviation (36.4-46.3) fL Plt Count (182-369) K/mm3 MPV (9.4-12.3) fl Neut % (Auto) (34.0-71.1) % Lymph % (Auto) (19.3-51.7) % [place] % (Auto) (4.7-12.5) % Eos % (Auto) (0.7-5.8) Baso % (Auto) (0.1-1.2) % Neut # (Auto) (1.56-6.13) K/mm3 Lymph # (Auto) (1.18-3.74) K/mm3 [place] # (Auto) (0.24-0.36) K/mm3 Eos # (Auto) (0.04-0.36) K/mm3 Baso # (Auto) (0.01-0.08) K/mm3 Manual Slide Review Sodium (136-145) mEq/L Potassium (3.5-5.1) mEq/L Chloride (98-107) mEq/L Carbon Dioxide (21-32) mEq/L Anion Gap (5-15) BUN (7-18) mg/dL Creatinine (0.55-1.02) mg/dL Est Cr Clr Drug Dosing mL/min Estimated GFR (MDRD) (>60) mL/min BUN/Creatinine Ratio (14-18) Glucose (70-99) mg/dL POC Glucose 240 H (70-99) mg/dL Calcium (8.5-10.1) mg/dL Magnesium (1.8-2.4) mg/dL C-Reactive Protein (<1.0) mg/dL Procalcitonin ng/mL Result Diagrams: 06/09/21 05:08 06/09/21 05:08 Sepsis Event Note - Evaluation Sepsis Screening Result: No Definite Risk - Focused Exam Vital Signs: Vital Signs Temp Pulse Resp BP Pulse Ox Pulse Ox 06/09/21 06:39 92 L 06/09/21 05:53 98.6 F 81 20 113/71 91 L 06/09/21 04:00 91 L 06/08/21 22:30 97.9 F 88 22 H 122/97 H 88 L 06/08/21 20:45 92 L - Problem List & Annotations (1) HTN (hypertension) SNOMED Code(s): 31607947 Code(s): I10 - ESSENTIAL (PRIMARY) HYPERTENSION Status: Chronic Priority: Medium Current Visit: Yes Qualifiers: Hypertension type: primary hypertension Qualified Code(s): I10 - Essential (primary) hypertension (2) S/P hysterectomy SNOMED Code(s): 105435722, 380987099, 947818182 Code(s): Z90.710 - ACQUIRED ABSENCE OF BOTH CERVIX AND UTERUS Status: Chronic Priority: Low Current Visit: No (3) History of cervical cancer Status: Chronic Priority: Low Current Visit: No (4) COVID-19 SNOMED Code(s): 722455080 Code(s): U07.1 - COVID-19 Status: Acute Priority: High Current Visit: Yes (5) Hyperglycemia SNOMED Code(s): 58446222 Code(s): R73.9 - HYPERGLYCEMIA, UNSPECIFIED Status: Acute Current Visit: No (6) Hypoxemia SNOMED Code(s): 274487215 Code(s): R09.02 - HYPOXEMIA Status: Acute Current Visit: No (7) New onset type 2 diabetes mellitus SNOMED Code(s): 69595177 Code(s): E11.9 - TYPE 2 DIABETES MELLITUS WITHOUT COMPLICATIONS Status: Chronic Priority: Medium Current Visit: Yes (8) Elevated d-dimer SNOMED Code(s): 496319793 Code(s): R79.89 - OTHER SPECIFIED ABNORMAL FINDINGS OF BLOOD CHEMISTRY Status: Acute Priority: High Current Visit: Yes (9) Leukopenia SNOMED Code(s): 41733303, 632288079 Code(s): D72.819 - DECREASED WHITE BLOOD CELL COUNT, UNSPECIFIED Status: Acute Priority: High Current Visit: Yes Qualifiers: Leukopenia type: neutropenia Neutropenia type: due to infection Qualified Code(s): D70.3 - Neutropenia due to infection (10) Elevated lactic acid level SNOMED Code(s): 3420621 Code(s): R79.89 - OTHER SPECIFIED ABNORMAL FINDINGS OF BLOOD CHEMISTRY Status: Acute Priority: High Current Visit: Yes - Problem List Review Problem List Initiated/Reviewed/Updated: Yes - My Orders Last 24 Hours: My Active Orders 06/08/21 08:00 cefTRIAXone [Rocephin] 2 gm Sodium Chloride 0.9% [Normal Saline] 100 ml IV Q24H 06/08/21 21:00 methylPREDNISolone Sod Succ [Solu-MEDROL] 60 mg IVPUSH BID 06/10/21 05:11 BASIC METABOLIC PANEL,BMP [CHEM] AM CBC WITH AUTO DIFF [HEME] AM CRP [C-REACTIVE PROTEIN] [CHEM] AM MAGNESIUM [CHEM] AM 06/11/21 05:11 BASIC METABOLIC PANEL,BMP [CHEM] AM CBC WITH AUTO DIFF [HEME] AM CRP [C-REACTIVE PROTEIN] [CHEM] AM MAGNESIUM [CHEM] AM - Assessment Assessment:: Assessment - day of admission 04/01/2021 * 56-year-old female who presents the ED with low saturations after testing positive for COVID-19 * History of hypertension and cervical cancer status post hysterectomy. * On 05/25/2021 she noted fever and chills. * Saw her PCP on 05/26/2021 and blood work was done which she states was normal, however she was not tested for COVID-19 * Utilizing Tylenol and ibuprofen but her symptoms continued * Returned to her PCP on 05/31/2021 where she tested positive for SARS-CoV-2 RNA. * Chest x-ray at that time was obtained and per the patient showed "pneumonia" however the patient is not sure what exactly was seen. * Noted saturations in the 80s this morning and came to the ED as instructed * Reports nonproductive cough but no acute dyspnea or chest pain. She feels weak. Denies any nausea or vomiting. * Has not received the Covid vaccine. * 12-lead EKG is obtained showing sinus tachycardia 107 bpm with no ischemic changes. Temp is 36.9 Celsius. Pulse 97. Respirations 29. Blood pressure 98/64. Pulse ox is 86%, rising to 96% on 1 L. * Labs are obtained: * WBC 4.89 * Hemoglobin 12.0 * Platelet 400,000 * Neutrophils 58% * Sodium 135 * Potassium 3.6 * Chloride 100 * Carbon dioxide 22 * Anion gap 16.6 * BUN 12. Creatinine 0.9. GFR greater than 60 * Glucose 188 * Lactic acid 1.3 * Magnesium 1.8 * Total bilirubin 0.3 * AST is 54, ALT 47, alkaline phosphatase 45. * Troponin less than 0.017 * Protein 8.0 * Albumin 3.1 * CRP 8.4 * Chest x-ray shows bilateral hazy infiltrates consistent with COVID-19 pneumonia * She is given 6 mg dexamethasone. * Admitted to floor on telemetry for management of COVID-19 PNA and hypoxia 06/02/2021: This is a 56-year-old female who presented to ED with low saturations. She is recently been diagnosed with COVID-19 and was sent home with home monitoring. Her saturations were noted to be very low when she presented to her ED and was admitted. In the ED she was noted to have saturations in the low 90s on 2 L of oxygen. On the floor glucose was noted to be high and has been high on prior visits and her A1c was obtained which was 7.7. She was started on sliding scale insulin. Ferritin was 1858. LDH was 408. Today WBC is 5.54. Hemoglobin 12.0. Platelet 441,000. Neutrophils 69.8. Sodium 140. Potassium 4.1. Chloride 105. Carbon dioxide 25. Anion gap 14.1. BUN 16. Creatinine 0.7. GFR greater than 60. Glucose 126-225. Magnesium 2.4. Bilirubin 0.2. AST is 44, ALT 41, alkaline phosphatase 48. CRP is 6.8. Albumin 2.9. Unfortunately patient overnight had significant rapidly deteriorating oxygen saturations and was requiring up to 10 L. She was placed on high flow oxygen and is currently on 50 L with an FiO2 of 50%. Actemra 8 mg/kg was ordered today and her steroids were increased from 6 mg dexamethasone to 125 mg twice daily Solu-Medrol. She has been proning and nursing was instructed to continue to push for this. She does have incentive spirometry and Acapella in the room and has been using it. We will otherwise continue Covid treatment. Chest x-ray today is slightly worse than yesterday. We will check a procalcitonin. Dr. Neal, attending hospitalist, in to discuss plan with patient. Unknown length of stay due to severity of Covid symptoms. 06/03/2021 This is a 56-year-old female admitted to the floor with Covid pneumonia. She also appears to be a new onset diabetic with an A1c of 7.7. UA was obtained and was cloudy with 1+ protein and trace ketones. Urine random microalbumin was obtained and was elevated at 29.7. Blood sugars have been 196-268. We will increase sliding scale insulin to medium intensity. She is neutropenic today with a WBC of 1.39. Hemoglobin 12.6. Platelet 470,000. Neutrophils are 50.4. Sodium 142. Potassium 4.3. Chloride 107. Carbon dioxide 25. Anion gap 14.3. BUN 23. Creatinine 0.8. GFR greater than 60. Calcium 8.5. Magnesium 2.3. Bilirubin 0.2. AST 38, ALT 41, alkaline phosphatase 48. CRP is 3.3. Protein 7.7. Albumin 2.8. We will continue current treatment plan with steroids, high flow, and respiratory exercises. If patient saturations continued to drop we will start her on BiPAP and likely admit her to the ICU at that time. At this point saturations have been in the upper 90s while patient is proning. We will continue to encourage this as well. Unknown length of stay due to duration and severity of Covid 19 pneumonia. 06/04/2021 This is a 56-year-old female admitted for COVID-19 pneumonia. She continues with treatment including Solu-Medrol and remdesivir. We will decrease Solu- Medrol dosing to 60 mg every 8 hours today. Remains on high flow oxygen 50 L and 65% FiO2. This is a improvement over yesterday. She has been proning and utilizing her incentive spirometry/Acapella. She states she feels pretty good overall. Labs today show a continued neutropenia at 2.43. Hemoglobin 13.0. Platelet 485,000. Neutrophils are 60.4%. D-dimer is 0.87. Sodium 144. Potassium 4.3. Chloride 108. Carbon dioxide 26. Anion gap 14.3. BUN 24. Creatinine 0.9. GFR greater than 60. Glucose has been 2 20-2 80 and we will in crease her sliding scale tube high intensity. Calcium 8.3. Magnesium 2.4. Total bilirubin 0.3. AST 28, ALT 36, alkaline phosphatase 45. CRP is 1.5. Protein 7.4. Albumin 2.7. We will continue to watch blood sugars and add long- acting insulin if indicated. We will address elevated A1c/diabetes more at discharge. Continue current treatment plan. Unknown length of stay pending continued improvement. 06/05/2021 The patient is a 56-year-old lady who is currently on back 3 of 4 of remdesivir. This will be continued. Her oxygen demands remain high and her oxygen saturations will be kept around 92% with oxygen support. We will attempt to t aper oxygen. The patient will be kept on high-dose steroids and these will be tapered as necessary. The patient also has been instructed in the use of incentive spirometer as well as Acapella. The patient has been encouraged to ambulate within the confines of the room. The patient should be appropriate for discharge in 1 to 2 days when her oxygen demands have been improved. The patient will also be kept on the appropriate diabetic diet and insulin sliding scale. The patient has repeat laboratory studies ordered for the morning. 06/06/2021 The patient is a 56-year-old lady who is doing better today. She will remain in hospitalization for at least 1 more day. The patient still requires at least 6 L of oxygen via nasal cannula. It has been noted that she desaturates very quickly. The patient has been recommended to continue with the use of the incentive spirometer as well as the Acapella. The patient will continue on the IV steroids. The patient will continue on DVT prophylaxis. Repeat laboratory studies have been ordered. Her oxygen will remain to maintain her oxygen saturations around 92%. 06/07/2021 This is a 56-year-old female admitted to the floor for treatment of Covid pneumonia. She was doing better yesterday and was actually tolerating nasal cannula, although noted to desaturate quite quickly. Her saturations today have worsened and she is back on high flow 55 L with an FiO2 of 90. WBC is 3.71. Hemoglobin 13.3. Platelet 593,000. BMP has been stable. Blood glucose readings have been from 106 to 328. She remains on high-dose sliding scale insulin and this is ranged from 12 units to not given. She remains on 60 mg every 8 hour Solu-Medrol. We will recheck D-dimer today. Imaging yesterday was grossly stable. Will consider imaging tomorrow. Patient remains on high flow and will be switched to BiPAP if needed. If she does switch to BiPAP we will likely upgrade to ICU status. Unknown length of stay due to worsening Covid symptoms. Continue current treatment plan. 06/08/2021 56-year-old female admitted in continue treatment for COVID-19 pneumonia. Labs today show a WBC of 4.54. Hemoglobin 14.0. Platelet 583,000. D-dimer obtained yesterday was 0.87. Sodium 138. Potassium 4.7. Chloride 102. Carbon dioxide 30. Anion gap 10.7. BUN is 16. Creatinine 0.8. GFR greater than 60. Glucose was 90-306. Lactic acid was obtained yesterday and was elevated at 3.0. Repeat was 2.7 and repeat today was 2.2. CRP has been less than 0.2. Discussed with Dr. Kincaid, attending hospitalist, and patient is started on Rocephin 2 g. We will also give 1 L lactated Ringer's at 75 mL an hour. Chest x-ray obtained today shows slightly worsening Covid pneumonia. Clinically patient is doing better. She reports that she feels better. She reports her appetite is improving. She remains on high flow and we are working on weaning slowly. Currently she is on 50 L with 60% FiO2. She has been proning and utilizing her incentive spirometer and Acapella. Unknown length of stay due to severity of COVID-19 symptoms. Given her inflammatory markers are significantly improved we will start decreasing steroid dosing. 06/09/2021 56-year-old female admitted for COVID-19 pneumonia. Today her lung sounds remain diminished however they are greatly improved. She states her appetite continues to improve and overall she feels pretty good. She remains on high flow oxygen 50 L with an FiO2 of 65%. She has completed her remdesivir treatment. We continue to decrease her steroids. Procalcitonin from 2 days prior return less than 0.05. Therefore it is believed elevated lactic acid level was not due to any infectious cause. We will therefore discontinue IV Rocephin. Labs today show WBC of 5.38. Hemoglobin 13.5. Hematocrit 38.9. Platelets are 521,000. Neutrophils are elevated 76.3%. Sodium 140. Potassium 4.8. Chloride 102. Carbon dioxide 30. Anion gap 12.8. BUN is 20. Creatinine 0.9. GFR is greater than 60. Glucose is 212 273. Magnesium 2.4. CRP is less than 0.2. We will recheck D-dimer tomorrow however will stop daily labs as patient has been quite stable. We will therefore recheck labs as needed in the future. No length of stay due to continued need for high flow oxygenation due to Covid pneumonia. - Plan Plan:: COVID-19 Hypoxemia Elevated D-Dimer Leukopenia Elevated lactic acid * O2 as needed with goal saturations 88-95% * Pepcid 20mg BID * Decrease Solu-Medrol to 60 mg daily. * Completed Remdesivir * Actemra given 06/02/2021 * IS/Acapella * Prone whenever able * RT consultation * Telemetry * Continuous pulse ox * Tylenol for fever * Airborne/contact isolation * Ambulate around the room * Will hold off PT and OT for now * Daily labs * Blood cultures negative thus far * CM consultation * Continue high flow * Procalcitonin negative * Blood cultures negative thus far * Discontinue IV Rocephin HTN (hypertension) * Hold home lisinopril for now * Monitor vital signs Hyperglycemia Type II DM - new onset * Has had 2 readings with glucose >180 * A1C 7.7 * [employer] Para Professional consultation once feeling better * 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 Davalos DVT prophylaxis: Lovenox Disposition: Admit patient to medical floor on telemetry for management of C OVID-19 pneumonia with hypoxia. Length of stay greater than 96 hours due to worsening Covid symptoms and requirement for treatment. <Pablito Kincaid - Last Filed: 06/09/21 13:41> - Patient Data Vitals - Most Recent: Last Vital Signs Temp 36.6 C 06/09/21 08:15 Pulse 88 06/09/21 08:15 Resp 20 06/09/21 08:15 BP 101/51 L 06/09/21 08:15 Pulse Ox 90 L 06/09/21 11:43 I&O - Last 24 Hours: Intake & Output 06/08/21 06/09/21 06/09/21 22:59 06:59 14:59 Intake Total 1388 792 210 Output Total 1000 1400 Balance 388 -608 210 Lab Results Last 24 Hours: Laboratory Results - last 24 hr 06/08/21 06/08/21 06/09/21 Range/Units 17:17 20:34 05:08 WBC 5.38 (3.98-10.04) K/mm3 RBC 4.56 (3.98-5.22) M/mm3 Hgb 13.5 (11.2-15.7) gm/dl Hct 38.9 (34.1-44.9) % MCV 85.3 (79.4-94.8) fl MCH 29.6 (25.6-32.2) pg MCHC 34.7 (32.2-35.5) g/dl RDW Std Deviation 37.7 (36.4-46.3) fL Plt Count 521 H (182-369) K/mm3 MPV 9.3 L (9.4-12.3) fl Neut % (Auto) 73.6 H (34.0-71.1) % Lymph % (Auto) 13.2 L (19.3-51.7) % [place] % (Auto) 10.6 (4.7-12.5) % Eos % (Auto) 0.2 L (0.7-5.8) Baso % (Auto) 0.2 (0.1-1.2) % Neut # (Auto) 3.96 (1.56-6.13) K/mm3 Lymph # (Auto) 0.71 L (1.18-3.74) K/mm3 [place] # (Auto) 0.57 H (0.24-0.36) K/mm3 Eos # (Auto) 0.01 L (0.04-0.36) K/mm3 Baso # (Auto) 0.01 (0.01-0.08) K/mm3 Manual Slide Review Abnormal smear Sodium (136-145) mEq/L Potassium (3.5-5.1) mEq/L Chloride (98-107) mEq/L Carbon Dioxide (21-32) mEq/L Anion Gap (5-15) BUN (7-18) mg/dL Creatinine (0.55-1.02) mg/dL Est Cr Clr Drug Dosing mL/min Estimated GFR (MDRD) (>60) mL/min BUN/Creatinine Ratio (14-18) Glucose (70-99) mg/dL POC Glucose 294 H 212 H (70-99) mg/dL Calcium (8.5-10.1) mg/dL Magnesium (1.8-2.4) mg/dL C-Reactive Protein (<1.0) mg/dL 06/09/21 06/09/21 06/09/21 Range/Units 05:08 05:55 10:16 WBC (3.98-10.04) K/mm3 RBC (3.98-5.22) M/mm3 Hgb (11.2-15.7) gm/dl Hct (34.1-44.9) % MCV (79.4-94.8) fl MCH (25.6-32.2) pg MCHC (32.2-35.5) g/dl RDW Std Deviation (36.4-46.3) fL Plt Count (182-369) K/mm3 MPV (9.4-12.3) fl Neut % (Auto) (34.0-71.1) % Lymph % (Auto) (19.3-51.7) % [place] % (Auto) (4.7-12.5) % Eos % (Auto) (0.7-5.8) Baso % (Auto) (0.1-1.2) % Neut # (Auto) (1.56-6.13) K/mm3 Lymph # (Auto) (1.18-3.74) K/mm3 [place] # (Auto) (0.24-0.36) K/mm3 Eos # (Auto) (0.04-0.36) K/mm3 Baso # (Auto) (0.01-0.08) K/mm3 Manual Slide Review Sodium 140 (136-145) mEq/L Potassium 4.8 (3.5-5.1) mEq/L Chloride 102 (98-107) mEq/L Carbon Dioxide 30 (21-32) mEq/L Anion Gap 12.8 (5-15) BUN 20 H (7-18) mg/dL Creatinine 0.9 (0.55-1.02) mg/dL Est Cr Clr Drug Dosing 48.94 mL/min Estimated GFR (MDRD) > 60 (>60) mL/min BUN/Creatinine Ratio 22.2 H (14-18) Glucose 237 H (70-99) mg/dL POC Glucose 240 H 273 H (70-99) mg/dL Calcium 8.4 L (8.5-10.1) mg/dL Magnesium 2.4 (1.8-2.4) mg/dL C-Reactive Protein <0.2 (<1.0) mg/dL Med Orders - Current: Current Medications Acetaminophen (Acetaminophen 325 Mg Tab) 650 mg PO Q4H PRN PRN Reason: Pain (Mild 1-3)/fever Albuterol (Albuterol 6.7 Gm Inhaler) 0 gm INH Q2H PRN PRN Reason: SOB/Wheezing Enoxaparin Sodium (Enoxaparin 40 Mg/0.4 Ml Syringe) 40 mg SUBCUT DAILY [facility] Last Admin: 06/09/21 08:21 Dose: 40 mg Documented by: Famotidine (Famotidine 20 Mg Tab) 20 mg PO BID [facility] Last Admin: 06/09/21 08:19 Dose: 20 mg Documented by: Insulin Human Lispro (Insulin Lispro 100 Unit/Ml 10 Ml Vial) 0 unit SUBCUT QIDACANDBED [facility]; Protocol Last Admin: 06/09/21 13:04 Dose: 9 unit Documented by: Magnesium Hydroxide (Magnesium Hydroxide 400 Mg/5 Ml Susp 30 Ml Cup) 30 ml PO DAILY PRN PRN Reason: Constipation Last Admin: 06/07/21 17:56 Dose: 30 ml Documented by: Methylprednisolone Sodium Succinate (Methylprednisolone Sodium Succinate 125 Mg/2 Ml Sdv) 60 mg IVPUSH DAILY [facility] Ondansetron HCl (Ondansetron 4 Mg/2 Ml Sdv) 4 mg IV Q6H PRN PRN Reason: Nausea/Vomiting Discontinued Medications Dexamethasone (Dexamethasone 4 Mg Tab) 6 mg PO ONETIME STA Stop: 06/01/21 06:31 Last Admin: 06/01/21 06:56 Dose: 6 mg Documented by: Dexamethasone (Dexamethasone 4 Mg Tab) 6 mg PO DAILY [facility] Stop: 06/10/21 09:01 Magnesium Sulfate 2 gm/ Premix 50 mls @ 25 mls/hr IV ONETIME ONE Stop: 06/01/21 13:30 Last Admin: 06/01/21 13:30 Dose: 25 mls/hr Documented by: Remdesivir 200 mg/ Sodium (Chloride) 250 mls @ 250 mls/hr IV ONETIME ONE Stop: 06/01/21 16:29 Last Admin: 06/01/21 15:40 Dose: 250 mls/hr Documented by: Remdesivir 100 mg/ Sodium (Chloride) 100 mls @ 100 mls/hr IV Q24H [facility] Stop: 06/05/21 16:29 Last Admin: 06/05/21 14:56 Dose: 100 mls/hr Documented by: Tocilizumab 500 mg/ Sodium (Chloride) 105 mls @ 105 mls/hr IV ONETIME ONE Stop: 06/02/21 08:34 Last Admin: 06/02/21 09:28 Dose: 105 mls/hr Documented by: Lactated Ringer's (Ringers, Lactated) 500 mls @ 999 mls/hr IV .BOLUS ONE Stop: 06/07/21 15:46 Last Admin: 06/07/21 16:43 Dose: 999 mls/hr Documented by: Ceftriaxone Sodium 2 gm/ (Sodium Chloride) 100 mls @ 200 mls/hr IV Q24H [facility] Last Admin: 06/09/21 08:19 Dose: 200 mls/hr Documented by: Lactated Ringer's (Ringers, Lactated) 1,000 mls @ 75 mls/hr IV ASDIRECTED [facility] Stop: 06/08/21 21:04 Last Admin: 06/08/21 09:17 Dose: 75 mls/hr Documented by: Methylprednisolone Sodium Succinate (Methylprednisolone Sodium Succinate 125 Mg/2 Ml Sdv) 125 mg IVPUSH Q12H [facility] Last Admin: 06/04/21 08:07 Dose: 125 mg Documented by: Methylprednisolone Sodium Succinate (Methylprednisolone Sodium Succinate 125 Mg/2 Ml Sdv) 60 mg IVPUSH Q8H [facility] Last Admin: 06/08/21 04:38 Dose: 60 mg Documented by: Methylprednisolone Sodium Succinate (Methylprednisolone Sodium Succinate 125 Mg/2 Ml Sdv) 60 mg IVPUSH BID [facility] Last Admin: 06/09/21 08:19 Dose: 60 mg Documented by: - Patient Data Lab Results Last 24 hrs: Laboratory Results - last 24 hr 06/08/21 06/08/21 06/09/21 Range/Units 17:17 20:34 05:08 WBC 5.38 (3.98-10.04) K/mm3 RBC 4.56 (3.98-5.22) M/mm3 Hgb 13.5 (11.2-15.7) gm/dl Hct 38.9 (34.1-44.9) % MCV 85.3 (79.4-94.8) fl MCH 29.6 (25.6-32.2) pg MCHC 34.7 (32.2-35.5) g/dl RDW Std Deviation 37.7 (36.4-46.3) fL Plt Count 521 H (182-369) K/mm3 MPV 9.3 L (9.4-12.3) fl Neut % (Auto) 73.6 H (34.0-71.1) % Lymph % (Auto) 13.2 L (19.3-51.7) % [place] % (Auto) 10.6 (4.7-12.5) % Eos % (Auto) 0.2 L (0.7-5.8) Baso % (Auto) 0.2 (0.1-1.2) % Neut # (Auto) 3.96 (1.56-6.13) K/mm3 Lymph # (Auto) 0.71 L (1.18-3.74) K/mm3 [place] # (Auto) 0.57 H (0.24-0.36) K/mm3 Eos # (Auto) 0.01 L (0.04-0.36) K/mm3 Baso # (Auto) 0.01 (0.01-0.08) K/mm3 Manual Slide Review Abnormal smear Sodium (136-145) mEq/L Potassium (3.5-5.1) mEq/L Chloride (98-107) mEq/L Carbon Dioxide (21-32) mEq/L Anion Gap (5-15) BUN (7-18) mg/dL Creatinine (0.55-1.02) mg/dL Est Cr Clr Drug Dosing mL/min Estimated GFR (MDRD) (>60) mL/min BUN/Creatinine Ratio (14-18) Glucose (70-99) mg/dL POC Glucose 294 H 212 H (70-99) mg/dL Calcium (8.5-10.1) mg/dL Magnesium (1.8-2.4) mg/dL C-Reactive Protein (<1.0) mg/dL 06/09/21 06/09/21 06/09/21 Range/Units 05:08 05:55 10:16 WBC (3.98-10.04) K/mm3 RBC (3.98-5.22) M/mm3 Hgb (11.2-15.7) gm/dl Hct (34.1-44.9) % MCV (79.4-94.8) fl MCH (25.6-32.2) pg MCHC (32.2-35.5) g/dl RDW Std Deviation (36.4-46.3) fL Plt Count (182-369) K/mm3 MPV (9.4-12.3) fl Neut % (Auto) (34.0-71.1) % Lymph % (Auto) (19.3-51.7) % [place] % (Auto) (4.7-12.5) % Eos % (Auto) (0.7-5.8) Baso % (Auto) (0.1-1.2) % Neut # (Auto) (1.56-6.13) K/mm3 Lymph # (Auto) (1.18-3.74) K/mm3 [place] # (Auto) (0.24-0.36) K/mm3 Eos # (Auto) (0.04-0.36) K/mm3 Baso # (Auto) (0.01-0.08) K/mm3 Manual Slide Review Sodium 140 (136-145) mEq/L Potassium 4.8 (3.5-5.1) mEq/L Chloride 102 (98-107) mEq/L Carbon Dioxide 30 (21-32) mEq/L Anion Gap 12.8 (5-15) BUN 20 H (7-18) mg/dL Creatinine 0.9 (0.55-1.02) mg/dL Est Cr Clr Drug Dosing 48.94 mL/min Estimated GFR (MDRD) > 60 (>60) mL/min BUN/Creatinine Ratio 22.2 H (14-18) Glucose 237 H (70-99) mg/dL POC Glucose 240 H 273 H (70-99) mg/dL Calcium 8.4 L (8.5-10.1) mg/dL Magnesium 2.4 (1.8-2.4) mg/dL C-Reactive Protein <0.2 (<1.0) mg/dL Result Diagrams: 06/09/21 05:08 06/09/21 05:08 Sepsis Event Note - Focused Exam Vital Signs: Vital Signs Temp Pulse Resp BP Pulse Ox Pulse Ox 06/09/21 11:43 90 L 06/09/21 08:15 36.6 C 88 20 101/51 L 87 L 06/09/21 06:39 92 L 06/09/21 05:53 37.0 C 81 20 113/71 91 L 06/09/21 04:00 91 L - Problem List & Annotations (1) Acute respiratory failure due to COVID-19 SNOMED Code(s): 943768302 Code(s): U07.1 - COVID-19; J96.00 - ACUTE RESPIRATORY FAILURE, UNSP W HYPOXIA OR HYPERCAPNIA Status: Acute Priority: High Current Visit: Yes (2) Elevated d-dimer SNOMED Code(s): 778650356 Code(s): R79.89 - OTHER SPECIFIED ABNORMAL FINDINGS OF BLOOD CHEMISTRY Status: Acute Priority: High Current Visit: Yes (3) New onset type 2 diabetes mellitus SNOMED Code(s): 84782689 Code(s): E11.9 - TYPE 2 DIABETES MELLITUS WITHOUT COMPLICATIONS Status: Chronic Priority: Medium Current Visit: Yes - Free Text/Narrative Note: I have seen and examined the patient independently of Rommel Jacques PA-C and have discussed the case with him. I have reviewed and agree with the orders and plan of care outlined by him. Please see orders.
[2021-06-09] MEDS: Insulin Lispro 100 UNIT/ML 10 ML Vial SUBCUT SCH ×4 (08:19→21:33)
[2021-06-09] MEDS: Famotidine 20 MG Tab PO SCH ×2 (08:19→21:32)
[2021-06-09] MEDS: cefTRIAXone 2 GM in Sodium Chloride 0.9% 100 ML IV SCH (08:19)
[2021-06-09] MEDS: methylPREDNISolone Sodium Succinate 125 MG/2 ML SDV IVPUSH SCH (08:19)
[2021-06-09] MEDS: Enoxaparin 40 MG/0.4 ML Syringe SUBCUT SCH (08:21)
[2021-06-10] MEDS: Insulin Lispro 100 UNIT/ML 10 ML Vial SUBCUT SCH ×4 (06:05→21:46)
--- NOTE | 2021-06-10 07:39 | PCM.PN ---
<Rommel Jacques - Last Filed: 06/10/21 09:36> - General Info Date of Service: 06/10/21 Admission Dx/Problem (Free Text): Admission Diagnosis/Problem Admission Diagnosis/Problem Hypoxia Functional Status: Reports: Pain Controlled, Tolerating Diet, Ambulating, Urinating, Incentive Spirometry, Other (Acapella ). Denies: New Symptoms - Review of Systems General: Reports: No Symptoms. Denies: Fever, Weakness, Fatigue, Malaise, Chills HEENT: Reports: No Symptoms. Denies: Headaches, Sore Throat Pulmonary: Reports: Shortness of Breath. Denies: Cough, Sputum, Wheezing Cardiovascular: Reports: Dyspnea on Exertion. Denies: Chest Pain, Palpitations, Edema Gastrointestinal: Reports: No Symptoms. Denies: Abdominal Pain, Constipation, Diarrhea, Nausea, Vomiting Genitourinary: Reports: No Symptoms. Denies: Pain Musculoskeletal: Reports: No Symptoms Skin: Reports: No Symptoms. Denies: Cyanosis Neurological: Reports: No Symptoms. Denies: Confusion, Headache, Numbness, Pre- Existing Deficit, Syncope, Tingling, Difficulty Walking, Weakness, Gait Disturbance Psychiatric: Reports: No Symptoms - Patient Data Vitals - Most Recent: Last Vital Signs Temp 97.9 F 06/10/21 06:23 Pulse 77 06/10/21 06:23 Resp 20 06/10/21 06:23 BP 117/76 06/10/21 06:23 Pulse Ox 88 L 06/10/21 06:23 Weight - Most Recent: 60.056 kg I&O - Last 24 Hours: Intake & Output 06/09/21 06/10/21 06/10/21 22:59 06:59 14:59 Intake Total 1320 350 Output Total 900 650 Balance 420 -300 Lab Results Last 24 Hours: Laboratory Results - last 24 hr 06/09/21 06/09/21 06/09/21 Range/Units 10:16 16:20 20:38 D-Dimer, Quantitative (0.19-0.50) mg/L POC Glucose 273 H 269 H 297 H (70-99) mg/dL 06/10/21 06/10/21 Range/Units 05:21 05:22 D-Dimer, Quantitative 0.36 (0.19-0.50) mg/L POC Glucose 128 H (70-99) mg/dL Med Orders - Current: Current Medications Acetaminophen (Acetaminophen 325 Mg Tab) 650 mg PO Q4H PRN PRN Reason: Pain (Mild 1-3)/fever Albuterol (Albuterol 6.7 Gm Inhaler) 0 gm INH Q2H PRN PRN Reason: SOB/Wheezing Enoxaparin Sodium (Enoxaparin 40 Mg/0.4 Ml Syringe) 40 mg SUBCUT DAILY [facility] Last Admin: 06/09/21 08:21 Dose: 40 mg Documented by: Famotidine (Famotidine 20 Mg Tab) 20 mg PO BID [facility] Last Admin: 06/09/21 21:32 Dose: 20 mg Documented by: Insulin Human Lispro (Insulin Lispro 100 Unit/Ml 10 Ml Vial) 0 unit SUBCUT QIDACANDBED [facility]; Protocol Last Admin: 06/10/21 06:05 Dose: Not Given Documented by: Magnesium Hydroxide (Magnesium Hydroxide 400 Mg/5 Ml Susp 30 Ml Cup) 30 ml PO DAILY PRN PRN Reason: Constipation Last Admin: 06/07/21 17:56 Dose: 30 ml Documented by: Methylprednisolone Sodium Succinate (Methylprednisolone Sodium Succinate 125 Mg/2 Ml Sdv) 60 mg IVPUSH DAILY [facility] Ondansetron HCl (Ondansetron 4 Mg/2 Ml Sdv) 4 mg IV Q6H PRN PRN Reason: Nausea/Vomiting Discontinued Medications Dexamethasone (Dexamethasone 4 Mg Tab) 6 mg PO ONETIME [facility] Stop: 06/01/21 06:31 Last Admin: 06/01/21 06:56 Dose: 6 mg Documented by: Dexamethasone (Dexamethasone 4 Mg Tab) 6 mg PO DAILY [facility] Stop: 06/10/21 09:01 Magnesium Sulfate 2 gm/ Premix 50 mls @ 25 mls/hr IV ONETIME ONE Stop: 06/01/21 13:30 Last Admin: 06/01/21 13:30 Dose: 25 mls/hr Documented by: Remdesivir 200 mg/ Sodium (Chloride) 250 mls @ 250 mls/hr IV ONETIME ONE Stop: 06/01/21 16:29 Last Admin: 06/01/21 15:40 Dose: 250 mls/hr Documented by: Remdesivir 100 mg/ Sodium (Chloride) 100 mls @ 100 mls/hr IV Q24H [facility] Stop: 06/05/21 16:29 Last Admin: 06/05/21 14:56 Dose: 100 mls/hr Documented by: Tocilizumab 500 mg/ Sodium (Chloride) 105 mls @ 105 mls/hr IV ONETIME ONE Stop: 06/02/21 08:34 Last Admin: 06/02/21 09:28 Dose: 105 mls/hr Documented by: Lactated Ringer's (Ringers, Lactated) 500 mls @ 999 mls/hr IV .BOLUS ONE Stop: 06/07/21 15:46 Last Admin: 06/07/21 16:43 Dose: 999 mls/hr Documented by: Ceftriaxone Sodium 2 gm/ (Sodium Chloride) 100 mls @ 200 mls/hr IV Q24H [facility] Last Admin: 06/09/21 08:19 Dose: 200 mls/hr Documented by: Lactated Ringer's (Ringers, Lactated) 1,000 mls @ 75 mls/hr IV ASDIRECTED [facility] Stop: 06/08/21 21:04 Last Admin: 06/08/21 09:17 Dose: 75 mls/hr Documented by: Methylprednisolone Sodium Succinate (Methylprednisolone Sodium Succinate 125 Mg/2 Ml Sdv) 125 mg IVPUSH Q12H [facility] Last Admin: 06/04/21 08:07 Dose: 125 mg Documented by: Methylprednisolone Sodium Succinate (Methylprednisolone Sodium Succinate 125 Mg/2 Ml Sdv) 60 mg IVPUSH Q8H [facility] Last Admin: 06/08/21 04:38 Dose: 60 mg Documented by: Methylprednisolone Sodium Succinate (Methylprednisolone Sodium Succinate 125 Mg/2 Ml Sdv) 60 mg IVPUSH BID [facility] Last Admin: 06/09/21 08:19 Dose: 60 mg Documented by: - Exam Quality Assessment: Supplemental Oxygen (High flow 50 L 55% FiO2.), DVT P rophylaxis. No: Urine Catheter General: Alert, Oriented, Cooperative, No Acute Distress HEENT: Pupils Equal, Pupils Reactive, Mucous Membr. Moist/[place] Neck: Supple, Trachea Midline Lungs: Normal Respiratory Effort, Decreased Breath Sounds. No: Crackles, Rales, Wheezing Cardiovascular: Regular Rate, Regular Rhythm GI/Abdominal Exam: Normal Bowel Sounds, Soft, Non-Tender, No Distention (Female) Exam: Deferred Back Exam: Normal Inspection, Full Range of Motion Extremities: Normal Inspection, Normal Range of Motion, Non-Tender, No Pedal Edema, Normal Capillary Refill Peripheral Pulses: 2+: Radial (L), Radial (R), Dorsalis Pedis (L), Dorsalis Pedis (R) Skin: Warm, Dry, Intact Neurological: No New Focal Deficit Psy/Mental Status: Alert, Normal Affect, Normal Mood - Patient Data Lab Results Last 24 hrs: Laboratory Results - last 24 hr 06/09/21 06/09/21 06/09/21 Range/Units 10:16 16:20 20:38 D-Dimer, Quantitative (0.19-0.50) mg/L POC Glucose 273 H 269 H 297 H (70-99) mg/dL 06/10/21 06/10/21 Range/Units 05:21 05:22 D-Dimer, Quantitative 0.36 (0.19-0.50) mg/L POC Glucose 128 H (70-99) mg/dL Result Diagrams: 06/09/21 05:08 06/09/21 05:08 Sepsis Event Note - Evaluation Sepsis Screening Result: No Definite Risk - Focused Exam Vital Signs: Vital Signs Temp Pulse Resp BP Pulse Ox Pulse Ox 06/10/21 06:23 97.9 F 77 20 117/76 88 L 06/10/21 05:49 94 L 06/10/21 04:00 88 L 06/09/21 21:30 98.1 F 99 20 118/77 92 L 06/09/21 20:12 90 L - Problem List & Annotations (1) HTN (hypertension) SNOMED Code(s): 78846880 Code(s): I10 - ESSENTIAL (PRIMARY) HYPERTENSION Status: Chronic Priority: Medium Current Visit: Yes Qualifiers: Hypertension type: primary hypertension Qualified Code(s): I10 - Essential (primary) hypertension (2) S/P hysterectomy SNOMED Code(s): 716763165, 574062709, 335480966 Code(s): Z90.710 - ACQUIRED ABSENCE OF BOTH CERVIX AND UTERUS Status: C hronic Priority: Low Current Visit: No (3) History of cervical cancer Status: Chronic Priority: Low Current Visit: No (4) COVID-19 SNOMED Code(s): 422203210 Code(s): U07.1 - COVID-19 Status: Acute Priority: High Current Visit: Yes (5) Hyperglycemia SNOMED Code(s): 10294232 Code(s): R73.9 - HYPERGLYCEMIA, UNSPECIFIED Status: Acute Current Visit: No (6) Hypoxemia SNOMED Code(s): 850846415 Code(s): R09.02 - HYPOXEMIA Status: Acute Current Visit: No (7) New onset type 2 diabetes mellitus SNOMED Code(s): 33062281 Code(s): E11.9 - TYPE 2 DIABETES MELLITUS WITHOUT COMPLICATIONS Status: Chronic Priority: Medium Current Visit: Yes (8) Elevated d-dimer SNOMED Code(s): 389588655 Code(s): R79.89 - OTHER SPECIFIED ABNORMAL FINDINGS OF BLOOD CHEMISTRY Status: Resolved Priority: High Current Visit: Yes (9) Leukopenia SNOMED Code(s): 53117012, 735010130 Code(s): D72.819 - DECREASED WHITE BLOOD CELL COUNT, UNSPECIFIED Status: Resolved Priority: High Current Visit: Yes Qualifiers: Leukopenia type: neutropenia Neutropenia type: due to infection Qualified Code(s): D70.3 - Neutropenia due to infection (10) Elevated lactic acid level SNOMED Code(s): 3282922 Code(s): R79.89 - OTHER SPECIFIED ABNORMAL FINDINGS OF BLOOD CHEMISTRY St atus: Acute Priority: High Current Visit: Yes - Problem List Review Problem List Initiated/Reviewed/Updated: Yes - My Orders Last 24 Hours: My Active Orders 06/10/21 09:00 methylPREDNISolone Sod Succ [Solu-MEDROL] 60 mg IVPUSH DAILY - Assessment Assessment:: Assessment - day of admission 04/01/2021 * 56-year-old female who presents the ED with low saturations after testing positive for COVID-19 * History of hypertension and cervical cancer status post hysterectomy. * On 05/25/2021 she noted fever and chills. * Saw her PCP on 05/26/2021 and blood work was done which she states was normal, however she was not tested for COVID-19 * Utilizing Tylenol and ibuprofen but her symptoms continued * Returned to her PCP on 05/31/2021 where she tested positive for SARS-CoV-2 RNA. * Chest x-ray at that time was obtained and per the patient showed "pneumonia" however the patient is not sure what exactly was seen. * Noted saturations in the 80s this morning and came to the ED as instructed * Reports nonproductive cough but no acute dyspnea or chest pain. She feels weak. Denies any nausea or vomiting. * Has not received the Covid vaccine. * 12-lead EKG is obtained showing sinus tachycardia 107 bpm with no ischemic changes. Temp is 36.9 Celsius. Pulse 97. Respirations 29. Blood pressure 98/64. Pulse ox is 86%, rising to 96% on 1 L. * Labs are obtained: * WBC 4.89 * Hemoglobin 12.0 * Platelet 400,000 * Neutrophils 58% * Sodium 135 * Potassium 3.6 * Chloride 100 * Carbon dioxide 22 * Anion gap 16.6 * BUN 12. Creatinine 0.9. GFR greater than 60 * Glucose 188 * Lactic acid 1.3 * Magnesium 1.8 * Total bilirubin 0.3 * AST is 54, ALT 47, alkaline phosphatase 45. * Troponin less than 0.017 * Protein 8.0 * Albumin 3.1 * CRP 8.4 * Chest x-ray shows bilateral hazy infiltrates consistent with COVID-19 pneumonia * She is given 6 mg dexamethasone. * Admitted to floor on telemetry for management of COVID-19 PNA and hypoxia 06/02/2021: This is a 56-year-old female who presented to ED with low saturations. She is recently been diagnosed with COVID-19 and was sent home with home monitoring. Her saturations were noted to be very low when she presented to her ED and was admitted. In the ED she was noted to have saturations in the low 90s on 2 L of oxygen. On the floor glucose was noted to be high and has been high on prior visits and her A1c was obtained which was 7.7. She was started on sliding scale insulin. Ferritin was 1858. LDH was 408. Today WBC is 5.54. Hemoglobin 12.0. Platelet 441,000. Neutrophils 69.8. Sodium 140. Potassium 4.1. Chloride 105. Carbon dioxide 25. Anion gap 14.1. BUN 16. Creatinine 0.7. GFR greater than 60. Glucose 126-225. Magnesium 2.4. Bilirubin 0.2. AST is 44, ALT 41, alkaline phosphatase 48. CRP is 6.8. Albumin 2.9. Unfortunately patient overnight had significant rapidly deteriorating oxygen saturations and was requiring up to 10 L. She was placed on high flow oxygen and is currently on 50 L with an FiO2 of 50%. Actemra 8 mg/kg was ordered today and her steroids were increased from 6 mg dexamethasone to 125 mg twice daily Solu-Medrol. She has been proning and nursing was instructed to continue to push for this. She does have incentive spirometry and Acapella in the room and has been using it. We will otherwise continue Covid treatment. Chest x-ray today is slightly worse than yesterday. We will check a procalcitonin. Dr. Neal, attending hospitalist, in to discuss plan with patient. Unknown length of stay due to severity of Covid symptoms. 06/03/2021 This is a 56-year-old female admitted to the floor with Covid pneumonia. She also appears to be a new onset diabetic with an A1c of 7.7. UA was obtained and was cloudy with 1+ protein and trace ketones. Urine random microalbumin was obtained and was elevated at 29.7. Blood sugars have been 196-268. We will increase sliding scale insulin to medium intensity. She is neutropenic today with a WBC of 1.39. Hemoglobin 12.6. Platelet 470,000. Neutrophils are 50.4. Sodium 142. Potassium 4.3. Chloride 107. Carbon dioxide 25. Anion gap 14.3. BUN 23. Creatinine 0.8. GFR greater than 60. Calcium 8.5. Magnesium 2.3. Bilirubin 0.2. AST 38, ALT 41, alkaline phosphatase 48. CRP is 3.3. Protein 7.7. Albumin 2.8. We will continue current treatment plan with steroids, high flow, and respiratory exercises. If patient saturations continued to drop we will start her on BiPAP and likely admit her to the ICU at that time. At this point saturations have been in the upper 90s while patient is proning. We will continue to encourage this as well. Unknown length of stay due to duration and severity of Covid 19 pneumonia. 06/04/2021 This is a 56-year-old female admitted for COVID-19 pneumonia. She continues with treatment including Solu-Medrol and remdesivir. We will decrease Solu- Medrol dosing to 60 mg every 8 hours today. Remains on high flow oxygen 50 L and 65% FiO2. This is a improvement over yesterday. She has been proning and utilizing her incentive spirometry/Acapella. She states she feels pretty good overall. Labs today show a continued neutropenia at 2.43. Hemoglobin 13.0. Platelet 485,000. Neutrophils are 60.4%. D-dimer is 0.87. Sodium 144. Potassium 4.3. Chloride 108. Carbon dioxide 26. Anion gap 14.3. BUN 24. Creatinine 0.9. GFR greater than 60. Glucose has been 2 20-2 80 and we will increase her sliding scale tube high intensity. Calcium 8.3. Magnesium 2.4. Total bilirubin 0.3. AST 28, ALT 36, alkaline phosphatase 45. CRP is 1.5. Protein 7.4. Albumin 2.7. We will continue to watch blood sugars and add long- acting insulin if indicated. We will address elevated A1c/diabetes more at discharge. Continue current treatment plan. Unknown length of stay pending continued improvement. 06/05/2021 The patient is a 56-year-old lady who is currently on back 3 of 4 of remdesivir. This will be continued. Her oxygen demands remain high and her oxygen saturations will be kept around 92% with oxygen support. We will attempt to taper oxygen. The patient will be kept on high-dose steroids and these will be tapered as necessary. The patient also has been instructed in the use of incentive spirometer as well as Acapella. The patient has been encouraged to a mbulate within the confines of the room. The patient should be appropriate for discharge in 1 to 2 days when her oxygen demands have been improved. The patient will also be kept on the appropriate diabetic diet and insulin sliding scale. The patient has repeat laboratory studies ordered for the morning. 06/06/2021 The patient is a 56-year-old lady who is doing better today. She will remain in hospitalization for at least 1 more day. The patient still requires at least 6 L of oxygen via nasal cannula. It has been noted that she desaturates very quickly. The patient has been recommended to continue with the use of the incentive spirometer as well as the Acapella. The patient will continue on the IV steroids. The patient will continue on DVT prophylaxis. Repeat laboratory studies have been ordered. Her oxygen will remain to maintain her oxygen saturations around 92%. 06/07/2021 This is a 56-year-old female admitted to the floor for treatment of Covid pneumonia. She was doing better yesterday and was actually tolerating nasal cannula, although noted to desaturate quite quickly. Her saturations today have worsened and she is back on high flow 55 L with an FiO2 of 90. WBC is 3.71. Hemoglobin 13.3. Platelet 593,000. BMP has been stable. Blood glucose readings have been from 106 to 328. She remains on high-dose sliding scale insulin and this is ranged from 12 units to not given. She remains on 60 mg every 8 hour Solu-Medrol. We will recheck D-dimer today. Imaging yesterday was grossly stable. Will consider imaging tomorrow. Patient remains on high flow and will be switched to BiPAP if needed. If she does switch to BiPAP we will likely upgrade to ICU status. Unknown length of stay due to worsening Covid symptoms. Continue current treatment plan. 06/08/2021 56-year-old female admitted in continue treatment for COVID-19 pneumonia. Labs today show a WBC of 4.54. Hemoglobin 14.0. Platelet 583,000. D-dimer obtained yesterday was 0.87. Sodium 138. Potassium 4.7. Chloride 102. Carbon dioxide 30. Anion gap 10.7. BUN is 16. Creatinine 0.8. GFR greater than 60. Glucose was 90-306. Lactic acid was obtained yesterday and was elevated at 3.0. Repeat was 2.7 and repeat today was 2.2. CRP has been less than 0.2. Discussed with Dr. Kincaid, attending hospitalist, and patient is started on Rocephin 2 g. We will also give 1 L lactated Ringer's at 75 mL an hour. Chest x-ray obtained today shows slightly worsening Covid pneumonia. Clinically patient is doing better. She reports that she feels better. She reports her appetite is improving. She remains on high flow and we are working on weaning slowly. Currently she is on 50 L with 60% FiO2. She has been proning and utilizing her incentive spirometer and Acapella. Unknown length of stay due to severity of COVID-19 symptoms. Given her inflammatory markers are significantly improved we will start decreasing steroid dosing. 06/09/2021 56-year-old female admitted for COVID-19 pneumonia. Today her lung sounds remain diminished however they are greatly improved. She states her appetite continues to improve and overall she feels pretty good. She remains on high flow oxygen 50 L with an FiO2 of 65%. She has completed her remdesivir treatment. We continue to decrease her steroids. Procalcitonin from 2 days prior return less than 0.05. Therefore it is believed elevated lactic acid level was not due to any infectious cause. We will therefore discontinue IV Rocephin. Labs today show WBC of 5.38. Hemoglobin 13.5. Hematocrit 38.9. Platelets are 521,000. Neutrophils are elevated 76.3%. Sodium 140. Potassium 4.8. Chloride 102. Carbon dioxide 30. Anion gap 12.8. BUN is 20. Creatinine 0.9. GFR is greater than 60. Glucose is 212 273. Magnesium 2.4. CRP is less than 0.2. We will recheck D-dimer tomorrow however will stop daily labs as patient has been quite stable. We will therefore recheck labs as needed in the future. No length of stay due to continued need for high flow oxygenation due to Covid pneumonia. 06/10/2021 This is a 56-year-old female admitted to the floor for COVID-19 pneumonia. Blood sugars have been 128-297. D-dimer was obtained today and was 0.36. Other labs were not checked as she has been very stable. She remains on 50 L of high flow oxygen with FiO2 of 55%. We have been working on weaning this. She has been proning and utilizing her incentive spirometer and Acapella. Blood cultures remain negative. Overall she states she feels okay. She notes that her time to recover after walking to the restroom is improving. She has been eating better. We will hold off drawing labs tomorrow as she continues to do well. Unknown length of stay pending ability to wean off of high flow with stable saturations on nasal cannula. Will repeat chest x-ray tomorrow. - Plan Plan:: COVID-19 Hypoxemia Elevated D-Dimer, resolved Leukopenia, resolved Elevated lactic acid * O2 as needed with goal saturations 88-95% * Pepcid 20mg BID * Continue Solu-Medrol to 60 mg daily. Continue to wean * Completed Remdesivir * Actemra given 06/02/2021 * IS/Acapella * Prone whenever able * RT consultation * Telemetry * Continuous pulse ox * Tylenol for fever * Airborne/contact isolation * Ambulate around the room * Will hold off PT and OT for now * Daily labs * Blood cultures negative thus far * CM consultation * Continue high flow * Procalcitonin negative * Blood cultures negative thus far HTN (hypertension) * Hold home lisinopril for now * Monitor vital signs Hyperglycemia Type II DM - new onset * Has had 2 readings with glucose >180 * A1C 7.7 * Office Support Specialist consultation once feeling better * healthcare educator consult once feeling better * Sliding scale high intensity insulin * QID AC and Bedtime blood glucose checks * Anticipate elevations in blood glucose due to steroids * Monitor need for long acting insulin while on steroids S/P hysterectomy History of cervical cancer * No acute concerns Code Status: Full Code PCP: Dr. Davalos DVT prophylaxis: Lovenox Disposition: Admit patient to medical floor on telemetry for management of COVID-19 pneumonia with hypoxia. Length of stay greater than 96 hours due to worsening Covid symptoms and requir ement for treatment. <Pablito Kincaid - Last Filed: 06/10/21 17:10> - Patient Data Vitals - Most Recent: Last Vital Signs Temp 36.6 C 06/10/21 16:21 Pulse 91 06/10/21 16:22 Resp 20 06/10/21 16:21 BP 118/69 06/10/21 16:21 Pulse Ox 88 L 06/10/21 16:22 I&O - Last 24 Hours: Intake & Output 06/10/21 06/10/21 06/10/21 06:59 14:59 22:59 Intake Total 551 728 4583 Output Total 650 1300 Balance -300 420 -300 Lab Results Last 24 Hours: Laboratory Results - last 24 hr 06/09/21 06/10/21 06/10/21 Range/Units 20:38 05:21 05:22 D-Dimer, Quantitative 0.36 (0.19-0.50) mg/L POC Glucose 297 H 128 H (70-99) mg/dL 06/10/21 06/10/21 Range/Units 10:19 16:23 D-Dimer, Quantitative (0.19-0.50) mg/L POC Glucose 233 H 317 H (70-99) mg/dL Med Orders - Current: Current Medications Acetaminophen (Acetaminophen 325 Mg Tab) 650 mg PO Q4H PRN PRN Reason: Pain (Mild 1-3)/fever Albuterol (Albuterol 6.7 Gm Inhaler) 0 gm INH Q2H PRN PRN Reason: SOB/Wheezing Enoxaparin Sodium (Enoxaparin 40 Mg/0.4 Ml Syringe) 40 mg SUBCUT DAILY [facility] Last Admin: 06/10/21 08:33 Dose: 40 mg Documented by: Famotidine (Famotidine 20 Mg Tab) 20 mg PO BID [facility] Last Admin: 06/10/21 08:33 Dose: 20 mg Documented by: Insulin Human Lispro (Insulin Lispro 100 Unit/Ml 10 Ml Vial) 0 unit SUBCUT QID ACANDBED [facility]; Protocol Last Admin: 06/10/21 11:31 Dose: 6 unit Documented by: Magnesium Hydroxide (Magnesium Hydroxide 400 Mg/5 Ml Susp 30 Ml Cup) 30 ml PO DAILY PRN PRN Reason: Constipation Last Admin: 06/07/21 17:56 Dose: 30 ml Documented by: Methylprednisolone Sodium Succinate (Methylprednisolone Sodium Succinate 125 Mg/2 Ml Sdv) 60 mg IVPUSH DAILY [facility] Last Admin: 06/10/21 08:33 Dose: 60 mg Documented by: Ondansetron HCl (Ondansetron 4 Mg/2 Ml Sdv) 4 mg IV Q6H PRN PRN Reason: Nausea/Vomiting Discontinued Medications Dexamethasone (Dexamethasone 4 Mg Tab) 6 mg PO ONETIME [facility] Stop: 06/01/21 06:31 Last Admin: 06/01/21 06:56 Dose: 6 mg Documented by: Dexamethasone (Dexamethasone 4 Mg Tab) 6 mg PO DAILY [facility] Stop: 06/10/21 09:01 Magnesium Sulfate 2 gm/ Premix 50 mls @ 25 mls/hr IV ONETIME ONE Stop: 06/01/21 13:30 Last Admin: 06/01/21 13:30 Dose: 25 mls/hr Documented by: Remdesivir 200 mg/ Sodium (Chloride) 250 mls @ 250 mls/hr IV ONETIME ONE Stop: 06/01/21 16:29 Last Admin: 06/01/21 15:40 Dose: 250 mls/hr Documented by: Remdesivir 100 mg/ Sodium (Chloride) 100 mls @ 100 mls/hr IV Q24H [facility] Stop: 06/05/21 16:29 Last Admin: 06/05/21 14:56 Dose: 100 mls/hr Documented by: Tocilizumab 500 mg/ Sodium (Chloride) 105 mls @ 105 mls/hr IV ONETIME ONE Stop: 06/02/21 08:34 Last Admin: 06/02/21 09:28 Dose: 105 mls/hr Documented by: Lactated Ringer's (Ringers, Lactated) 500 mls @ 999 mls/hr IV .BOLUS ONE Stop: 06/07/21 15:46 Last Admin: 06/07/21 16:43 Dose: 999 mls/hr Documented by: Ceftriaxone Sodium 2 gm/ (Sodium Chloride) 100 mls @ 200 mls/hr IV Q24H [facility] Last Admin: 06/09/21 08:19 Dose: 200 mls/hr Documented by: Lactated Ringer's (Ringers, Lactated) 1,000 mls @ 75 mls/hr IV ASDIRECTED [facility], LAT[facility] Stop: 06/08/21 21:04 Last Admin: 06/08/21 09:17 Dose: 75 mls/hr Documented by: Methylprednisolone Sodium Succinate (Methylprednisolone Sodium Succinate 125 Mg/2 Ml Sdv) 125 mg IVPUSH Q12H [facility] Last Admin: 06/04/21 08:07 Dose: 125 mg Documented by: Methylprednisolone Sodium Succinate (Methylprednisolone Sodium Succinate 125 Mg/2 Ml Sdv) 60 mg IVPUSH Q8H [facility] Last Admin: 06/08/21 04:38 Dose: 60 mg Documented by: Methylprednisolone Sodium Succinate (Methylprednisolone Sodium Succinate 125 Mg/2 Ml Sdv) 60 mg IVPUSH BID [facility] Last Admin: 06/09/21 08:19 Dose: 60 mg Documented by: - Patient Data Lab Results Last 24 hrs: Laboratory Results - last 24 hr 06/09/21 06/10/21 06/10/21 Range/Units 20:38 05:21 05:22 D-Dimer, Quantitative 0.36 (0.19-0.50) mg/L POC Glucose 297 H 128 H (70-99) mg/dL 06/10/21 06/10/21 Range/Units 10:19 16:23 D-Dimer, Quantitative (0.19-0.50) mg/L POC Glucose 233 H 317 H (70-99) mg/dL Result Diagrams: 06/09/21 05:08 06/09/21 05:08 Sepsis Event Note - Focused Exam Vital Signs: Vital Signs Temp Pulse Resp BP Pulse Ox Pulse Ox 06/10/21 16:22 91 88 L 06/10/21 16:21 36.6 C 94 20 118/69 86 L 06/10/21 15:04 92 L 06/10/21 14:34 94 L 06/10/21 12:50 91 L 06/10/21 12:16 92 L 06/10/21 08:48 94 L 06/10/21 08:40 90 L 06/10/21 08:30 36.5 C 82 20 98/54 L 74 L 06/10/21 08:26 92 L 06/10/21 06:23 36.6 C 77 20 117/76 88 L 06/10/21 05:49 94 L - Problem List & Annotations (1) Acute respiratory failure due to COVID-19 SNOMED Code(s): 234467172 Code(s): U07.1 - COVID-19; J96.00 - ACUTE RESPIRATORY FAILURE, UNSP W HYPOXIA OR HYPERCAPNIA Status: Acute Priority: High Current Visit: Yes (2) Elevated d-dimer SNOMED Code(s): 487881379 Code(s): R79.89 - OTHER SPECIFIED ABNORMAL FINDINGS OF BLOOD CHEMISTRY Status: Resolved Priority: High Current Visit: Yes (3) New onset type 2 diabetes mellitus SNOMED Code(s): 98807754 Code(s): E11.9 - TYPE 2 DIABETES MELLITUS WITHOUT COMPLICATIONS Status: Chronic Priority: Medium Current Visit: Yes - Free Text/Narrative Note: I have seen and examined the patient independently of Rommel Jacques PA-C and have discussed the case with him. I have reviewed and agree with the orders and plan of care outlined by him. Please see orders.
[2021-06-10] MEDS: methylPREDNISolone Sodium Succinate 125 MG/2 ML SDV IVPUSH SCH (08:33)
[2021-06-10] MEDS: Famotidine 20 MG Tab PO SCH ×2 (08:33→21:48)
[2021-06-10] MEDS: Enoxaparin 40 MG/0.4 ML Syringe SUBCUT SCH (08:33)
[2021-06-11] MEDS: Insulin Lispro 100 UNIT/ML 10 ML Vial SUBCUT SCH ×4 (07:03→21:07)
--- NOTE | 2021-06-11 07:18 | PCM.PN ---
<Rommel Jacques - Last Filed: 06/11/21 10:47> - General Info Date of Service: 06/11/21 Admission Dx/Problem (Free Text): Admission Diagnosis/Problem Admission Diagnosis/Problem Hypoxia Functional Status: Reports: Pain Controlled, Tolerating Diet, Ambulating, Urinating, Incentive Spirometry, Other (acapella ). Denies: New Symptoms - Review of Systems General: Reports: No Symptoms. Denies: Fever, Weakness, Fatigue, Malaise, Chills HEENT: Reports: No Symptoms. Denies: Headaches, Sore Throat Pulmonary: Reports: No Symptoms. Denies: Shortness of Breath, Pleuritic Chest Pain, Cough, Sputum, Wheezing Cardiovascular: Reports: No Symptoms, Dyspnea on Exertion. Denies: Chest Pain, Palpitations, Edema Gastrointestinal: Reports: No Symptoms. Denies: Abdominal Pain, Constipation, Diarrhea, Nausea, Vomiting Genitourinary: Reports: No Symptoms. Denies: Pain Musculoskeletal: Reports: No Symptoms Skin: Reports: No Symptoms. Denies: Cyanosis Neurological: Reports: No Symptoms. Denies: Confusion, Dizziness, Headache, Numbness, Pre-Existing Deficit, Syncope, Tingling, Difficulty Walking, Weakness, Gait Disturbance Psychiatric: Reports: No Symptoms - Patient Data Vitals - Most Recent: Last Vital Signs Temp 98.1 F 06/11/21 06:39 Pulse 79 06/11/21 06:39 Resp 20 06/11/21 06:39 BP 101/66 06/11/21 06:39 Pulse Ox 86 L 06/11/21 06:39 Weight - Most Recent: 60.373 kg I&O - Last 24 Hours: Intake & Output 06/10/21 06/11/21 06/11/21 22:59 06:59 14:59 Intake Total 1000 400 Output Total 1300 600 Balance -300 -200 Lab Results Last 24 Hours: Laboratory Results - last 24 hr 06/10/21 06/10/21 06/10/21 Range/Units 10:19 16:23 21:41 POC Glucose 233 H 317 H 353 H (70-99) mg/dL 06/11/21 Range/Units 06:36 POC Glucose 102 H (70-99) mg/dL Med Orders - Current: Current Medications Acetaminophen (Acetaminophen 325 Mg Tab) 650 mg PO Q4H PRN PRN Reason: Pain (Mild 1-3)/fever Albuterol (Albuterol 6.7 Gm Inhaler) 0 gm INH Q2H PRN PRN Reason: SOB/Wheezing Enoxaparin Sodium (Enoxaparin 40 Mg/0.4 Ml Syringe) 40 mg SUBCUT DAILY [facility] Last Admin: 06/10/21 08:33 Dose: 40 mg Documented by: Famotidine (Famotidine 20 Mg Tab) 20 mg PO BID [facility] Last Admin: 06/10/21 21:48 Dose: 20 mg Documented by: Insulin Human Lispro (Insulin Lispro 100 Unit/Ml 10 Ml Vial) 0 unit SUBCUT QIDACANDBED [facility]; Protocol Last Admin: 06/11/21 07:03 Dose: Not Given Documented by: Magnesium Hydroxide (Magnesium Hydroxide 400 Mg/5 Ml Susp 30 Ml Cup) 30 ml PO DAILY PRN PRN Reason: Constipation Last Admin: 06/07/21 17:56 Dose: 30 ml Documented by: Methylprednisolone Sodium Succinate (Methylprednisolone Sodium Succinate 125 Mg/2 Ml Sdv) 60 mg IVPUSH DAILY [facility] Last Admin: 06/10/21 08:33 Dose: 60 mg Documented by: Ondansetron HCl (Ondansetron 4 Mg/2 Ml Sdv) 4 mg IV Q6H PRN PRN Reason: Nausea/Vomiting Discontinued Medications Dexamethasone (Dexamethasone 4 Mg Tab) 6 mg PO ONETIME STA Stop: 06/01/21 06:31 Last Admin: 06/01/21 06:56 Dose: 6 mg Documented by: Dexamethasone (Dexamethasone 4 Mg Tab) 6 mg PO DAILY [facility] Stop: 06/10/21 09:01 Magnesium Sulfate 2 gm/ Premix 50 mls @ 25 mls/hr IV ONETIME ONE Stop: 06/01/21 13:30 Last Admin: 06/01/21 13:30 Dose: 25 mls/hr Documented by: Remdesivir 200 mg/ Sodium (Chloride) 250 mls @ 250 mls/hr IV ONETIME ONE Stop: 06/01/21 16:29 Last Admin: 06/01/21 15:40 Dose: 250 mls/hr Documented by: Remdesivir 100 mg/ Sodium (Chloride) 100 mls @ 100 mls/hr IV Q24H [facility] Stop: 06/05/21 16:29 Last Admin: 06/05/21 14:56 Dose: 100 mls/hr Documented by: Tocilizumab 500 mg/ Sodium (Chloride) 105 mls @ 105 mls/hr IV ONETIME ONE Stop: 06/02/21 08:34 Last Admin: 06/02/21 09:28 Dose: 105 mls/hr Documented by: Lactated Ringer's (Ringers, Lactated) 500 mls @ 999 mls/hr IV .BOLUS ONE Stop: 06/07/21 15:46 Last Admin: 06/07/21 16:43 Dose: 999 mls/hr Documented by: Ceftriaxone Sodium 2 gm/ (Sodium Chloride) 100 mls @ 200 mls/hr IV Q24H [facility] Last Admin: 06/09/21 08:19 Dose: 200 mls/hr Documented by: Lactated Ringer's (Ringers, Lactated) 1,000 mls @ 75 mls/hr IV ASDIRECTED [facility] Stop: 06/08/21 21:04 Last Admin: 06/08/21 09:17 Dose: 75 mls/hr Documented by: Methylprednisolone Sodium Succinate (Methylprednisolone Sodium Succinate 125 Mg/2 Ml Sdv) 125 mg IVPUSH Q12H [facility] Last Admin: 06/04/21 08:07 Dose: 125 mg Documented by: Methylprednisolone Sodium Succinate (Methylprednisolone Sodium Succinate 125 Mg/2 Ml Sdv) 60 mg IVPUSH Q8H [facility] Last Admin: 06/08/21 04:38 Dose: 60 mg Documented by: Methylprednisolone Sodium Succinate (Methylprednisolone Sodium Succinate 125 Mg/2 Ml Sdv) 60 mg IVPUSH BID [facility] Last Admin: 06/09/21 08:19 Dose: 60 mg Documented by: - Exam Quality Assessment: Supplemental Oxygen (High flow 50 L at 65% FiO2), DVT Prophylaxis. No: Urine Catheter General: Alert, Oriented, Cooperative, No Acute Distress HEENT: Pupils Equal, Pupils Reactive, Mucous Membr. Moist/[place] Neck: Supple, Trachea Midline Lungs: Normal Respiratory Effort, Decreased Breath Sounds (Improving). No: Crackles, Rhonchi, Wheezing Cardiovascular: Regular Rate, Regular Rhythm GI/Abdominal Exam: Normal Bowel Sounds, Soft, Non-Tender, No Distention (Female) Exam: Deferred Back Exam: Normal Inspection, Full Range of Motion Extremities: Normal Inspection, Normal Range of Motion, Non-Tender, No Pedal Edema, Normal Capillary Refill Peripheral Pulses: 2+: Radial (L), Radial (R), Dorsalis Pedis (L), Dorsalis Pedis (R) Skin: Warm, Dry, Intact Neurological: No New Focal Deficit Psy/Mental Status: Alert, Normal Affect, Normal Mood - Patient Data Lab Results Last 24 hrs: Laboratory Results - last 24 hr 06/10/21 06/10/21 06/10/21 Range/Units 10:19 16:23 21:41 POC Glucose 233 H 317 H 353 H (70-99) mg/dL 06/11/21 Range/Units 06:36 POC Glucose 102 H (70-99) mg/dL Result Diagrams: 06/09/21 05:08 06/09/21 05:08 Sepsis Event Note - Evaluation Sepsis Screening Result: Possible Sepsis Risk - Focused Exam Vital Signs: Vital Signs Temp Pulse Resp BP Pulse Ox Pulse Ox 06/11/21 06:39 98.1 F 79 20 101/66 86 L 06/11/21 06:38 91 L 06/11/21 04:00 92 L 06/10/21 21:48 98.1 F 97 20 104/70 88 L 06/10/21 20:08 91 L - Problem List & Annotations (1) HTN (hypertension) SNOMED Code(s): 51890306 Code(s): I10 - ESSENTIAL (PRIMARY) HYPERTENSION Status: Chronic Priority: Medium Current Visit: Yes Qualifiers: Hypertension type: primary hypertension Qualified Code(s): I10 - Essential (primary) hypertension (2) S/P hysterectomy SNOMED Code(s): 410794005, 564076886, 308242673 Code(s): Z90.710 - ACQUIRED ABSENCE OF BOTH CERVIX AND UTERUS Status: Chronic Priority: Low Current Visit: No (3) History of cervical cancer Status: Chronic Priority: Low Current Visit: No (4) COVID-19 SNOMED Code(s): 879644611 Code(s): U07.1 - COVID-19 Status: Acute Priority: High Current Visit: Yes (5) Hyperglycemia SNOMED Code(s): 47245190 Code(s): R73.9 - HYPERGLYCEMIA, UNSPECIFIED Status: Acute Current Visit: No (6) Hypoxemia SNOMED Code(s): 638063610 Code(s): R09.02 - HYPOXEMIA Status: Acute Current Visit: No (7) New onset type 2 diabetes mellitus SNOMED Code(s): 66320865 Code(s): E11.9 - TYPE 2 DIABETES MELLITUS WITHOUT COMPLICATIONS Status: Chronic Priority: Medium Current Visit: Yes (8) Elevated d-dimer SNOMED Code(s): 675865216 Code(s): R79.89 - OTHER SPECIFIED ABNORMAL FINDINGS OF BLOOD CHEMISTRY Status: Resolved Priority: High Current Visit: Yes (9) Leukopenia SNOMED Code(s): 02552851, 656578880 Code(s): D72.819 - DECREASED WHITE BLOOD CELL COUNT, UNSPECIFIED Status: Resolved Priority: High Current Visit: Yes Qualifiers: Leukopenia type: neutropenia Neutropenia type: due to infection Qualified Code(s): D70.3 - Neutropenia due to infection (10) Elevated lactic acid level SNOMED Code(s): 8823416 Code(s): R79.89 - OTHER SPECIFIED ABNORMAL FINDINGS OF BLOOD CHEMISTRY Status: Acute Priority: High Current Visit: Yes - Problem List Review Problem List Initiated/Reviewed/Updated: Yes - My Orders Last 24 Hours: My Active Orders 06/10/21 09:00 methylPREDNISolone Sod Succ [Solu-MEDROL] 60 mg IVPUSH DAILY 06/11/21 08:00 Chest 1V Frontal [CR] Routine - Assessment Assessment:: Assessment - day of admission 04/01/2021 * 56-year-old female who presents the ED with low saturations after testing positive for COVID-19 * History of hypertension and cervical cancer status post hysterectomy. * On 05/25/2021 she noted fever and chills. * Saw her PCP on 05/26/2021 and blood work was done which she states was normal, however she was not tested for COVID-19 * Utilizing Tylenol and ibuprofen but her symptoms continued * Returned to her PCP on 05/31/2021 where she tested positive for SARS-CoV-2 RNA. * Chest x-ray at that time was obtained and per the patient showed "pneumonia" however the patient is not sure what exactly was seen. * Noted saturations in the 80s this morning and came to the ED as instructed * Reports nonproductive cough but no acute dyspnea or chest pain. She feels weak. Denies any nausea or vomiting. * Has not received the Covid vaccine. * 12-lead EKG is obtained showing sinus tachycardia 107 bpm with no ischemic changes. Temp is 36.9 Celsius. Pulse 97. Respirations 29. Blood pressure 98/64. Pulse ox is 86%, rising to 96% on 1 L. * Labs are obtained: * WBC 4.89 * Hemoglobin 12.0 * Platelet 400,000 * Neutrophils 58% * Sodium 135 * Potassium 3.6 * Chloride 100 * Carbon dioxide 22 * Anion gap 16.6 * BUN 12. Creatinine 0.9. GFR greater than 60 * Glucose 188 * Lactic acid 1.3 * Magnesium 1.8 * Total bilirubin 0.3 * AST is 54, ALT 47, alkaline phosphatase 45. * Troponin less than 0.017 * Protein 8.0 * Albumin 3.1 * CRP 8.4 * Chest x-ray shows bilateral hazy infiltrates consistent with COVID-19 pneumonia * She is given 6 mg dexamethasone. * Admitted to floor on telemetry for management of COVID-19 PNA and hypoxia 06/02/2021: This is a 56-year-old female who presented to ED with low saturations. She is recently been diagnosed with COVID-19 and was sent home with home monitoring. Her saturations were noted to be very low when she presented to her ED and was admitted. In the ED she was noted to have saturations in the low 90s on 2 L of oxygen. On the floor glucose was noted to be high and has been high on prior visits and her A1c was obtained which was 7.7. She was started on sliding scale insulin. Ferritin was 1858. LDH was 408. Today WBC is 5.54. Hemoglobin 12.0. Platelet 441,000. Neutrophils 69.8. Sodium 140. Potassium 4.1. Chloride 105. Carbon dioxide 25. Anion gap 14.1. BUN 16. Creatinine 0.7. GFR greater than 60. Glucose 126-225. Magnesium 2.4. Bilirubin 0.2. AST is 44, ALT 41, alkaline phosphatase 48. CRP is 6.8. Albumin 2.9. Unfortunately patient overnight had significant rapidly deteriorating oxygen saturations and was requiring up to 10 L. She was placed on high flow oxygen and is currently on 50 L with an FiO2 of 50%. Actemra 8 mg/kg was ordered today and her steroids were increased from 6 mg dexamethasone to 125 mg twice daily Solu-Medrol. She has been proning and nursing was instructed to continue to push for this. She does have incentive spirometry and Acapella in the room and has been using it. We will otherwise continue Covid treatment. Chest x-ray today is slightly worse than yesterday. We will check a procalcitonin. Dr. Neal, attending hospitalist, in to discuss plan with patient. Unknown length of stay due to severity of Covid symptoms. 06/03/2021 This is a 56-year-old female admitted to the floor with Covid pneumonia. She also appears to be a new onset diabetic with an A1c of 7.7. UA was obtained and was cloudy with 1+ protein and trace ketones. Urine random microalbumin was obtained and was elevated at 29.7. Blood sugars have been 196-268. We will increase sliding scale insulin to medium intensity. She is neutropenic today with a WBC of 1.39. Hemoglobin 12.6. Platelet 470,000. Neutrophils are 50.4. Sodium 142. Potassium 4.3. Chloride 107. Carbon dioxide 25. Anion gap 14.3. BUN 23. Creatinine 0.8. GFR greater than 60. Calcium 8.5. Magnesium 2.3. Bilirubin 0.2. AST 38, ALT 41, alkaline phosphatase 48. CRP is 3.3. Protein 7.7. Albumin 2.8. We will continue current treatment plan with steroids, high flow, and respiratory exercises. If patient saturations continued to drop we will start her on BiPAP and likely admit her to the ICU at that time. At this point saturations have been in the upper 90s while patient is proning. We will continue to encourage this as well. Unknown length of stay due to duration and severity of Covid 19 pneumonia. 06/04/2021 This is a 56-year-old female admitted for COVID-19 pneumonia. She continues with treatment including Solu-Medrol and remdesivir. We will decrease Solu- Medrol dosing to 60 mg every 8 hours today. Remains on high flow oxygen 50 L and 65% FiO2. This is a improvement over yesterday. She has been proning and utilizing her incentive spirometry/Acapella. She states she feels pretty good overall. Labs today show a continued neutropenia at 2.43. Hemoglobin 13.0. P latelet 485,000. Neutrophils are 60.4%. D-dimer is 0.87. Sodium 144. Potassium 4.3. Chloride 108. Carbon dioxide 26. Anion gap 14.3. BUN 24. Creatinine 0.9. GFR greater than 60. Glucose has been 2 20-2 80 and we will increase her sliding scale tube high intensity. Calcium 8.3. Magnesium 2.4. Total bilirubin 0.3. AST 28, ALT 36, alkaline phosphatase 45. CRP is 1.5. Protein 7.4. Albumin 2.7. We will continue to watch blood sugars and add long- acting insulin if indicated. We will address elevated A1c/diabetes more at discharge. Continue current treatment plan. Unknown length of stay pending continued improvement. 06/05/2021 The patient is a 56-year-old lady who is currently on back 3 of 4 of remdesivir. This will be continued. Her oxygen demands remain high and her oxygen saturations will be kept around 92% with oxygen support. We will attempt to taper oxygen. The patient will be kept on high-dose steroids and these will be tapered as necessary. The patient also has been instructed in the use of incentive spirometer as well as Acapella. The patient has been encouraged to ambulate within the confines of the room. The patient should be appropriate for discharge in 1 to 2 days when her oxygen demands have been improved. The patient will also be kept on the appropriate diabetic diet and insulin sliding scale. The patient has repeat laboratory studies ordered for the morning. 06/06/2021 The patient is a 56-year-old lady who is doing better today. She will remain in hospitalization for at least 1 more day. The patient still requires at least 6 L of oxygen via nasal cannula. It has been noted that she desaturates very quickly. The patient has been recommended to continue with the use of the incentive spirometer as well as the Acapella. The patient will continue on the IV steroids. The patient will continue on DVT prophylaxis. Repeat laboratory studies have been ordered. Her oxygen will remain to maintain her oxygen saturations around 92%. 06/07/2021 This is a 56-year-old female admitted to the floor for treatment of Covid pneumonia. She was doing better yesterday and was actually tolerating nasal cannula, although noted to desaturate quite quickly. Her saturations today have worsened and she is back on high flow 55 L with an FiO2 of 90. WBC is 3.71. Hemoglobin 13.3. Platelet 593,000. BMP has been stable. Blood glucose readi ngs have been from 106 to 328. She remains on high-dose sliding scale insulin and this is ranged from 12 units to not given. She remains on 60 mg every 8 hour Solu-Medrol. We will recheck D-dimer today. Imaging yesterday was grossly stable. Will consider imaging tomorrow. Patient remains on high flow and will be switched to BiPAP if needed. If she does switch to BiPAP we will likely upgrade to ICU status. Unknown length of stay due to worsening Covid symptoms. Continue current treatment plan. 06/08/2021 56-year-old female admitted in continue treatment for COVID-19 pneumonia. Labs today show a WBC of 4.54. Hemoglobin 14.0. Platelet 583,000. D-dimer obtained yesterday was 0.87. Sodium 138. Potassium 4.7. Chloride 102. Carbon dioxide 30. Anion gap 10.7. BUN is 16. Creatinine 0.8. GFR greater than 60. Glucose was 90-306. Lactic acid was obtained yesterday and was elevated at 3.0. Repeat was 2.7 and repeat today was 2.2. CRP has been less than 0.2. Discussed with Dr. Kincaid, attending hospitalist, and patient is started on Rocephin 2 g. We will also give 1 L lactated Ringer's at 75 mL an hour. Chest x-ray obtained today shows slightly worsening Covid pneumonia. Clinically patient is doing better. She reports that she feels better. She reports her appetite is improving. She remains on high flow and we are working on weaning slowly. Currently she is on 50 L with 60% FiO2. She has been proning and utilizing her incentive spirometer and Acapella. Unknown length of stay due to severity of COVID-19 symptoms. Given her inflammatory markers are significantly improved we will start decreasing steroid dosing. 06/09/2021 56-year-old female admitted for COVID-19 pneumonia. Today her lung sounds remain diminished however they are greatly improved. She states her appetite continues to improve and overall she feels pretty good. She remains on high flow oxygen 50 L with an FiO2 of 65%. She has completed her remdesivir treatment. We continue to decrease her steroids. Procalcitonin from 2 days prior return less than 0.05. Therefore it is believed elevated lactic acid level was not due to any infectious cause. We will therefore discontinue IV Rocephin. Labs today show WBC of 5.38. Hemoglobin 13.5. Hematocrit 38.9. Platelets are 521,000. Neutrophils are elevated 76.3%. Sodium 140. Potassium 4.8. Chloride 102. Carbon dioxide 30. Anion gap 12.8. BUN is 20. Creatinine 0.9. GFR is greater than 60. Glucose is 212 273. Magnesium 2.4. CRP is less than 0.2. We will recheck D-dimer tomorrow however will stop daily labs as patient has been quite stable. We will therefore recheck labs as needed in the future. No length of stay due to continued need for high flow oxygenation due to Covid pneumonia. 06/10/2021 This is a 56-year-old female admitted to the floor for COVID-19 pneumonia. Blood sugars have been 128-297. D-dimer was obtained today and was 0.36. Other labs were not checked as she has been very stable. She remains on 50 L of high flow oxygen with FiO2 of 55%. We have been working on weaning this. She has been proning and utilizing her incentive spirometer and Acapella. Blood cultures remain negative. Overall she states she feels okay. She notes that her time to recover after walking to the restroom is improving. She has been eating better. We will hold off drawing labs tomorrow as she continues to do well. Unknown length of stay pending ability to wean off of high flow with stable saturations on nasal cannula. Will repeat chest x-ray tomorrow. 06/11/2021 56-year-old female admitted the floor with COVID-19 pneumonia who is currently on high flow 50 L with an FiO2 of 65%. Overnight she was on 40 L with an FiO2 of 45%. Her saturations do decrease rapidly when she exerts herself. No labs were drawn today as her labs have been stable and her inflammatory markers are within normal limits. We will decrease steroid to 40 mg methylprednisolone daily. She continues to utilize her incentive spirometer and Acapella. Her attitude has been very good. She is proning whenever able. Chest x-ray today shows worsening COVID-19 pneumonia on the left side. Unknown length of stay pending improvement in COVID-19 symptoms. - Plan Plan:: COVID-19 Hypoxemia Elevated D-Dimer, resolved Leukopenia, resolved Elevated lactic acid * O2 as needed with goal saturations 88-95% * Pepcid 20mg BID * Decrease Solu-Medrol to 40 mg daily. Continue to wean * Completed Remdesivir * Actemra given 06/02/2021 * IS/Acapella * Prone whenever able * RT consultation * Telemetry * Continuous pulse ox * Tylenol for fever * Airborne/contact isolation * Ambulate around the room * Will hold off PT and OT for now * Daily labs * Blood cultures negative thus far * CM consultation * Continue high flow * Procalcitonin negative * Blood cultures negative thus far HTN (hypertension) * Hold home lisinopril for now * Monitor vital signs Hyperglycemia Type II DM - new onset * Has had 2 readings with glucose >180 * A1C 7.7 * Loader Engineer consultation once feeling better * stereo operator consult once feeling better * Sliding scale high intensity insulin * QID AC and Bedtime blood glucose checks * Anticipate elevations in blood glucose due to steroids * Monitor need for long acting insulin while on steroids S/P hysterectomy History of cervical cancer * No acute concerns Code Status: Full Code PCP: Dr. Davalos DVT prophylaxis: Lovenox Disposition: Admit patient to medical floor on telemetry for management of COVID-19 pneumonia with hypoxia. Length of stay greater than 96 hours due to worsening Covid symptoms and requirement for treatment. <Pabltio Kincaid - Last Filed: 06/11/21 13:55> - Patient Data Vitals - Most Recent: Last Vital Signs Temp 36.7 C 06/11/21 12:39 Pulse 83 06/11/21 12:39 Resp 16 06/11/21 12:39 BP 105/64 06/11/21 12:39 Pulse Ox 91 L 06/11/21 13:12 I&O - Last 24 Hours: Intake & Output 06/10/21 06/11/21 06/11/21 22:59 06:59 14:59 Intake Total 1240 400 Output Total 1300 600 Balance -60 -200 Lab Results Last 24 Hours: Laboratory Results - last 24 hr 06/10/21 06/10/21 06/11/21 Range/Units 16:23 21:41 06:36 POC Glucose 317 H 353 H 102 H (70-99) mg/dL 06/11/21 Range/Units 11:18 POC Glucose 166 H (70-99) mg/dL Med Orders - Current: Current Medications Acetaminophen (Acetaminophen 325 Mg Tab) 650 mg PO Q4H PRN PRN Reason: Pain (Mild 1-3)/fever Albuterol (Albuterol 6.7 Gm Inhaler) 0 gm INH Q2H PRN PRN Reason: SOB/Wheezing Enoxaparin Sodium (Enoxaparin 40 Mg/0.4 Ml Syringe) 40 mg SUBCUT DAILY [facility] Last Admin: 06/11/21 09:44 Dose: 40 mg Documented by: Famotidine (Famotidine 20 Mg Tab) 20 mg PO DAILY [facility] Last Admin: 06/11/21 09:45 Dose: 20 mg Documented by: Insulin Human Lispro (Insulin Lispro 100 Unit/Ml 10 Ml Vial) 0 unit SUBCUT QIDACANDBED [facility]; Protocol Last Admin: 06/11/21 12:40 Dose: 3 unit Documented by: Magnesium Hydroxide (Magnesium Hydroxide 400 Mg/5 Ml Susp 30 Ml Cup) 30 ml PO DAILY PRN PRN Reason: Constipation Last Admin: 06/07/21 17:56 Dose: 30 ml Documented by: Methylprednisolone Sodium Succinate (Methylprednisolone Sodium Succinate 40 Mg/1 Ml Sdv) 40 mg IVPUSH DAILY [facility] Last Admin: 06/11/21 12:42 Dose: 40 mg Documented by: Ondansetron HCl (Ondansetron 4 Mg/2 Ml Sdv) 4 mg IV Q6H PRN PRN Reason: Nausea/Vomiting Discontinued Medications Dexamethasone (Dexamethasone 4 Mg Tab) 6 mg PO ONETIME STA Stop: 06/01/21 06:31 Last Admin: 06/01/21 06:56 Dose: 6 mg Documented by: Dexamethasone (Dexamethasone 4 Mg Tab) 6 mg PO DAILY [facility] Stop: 06/10/21 09:01 Famotidine (Famotidine 20 Mg Tab) 20 mg PO BID [facility] Last Admin: 06/11/21 09:39 Dose: 20 mg Documented by: Magnesium Sulfate 2 gm/ Premix 50 mls @ 25 mls/hr IV ONETIME ONE Stop: 06/01/21 13:30 Last Admin: 06/01/21 13:30 Dose: 25 mls/hr Documented by: Remdesivir 200 mg/ Sodium (Chloride) 250 mls @ 250 mls/hr IV ONETIME ONE Stop: 06/01/21 16:29 Last Admin: 06/01/21 15:40 Dose: 250 mls/hr Documented by: Remdesivir 100 mg/ Sodium (Chloride) 100 mls @ 100 mls/hr IV Q24H [facility] Stop: 06/05/21 16:29 Last Admin: 06/05/21 14:56 Dose: 100 mls/hr Documented by: Tocilizumab 500 mg/ Sodium (Chloride) 105 mls @ 105 mls/hr IV ONETIME ONE Stop: 06/02/21 08:34 Last Admin: 06/02/21 09:28 Dose: 105 mls/hr Documented by: Lactated Ringer's (Ringers, Lactated) 500 mls @ 999 mls/hr IV .BOLUS ONE Stop: 06/07/21 15:46 Last Admin: 06/07/21 16:43 Dose: 999 mls/hr Documented by: Ceftriaxone Sodium 2 gm/ (Sodium Chloride) 100 mls @ 200 mls/hr IV Q24H [facility] Last Admin: 06/09/21 08:19 Dose: 200 mls/hr Documented by: Lactated Ringer's (Ringers, Lactated) 1,000 mls @ 75 mls/hr IV ASDIRECTED [facility] Stop: 06/08/21 21:04 Last Admin: 06/08/21 09:17 Dose: 75 mls/hr Documented by: Methylprednisolone Sodium Succinate (Methylprednisolone Sodium Succinate 125 Mg/2 Ml Sdv) 125 mg IVPUSH Q12H [facility] Last Admin: 06/04/21 08:07 Dose: 125 mg Documented by: Methylprednisolone Sodium Succinate (Methylprednisolone Sodium Succinate 125 Mg/2 Ml Sdv) 60 mg IVPUSH Q8H [facility] Last Admin: 06/08/21 04:38 Dose: 60 mg Documented by: Methylprednisolone Sodium Succinate (Methylprednisolone Sodium Succinate 125 Mg/2 Ml Sdv) 60 mg IVPUSH BID [facility] Last Admin: 06/09/21 08:19 Dose: 60 mg Documented by: Methylprednisolone Sodium Succinate (Methylprednisolone Sodium Succinate 125 Mg/ 2 Ml Sdv) 60 mg IVPUSH DAILY [facility] Last Admin: 06/10/21 08:33 Dose: 60 mg Documented by: - Patient Data Lab Results Last 24 hrs: Laboratory Results - last 24 hr 06/10/21 06/10/21 06/11/21 Range/Units 16:23 21:41 06:36 POC Glucose 317 H 353 H 102 H (70-99) mg/dL 06/11/21 Range/Units 11:18 POC Glucose 166 H (70-99) mg/dL Result Diagrams: 06/09/21 05:08 06/09/21 05:08 Sepsis Event Note - Focused Exam Vital Signs: Vital Signs Temp Pulse Resp BP Pulse Ox Pulse Ox 06/11/21 13:12 91 L 06/11/21 12:39 36.7 C 83 16 105/64 94 L 06/11/21 12:08 93 L 06/11/21 09:39 36.8 C 89 20 75/53 L 94 L 06/11/21 08:49 89 L 06/11/21 08:40 80 L 06/11/21 06:39 36.7 C 79 20 101/66 86 L 06/11/21 06:38 91 L 06/11/21 04:00 92 L - Problem List & Annotations (1) Acute respiratory failure due to COVID-19 SNOMED Code(s): 805328334 Code(s): U07.1 - COVID-19; J96.00 - ACUTE RESPIRATORY FAILURE, UNSP W HYPOXIA OR HYPERCAPNIA Status: Acute Priority: High Current Visit: Yes (2) Elevated d-dimer SNOMED Code(s): 236745315 Code(s): R79.89 - OTHER SPECIFIED ABNORMAL FINDINGS OF BLOOD CHEMISTRY Status: Resolved Priority: High Current Visit: Yes (3) New onset type 2 diabetes mellitus SNOMED Code(s): 47221596 Code(s): E11.9 - TYPE 2 DIABETES MELLITUS WITHOUT COMPLICATIONS Status: Chronic Priority: Medium Current Visit: Yes - Free Text/Narrative Note: I have seen and examined the patient independently of Rommel Jacques PA-C and have discussed the case with him. I have reviewed and agree with the orders and plan of care outlined by him. Please see orders.
--- NOTE | 2021-06-11 09:08 | CR ---
Chest: Frontal view of the chest was obtained. Comparison: Prior chest x-ray of 06/08/21. Heart size and mediastinum are normal. Increased density is seen scattered within the left lung. Mild perihilar interstitial change remains within the right chest. Bony structures show nothing acute. Prior cholecystectomy is noted. Impression: 1. Worsening density within the left chest from prior chest x-ray. This is compatible with worsening COVID pneumonia. 2. Other portions of the chest appear stable. Diagnostic code #3
[2021-06-11] MEDS: Famotidine 20 MG Tab PO SCH ×2 (09:39→09:45)
[2021-06-11] MEDS: methylPREDNISolone Sodium Succinate 125 MG/2 ML SDV IVPUSH SCH ×2 (09:41→19:39)
[2021-06-11] MEDS: Enoxaparin 40 MG/0.4 ML Syringe SUBCUT SCH (09:44)
[2021-06-11] MEDS: methylPREDNISolone Sodium Succinate 40 MG/1 ML SDV IVPUSH SCH ×2 (09:48→12:42)
[2021-06-11] MEDS: Albuterol 6.7 GM Inhaler INH PRN ×2 (15:39→20:45)
--- NOTE | 2021-06-12 07:36 | PCM.PN ---
- General Info Date of Service: 06/12/21 Admission Dx/Problem (Free Text): Admission Diagnosis/Problem Admission Diagnosis/Problem Hypoxia Subjective Update: The patient is a 56-year-old lady who had been admitted for acute hospitalization due to Covid pneumonia on June 01, 2021. The patient has been slow to recover. She has finished remdesivir. The patient has required increasing oxygen demands. The patient also says that she is doing very well. She has been tolerating her diet. She has no other complaints today. She has denied any pain. Functional Status: Reports: Pain Controlled, Tolerating Diet - Review of Systems General: Reports: No Symptoms HEENT: Reports: No Symptoms Pulmonary: Reports: Cough Cardiovascular: Reports: No Symptoms Gastrointestinal: Reports: No Symptoms Genitourinary: Reports: No Symptoms Musculoskeletal: Reports: No Symptoms Skin: Reports: No Symptoms Neurological: Reports: No Symptoms Psychiatric: Reports: No Symptoms - Patient Data Vitals - Most Recent: Last Vital Signs Temp 36.8 C 06/12/21 06:11 Pulse 75 06/12/21 06:11 Resp 14 06/12/21 06:11 BP 108/67 06/12/21 06:11 Pulse Ox 91 L 06/12/21 06:11 Weight - Most Recent: 61.19 kg I&O - Last 24 Hours: Intake & Output 06/11/21 06/12/21 06/12/21 22:59 06:59 14:59 Intake Total 460 650 Output Total 400 900 Balance 60 -250 Lab Results Last 24 Hours: Laboratory Results - last 24 hr 06/11/21 06/11/21 06/11/21 Range/Units 11:18 17:19 21:00 POC Glucose 166 H 336 H 294 H (70-99) mg/dL 06/12/21 Range/Units 06:08 POC Glucose 150 H (70-99) mg/dL Med Orders - Current: Current Medications Acetaminophen (Acetaminophen 325 Mg Tab) 650 mg PO Q4H PRN PRN Reason: Pain (Mild 1-3)/fever Albuterol (Albuterol 6.7 Gm Inhaler) 0 gm INH Q2H PRN PRN Reason: SOB/Wheezing Last Admin: 06/11/21 20:45 Dose: 2 puff Documented by: Enoxaparin Sodium (Enoxaparin 40 Mg/0.4 Ml Syringe) 40 mg SUBCUT DAILY [facility] Last Admin: 06/11/21 09:44 Dose: 40 mg Documented by: Famotidine (Famotidine 20 Mg Tab) 20 mg PO DAILY [facility] Last Admin: 06/11/21 09:45 Dose: 20 mg Documented by: Insulin Human Lispro (Insulin Lispro 100 Unit/Ml 10 Ml Vial) 0 unit SUBCUT QIDACANDBED [facility]; Protocol Last Admin: 06/11/21 21:07 Dose: 9 unit Documented by: Magnesium Hydroxide (Magnesium Hydroxide 400 Mg/5 Ml Susp 30 Ml Cup) 30 ml PO DAILY PRN PRN Reason: Constipation Last Admin: 06/07/21 17:56 Dose: 30 ml Documented by: Methylprednisolone Sodium Succinate (Methylprednisolone Sodium Succinate 40 Mg/1 Ml Sdv) 40 mg IVPUSH DAILY [facility] Last Admin: 06/11/21 12:42 Dose: 40 mg Documented by: Ondansetron HCl (Ondansetron 4 Mg/2 Ml Sdv) 4 mg IV Q6H PRN PRN Reason: Nausea/Vomiting Discontinued Medications Dexamethasone (Dexamethasone 4 Mg Tab) 6 mg PO ONETIME STA Stop: 06/01/21 06:31 Last Admin: 06/01/21 06:56 Dose: 6 mg Documented by: Dexamethasone (Dexamethasone 4 Mg Tab) 6 mg PO DAILY [facility] Stop: 06/10/21 09:01 Famotidine (Famotidine 20 Mg Tab) 20 mg PO BID [facility] Last Admin: 06/11/21 09:39 Dose: 20 mg Documented by: Magnesium Sulfate 2 gm/ Premix 50 mls @ 25 mls/hr IV ONETIME ONE Stop: 06/01/21 13:30 Last Admin: 06/01/21 13:30 Dose: 25 mls/hr Documented by: Remdesivir 200 mg/ Sodium (Chloride) 250 mls @ 250 mls/hr IV ONETIME ONE Stop: 06/01/21 16:29 Last Admin: 06/01/21 15:40 Dose: 250 mls/hr Documented by: Remdesivir 100 mg/ Sodium (Chloride) 100 mls @ 100 mls/hr IV Q24H [facility] Stop: 06/05/21 16:29 Last Admin: 06/05/21 14:56 Dose: 100 mls/hr Documented by: Tocilizumab 500 mg/ Sodium (Chloride) 105 mls @ 105 mls/hr IV ONETIME ONE Stop: 06/02/21 08:34 Last Admin: 06/02/21 09:28 Dose: 105 mls/hr Documented by: Lactated Ringer's (Ringers, Lactated) 500 mls @ 999 mls/hr IV .BOLUS ONE Stop: 06/07/21 15:46 Last Admin: 06/07/21 16:43 Dose: 999 mls/hr Documented by: Ceftriaxone Sodium 2 gm/ (Sodium Chloride) 100 mls @ 200 mls/hr IV Q24H [facility] Last Admin: 06/09/21 08:19 Dose: 200 mls/hr Documented by: Lactated Ringer's (Ringers, Lactated) 1,000 mls @ 75 mls/hr IV ASDIRECTED [facility] Stop: 06/08/21 21:04 Last Admin: 06/08/21 09:17 Dose: 75 mls/hr Documented by: Methylprednisolone Sodium Succinate (Methylprednisolone Sodium Succinate 125 Mg/2 Ml Sdv) 125 mg IVPUSH Q12H [facility] Last Admin: 06/04/21 08:07 Dose: 125 mg Documented by: Methylprednisolone Sodium Succinate (Methylprednisolone Sodium Succinate 125 Mg /2 Ml Sdv) 60 mg IVPUSH Q8H [facility] Last Admin: 06/08/21 04:38 Dose: 60 mg Documented by: Methylprednisolone Sodium Succinate (Methylprednisolone Sodium Succinate 125 Mg/2 Ml Sdv) 60 mg IVPUSH BID [facility] Last Admin: 06/09/21 08:19 Dose: 60 mg Documented by: Methylprednisolone Sodium Succinate (Methylprednisolone Sodium Succinate 125 Mg/2 Ml Sdv) 60 mg IVPUSH DAILY [facility] Last Admin: 06/11/21 19:39 Dose: Not Given Documented by: - Exam Quality Assessment: Supplemental Oxygen, DVT Prophylaxis General: Alert, Oriented, Cooperative HEENT: Pupils Equal, Pupils Reactive, EOMI, Mucous Membr. Moist/[place] Neck: Supple, Trachea Midline Lungs: Clear to Auscultation, Normal Respiratory Effort Cardiovascular: Regular Rate, Regular Rhythm GI/Abdominal Exam: Normal Bowel Sounds, Soft, No Distention (Female) Exam: Deferred Back Exam: Normal Inspection, Full Range of Motion Extremities: Normal Inspection, Normal Range of Motion, No Pedal Edema Skin: Warm, Dry, Intact Neurological: No New Focal Deficit Psy/Mental Status: Alert, Normal Affect, Normal Mood - Patient Data Lab Results Last 24 hrs: Laboratory Results - last 24 hr 06/11/21 06/11/21 06/11/21 Range/Units 11:18 17:19 21:00 POC Glucose 166 H 336 H 294 H (70-99) mg/dL 06/12/21 Range/Units 06:08 POC Glucose 150 H (70-99) mg/dL Result Diagrams: 06/09/21 05:08 06/09/21 05:08 Sepsis Event Note - Evaluation Sepsis Screening Result: Possible Sepsis Risk - Focused Exam Vital Signs: Vital Signs Temp Pulse Resp BP Pulse Ox Pulse Ox 06/12/21 06:11 36.8 C 75 14 108/67 91 L 06/12/21 03:38 95 06/11/21 21:05 36.7 C 97 13 99/64 92 L 06/11/21 20:47 92 L - Problem List & Annotations (1) Acute respiratory failure due to COVID-19 SNOMED Code(s): 330413500 Code(s): U07.1 - COVID-19; J96.00 - ACUTE RESPIRATORY FAILURE, UNSP W HYPOXIA OR HYPERCAPNIA Status: Acute Priority: High Current Visit: Yes (2) Elevated d-dimer SNOMED Code(s): 312363759 Code(s): R79.89 - OTHER SPECIFIED ABNORMAL FINDINGS OF BLOOD CHEMISTRY Status: Resolved Priority: High Current Visit: Yes (3) New onset type 2 diabetes mellitus SNOMED Code(s): 82048955 Code(s): E11.9 - TYPE 2 DIABETES MELLITUS WITHOUT COMPLICATIONS Status: Chronic Priority: Medium Current Visit: Yes - Problem List Review Problem List Initiated/Reviewed/Updated: Yes - Assessment Assessment:: Assessment - day of admission 04/01/2021 * 56-year-old female who presents the ED with low saturations after testing positive for COVID-19 * History of hypertension and cervical cancer status post hysterectomy. * On 05/25/2021 she noted fever and chills. * Saw her PCP on 05/26/2021 and blood work was done which she states was normal, however she was not tested for COVID-19 * Utilizing Tylenol and ibuprofen but her symptoms continued * Returned to her PCP on 05/31/2021 where she tested positive for SARS-CoV-2 RNA. * Chest x-ray at that time was obtained and per the patient showed "pneumonia" however the patient is not sure what exactly was seen. * Noted saturations in the 80s this morning and came to the ED as instructed * Reports nonproductive cough but no acute dyspnea or chest pain. She feels weak. Denies any nausea or vomiting. * Has not received the Covid vaccine. * 12-lead EKG is obtained showing sinus tachycardia 107 bpm with no ischemic changes. Temp is 36.9 Celsius. Pulse 97. Respirations 29. Blood pressure 98/64. Pulse ox is 86%, rising to 96% on 1 L. * Labs are obtained: * WBC 4.89 * Hemoglobin 12.0 * Platelet 400,000 * Neutrophils 58% * Sodium 135 * Potassium 3.6 * Chloride 100 * Carbon dioxide 22 * Anion gap 16.6 * BUN 12. Creatinine 0.9. GFR greater than 60 * Glucose 188 * Lactic acid 1.3 * Magnesium 1.8 * Total bilirubin 0.3 * AST is 54, ALT 47, alkaline phosphatase 45. * Troponin less than 0.017 * Protein 8.0 * Albumin 3.1 * CRP 8.4 * Chest x-ray shows bilateral hazy infiltrates consistent with COVID-19 pneumonia * She is given 6 mg dexamethasone. * Admitted to floor on telemetry for management of COVID-19 PNA and hypoxia 06/02/2021: This is a 56-year-old female who presented to ED with low saturations. She is recently been diagnosed with COVID-19 and was sent home with home monitoring. Her saturations were noted to be very low when she presented to her ED and was admitted. In the ED she was noted to have saturations in the low 90s on 2 L of oxygen. On the floor glucose was noted to be high and has been high on prior visits and her A1c was obtained which was 7.7. She was started on sliding scale insulin. Ferritin was 1858. LDH was 408. Today WBC is 5.54. Hemoglobin 12.0. Platelet 441,000. Neutrophils 69.8. Sodium 140. Potassium 4.1. Chloride 105. Carbon dioxide 25. Anion gap 14.1. BUN 16. Creatinine 0.7. GFR greater than 60. Glucose 126-225. Magnesium 2.4. Bilirubin 0.2. AST is 44, ALT 41, alkaline phosphatase 48. CRP is 6.8. Albumin 2.9. Unfortunately patient overnight had significant rapidly deteriorating oxygen saturations and was requiring up to 10 L. She was placed on high flow oxygen and is currently on 50 L with an FiO2 of 50%. Actemra 8 mg/kg was ordered today and her steroids were increased from 6 mg dexamethasone to 125 mg twice daily Solu-Medrol. She has been proning and nursing was instructed to continue to push for this. She does have incentive spirometry and Acapella in the room and has been using it. We will otherwise continue Covid treatment. Chest x-ray today is slightly worse than yesterday. We will check a procalcitonin. Dr. Neal, attending hospitalist, in to discuss plan with patient. Unknown length of stay due to severity of Covid symptoms. 06/03/2021 This is a 56-year-old female admitted to the floor with Covid pneumonia. She also appears to be a new onset diabetic with an A1c of 7.7. UA was obtained and was cloudy with 1+ protein and trace ketones. Urine random microalbumin was obtained and was elevated at 29.7. Blood sugars have been 196-268. We will increase sliding scale insulin to medium intensity. She is neutropenic today with a WBC of 1.39. Hemoglobin 12.6. Platelet 470,000. Neutrophils are 50.4. Sodium 142. Potassium 4.3. Chloride 107. Carbon dioxide 25. Anion gap 14.3. BUN 23. Creatinine 0.8. GFR greater than 60. Calcium 8.5. Magnesium 2.3. Bilirubin 0.2. AST 38, ALT 41, alkaline phosphatase 48. CRP is 3.3. Protein 7.7. Albumin 2.8. We will continue current treatment plan with steroids, high flow, and respiratory exercises. If patient saturations continued to drop we will start her on BiPAP and likely admit her to the ICU at that time. At this point saturations have been in the upper 90s while patient is proning. We will continue to encourage this as well. Unknown length of stay due to duration and severity of Covid 19 pneumonia. 06/04/2021 This is a 56-year-old female admitted for COVID-19 pneumonia. She continues with treatment including Solu-Medrol and remdesivir. We will decrease Solu- Medrol dosing to 60 mg every 8 hours today. Remains on high flow oxygen 50 L and 65% FiO2. This is a improvement over yesterday. She has been proning and utilizing her incentive spirometry/Acapella. She states she feels pretty good overall. Labs today show a continued neutropenia at 2.43. Hemoglobin 13.0. Platelet 485,000. Neutrophils are 60.4%. D-dimer is 0.87. Sodium 144. Potassium 4.3. Chloride 108. Carbon dioxide 26. Anion gap 14.3. BUN 24. Creatinine 0.9. GFR greater than 60. Glucose has been 2 20-2 80 and we will increase her sliding scale tube high intensity. Calcium 8.3. Magnesium 2.4. Total bilirubin 0.3. AST 28, ALT 36, alkaline phosphatase 45. CRP is 1.5. Protein 7.4. Albumin 2.7. We will continue to watch blood sugars and add long-acting insulin if indicated. We will address elevated A1c/diabetes more at discharge. Continue current treatment plan. Unknown length of stay pending continued improvement. 06/05/2021 The patient is a 56-year-old lady who is currently on back 3 of 4 of remdesivir. This will be continued. Her oxygen demands remain high and her oxygen saturations will be kept around 92% with oxygen support. We will attempt to taper oxygen. The patient will be kept on high-dose steroids and these will be tapered as necessary. The patient also has been instructed in the use of incentive spirometer as well as Acapella. The patient has been encouraged to ambulate within the confines of the room. The patient should be appropriate for discharge in 1 to 2 days when her oxygen demands have been improved. The patient will also be kept on the appropriate diabetic diet and insulin sliding scale. The patient has repeat laboratory studies ordered for the morning. 06/06/2021 The patient is a 56-year-old lady who is doing better today. She will remain in hospitalization for at least 1 more day. The patient still requires at least 6 L of oxygen via nasal cannula. It has been noted that she desaturates very quickly. The patient has been recommended to continue with the use of the incentive spirometer as well as the Acapella. The patient will continue on the IV steroids. The patient will continue on DVT prophylaxis. Repeat laboratory studies have been ordered. Her oxygen will remain to maintain her oxygen saturations around 92%. 06/07/2021 This is a 56-year-old female admitted to the floor for treatment of Covid pneumonia. She was doing better yesterday and was actually tolerating nasal cannula, although noted to desaturate quite quickly. Her saturations today have worsened and she is back on high flow 55 L with an FiO2 of 90. WBC is 3.71. Hemoglobin 13.3. Platelet 593,000. BMP has been stable. Blood glucose readings have been from 106 to 328. She remains on high-dose sliding scale insulin and this is ranged from 12 units to not given. She remains on 60 mg every 8 hour Solu-Medrol. We will recheck D-dimer today. Imaging yesterday was grossly stable. Will consider imaging tomorrow. Patient remains on high flow and will be switched to BiPAP if needed. If she does switch to BiPAP we will likely upgrade to ICU status. Unknown length of stay due to worsening Covid symptoms. Continue current treatment plan. 06/08/2021 56-year-old female admitted in continue treatment for COVID-19 pneumonia. Labs today show a WBC of 4.54. Hemoglobin 14.0. Platelet 583,000. D-dimer obtained yesterday was 0.87. Sodium 138. Potassium 4.7. Chloride 102. Carbon dioxide 30. Anion gap 10.7. BUN is 16. Creatinine 0.8. GFR greater than 60. Glucose was 90-306. Lactic acid was obtained yesterday and was elevated at 3.0. Repeat was 2.7 and repeat today was 2.2. CRP has been less than 0.2. Discussed with Dr. Kincaid, attending hospitalist, and patient is started on Rocephin 2 g. We will also give 1 L lactated Ringer's at 75 mL an hour. Chest x-ray obtained today shows slightly worsening Covid pneumonia. Clinically patient is doing better. She reports that she feels better. She reports her appetite is improving. She remains on high flow and we are working on weaning slowly. Currently she is on 50 L with 60% FiO2. She has been proning and utilizing her incentive spirometer and Acapella. Unknown length of stay due to severity of COVID-19 symptoms. Given her inflammatory markers are significantly improved we will start decreasing steroid dosing. 06/09/2021 56-year-old female admitted for COVID-19 pneumonia. Today her lung sounds remain diminished however they are greatly improved. She states her appetite continues to improve and overall she feels pretty good. She remains on high flow oxygen 50 L with an FiO2 of 65%. She has completed her remdesivir treatment. We continue to decrease her steroids. Procalcitonin from 2 days prior return less than 0.05. Therefore it is believed elevated lactic acid level was not due to any infectious cause. We will therefore discontinue IV Rocephin. Labs today show WBC of 5.38. Hemoglobin 13.5. Hematocrit 38.9. Platelets are 521,000. Neutrophils are elevated 76.3%. Sodium 140. Potassium 4.8. Chloride 102. Carbon dioxide 30. Anion gap 12.8. BUN is 20. Creatinine 0.9. GFR is greater than 60. Glucose is 212 273. Magnesium 2.4. CRP is less than 0.2. We will recheck D-dimer tomorrow however will stop daily labs as pat ient has been quite stable. We will therefore recheck labs as needed in the future. No length of stay due to continued need for high flow oxygenation due to Covid pneumonia. 06/10/2021 This is a 56-year-old female admitted to the floor for COVID-19 pneumonia. Blood sugars have been 128-297. D-dimer was obtained today and was 0.36. Other labs were not checked as she has been very stable. She remains on 50 L of high flow oxygen with FiO2 of 55%. We have been working on weaning this. She has been proning and utilizing her incentive spirometer and Acapella. Blood cultures remain negative. Overall she states she feels okay. She notes that her time to recover after walking to the restroom is improving. She has been eating better. We will hold off drawing labs tomorrow as she continues to do well. Unknown length of stay pending ability to wean off of high flow with stable saturations on nasal cannula. Will repeat chest x-ray tomorrow. 06/11/2021 56-year-old female admitted the floor with COVID-19 pneumonia who is currently on high flow 50 L with an FiO2 of 65%. Overnight she was on 40 L with an FiO2 of 45%. Her saturations do decrease rapidly when she exerts herself. No labs were drawn today as her labs have been stable and her inflammatory markers are within normal limits. We will decrease steroid to 40 mg methylprednisolone daily. She continues to utilize her incentive spirometer and Acapella. Her attitude has been very good. She is proning whenever able. Chest x-ray today shows worsening COVID-19 pneumonia on the left side. Unknown length of stay pending improvement in COVID-19 symptoms. 06/12/2021 The patient is a 56-year-old lady who is doing better today. Her oxygen demands still remain high. Last chest x-ray was showing worsening COVID-19 pneumonia. Repeat chest x-ray has been ordered for Monday, June 14, 2021. The patient has been stable today. The patient will have her oxygen titrated to keep her saturations around 92%. We will try to wean the patient off high flow oxygen. Repeat laboratory studies have been ordered. Continue her regular diabetic diet as tolerated. She is on sliding scale insulin. We will continue to decrease the methylprednisolone as the patient continues to improve. The patient has been slow to heal but has been doing well otherwise. The patient will be appropriate to go home once her oxygen demands have improved to at least 2 L via nasal cannula. I explained to the patient that she would likely go home with oxygen. - Plan Plan:: COVID-19 Hypoxemia Elevated D-Dimer, resolved Leukopenia, resolved Elevated lactic acid * O2 as needed with goal saturations 88-95% * Pepcid 20mg BID * Decrease Solu-Medrol to 40 mg daily. Continue to wean * Completed Remdesivir * Actemra given 06/02/2021 * IS/Acapella * Prone whenever able * RT consultation * Telemetry * Continuous pulse ox * Tylenol for fever * Airborne/contact isolation * Ambulate around the room * Will hold off PT and OT for now * Daily labs * Blood cultures negative thus far * CM consultation * Continue high flow * Procalcitonin negative * Blood cultures negative thus far HTN (hypertension) * Hold home lisinopril for now * Monitor vital signs Hyperglycemia Type II DM - new onset * Has had 2 readings with glucose >180 * A1C 7.7 * Email Production Specialist consultation once feeling better * health promotion educator consult once feeling better * Sliding scale high intensity insulin * QID AC and Bedtime blood glucose checks * Anticipate elevations in blood glucose due to steroids * Monitor need for long acting insulin while on steroids S/P hysterectomy History of cervical cancer * No acute concerns Code Status: Full Code PCP: Dr. Davalos DVT prophylaxis: Lovenox Disposition: Admit patient to medical floor on telemetry for management of COVI D-19 pneumonia with hypoxia. Length of stay greater than 96 hours due to worsening Covid symptoms and requirement for treatment.
[2021-06-12] MEDS: Albuterol 6.7 GM Inhaler INH PRN ×3 (07:48→20:22)
[2021-06-12] MEDS: Insulin Lispro 100 UNIT/ML 10 ML Vial SUBCUT SCH ×4 (08:43→21:33)
[2021-06-12] MEDS: methylPREDNISolone Sodium Succinate 40 MG/1 ML SDV IVPUSH SCH (08:45)
[2021-06-12] MEDS: Enoxaparin 40 MG/0.4 ML Syringe SUBCUT SCH (08:45)
[2021-06-12] MEDS: Famotidine 20 MG Tab PO SCH (08:45)
[2021-06-13] MEDS: Insulin Lispro 100 UNIT/ML 10 ML Vial SUBCUT SCH ×4 (06:47→21:41)
--- NOTE | 2021-06-13 06:57 | PCM.PN ---
- General Info Date of Service: 06/13/21 Admission Dx/Problem (Free Text): Admission Diagnosis/Problem Admission Diagnosis/Problem Hypoxia Subjective Update: The patient is a 56-year-old lady who has been in acute hospitalization since June 01, 2021 due to COVID-19 pneumonia. Her recovery course has been slow primarily due to her oxygen demands. The patient has completed treatment. The patient today says that she is feeling better. She still gets short of breath. The patient has been tolerating her diet and has been enjoying extra food brought in from her family. The patient has denied any new pain. She has no other complaints today. Functional Status: Reports: Pain Controlled, Tolerating Diet - Review of Systems General: Reports: No Symptoms HEENT: Reports: No Symptoms Pulmonary: Reports: Shortness of Breath. Denies: Cough, Sputum Cardiovascular: Reports: No Symptoms Gastrointestinal: Reports: No Symptoms Genitourinary: Reports: No Symptoms Musculoskeletal: Reports: No Symptoms Skin: Reports: No Symptoms Neurological: Reports: No Symptoms Psychiatric: Reports: No Symptoms - Patient Data Vitals - Most Recent: Last Vital Signs Temp 36.7 C 06/13/21 03:12 Pulse 81 06/13/21 03:12 Resp 14 06/13/21 03:12 BP 90/70 06/13/21 03:12 Pulse Ox 89 L 06/13/21 03:12 Weight - Most Recent: 61.28 kg I&O - Last 24 Hours: Intake & Output 06/12/21 06/12/21 06/13/21 14:59 22:59 06:59 Intake Total 560 660 375 Balance 560 660 375 Lab Results Last 24 Hours: Laboratory Results - last 24 hr 06/12/21 06/12/21 06/12/21 Range/Units 12:04 17:01 21:20 POC Glucose 250 H 303 H 234 H (70-99) mg/dL 06/13/21 Range/Units 06:26 POC Glucose 121 H (70-99) mg/dL Med Orders - Current: Current Medications Acetaminophen (Acetaminophen 325 Mg Tab) 650 mg PO Q4H PRN PRN Reason: Pain (Mild 1-3)/fever Albuterol (Albuterol 6.7 Gm Inhaler) 0 gm INH Q2H PRN PRN Reason: SOB/Wheezing Last Admin: 06/12/21 20:22 Dose: 2 puff Documented by: Enoxaparin Sodium (Enoxaparin 40 Mg/0.4 Ml Syringe) 40 mg SUBCUT DAILY [facility] Last Admin: 06/12/21 08:45 Dose: 40 mg Documented by: Famotidine (Famotidine 20 Mg Tab) 20 mg PO DAILY [facility] Last Admin: 06/12/21 08:45 Dose: 20 mg Documented by: Insulin Human Lispro (Insulin Lispro 100 Unit/Ml 10 Ml Vial) 0 unit SUBCUT QIDACANDBED [facility]; Protocol Last Admin: 06/13/21 06:47 Dose: Not Given Documented by: Magnesium Hydroxide (Magnesium Hydroxide 400 Mg/5 Ml Susp 30 Ml Cup) 30 ml PO DAILY PRN PRN Reason: Constipation Last Admin: 06/07/21 17:56 Dose: 30 ml Documented by: Methylprednisolone Sodium Succinate (Methylprednisolone Sodium Succinate 40 Mg/1 Ml Sdv) 40 mg IVPUSH DAILY [facility] Last Admin: 06/12/21 08:45 Dose: 40 mg Documented by: Ondansetron HCl (Ondansetron 4 Mg/2 Ml Sdv) 4 mg IV Q6H PRN PRN Reason: Nausea/Vomiting Discontinued Medications Dexamethasone (Dexamethasone 4 Mg Tab) 6 mg PO ONETIME [facility] Stop: 06/01/21 06:31 Last Admin: 06/01/21 06:56 Dose: 6 mg Documented by: Dexamethasone (Dexamethasone 4 Mg Tab) 6 mg PO DAILY [facility] Stop: 06/10/21 09:01 Famotidine (Famotidine 20 Mg Tab) 20 mg PO BID [facility] Last Admin: 06/11/21 09:39 Dose: 20 mg Documented by: Magnesium Sulfate 2 gm/ Premix 50 mls @ 25 mls/hr IV ONETIME ONE Stop: 06/01/21 13:30 Last Admin: 06/01/21 13:30 Dose: 25 mls/hr Documented by: Remdesivir 200 mg/ Sodium (Chloride) 250 mls @ 250 mls/hr IV ONETIME ONE Stop: 06/01/21 16:29 Last Admin: 06/01/21 15:40 Dose: 250 mls/hr Documented by: Remdesivir 100 mg/ Sodium (Chloride) 100 mls @ 100 mls/hr IV Q24H [facility] Stop: 06/05/21 16:29 Last Admin: 06/05/21 14:56 Dose: 100 mls/hr Documented by: Tocilizumab 500 mg/ Sodium (Chloride) 105 mls @ 105 mls/hr IV ONETIME ONE Stop: 06/02/21 08:34 Last Admin: 06/02/21 09:28 Dose: 105 mls/hr Documented by: Lactated Ringer's (Ringers, Lactated) 500 mls @ 999 mls/hr IV .BOLUS ONE Stop: 06/07/21 15:46 Last Admin: 06/07/21 16:43 Dose: 999 mls/hr Documented by: Ceftriaxone Sodium 2 gm/ (Sodium Chloride) 100 mls @ 200 mls/hr IV Q24H [facility] Last Admin: 06/09/21 08:19 Dose: 200 mls/hr Documented by: Lactated Ringer's (Ringers, Lactated) 1,000 mls @ 75 mls/hr IV ASDIRECTED [facility] Stop: 06/08/21 21:04 Last Admin: 06/08/21 09:17 Dose: 75 mls/hr Documented by: Methylprednisolone Sodium Succinate (Methylprednisolone Sodium Succinate 125 Mg/2 Ml Sdv) 125 mg IVPUSH Q12H [facility] Last Admin: 06/04/21 08:07 Dose: 125 mg Documented by: Methylprednisolone Sodium Succinate (Methylprednisolone Sodium Succinate 125 Mg/2 Ml Sdv) 60 mg IVPUSH Q8H [facility] Last Admin: 06/08/21 04:38 Dose: 60 mg Documented by: Methylprednisolone Sodium Succinate (Methylprednisolone Sodium Succinate 125 Mg/2 Ml Sdv) 60 mg IVPUSH BID [facility] Last Admin: 06/09/21 08:19 Dose: 60 mg Documented by: Methylprednisolone Sodium Succinate (Methylprednisolone Sodium Succinate 125 Mg/2 Ml Sdv) 60 mg IVPUSH DAILY [facility] Last Admin: 06/11/21 19:39 Dose: Not Given Documented by: - Exam Quality Assessment: Supplemental Oxygen, DVT Prophylaxis General: Alert, Oriented, Cooperative, No Acute Distress HEENT: Pupils Equal, Pupils Reactive, EOMI, Mucous Membr. Moist/[place] Neck: Supple, Trachea Midline Lungs: Clear to Auscultation, Normal Respiratory Effort Cardiovascular: Regular Rate, Regular Rhythm GI/Abdominal Exam: Normal Bowel Sounds, Soft, Non-Tender, No Distention (Female) Exam: Deferred Back Exam: Normal Inspection, Full Range of Motion Extremities: Normal Inspection, Normal Range of Motion, No Pedal Edema Skin: Warm, Dry, Intact Neurological: No New Focal Deficit, Normal Gait, Normal Speech, Normal Tone Psy/Mental Status: Alert, Normal Affect, Normal Mood - Patient Data Lab Results Last 24 hrs: Laboratory Results - last 24 hr 06/12/21 06/12/21 06/12/21 Range/Units 12:04 17:01 21:20 POC Glucose 250 H 303 H 234 H (70-99) mg/dL 06/13/21 Range/Units 06:26 POC Glucose 121 H (70-99) mg/dL Result Diagrams: 06/13/21 07:10 06/13/21 07:10 Sepsis Event Note - Evaluation Sepsis Screening Result: Possible Sepsis Risk - Focused Exam Vital Signs: Vital Signs Temp Pulse Pulse Resp BP Pulse Ox Pulse Ox 06/13/21 03:12 36.7 C 81 14 90/70 89 L 06/12/21 21:45 96 06/12/21 21:34 36.8 C 108 H 18 100/60 92 L 06/12/21 20:23 88 L - Problem List & Annotations (1) Acute respiratory failure due to COVID-19 SNOMED Code(s): 714036508 Code(s): U07.1 - COVID-19; J96.00 - ACUTE RESPIRATORY FAILURE, UNSP W HYPOXIA OR HYPERCAPNIA Status: Acute Priority: High Current Visit: Yes (2) Elevated d-dimer SNOMED Code(s): 947420940 Code(s): R79.89 - OTHER SPECIFIED ABNORMAL FINDINGS OF BLOOD CHEMISTRY Status: Resolved Priority: High Current Visit: Yes (3) New onset type 2 diabetes mellitus SNOMED Code(s): 21784256 Code(s): E11.9 - TYPE 2 DIABETES MELLITUS WITHOUT COMPLICATIONS Status: Chronic Priority: Medium Current Visit: Yes - Problem List Review Problem List Initiated/Reviewed/Updated: Yes - My Orders Last 24 Hours: My Active Orders 06/13/21 05:11 BASIC METABOLIC PANEL,BMP [CHEM] AM CBC WITH AUTO DIFF [HEME] AM - Assessment Assessment:: Assessment - day of admission 04/01/2021 * 56-year-old female who presents the ED with low saturations after testing positive for COVID-19 * History of hypertension and cervical cancer status post hysterectomy. * On 05/25/2021 she noted fever and chills. * Saw her PCP on 05/26/2021 and blood work was done which she states was normal, however she was not tested for COVID-19 * Utilizing Tylenol and ibuprofen but her symptoms continued * Returned to her PCP on 05/31/2021 where she tested positive for SARS-CoV-2 RNA. * Chest x-ray at that time was obtained and per the patient showed "pneumonia" however the patient is not sure what exactly was seen. * Noted saturations in the 80s this morning and came to the ED as instructed * Reports nonproductive cough but no acute dyspnea or chest pain. She feels weak. Denies any nausea or vomiting. * Has not received the Covid vaccine. * 12-lead EKG is obtained showing sinus tachycardia 107 bpm with no ischemic changes. Temp is 36.9 Celsius. Pulse 97. Respirations 29. Blood pressure 98/64. Pulse ox is 86%, rising to 96% on 1 L. * Labs are obtained: * WBC 4.89 * Hemoglobin 12.0 * Platelet 400,000 * Neutrophils 58% * Sodium 135 * Potassium 3.6 * Chloride 100 * Carbon dioxide 22 * Anion gap 16.6 * BUN 12. Creatinine 0.9. GFR greater than 60 * Glucose 188 * Lactic acid 1.3 * Magnesium 1.8 * Total bilirubin 0.3 * AST is 54, ALT 47, alkaline phosphatase 45. * Troponin less than 0.017 * Protein 8.0 * Albumin 3.1 * CRP 8.4 * Chest x-ray shows bilateral hazy infiltrates consistent with COVID-19 pneumonia * She is given 6 mg dexamethasone. * Admitted to floor on telemetry for management of COVID-19 PNA and hypoxia 06/02/2021: This is a 56-year-old female who presented to ED with low saturations. She is recently been diagnosed with COVID-19 and was sent home with home monitoring. Her saturations were noted to be very low when she presented to her ED and was admitted. In the ED she was noted to have saturations in the low 90s on 2 L of oxygen. On the floor glucose was noted to be high and has been high on prior visits and her A1c was obtained which was 7.7. She was started on sliding scale insulin. Ferritin was 1858. LDH was 408. Today WBC is 5.54. Hemoglobin 12.0. Platelet 441,000. Neutrophils 69.8. Sodium 140. Potassium 4.1. Chloride 105. Carbon dioxide 25. Anion gap 14.1. BUN 16. Creatinine 0.7. GFR greater than 60. Glucose 126-225. Magnesium 2.4. Bilirubin 0.2. AST is 44, ALT 41, alkaline phosphatase 48. CRP is 6.8. Albumin 2.9. Unfortunately patient overnight had significant rapidly deteriorating oxygen saturations and was requiring up to 10 L. She was placed on high flow oxygen and is currently on 50 L with an FiO2 of 50%. Actemra 8 mg/kg was ordered today and her steroids were increased from 6 mg dexamethasone to 125 mg twice daily Solu-Medrol. She has been proning and nursing was instructed to continue to push for this. She does have incentive spirometry and Acapella in the room and has been using it. We will otherwise continue Covid treatment. Chest x-ray today is slightly worse than yesterday. We will check a procalcitonin. Dr. Neal, attending hospitalist, in to discuss plan with patient. Unknown length of stay due to severity of Covid symptoms. 06/03/2021 This is a 56-year-old female admitted to the floor with Covid pneumonia. She also appears to be a new onset diabetic with an A1c of 7.7. UA was obtained and was cloudy with 1+ protein and trace ketones. Urine random microalbumin was o btained and was elevated at 29.7. Blood sugars have been 196-268. We will increase sliding scale insulin to medium intensity. She is neutropenic today with a WBC of 1.39. Hemoglobin 12.6. Platelet 470,000. Neutrophils are 50.4. Sodium 142. Potassium 4.3. Chloride 107. Carbon dioxide 25. Anion gap 14.3. BUN 23. Creatinine 0.8. GFR greater than 60. Calcium 8.5. Magnesium 2.3. Bilirubin 0.2. AST 38, ALT 41, alkaline phosphatase 48. CRP is 3.3. Protein 7.7. Albumin 2.8. We will continue current treatment plan with steroids, high flow, and respiratory exercises. If patient saturations continued to drop we will start her on BiPAP and likely admit her to the ICU at that time. At this point saturations have been in the upper 90s while patient is proning. We will continue to encourage this as well. Unknown length of stay due to duration and severity of Covid 19 pneumonia. 06/04/2021 This is a 56-year-old female admitted for COVID-19 pneumonia. She continues with treatment including Solu-Medrol and remdesivir. We will decrease Solu- Medrol dosing to 60 mg every 8 hours today. Remains on high flow oxygen 50 L and 65% FiO2. This is a improvement over yesterday. She has been proning and utilizing her incentive spirometry/Acapella. She states she feels pretty good overall. Labs today show a continued neutropenia at 2.43. Hemoglobin 13.0. Platelet 485,000. Neutrophils are 60.4%. D-dimer is 0.87. Sodium 144. Potassium 4.3. Chloride 108. Carbon dioxide 26. Anion gap 14.3. BUN 24. Creatinine 0.9. GFR greater than 60. Glucose has been 2 20-2 80 and we will increase her sliding scale tube high intensity. Calcium 8.3. Magnesium 2.4. Total bilirubin 0.3. AST 28, ALT 36, alkaline phosphatase 45. CRP is 1.5. Protein 7.4. Albumin 2.7. We will continue to watch blood sugars and add long- acting insulin if indicated. We will address elevated A1c/diabetes more at discharge. Continue current treatment plan. Unknown length of stay pending continued improvement. 06/05/2021 The patient is a 56-year-old lady who is currently on back 3 of 4 of remdesivir. This will be continued. Her oxygen demands remain high and her oxygen saturations will be kept around 92% with oxygen support. We will attempt to taper oxygen. The patient will be kept on high-dose steroids and these will be tapered as necessary. The patient also has been instructed in the use of incentive spirometer as well as Acapella. The patient has been encouraged to ambulate within the confines of the room. The patient should be appropriate for discharge in 1 to 2 days when her oxygen demands have been improved. The patient will also be kept on the appropriate diabetic diet and insulin sliding scale. The patient has repeat laboratory studies ordered for the morning. 06/06/2021 The patient is a 56-year-old lady who is doing better today. She will remain in hospitalization for at least 1 more day. The patient still requires at least 6 L of oxygen via nasal cannula. It has been noted that she desaturates very quickly. The patient has been recommended to continue with the use of the incentive spirometer as well as the Acapella. The patient will continue on the IV steroids. The patient will continue on DVT prophylaxis. Repeat laboratory studies have been ordered. Her oxygen will remain to maintain her oxygen saturations around 92%. 06/07/2021 This is a 56-year-old female admitted to the floor for treatment of Covid pneumonia. She was doing better yesterday and was actually tolerating nasal cannula, although noted to desaturate quite quickly. Her saturations today have worsened and she is back on high flow 55 L with an FiO2 of 90. WBC is 3.71. Hemoglobin 13.3. Platelet 593,000. BMP has been stable. Blood glucose readings have been from 106 to 328. She remains on high-dose sliding scale insulin and this is ranged from 12 units to not given. She remains on 60 mg every 8 hour Solu-Medrol. We will recheck D-dimer today. Imaging yesterday was grossly stable. Will consider imaging tomorrow. Patient remains on high flow and will be switched to BiPAP if needed. If she does switch to BiPAP we will likely upgrade to ICU status. Unknown length of stay due to worsening Covid symptoms. Continue current treatment plan. 06/08/2021 56-year-old female admitted in continue treatment for COVID-19 pneumonia. Labs today show a WBC of 4.54. Hemoglobin 14.0. Platelet 583,000. D-dimer obtained yesterday was 0.87. Sodium 138. Potassium 4.7. Chloride 102. Carbon dioxide 30. Anion gap 10.7. BUN is 16. Creatinine 0.8. GFR greater than 60. Glucose was 90-306. Lactic acid was obtained yesterday and was elevated at 3.0. Repeat was 2.7 and repeat today was 2.2. CRP has been less than 0.2. Discussed with Dr. Kincaid, attending hospitalist, and patient is started on Rocephin 2 g. We will also give 1 L lactated Ringer's at 75 mL an hour. Chest x-ray obtained today shows slightly worsening Covid pneumonia. Clinically patient is doing better. She reports that she feels better. She reports her appetite is improving. She remains on high flow and we are working on weaning slowly. Currently she is on 50 L with 60% FiO2. She has been proning and utilizing her incentive spirometer and Acapella. Unknown length of stay due to severity of COVID-19 symptoms. Given her inflammatory markers are significantly improved we will start decreasing steroid dosing. 06/09/2021 56-year-old female admitted for COVID-19 pneumonia. Today her lung sounds remain diminished however they are greatly improved. She states her appetite c ontinues to improve and overall she feels pretty good. She remains on high flow oxygen 50 L with an FiO2 of 65%. She has completed her remdesivir treatment. We continue to decrease her steroids. Procalcitonin from 2 days prior return less than 0.05. Therefore it is believed elevated lactic acid level was not due to any infectious cause. We will therefore discontinue IV Rocephin. Labs today show WBC of 5.38. Hemoglobin 13.5. Hematocrit 38.9. Platelets are 521,000. Neutrophils are elevated 76.3%. Sodium 140. Potassium 4.8. Chloride 102. Carbon dioxide 30. Anion gap 12.8. BUN is 20. Creatinine 0.9. GFR is greater than 60. Glucose is 212 273. Magnesium 2.4. CRP is less than 0.2. We will recheck D-dimer tomorrow however will stop daily labs as patient has been quite stable. We will therefore recheck labs as needed in the future. No length of stay due to continued need for high flow oxygenation due to Covid pneumonia. 06/10/2021 This is a 56-year-old female admitted to the floor for COVID-19 pneumonia. Blood sugars have been 128-297. D-dimer was obtained today and was 0.36. Other labs were not checked as she has been very stable. She remains on 50 L of high flow oxygen with FiO2 of 55%. We have been working on weaning this. She has been proning and utilizing her incentive spirometer and Acapella. Blood cultures remain negative. Overall she states she feels okay. She notes that her time to recover after walking to the restroom is improving. She has been eating better. We will hold off drawing labs tomorrow as she continues to do well. Unknown length of stay pending ability to wean off of high flow with stable saturations on nasal cannula. Will repeat chest x-ray tomorrow. 06/11/2021 56-year-old female admitted the floor with COVID-19 pneumonia who is currently on high flow 50 L with an FiO2 of 65%. Overnight she was on 40 L with an FiO2 of 45%. Her saturations do decrease rapidly when she exerts herself. No labs were drawn today as her labs have been stable and her inflammatory markers are within normal limits. We will decrease steroid to 40 mg methylprednisolone daily. She continues to utilize her incentive spirometer and Acapella. Her attitude has been very good. She is proning whenever able. Chest x-ray today shows worsening COVID-19 pneumonia on the left side. Unknown length of stay pending improvement in COVID-19 symptoms. 06/12/2021 The patient is a 56-year-old lady who is doing better today. Her oxygen demands still remain high. Last chest x-ray was showing worsening COVID-19 pneumonia. Repeat chest x-ray has been ordered for Monday, June 14, 2021. The patient has been stable today. The patient will have her oxygen titrated to keep her saturations around 92%. We will try to wean the patient off high flow oxygen. Repeat laboratory studies have been ordered. Continue her regular diabetic diet as tolerated. She is on sliding scale insulin. We will continue to decrease the methylprednisolone as the patient continues to improve. The patient has been slow to heal but has been doing well otherwise. The patient will be appropriate to go home once her oxygen demands have improved to at least 2 L via nasal cannula. I explained to the patient that she would likely go home with oxygen. 06/13/2021 The patient is a 56-year-old lady who has been doing better today. The patient's oxygen demands will continue to be monitored and adjusted in an attempt to wean off high flow oxygen. The patient may likely have to go home on oxygen. The patient has completed remdesivir. Continue on current steroid dose. She is on DVT prophylaxis and this is to continue. Continue with diet as tolerated. Repeat laboratory studies will be ordered Monday as most of her laboratory studies have been within normal limits. The patient should be appropriate for discharge once her oxygen demands have improved. - Plan Plan:: COVID-19 Hypoxemia Elevated D-Dimer, resolved Leukopenia, resolved Elevated lactic acid * O2 as needed with goal saturations 88-95% * Pepcid 20mg BID * Decrease Solu-Medrol to 40 mg daily. Continue to wean * Completed Remdesivir * Actemra given 06/02/2021 * IS/Acapella * Prone whenever able * RT consultation * Telemetry * Continuous pulse ox * Tylenol for fever * Airborne/contact isolation * Ambulate around the room * Will hold off PT and OT for now * Daily labs * Blood cultures negative thus far * CM consultation * Continue high flow * Procalcitonin negative * Blood cultures negative thus far HTN (hypertension) * Hold home lisinopril for now * Monitor vital signs Hyperglycemia Type II DM - new onset * Has had 2 readings with glucose >180 * A1C 7.7 * Sheep Clipper consultation once feeling better * personal development educator consult once feeling better * Sliding scale high intensity insulin * QID AC and Bedtime blood glucose checks * Anticipate elevations in blood glucose due to steroids * Monitor need for long acting insulin while on steroids S/P hysterectomy History of cervical cancer * No acute concerns Code Status: Full Code PCP: Dr. Davalos DVT prophylaxis: Lovenox Disposition: Admit patient to medical floor on telemetry for management of COVID-19 pneumonia with hypoxia. Length of stay greater than 96 hours due to worsening Covid symptoms and requirement for treatment.
[2021-06-13] MEDS: Famotidine 20 MG Tab PO SCH (09:04)
[2021-06-13] MEDS: methylPREDNISolone Sodium Succinate 40 MG/1 ML SDV IVPUSH SCH (09:05)
[2021-06-13] MEDS: Enoxaparin 40 MG/0.4 ML Syringe SUBCUT SCH (09:05)
[2021-06-13] MEDS: Albuterol 6.7 GM Inhaler INH PRN ×3 (09:35→19:51)
[2021-06-14] MEDS: Insulin Lispro 100 UNIT/ML 10 ML Vial SUBCUT SCH ×4 (06:44→21:15)
--- NOTE | 2021-06-14 07:14 | PCM.EKG ---
#1 Interpretation EKG Date: 06/13/21 Time: 15:00 Rhythm: NSR Rate (Beats/Min): 105 [place]: Normal P-Wave: Present QRS: Normal ST-T: Normal QT: Normal EKG Interpretation Comments: Sinus tachycardia
--- NOTE | 2021-06-14 07:45 | PCM.PN ---
<Rommel Jacques - Last Filed: 06/14/21 11:26> - General Info Date of Service: 06/14/21 Admission Dx/Problem (Free Text): Admission Diagnosis/Problem Admission Diagnosis/Problem Hypoxia Functional Status: Reports: Pain Controlled, Tolerating Diet, Ambulating, Urinating, Incentive Spirometry, Other (Acapella ). Denies: New Symptoms - Review of Systems General: Reports: No Symptoms. Denies: Fever, Weakness, Fatigue, Malaise, Chills HEENT: Reports: No Symptoms. Denies: Headaches, Sore Throat Pulmonary: Reports: No Symptoms. Denies: Shortness of Breath, Pleuritic Chest Pain, Cough, Sputum, Wheezing Cardiovascular: Reports: Dyspnea on Exertion. Denies: Chest Pain, Palpitations Gastrointestinal: Reports: No Symptoms. Denies: Abdominal Pain, Constipation, Diarrhea, Nausea, Vomiting Genitourinary: Reports: No Symptoms. Denies: Pain Musculoskeletal: Reports: No Symptoms Skin: Reports: No Symptoms. Denies: Cyanosis Neurological: Reports: No Symptoms. Denies: Confusion, Numbness, Pre-Existing D eficit, Tingling, Difficulty Walking, Weakness, Gait Disturbance Psychiatric: Reports: No Symptoms - Patient Data Vitals - Most Recent: Last Vital Signs Temp 97.9 F 06/14/21 04:00 Pulse 89 06/14/21 04:00 Resp 15 06/14/21 04:00 BP 103/58 L 06/14/21 04:00 Pulse Ox 92 L 06/14/21 04:00 Weight - Most Recent: 61.416 kg I&O - Last 24 Hours: Intake & Output 06/13/21 06/14/21 06/14/21 22:59 06:59 14:59 Intake Total 600 600 Balance 600 600 Lab Results Last 24 Hours: Laboratory Results - last 24 hr 06/13/21 06/13/21 06/13/21 Range/Units 10:52 16:52 21:36 POC Glucose 145 H 343 H 250 H (70-99) mg/dL 06/14/21 Range/Units 06:37 POC Glucose 96 (70-99) mg/dL Med Orders - Current: Current Medications Acetaminophen (Acetaminophen 325 Mg Tab) 650 mg PO Q4H PRN PRN Reason: Pain (Mild 1-3)/fever Albuterol (Albuterol 6.7 Gm Inhaler) 0 gm INH Q2H PRN PRN Reason: SOB/Wheezing Last Admin: 06/13/21 19:51 Dose: 2 puff Documented by: Enoxaparin Sodium (Enoxaparin 40 Mg/0.4 Ml Syringe) 40 mg SUBCUT DAILY [facility] Last Admin: 06/13/21 09:05 Dose: 40 mg Documented by: Famotidine (Famotidine 20 Mg Tab) 20 mg PO DAILY [facility] Last Admin: 06/13/21 09:04 Dose: 20 mg Documented by: Insulin Human Lispro (Insulin Lispro 100 Unit/Ml 10 Ml Vial) 0 unit SUBCUT QI DACANDBED [facility]; Protocol Last Admin: 06/14/21 06:44 Dose: Not Given Documented by: Magnesium Hydroxide (Magnesium Hydroxide 400 Mg/5 Ml Susp 30 Ml Cup) 30 ml PO DAILY PRN PRN Reason: Constipation Last Admin: 06/07/21 17:56 Dose: 30 ml Documented by: Methylprednisolone Sodium Succinate (Methylprednisolone Sodium Succinate 40 Mg/1 Ml Sdv) 40 mg IVPUSH DAILY [facility] Last Admin: 06/13/21 09:05 Dose: 40 mg Documented by: Ondansetron HCl (Ondansetron 4 Mg/2 Ml Sdv) 4 mg IV Q6H PRN PRN Reason: Nausea/Vomiting Discontinued Medications Dexamethasone (Dexamethasone 4 Mg Tab) 6 mg PO ONETIME STA Stop: 06/01/21 06:31 Last Admin: 06/01/21 06:56 Dose: 6 mg Documented by: Dexamethasone (Dexamethasone 4 Mg Tab) 6 mg PO DAILY [facility] Stop: 06/10/21 09:01 Famotidine (Famotidine 20 Mg Tab) 20 mg PO BID [facility] Last Admin: 06/11/21 09:39 Dose: 20 mg Documented by: Magnesium Sulfate 2 gm/ Premix 50 mls @ 25 mls/hr IV ONETIME ONE Stop: 06/01/21 13:30 Last Admin: 06/01/21 13:30 Dose: 25 mls/hr Documented by: Remdesivir 200 mg/ Sodium (Chloride) 250 mls @ 250 mls/hr IV ONETIME ONE Stop: 06/01/21 16:29 Last Admin: 06/01/21 15:40 Dose: 250 mls/hr Documented by: Remdesivir 100 mg/ Sodium (Chloride) 100 mls @ 100 mls/hr IV Q24H [facility] Stop: 06/05/21 16:29 Last Admin: 06/05/21 14:56 Dose: 100 mls/hr Documented by: Tocilizumab 500 mg/ Sodium (Chloride) 105 mls @ 105 mls/hr IV ONETIME ONE Stop: 06/02/21 08:34 Last Admin: 06/02/21 09:28 Dose: 105 mls/hr Documented by: Lactated Ringer's (Ringers, Lactated) 500 mls @ 999 mls/hr IV .BOLUS ONE Stop: 06/07/21 15:46 Last Admin: 06/07/21 16:43 Dose: 999 mls/hr Documented by: Ceftriaxone Sodium 2 gm/ (Sodium Chloride) 100 mls @ 200 mls/hr IV Q24H [facility] Last Admin: 06/09/21 08:19 Dose: 200 mls/hr Documented by: Lactated Ringer's (Ringers, Lactated) 1,000 mls @ 75 mls/hr IV ASDIRECTED [facility] Stop: 06/08/21 21:04 Last Admin: 06/08/21 09:17 Dose: 75 mls/hr Documented by: Methylprednisolone Sodium Succinate (Methylprednisolone Sodium Succinate 125 Mg/2 Ml Sdv) 125 mg IVPUSH Q12H [facility] Last Admin: 06/04/21 08:07 Dose: 125 mg Documented by: Methylprednisolone Sodium Succinate (Methylprednisolone Sodium Succinate 125 Mg/2 Ml Sdv) 60 mg IVPUSH Q8H [facility] Last Admin: 06/08/21 04:38 Dose: 60 mg Documented by: Methylprednisolone Sodium Succinate (Methylprednisolone Sodium Succinate 125 Mg/2 Ml Sdv) 60 mg IVPUSH BID [facility] Last Admin: 06/09/21 08:19 Dose: 60 mg Documented by: Methylprednisolone Sodium Succinate (Methylprednisolone Sodium Succinate 125 Mg/2 Ml Sdv) 60 mg IVPUSH DAILY [facility] Last Admin: 06/11/21 19:39 Dose: Not Given Documented by: - Exam Quality Assessment: Supplemental Oxygen (6L), DVT Prophylaxis General: Alert, Oriented, Cooperative, No Acute Distress HEENT: Pupils Equal, Pupils Reactive, Mucous Membr. Moist/[place] Neck: Supple, Trachea Midline Lungs: Clear to Auscultation, Normal Respiratory Effort Cardiovascular: Regular Rate, Regular Rhythm GI/Abdominal Exam: Normal Bowel Sounds, Soft, Non-Tender, No Distention (Female) Exam: Deferred Back Exam: Normal Inspection, Full Range of Motion Extremities: Normal Inspection, Normal Range of Motion, Non-Tender, No Pedal Edema, Normal Capillary Refill Peripheral Pulses: 2+: Radial (L), Radial (R), Dorsalis Pedis (L), Dorsalis Ped is (R) Skin: Warm, Dry, Intact Neurological: No New Focal Deficit Psy/Mental Status: Alert, Normal Affect, Normal Mood - Patient Data Lab Results Last 24 hrs: Laboratory Results - last 24 hr 06/13/21 06/13/21 06/13/21 Range/Units 10:52 16:52 21:36 POC Glucose 145 H 343 H 250 H (70-99) mg/dL 06/14/21 Range/Units 06:37 POC Glucose 96 (70-99) mg/dL Result Diagrams: 06/13/21 07:10 06/13/21 07:10 Sepsis Event Note - Evaluation Sepsis Screening Result: Possible Sepsis Risk - Focused Exam Vital Signs: Vital Signs Temp Temp Pulse Pulse Resp BP BP 06/14/21 04:00 97.9 F 89 15 103/58 L 06/13/21 21:38 98.1 F 100 13 113/74 06/13/21 19:53 Pulse Ox Pulse Ox 06/14/21 04:00 92 L 06/13/21 21:38 93 L 06/13/21 19:53 92 L - Problem List & Annotations (1) HTN (hypertension) SNOMED Code(s): 93661971 Code(s): I10 - ESSENTIAL (PRIMARY) HYPERTENSION Status: Chronic Priority: Medium Current Visit: Yes Qualifiers: Hypertension type: primary hypertension Qualified Code(s): I10 - Essential (primary) hypertension (2) S/P hysterectomy SNOMED Code(s): 657450446, 778593712, 874052904 Code(s): Z90.710 - ACQUIRED ABSENCE OF BOTH CERVIX AND UTERUS Status: Chronic Priority: Low Current Visit: No (3) History of cervical cancer Status: Chronic Priority: Low Current Visit: No (4) COVID-19 SNOMED Code(s): 695184311 Code(s): U07.1 - COVID-19 Status: Acute Priority: High Current Visit: Yes (5) Hyperglycemia SNOMED Code(s): 18880269 Code(s): R73.9 - HYPERGLYCEMIA, UNSPECIFIED Status: Acute Current Visit: No (6) Hypoxemia SNOMED Code(s): 264044348 Code(s): R09.02 - HYPOXEMIA Status: Acute Current Visit: No (7) New onset type 2 diabetes mellitus SNOMED Code(s): 89622633 Code(s): E11.9 - TYPE 2 DIABETES MELLITUS WITHOUT COMPLICATIONS Status: Chronic Priority: Medium Current Visit: Yes (8) Elevated d-dimer SNOMED Code(s): 472307262 Code(s): R79.89 - OTHER SPECIFIED ABNORMAL FINDINGS OF BLOOD CHEMISTRY Status: Resolved Priority: High Current Visit: Yes (9) Leukopenia SNOMED Code(s): 28024922, 513699556 Code(s): D72.819 - DECREASED WHITE BLOOD CELL COUNT, UNSPECIFIED Status: Resolved Priority: High Current Visit: Yes Qualifiers: Leukopenia type: neutropenia Neutropenia type: due to infection Qualified Code(s): D70.3 - Neutropenia due to infection (10) Elevated lactic acid level SNOMED Code(s): 9926399 Code(s): R79.89 - OTHER SPECIFIED ABNORMAL FINDINGS OF BLOOD CHEMISTRY Status: Acute Priority: High Current Visit: Yes - Problem List Review Problem List Initiated/Reviewed/Updated: Yes - Assessment Assessment:: Assessment - day of admission 04/01/2021 * 56-year-old female who presents the ED with low saturations after testing positive for COVID-19 * History of hypertension and cervical cancer status post hysterectomy. * On 05/25/2021 she noted fever and chills. * Saw her PCP on 05/26/2021 and blood work was done which she states was normal, however she was not tested for COVID-19 * Utilizing Tylenol and ibuprofen but her symptoms continued * Returned to her PCP on 05/31/2021 where she tested positive for SARS-CoV-2 RNA. * Chest x-ray at that time was obtained and per the patient showed "pneumonia" however the patient is not sure what exactly was seen. * Noted saturations in the 80s this morning and came to the ED as instructed * Reports nonproductive cough but no acute dyspnea or chest pain. She feels w eak. Denies any nausea or vomiting. * Has not received the Covid vaccine. * 12-lead EKG is obtained showing sinus tachycardia 107 bpm with no ischemic changes. Temp is 36.9 Celsius. Pulse 97. Respirations 29. Blood pressure 98/64. Pulse ox is 86%, rising to 96% on 1 L. * Labs are obtained: * WBC 4.89 * Hemoglobin 12.0 * Platelet 400,000 * Neutrophils 58% * Sodium 135 * Potassium 3.6 * Chloride 100 * Carbon dioxide 22 * Anion gap 16.6 * BUN 12. Creatinine 0.9. GFR greater than 60 * Glucose 188 * Lactic acid 1.3 * Magnesium 1.8 * Total bilirubin 0.3 * AST is 54, ALT 47, alkaline phosphatase 45. * Troponin less than 0.017 * Protein 8.0 * Albumin 3.1 * CRP 8.4 * Chest x-ray shows bilateral hazy infiltrates consistent with COVID-19 pneumonia * She is given 6 mg dexamethasone. * Admitted to floor on telemetry for management of COVID-19 PNA and hypoxia 06/02/2021: This is a 56-year-old female who presented to ED with low saturations. She is recently been diagnosed with COVID-19 and was sent home with home monitoring. Her saturations were noted to be very low when she presented to her ED and was admitted. In the ED she was noted to have saturations in the low 90s on 2 L of oxygen. On the floor glucose was noted to be high and has been high on prior visits and her A1c was obtained which was 7.7. She was started on sliding scale insulin. Ferritin was 1858. LDH was 408. Today WBC is 5.54. Hemoglobin 12.0. Platelet 441,000. Neutrophils 69.8. Sodium 140. Potassium 4.1. Chloride 105. Carbon dioxide 25. Anion gap 14.1. BUN 16. Creatinine 0.7. GFR greater than 60. Glucose 126-225. Magnesium 2.4. Bilirubin 0.2. AST is 44, ALT 41, alkaline phosphatase 48. CRP is 6.8. Albumin 2.9. Unfortunately patient overnight had significant rapidly deteriorating oxygen saturations and was requiring up to 10 L. She was placed on high flow oxygen and is currently on 50 L with an FiO2 of 50%. Actemra 8 mg/kg was ordered today and her steroids were increased from 6 mg dexamethasone to 125 mg twice daily Solu-Medrol. She has been proning and nursing was instructed to continue to push for this. She does have incentive spirometry and Acapella in the room and has been using it. We will otherwise continue Covid treatment. Chest x-ray today is slightly worse than yesterday. We will check a procalcitonin. Dr. Neal, attending hospitalist, in to discuss plan with patient. Unknown length of stay due to severity of Covid symptoms. 06/03/2021 This is a 56-year-old female admitted to the floor with Covid pneumonia. She also appears to be a new onset diabetic with an A1c of 7.7. UA was obtained and was cloudy with 1+ protein and trace ketones. Urine random microalbumin was obtained and was elevated at 29.7. Blood sugars have been 196-268. We will increase sliding scale insulin to medium intensity. She is neutropenic today with a WBC of 1.39. Hemoglobin 12.6. Platelet 470,000. Neutrophils are 50.4. Sodium 142. Potassium 4.3. Chloride 107. Carbon dioxide 25. Anion gap 14.3. BUN 23. Creatinine 0.8. GFR greater than 60. Calcium 8.5. Magnesium 2.3. Bilirubin 0.2. AST 38, ALT 41, alkaline phosphatase 48. CRP is 3.3. Protein 7.7. Albumin 2.8. We will continue current treatment plan with steroids, high flow, and respiratory exercises. If patient saturations continued to drop we will start her on BiPAP and likely admit her to the ICU at that time. At this point saturations have been in the upper 90s while patient is proning. We will continue to encourage this as well. Unknown length of stay due to duration and severity of Covid 19 pneumonia. 06/04/2021 This is a 56-year-old female admitted for COVID-19 pneumonia. She continues with treatment including Solu-Medrol and remdesivir. We will decrease Solu- Medrol dosing to 60 mg every 8 hours today. Remains on high flow oxygen 50 L and 65% FiO2. This is a improvement over yesterday. She has been proning and utilizing her incentive spirometry/Acapella. She states she feels pretty good overall. Labs today show a continued neutropenia at 2.43. Hemoglobin 13.0. Platelet 485,000. Neutrophils are 60.4%. D-dimer is 0.87. Sodium 144. Potassium 4.3. Chloride 108. Carbon dioxide 26. Anion gap 14.3. BUN 24. Creatinine 0.9. GFR greater than 60. Glucose has been 2 20-2 80 and we will increase her sliding scale tube high intensity. Calcium 8.3. Magnesium 2.4. Total bilirubin 0.3. AST 28, ALT 36, alkaline phosphatase 45. CRP is 1.5. Protein 7.4. Albumin 2.7. We will continue to watch blood sugars and add long- acting insulin if indicated. We will address elevated A1c/diabetes more at discharge. Continue current treatment plan. Unknown length of stay pending continued improvement. 06/05/2021 The patient is a 56-year-old lady who is currently on back 3 of 4 of remdesivir. This will be continued. Her oxygen demands remain high and her oxygen saturations will be kept around 92% with oxygen support. We will attempt to taper oxygen. The patient will be kept on high-dose steroids and these will be tapered as necessary. The patient also has been instructed in the use of incentive spirometer as well as Acapella. The patient has been encouraged to ambulate within the confines of the room. The patient should be appropriate for discharge in 1 to 2 days when her oxygen demands have been improved. The patient will also be kept on the appropriate diabetic diet and insulin sliding scale. The patient has repeat laboratory studies ordered for the morning. 06/06/2021 The patient is a 56-year-old lady who is doing better today. She will remain in hospitalization for at least 1 more day. The patient still requires at least 6 L of oxygen via nasal cannula. It has been noted that she desaturates very quickly. The patient has been recommended to continue with the use of the incentive spirometer as well as the Acapella. The patient will continue on the IV steroids. The patient will continue on DVT prophylaxis. Repeat laboratory studies have been ordered. Her oxygen will remain to maintain her oxygen saturations around 92%. 06/07/2021 This is a 56-year-old female admitted to the floor for treatment of Covid pneumonia. She was doing better yesterday and was actually tolerating nasal cannula, although noted to desaturate quite quickly. Her saturations today have worsened and she is back on high flow 55 L with an FiO2 of 90. WBC is 3.71. Hemoglobin 13.3. Platelet 593,000. BMP has been stable. Blood glucose readings have been from 106 to 328. She remains on high-dose sliding scale insulin and this is ranged from 12 units to not given. She remains on 60 mg every 8 hour Solu-Medrol. We will recheck D-dimer today. Imaging yesterday was grossly stable. Will consider imaging tomorrow. Patient remains on high flow and will be switched to BiPAP if needed. If she does switch to BiPAP we will likely upgrade to ICU status. Unknown length of stay due to worsening Covid symptoms. Continue current treatment plan. 06/08/2021 56-year-old female admitted in continue treatment for COVID-19 pneumonia. Labs today show a WBC of 4.54. Hemoglobin 14.0. Platelet 583,000. D-dimer obtained yesterday was 0.87. Sodium 138. Potassium 4.7. Chloride 102. Carbon dioxide 30. Anion gap 10.7. BUN is 16. Creatinine 0.8. GFR greater than 60. Glucose was 90-306. Lactic acid was obtained yesterday and was elevated at 3.0. Repeat was 2.7 and repeat today was 2.2. CRP has been less than 0.2. Discussed with Dr. Kincaid, attending hospitalist, and patient is started on Rocephin 2 g. We will also give 1 L lactated Ringer's at 75 mL an hour. Chest x-ray obtained today shows slightly worsening Covid pneumonia. Clinically patient is doing better. She reports that she feels better. She reports her appetite is improving. She remains on high flow and we are working on weaning slowly. Currently she is on 50 L with 60% FiO2. She has been proning and utilizing her incentive spirometer and Acapella. Unknown length of stay due to severity of COVID-19 symptoms. Given her inflammatory markers are significantly improved we will start decreasing steroid dosing. 06/09/2021 56-year-old female admitted for COVID-19 pneumonia. Today her lung sounds r emain diminished however they are greatly improved. She states her appetite continues to improve and overall she feels pretty good. She remains on high flow oxygen 50 L with an FiO2 of 65%. She has completed her remdesivir treatment. We continue to decrease her steroids. Procalcitonin from 2 days prior return less than 0.05. Therefore it is believed elevated lactic acid level was not due to any infectious cause. We will therefore discontinue IV Rocephin. Labs today show WBC of 5.38. Hemoglobin 13.5. Hematocrit 38.9. Platelets are 521,000. Neutrophils are elevated 76.3%. Sodium 140. Potassium 4.8. Chloride 102. Carbon dioxide 30. Anion gap 12.8. BUN is 20. Creatinine 0.9. GFR is greater than 60. Glucose is 212 273. Magnesium 2.4. CRP is less than 0.2. We will recheck D-dimer tomorrow however will stop daily labs as patient has been quite stable. We will therefore recheck labs as needed in the future. No length of stay due to continued need for high flow oxygenation due to Covid pneumonia. 06/10/2021 This is a 56-year-old female admitted to the floor for COVID-19 pneumonia. Blood sugars have been 128-297. D-dimer was obtained today and was 0.36. Other labs were not checked as she has been very stable. She remains on 50 L of high flow oxygen with FiO2 of 55%. We have been working on weaning this. She has been proning and utilizing her incentive spirometer and Acapella. Blood cultures remain negative. Overall she states she feels okay. She notes that her time to recover after walking to the restroom is improving. She has been eating better. We will hold off drawing labs tomorrow as she continues to do well. Unknown length of stay pending ability to wean off of high flow with stable saturations on nasal cannula. Will repeat chest x-ray tomorrow. 06/11/2021 56-year-old female admitted the floor with COVID-19 pneumonia who is currently on high flow 50 L with an FiO2 of 65%. Overnight she was on 40 L with an FiO2 of 45%. Her saturations do decrease rapidly when she exerts herself. No labs were drawn today as her labs have been stable and her inflammatory markers are within normal limits. We will decrease steroid to 40 mg methylprednisolone daily. She continues to utilize her incentive spirometer and Acapella. Her attitude has been very good. She is proning whenever able. Chest x-ray today shows worsening COVID-19 pneumonia on the left side. Unknown length of stay pending improvement in COVID-19 symptoms. 06/12/2021 The patient is a 56-year-old lady who is doing better today. Her oxygen demands still remain high. Last chest x-ray was showing worsening COVID-19 pneumonia. Repeat chest x-ray has been ordered for Monday, June 14, 2021. The patient has been stable today. The patient will have her oxygen titrated to keep her saturations around 92%. We will try to wean the patient off high flow oxygen. Repeat laboratory studies have been ordered. Continue her regular diabetic diet as tolerated. She is on sliding scale insulin. We will continue to decrease the methylprednisolone as the patient continues to improve. The patient has been slow to heal but has been doing well otherwise. The patient will be appropriate to go home once her oxygen demands have improved to at least 2 L via nasal cannula. I explained to the patient that she would likely go home with oxygen. 06/13/2021 The patient is a 56-year-old lady who has been doing better today. The patient's oxygen demands will continue to be monitored and adjusted in an attempt to wean off high flow oxygen. The patient may likely have to go home on oxygen. The patient has completed remdesivir. Continue on current steroid dose. She is on DVT prophylaxis and this is to continue. Continue with diet as tolerated. Repeat laboratory studies will be ordered Monday as most of her laboratory studies have been within normal limits. The patient should be appropriate for discharge once her oxygen demands have improved. 06/14/2021 56-year-old female admitted to the floor for Covid pneumonia treatment. She has been weaned down to 6 L via nasal cannula off of high flow. We will continue to wean her steroid dosing down to 30 mg daily. No labs were obtained today and she remains clinically very stable. She states that her energy and breathing have continued to improve. She has been utilizing her incentive spirometer and Acapella. No acute concerns. She will remain hospitalized until her oxygen demand decreases down to a level appropriate for home. Goal would be 2 L or less. Unknown total length of stay. Per nursing she may come off of airborne and contact isolation tomorrow. - Plan Plan:: COVID-19 Hypoxemia Elevated D-Dimer, resolved Leukopenia, resolved Elevated lactic acid * O2 as needed with goal saturations 88-95% * Pepcid 20mg BID * Decrease Solu-Medrol to 40 mg daily. Continue to wean * Completed Remdesivir * Actemra given 06/02/2021 * IS/Acapella * Prone whenever able * RT consultation * Telemetry * Continuous pulse ox * Tylenol for fever * Airborne/contact isolation * Ambulate around the room * Will hold off PT and OT for now * Daily labs * Blood cultures negative thus far * CM consultation * Continue high flow * Procalcitonin negative * Blood cultures negative thus far HTN (hypertension) * Hold home lisinopril for now * Monitor vital signs Hyperglycemia Type II DM - new onset * Has had 2 readings with glucose >180 * A1C 7.7 * [employer] consultation once feeling better * asthma educator consult once feeling better * Sliding scale high intensity insulin * QID AC and Bedtime blood glucose checks * Anticipate elevations in blood glucose due to steroids * Monitor need for long acting insulin while on steroids S/P hysterectomy History of cervical cancer * No acute concerns Code Status: Full Code PCP: Dr. Davalos DVT prophylaxis: Lovenox Disposition: Admit patient to medical floor on telemetry for management of COVID-19 pneumonia with hypoxia. Length of stay greater than 96 hours due to worsening Covid symptoms and requirement for treatment. <Pablito Kincaid - Last Filed: 06/14/21 18:14> - Patient Data Vitals - Most Recent: Last Vital Signs Temp 36.9 C 06/14/21 14:49 Pulse 104 H 06/14/21 14:49 Resp 16 06/14/21 14:49 BP 128/85 06/14/21 14:49 Pulse Ox 100 06/14/21 16:41 I&O - Last 24 Hours: Intake & Output 06/14/21 06/14/21 06/14/21 06:59 14:59 22:59 Intake Total 600 800 Balance 600 800 Lab Results Last 24 Hours: Laboratory Results - last 24 hr 06/13/21 06/14/21 06/14/21 Range/Units 21:36 06:37 10:14 POC Glucose 250 H 96 192 H (70-99) mg/dL 06/14/21 Range/Units 16:58 POC Glucose 320 H (70-99) mg/dL Med Orders - Current: Current Medications Acetaminophen (Acetaminophen 325 Mg Tab) 650 mg PO Q4H PRN PRN Reason: Pain (Mild 1-3)/fever Albuterol (Albuterol 6.7 Gm Inhaler) 0 gm INH Q2H PRN PRN Reason: SOB/Wheezing Last Admin: 06/14/21 16:39 Dose: 2 puff Documented by: Enoxaparin Sodium (Enoxaparin 40 Mg/0.4 Ml Syringe) 40 mg SUBCUT DAILY [facility] Last Admin: 06/14/21 09:14 Dose: 40 mg Documented by: Famotidine (Famotidine 20 Mg Tab) 20 mg PO DAILY [facility] Last Admin: 06/14/21 09:15 Dose: 20 mg Documented by: Insulin Human Lispro (Insulin Lispro 100 Unit/Ml 10 Ml Vial) 0 unit SUBCUT QIDACANDBED [facility]; Protocol Last Admin: 06/14/21 17:34 Dose: 12 unit Documented by: Magnesium Hydroxide (Magnesium Hydroxide 400 Mg/5 Ml Susp 30 Ml Cup) 30 ml PO DAILY PRN PRN Reason: Constipation Last Admin: 06/07/21 17:56 Dose: 30 ml Documented by: Methylprednisolone Sodium Succinate (Methylprednisolone Sodium Succinate 40 Mg/1 Ml Sdv) 30 mg IVPUSH DAILY [facility] Ondansetron HCl (Ondansetron 4 Mg/2 Ml Sdv) 4 mg IV Q6H PRN PRN Reason: Nausea/Vomiting Discontinued Medications Dexamethasone (Dexamethasone 4 Mg Tab) 6 mg PO ONETIME STA Stop: 06/01/21 06:31 Last Admin: 06/01/21 06:56 Dose: 6 mg Documented by: Dexamethasone (Dexamethasone 4 Mg Tab) 6 mg PO DAILY [facility] Stop: 06/10/21 09:01 Famotidine (Famotidine 20 Mg Tab) 20 mg PO BID [facility] Last Admin: 06/11/21 09:39 Dose: 20 mg Documented by: Magnesium Sulfate 2 gm/ Premix 50 mls @ 25 mls/hr IV ONETIME ONE Stop: 06/01/21 13:30 Last Admin: 06/01/21 13:30 Dose: 25 mls/hr Documented by: Remdesivir 200 mg/ Sodium (Chloride) 250 mls @ 250 mls/hr IV ONETIME ONE Stop: 06/01/21 16:29 Last Admin: 06/01/21 15:40 Dose: 250 mls/hr Documented by: Remdesivir 100 mg/ Sodium (Chloride) 100 mls @ 100 mls/hr IV Q24H [facility] Stop: 06/05/21 16:29 Last Admin: 06/05/21 14:56 Dose: 100 mls/hr Documented by: Tocilizumab 500 mg/ Sodium (Chloride) 105 mls @ 105 mls/hr IV ONETIME ONE Stop: 06/02/21 08:34 Last Admin: 06/02/21 09:28 Dose: 105 mls/hr Documented by: Lactated Ringer's (Ringers, Lactated) 500 mls @ 999 mls/hr IV .BOLUS ONE Stop: 06/07/21 15:46 Last Admin: 06/07/21 16:43 Dose: 999 mls/hr Documented by: Ceftriaxone Sodium 2 gm/ (Sodium Chloride) 100 mls @ 200 mls/hr IV Q24H [facility] Last Admin: 06/09/21 08:19 Dose: 200 mls/hr Documented by: Lactated Ringer's (Ringers, Lactated) 1,000 mls @ 75 mls/hr IV ASDIRECTED [facility] Stop: 06/08/21 21:04 Last Admin: 06/08/21 09:17 Dose: 75 mls/hr Documented by: Methylprednisolone Sodium Succinate (Methylprednisolone Sodium Succinate 125 Mg/2 Ml Sdv) 125 mg IVPUSH Q12H [facility] Last Admin: 06/04/21 08:07 Dose: 125 mg Documented by: Methylprednisolone Sodium Succinate (Methylprednisolone Sodium Succinate 125 Mg/2 Ml Sdv) 60 mg IVPUSH Q8H [facility] Last Admin: 06/08/21 04:38 Dose: 60 mg Documented by: Methylprednisolone Sodium Succinate (Methylprednisolone Sodium Succinate 125 Mg/2 Ml Sdv) 60 mg IVPUSH BID [facility] Last Admin: 06/09/21 08:19 Dose: 60 mg Documented by: Methylprednisolone Sodium Succinate (Methylprednisolone Sodium Succinate 125 Mg/2 Ml Sdv) 60 mg IVPUSH DAILY [facility] Last Admin: 06/11/21 19:39 Dose: Not Given Documented by: Methylprednisolone Sodium Succinate (Methylprednisolone Sodium Succinate 40 Mg/1 Ml Sdv) 40 mg IVPUSH DAILY [facility] Last Admin: 06/14/21 09:15 Dose: 40 mg Documented by: - Patient Data Lab Results Last 24 hrs: Laboratory Results - last 24 hr 06/13/21 06/14/21 06/14/21 Range/Units 21:36 06:37 10:14 POC Glucose 250 H 96 192 H (70-99) mg/dL 06/14/21 Range/Units 16:58 POC Glucose 320 H (70-99) mg/dL Result Diagrams: 06/13/21 07:10 06/13/21 07:10 Sepsis Event Note - Focused Exam Vital Signs: Vital Signs Temp Pulse Resp BP Pulse Ox Pulse Ox 06/14/21 16:41 100 06/14/21 14:49 36.9 C 104 H 16 128/85 87 L 06/14/21 13:02 36.8 C 96 20 118/81 96 06/14/21 12:49 93 L 06/14/21 09:12 36.8 C 103 H 19 101/54 L 89 L 06/14/21 08:28 94 L - Problem List & Annotations (1) Acute respiratory failure due to COVID-19 SNOMED Code(s): 832669957 Code(s): U07.1 - COVID-19; J96.00 - ACUTE RESPIRATORY FAILURE, UNSP W HYPOXIA OR HYPERCAPNIA Status: Acute Priority: High Current Visit: Yes (2) Elevated d-dimer SNOMED Code(s): 776847812 Code(s): R79.89 - OTHER SPECIFIED ABNORMAL FINDINGS OF BLOOD CHEMISTRY Status: Resolved Priority: High Current Visit: Yes (3) New onset type 2 diabetes mellitus SNOMED Code(s): 10230677 Code(s): E11.9 - TYPE 2 DIABETES MELLITUS WITHOUT COMPLICATIONS Status: Chronic Priority: Medium Current Visit: Yes - Free Text/Narrative Note: I have seen and examined the patient independently of Rommel Jacques PA-C and have discussed the case with him. I have reviewed and agree with the orders and plan of care outlined by him. Please see orders.
[2021-06-14] MEDS: Albuterol 6.7 GM Inhaler INH PRN ×2 (08:28→16:39)
[2021-06-14] MEDS: Enoxaparin 40 MG/0.4 ML Syringe SUBCUT SCH (09:14)
[2021-06-14] MEDS: Famotidine 20 MG Tab PO SCH (09:15)
[2021-06-14] MEDS: methylPREDNISolone Sodium Succinate 40 MG/1 ML SDV IVPUSH SCH (09:15)
--- NOTE | 2021-06-15 07:17 | PCM.PN ---
<Rommel Jacques - Last Filed: 06/15/21 09:24> - General Info Date of Service: 06/15/21 Admission Dx/Problem (Free Text): Admission Diagnosis/Problem Admission Diagnosis/Problem Hypoxia Functional Status: Reports: Pain Controlled, Tolerating Diet, Ambulating, Urinating, Incentive Spirometry, Other (Acapella ). Denies: New Symptoms - Review of Systems General: Reports: No Symptoms. Denies: Fever, Weakness, Fatigue, Malaise, Chills HEENT: Reports: No Symptoms. Denies: Headaches, Sore Throat Pulmonary: Reports: Cough. Denies: Shortness of Breath, Sputum, Wheezing Cardiovascular: Reports: No Symptoms, Dyspnea on Exertion. Denies: Chest Pain, Palpitations, Edema, Lightheadedness Gastrointestinal: Reports: No Symptoms. Denies: Abdominal Pain, Constipation, Diarrhea, Nausea, Vomiting Genitourinary: Reports: No Symptoms. Denies: Pain Musculoskeletal: Reports: No Symptoms Skin: Reports: No Symptoms. Denies: Cyanosis Neurological: Reports: No Symptoms. Denies: Confusion, Numbness, Pre-Existing Deficit, Tingling, Difficulty Walking, Weakness, Gait Disturbance Psychiatric: Reports: No Symptoms - Patient Data Vitals - Most Recent: Last Vital Signs Temp 97.5 F 06/14/21 20:54 Pulse 108 H 06/14/21 20:54 Resp 18 06/14/21 20:54 BP 129/71 06/14/21 20:54 Pulse Ox 96 06/15/21 06:22 Weight - Most Recent: 135 lb 6.4 oz I&O - Last 24 Hours: Intake & Output 06/14/21 06/15/21 06/15/21 22:59 06:59 14:59 Intake Total 800 300 Balance 800 300 Lab Results Last 24 Hours: Laboratory Results - last 24 hr 06/14/21 06/14/21 06/14/21 Range/Units 10:14 16:58 21:00 POC Glucose 192 H 320 H 272 H (70-99) mg/dL 06/15/21 Range/Units 06:00 POC Glucose 104 H (70-99) mg/dL Med Orders - Current: Current Medications Acetaminophen (Acetaminophen 325 Mg Tab) 650 mg PO Q4H PRN PRN Reason: Pain (Mild 1-3)/fever Albuterol (Albuterol 6.7 Gm Inhaler) 0 gm INH Q2H PRN PRN Reason: SOB/Wheezing Last Admin: 06/14/21 16:39 Dose: 2 puff Documented by: Enoxaparin Sodium (Enoxaparin 40 Mg/0.4 Ml Syringe) 40 mg SUBCUT DAILY [facility] Last Admin: 06/14/21 09:14 Dose: 40 mg Documented by: Famotidine (Famotidine 20 Mg Tab) 20 mg PO DAILY [facility] Last Admin: 06/14/21 09:15 Dose: 20 mg Documented by: Insulin Human Lispro (Insulin Lispro 100 Unit/Ml 10 Ml Vial) 0 unit SUBCUT QIDACANDBED [facility]; Protocol Last Admin: 06/14/21 21:15 Dose: 9 unit Documented by: Magnesium Hydroxide (Magnesium Hydroxide 400 Mg/5 Ml Susp 30 Ml Cup) 30 ml PO DAILY PRN PRN Reason: Constipation Last Admin: 06/07/21 17:56 Dose: 30 ml Documented by: Methylprednisolone Sodium Succinate (Methylprednisolone Sodium Succinate 40 Mg/1 Ml Sdv) 30 mg IVPUSH DAILY [facility] Ondansetron HCl (Ondansetron 4 Mg/2 Ml Sdv) 4 mg IV Q6H PRN PRN Reason: Nausea/Vomiting Discontinued Medications Dexamethasone (Dexamethasone 4 Mg Tab) 6 mg PO ONETIME STA Stop: 06/01/21 06:31 Last Admin: 06/01/21 06:56 Dose: 6 mg Documented by: Dexamethasone (Dexamethasone 4 Mg Tab) 6 mg PO DAILY [facility] Stop: 06/10/21 09:01 Famotidine (Famotidine 20 Mg Tab) 20 mg PO BID [facility] Last Admin: 06/11/21 09:39 Dose: 20 mg Documented by: Magnesium Sulfate 2 gm/ Premix 50 mls @ 25 mls/hr IV ONETIME ONE Stop: 06/01/21 13:30 Last Admin: 06/01/21 13:30 Dose: 25 mls/hr Documented by: Remdesivir 200 mg/ Sodium (Chloride) 250 mls @ 250 mls/hr IV ONETIME ONE Stop: 06/01/21 16:29 Last Admin: 06/01/21 15:40 Dose: 250 mls/hr Documented by: Remdesivir 100 mg/ Sodium (Chloride) 100 mls @ 100 mls/hr IV Q24H [facility] Stop: 06/05/21 16:29 Last Admin: 06/05/21 14:56 Dose: 100 mls/hr Documented by: Tocilizumab 500 mg/ Sodium (Chloride) 105 mls @ 105 mls/hr IV ONETIME ONE Stop: 06/02/21 08:34 Last Admin: 06/02/21 09:28 Dose: 105 mls/hr Documented by: Lactated Ringer's (Ringers, Lactated) 500 mls @ 999 mls/hr IV .BOLUS ONE Stop: 06/07/21 15:46 Last Admin: 06/07/21 16:43 Dose: 999 mls/hr Documented by: Ceftriaxone Sodium 2 gm/ (Sodium Chloride) 100 mls @ 200 mls/hr IV Q24H [facility] Last Admin: 06/09/21 08:19 Dose: 200 mls/hr Documented by: Lactated Ringer's (Ringers, Lactated) 1,000 mls @ 75 mls/hr IV ASDIRECTED [facility] Stop: 06/08/21 21:04 Last Admin: 06/08/21 09:17 Dose: 75 mls/hr Documented by: Methylprednisolone Sodium Succinate (Methylprednisolone Sodium Succinate 125 Mg/2 Ml Sdv) 125 mg IVPUSH Q12H [facility] Last Admin: 06/04/21 08:07 Dose: 125 mg Documented by: Methylprednisolone Sodium Succinate (Methylprednisolone Sodium Succinate 125 Mg/2 Ml Sdv) 60 mg IVPUSH Q8H [facility] Last Admin: 06/08/21 04:38 Dose: 60 mg Documented by: Methylprednisolone Sodium Succinate (Methylprednisolone Sodium Succinate 125 Mg/2 Ml Sdv) 60 mg IVPUSH BID [facility] Last Admin: 06/09/21 08:19 Dose: 60 mg Documented by: Methylprednisolone Sodium Succinate (Methylprednisolone Sodium Succinate 125 Mg/2 Ml Sdv) 60 mg IVPUSH DAILY [facility] Last Admin: 06/11/21 19:39 Dose: Not Given Documented by: Methylprednisolone Sodium Succinate (Methylprednisolone Sodium Succinate 40 Mg/1 Ml Sdv) 40 mg IVPUSH DAILY [facility] Last Admin: 06/14/21 09:15 Dose: 40 mg Documented by: - Exam Quality Assessment: Supplemental Oxygen (3L), DVT Prophylaxis General: Alert, Oriented, Cooperative, No Acute Distress HEENT: Pupils Equal, Pupils Reactive, Mucous Membr. Moist/[place] Neck: Supple, Trachea Midline Lungs: Normal Respiratory Effort, Decreased Breath Sounds (improving ). No: Crackles, Rhonchi, Wheezing Cardiovascular: Regular Rate, Regular Rhythm GI/Abdominal Exam: Normal Bowel Sounds, Soft, Non-Tender, No Distention (Female) Exam: Deferred Back Exam: Normal Inspection, Full Range of Motion Extremities: Normal Inspection, Normal Range of Motion, Non-Tender, No Pedal Edema, Normal Capillary Refill Peripheral Pulses: 2+: Radial (L), Radial (R), Dorsalis Pedis (L), Dorsalis Pedis (R) Skin: Warm, Dry, Intact Neurological: No New Focal Deficit Psy/Mental Status: Alert, Normal Affect, Normal Mood - Patient Data Lab Results Last 24 hrs: Laboratory Results - last 24 hr 06/14/21 06/14/21 06/14/21 Range/Units 10:14 16:58 21:00 POC Glucose 192 H 320 H 272 H (70-99) mg/dL 06/15/21 Range/Units 06:00 POC Glucose 104 H (70-99) mg/dL Result Diagrams: 06/13/21 07:10 06/13/21 07:10 Sepsis Event Note - Evaluation Sepsis Screening Result: No Definite Risk - Focused Exam Vital Signs: Vital Signs Temp Pulse Resp BP Pulse Ox Pulse Ox 06/15/21 06:22 96 06/15/21 01:40 98 06/14/21 20:54 97.5 F 108 H 18 129/71 93 L 06/14/21 20:08 92 L - Problem List & Annotations (1) HTN (hypertension) SNOMED Code(s): 06091886 Code(s): I10 - ESSENTIAL (PRIMARY) HYPERTENSION Status: Chronic Priority: Medium Current Visit: Yes Qualifiers: Hypertension type: primary hypertension Qualified Code(s): I10 - Essential (primary) hypertension (2) S/P hysterectomy SNOMED Code(s): 323160774, 219263942, 559986078 Code(s): Z90.710 - ACQUIRED ABSENCE OF BOTH CERVIX AND UTERUS Status: Chronic Priority: Low Current Visit: No (3) History of cervical cancer Status: Chronic Priority: Low Current Visit: No (4) COVID-19 SNOMED Code(s): 992660787 Code(s): U07.1 - COVID-19 Status: Acute Priority: High Current Visit: Yes (5) Hyperglycemia SNOMED Code(s): 35571052 Code(s): R73.9 - HYPERGLYCEMIA, UNSPECIFIED Status: Acute Current Visit: No (6) Hypoxemia SNOMED Code(s): 106413239 Code(s): R09.02 - HYPOXEMIA Status: Acute Current Visit: No (7) New onset type 2 diabetes mellitus SNOMED Code(s): 88151905 Code(s): E11.9 - TYPE 2 DIABETES MELLITUS WITHOUT COMPLICATIONS Status: Chronic Priority: Medium Current Visit: Yes (8) Elevated d-dimer SNOMED Code(s): 892228774 Code(s): R79.89 - OTHER SPECIFIED ABNORMAL FINDINGS OF BLOOD CHEMISTRY Status: Resolved Priority: High Current Visit: Yes (9) Leukopenia SNOMED Code(s): 16120089, 922250337 Code(s): D72.819 - DECREASED WHITE BLOOD CELL COUNT, UNSPECIFIED Status: Resolved Priority: High Current Visit: Yes Qualifiers: Leukopenia type: neutropenia Neutropenia type: due to infection Qualified Code(s): D70.3 - Neutropenia due to infection (10) Elevated lactic acid level SNOMED Code(s): 5695626 Code(s): R79.89 - OTHER SPECIFIED ABNORMAL FINDINGS OF BLOOD CHEMISTRY Status: Acute Priority: High Current Visit: Yes - Problem List Review Problem List Initiated/Reviewed/Updated: Yes - My Orders Last 24 Hours: My Active Orders 06/15/21 09:00 methylPREDNISolone Sod Succ [Solu-MEDROL] 30 mg IVPUSH DAILY - Assessment Assessment:: Assessment - day of admission 04/01/2021 * 56-year-old female who presents the ED with low saturations after testing positive for COVID-19 * History of hypertension and cervical cancer status post hysterectomy. * On 05/25/2021 she noted fever and chills. * Saw her PCP on 05/26/2021 and blood work was done which she states was normal, however she was not tested for COVID-19 * Utilizing Tylenol and ibuprofen but her symptoms continued * Returned to her PCP on 05/31/2021 where she tested positive for SARS-CoV-2 RNA. * Chest x-ray at that time was obtained and per the patient showed "pneumonia" however the patient is not sure what exactly was seen. * Noted saturations in the 80s this morning and came to the ED as instructed * Reports nonproductive cough but no acute dyspnea or chest pain. She feels weak. Denies any nausea or vomiting. * Has not received the Covid vaccine. * 12-lead EKG is obtained showing sinus tachycardia 107 bpm with no ischemic changes. Temp is 36.9 Celsius. Pulse 97. Respirations 29. Blood pressure 98/64. Pulse ox is 86%, rising to 96% on 1 L. * Labs are obtained: * WBC 4.89 * Hemoglobin 12.0 * Platelet 400,000 * Neutrophils 58% * Sodium 135 * Potassium 3.6 * Chloride 100 * Carbon dioxide 22 * Anion gap 16.6 * BUN 12. Creatinine 0.9. GFR greater than 60 * Glucose 188 * Lactic acid 1.3 * Magnesium 1.8 * Total bilirubin 0.3 * AST is 54, ALT 47, alkaline phosphatase 45. * Troponin less than 0.017 * Protein 8.0 * Albumin 3.1 * CRP 8.4 * Chest x-ray shows bilateral hazy infiltrates consistent with COVID-19 pneumonia * She is given 6 mg dexamethasone. * Admitted to floor on telemetry for management of COVID-19 PNA and hypoxia 06/02/2021: This is a 56-year-old female who presented to ED with low saturations. She is recently been diagnosed with COVID-19 and was sent home with home monitoring. Her saturations were noted to be very low when she presented to her ED and was admitted. In the ED she was noted to have saturations in the low 90s on 2 L of oxygen. On the floor glucose was noted to be high and has been high on prior visits and her A1c was obtained which was 7.7. She was started on sliding scale insulin. Ferritin was 1858. LDH was 408. Today WBC is 5.54. Hemoglobin 12.0. Platelet 441,000. Neutrophils 69.8. Sodium 140. Potassium 4.1. Chloride 105. Carbon dioxide 25. Anion gap 14.1. BUN 16. Creatinine 0.7. GFR greater than 60. Glucose 126-225. Magnesium 2.4. Bilirubin 0.2. AST is 44, ALT 41, alkaline phosphatase 48. CRP is 6.8. Albumin 2.9. Unfortunately patient overnight had significant rapidly deteriorating oxygen saturations and was requiring up to 10 L. She was placed on high flow oxygen and is currently on 50 L with an FiO2 of 50%. Actemra 8 mg/kg was ordered today and her steroids were increased from 6 mg dexamethasone to 125 mg twice daily Solu-Medrol. She has been proning and nursing was instructed to continue to push for this. She does have incentive spirometry and Acapella in the room and has been using it. We will otherwise continue Covid treatment. Chest x-ray today is slightly worse than yesterday. We will check a procalcitonin. Dr. Neal, attending hospitalist, in to discuss plan with patient. Unknown length of stay due to severity of Covid symptoms. 06/03/2021 This is a 56-year-old female admitted to the floor with Covid pneumonia. She also appears to be a new onset diabetic with an A1c of 7.7. UA was obtained and was cloudy with 1+ protein and trace ketones. Urine random microalbumin was obtained and was elevated at 29.7. Blood sugars have been 196-268. We will increase sliding scale insulin to medium intensity. She is neutropenic today with a WBC of 1.39. Hemoglobin 12.6. Platelet 470,000. Neutrophils are 50.4. Sodium 142. Potassium 4.3. Chloride 107. Carbon dioxide 25. Anion gap 14.3. BUN 23. Creatinine 0.8. GFR greater than 60. Calcium 8.5. Magnesium 2.3. Bilirubin 0.2. AST 38, ALT 41, alkaline phosphatase 48. CRP is 3.3. Protein 7.7. Albumin 2.8. We will continue current treatment plan with steroids, high flow, and respiratory exercises. If patient saturations continued to drop we will start her on BiPAP and likely admit her to the ICU at that time. At this point saturations have been in the upper 90s while patient is proning. We will continue to encourage this as well. Unknown length of stay due to duration and severity of Covid 19 pneumonia. 06/04/2021 This is a 56-year-old female admitted for COVID-19 pneumonia. She continues with treatment including Solu-Medrol and remdesivir. We will decrease Solu- Medrol dosing to 60 mg every 8 hours today. Remains on high flow oxygen 50 L and 65% FiO2. This is a improvement over yesterday. She has been proning and utilizing her incentive spirometry/Acapella. She states she feels pretty good overall. Labs today show a continued neutropenia at 2.43. Hemoglobin 13.0. Platelet 485,000. Neutrophils are 60.4%. D-dimer is 0.87. Sodium 144. Potassium 4.3. Chloride 108. Carbon dioxide 26. Anion gap 14.3. BUN 24. Creatinine 0.9. GFR greater than 60. Glucose has been 2 20-2 80 and we will increase her sliding scale tube high intensity. Calcium 8.3. Magnesium 2.4. Total bilirubin 0.3. AST 28, ALT 36, alkaline phosphatase 45. CRP is 1.5. Protein 7.4. Albumin 2.7. We will continue to watch blood sugars and add long- acting insulin if indicated. We will address elevated A1c/diabetes more at discharge. Continue current treatment plan. Unknown length of stay pending continued improvement. 06/05/2021 The patient is a 56-year-old lady who is currently on back 3 of 4 of remdesivir. This will be continued. Her oxygen demands remain high and her oxygen saturati ons will be kept around 92% with oxygen support. We will attempt to taper oxygen. The patient will be kept on high-dose steroids and these will be tapered as necessary. The patient also has been instructed in the use of incentive spirometer as well as Acapella. The patient has been encouraged to ambulate within the confines of the room. The patient should be appropriate for discharge in 1 to 2 days when her oxygen demands have been improved. The patient will also be kept on the appropriate diabetic diet and insulin sliding scale. The patient has repeat laboratory studies ordered for the morning. 06/06/2021 The patient is a 56-year-old lady who is doing better today. She will remain in hospitalization for at least 1 more day. The patient still requires at least 6 L of oxygen via nasal cannula. It has been noted that she desaturates very quickly. The patient has been recommended to continue with the use of the incentive spirometer as well as the Acapella. The patient will continue on the IV steroids. The patient will continue on DVT prophylaxis. Repeat laboratory studies have been ordered. Her oxygen will remain to maintain her oxygen saturations around 92%. 06/07/2021 This is a 56-year-old female admitted to the floor for treatment of Covid pneumonia. She was doing better yesterday and was actually tolerating nasal cannula, although noted to desaturate quite quickly. Her saturations today have worsened and she is back on high flow 55 L with an FiO2 of 90. WBC is 3.71. Hemoglobin 13.3. Platelet 593,000. BMP has been stable. Blood glucose readings have been from 106 to 328. She remains on high-dose sliding scale insulin and this is ranged from 12 units to not given. She remains on 60 mg every 8 hour Solu-Medrol. We will recheck D-dimer today. Imaging yesterday was grossly stable. Will consider imaging tomorrow. Patient remains on high flow and will be switched to BiPAP if needed. If she does switch to BiPAP we will likely upgrade to ICU status. Unknown length of stay due to worsening Covid symptoms. Continue current treatment plan. 06/08/2021 56-year-old female admitted in continue treatment for COVID-19 pneumonia. Labs today show a WBC of 4.54. Hemoglobin 14.0. Platelet 583,000. D-dimer obtained yesterday was 0.87. Sodium 138. Potassium 4.7. Chloride 102. Carbon dioxide 30. Anion gap 10.7. BUN is 16. Creatinine 0.8. GFR greater than 60. Glucose was 90-306. Lactic acid was obtained yesterday and was elevated at 3.0. Repeat was 2.7 and repeat today was 2.2. CRP has been less than 0.2. Discussed with Dr. Kincaid, attending hospitalist, and patient is started on Rocephin 2 g. We will also give 1 L lactated Ringer's at 75 mL an hour. Chest x-ray obtained today shows slightly worsening Covid pneumonia. Clinically patient is doing better. She reports that she feels better. She reports her appetite is improving. She remains on high flow and we are working on weaning slowly. Currently she is on 50 L with 60% FiO2. She has been proning and utilizing her incentive spirometer and Acapella. Unknown length of stay due to severity of COVID-19 symptoms. Given her inflammatory markers are significantly improved we will start decreasing steroid dosing. 06/09/2021 56-year-old female admitted for COVID-19 pneumonia. Today her lung sounds remain diminished however they are greatly improved. She states her appetite continues to improve and overall she feels pretty good. She remains on high flow oxygen 50 L with an FiO2 of 65%. She has completed her remdesivir treatment. We continue to decrease her steroids. Procalcitonin from 2 days prior return less than 0.05. Therefore it is believed elevated lactic acid level was not due to any infectious cause. We will therefore discontinue IV Rocephin. Labs today show WBC of 5.38. Hemoglobin 13.5. Hematocrit 38.9. Platelets are 521,000. Neutrophils are elevated 76.3%. Sodium 140. Potassium 4.8. Chloride 102. Carbon dioxide 30. Anion gap 12.8. BUN is 20. Creatinine 0.9. GFR is greater than 60. Glucose is 212 273. Magnesium 2.4. CRP is less than 0.2. We will recheck D-dimer tomorrow however will stop daily labs as patient has been quite stable. We will therefore recheck labs as needed in the future. No length of stay due to continued need for high flow oxygenation due to Covid pneumonia. 06/10/2021 This is a 56-year-old female admitted to the floor for COVID-19 pneumonia. Bloo d sugars have been 128-297. D-dimer was obtained today and was 0.36. Other labs were not checked as she has been very stable. She remains on 50 L of high flow oxygen with FiO2 of 55%. We have been working on weaning this. She has been proning and utilizing her incentive spirometer and Acapella. Blood cultures remain negative. Overall she states she feels okay. She notes that her time to recover after walking to the restroom is improving. She has been eating better. We will hold off drawing labs tomorrow as she continues to do well. Unknown length of stay pending ability to wean off of high flow with stable saturations on nasal cannula. Will repeat chest x-ray tomorrow. 06/11/2021 56-year-old female admitted the floor with COVID-19 pneumonia who is currently on high flow 50 L with an FiO2 of 65%. Overnight she was on 40 L with an FiO2 of 45%. Her saturations do decrease rapidly when she exerts herself. No labs were drawn today as her labs have been stable and her inflammatory markers are within normal limits. We will decrease steroid to 40 mg methylprednisolone daily. She continues to utilize her incentive spirometer and Acapella. Her attitude has been very good. She is proning whenever able. Chest x-ray today shows worsening COVID-19 pneumonia on the left side. Unknown length of stay pending improvement in COVID-19 symptoms. 06/12/2021 The patient is a 56-year-old lady who is doing better today. Her oxygen demands still remain high. Last chest x-ray was showing worsening COVID-19 pneumonia. Repeat chest x-ray has been ordered for Monday, June 14, 2021. The patient has been stable today. The patient will have her oxygen titrated to keep her saturations around 92%. We will try to wean the patient off high flow oxygen. Repeat laboratory studies have been ordered. Continue her regular diabetic diet as tolerated. She is on sliding scale insulin. We will continue to decrease the methylprednisolone as the patient continues to improve. The patient has been slow to heal but has been doing well otherwise. The patient will be appropriate to go home once her oxygen demands have improved to at least 2 L via nasal cannula. I explained to the patient that she would likely go home with oxygen. 06/13/2021 The patient is a 56-year-old lady who has been doing better today. The patient's oxygen demands will continue to be monitored and adjusted in an attempt to wean off high flow oxygen. The patient may likely have to go home on oxygen. The patient has completed remdesivir. Continue on current steroid dose. She is on DVT prophylaxis and this is to continue. Continue with diet as tolerated. Repeat laboratory studies will be ordered Monday as most of her laboratory studies have been within normal limits. The patient should be appropriate for discharge once her oxygen demands have improved. 06/14/2021 56-year-old female admitted to the floor for Covid pneumonia treatment. She has been weaned down to 6 L via nasal cannula off of high flow. We will continue to wean her steroid dosing down to 30 mg daily. No labs were obtained today and she remains clinically very stable. She states that her energy and breathing have continued to improve. She has been utilizing her incentive spirometer and Acapella. No acute concerns. She will remain hospitalized until her oxygen demand decreases down to a level appropriate for home. Goal would be 2 L or less. Unknown total length of stay. Per nursing she may come off of airborne and contact isolation tomorrow. 06/15/2021 This is a 56-year-old female who has been admitted to the floor for Covid pneumonia treatment. Today she is down to 3 L. We will continue her steroid to decrease. No labs were obtained today as she remains very stable. She is eating well and her energy is improving. She reports she has dyspnea on exertion but otherwise feels good. Isolation was discontinued today as it has been 20 days since her symptom onset. She will continue hospitalization until her oxygen demand has improved. Goal would be 2 L or less. Possible discharge in 1 to 2 days pending continued improvement. - Plan Plan:: COVID-19 Hypoxemia Elevated D-Dimer, resolved Leukopenia, resolved Elevated lactic acid * O2 as needed with goal saturations 88-95% * Pepcid 20mg BID * Decrease Solu-Medrol to 30 mg daily. Continue to wean * Completed Remdesivir * Actemra given 06/02/2021 * IS/Acapella * Prone whenever able * RT consultation * Telemetry * Continuous pulse ox * Tylenol for fever * Discontinue airborne/contact isolation * Ambulate * Blood cultures negative thus far * CM consultation * Procalcitonin negative * Blood cultures negative thus far HTN (hypertension) * Hold home lisinopril for now * Monitor vital signs Hyperglycemia Type II DM - new onset * Has had 2 readings with glucose >180 * A1C 7.7 * [employer] consultation * informatics educator consult * Sliding scale high intensity insulin * QID AC and Bedtime blood glucose checks * Anticipate elevations in blood glucose due to steroids S/P hysterectomy History of cervical cancer * No acute concerns Code Status: Full Code PCP: Dr. Davalos DVT prophylaxis: Lovenox Disposition: Admit patient to medical floor on telemetry for management of C OVID-19 pneumonia with hypoxia. Hopeful for discharge in 1-2 days. Length of stay greater than 96 hours due to worsening Covid symptoms and requirement for treatment. <Justina Moore - Last Filed: 06/15/21 12:29> - Patient Data Vitals - Most Recent: Last Vital Signs Temp 97.5 F 06/15/21 09:08 Pulse 103 H 06/15/21 09:08 Resp 16 06/15/21 09:08 BP 95/67 06/15/21 09:08 Pulse Ox 90 L 06/15/21 09:08 I&O - Last 24 Hours: Intake & Output 06/14/21 06/15/21 06/15/21 22:59 06:59 14:59 Intake Total 980 300 Balance 980 300 Lab Results Last 24 Hours: Laboratory Results - last 24 hr 06/14/21 06/14/21 06/15/21 Range/Units 16:58 21:00 06:00 POC Glucose 320 H 272 H 104 H (70-99) mg/dL 06/15/21 Range/Units 10:28 POC Glucose 133 H (70-99) mg/dL Med Orders - Current: Current Medications Acetaminophen (Acetaminophen 325 Mg Tab) 650 mg PO Q4H PRN PRN Reason: Pain (Mild 1-3)/fever Albuterol (Albuterol 6.7 Gm Inhaler) 0 gm INH Q2H PRN PRN Reason: SOB/Wheezing Last Admin: 06/15/21 07:50 Dose: 2 puff Documented by: Enoxaparin Sodium (Enoxaparin 40 Mg/0.4 Ml Syringe) 40 mg SUBCUT DAILY [facility] Last Admin: 06/15/21 08:23 Dose: 40 mg Documented by: Famotidine (Famotidine 20 Mg Tab) 20 mg PO DAILY [facility] Last Admin: 06/15/21 08:24 Dose: 20 mg Documented by: Insulin Human Lispro (Insulin Lispro 100 Unit/Ml 10 Ml Vial) 0 unit SUBCUT QIDACANDBED [facility]; Protocol Last Admin: 06/15/21 07:58 Dose: Not Given Documented by: Magnesium Hydroxide (Magnesium Hydroxide 400 Mg/5 Ml Susp 30 Ml Cup) 30 ml PO DAILY PRN PRN Reason: Constipation Last Admin: 06/07/21 17:56 Dose: 30 ml Documented by: Methylprednisolone Sodium Succinate (Methylprednisolone Sodium Succinate 40 Mg/1 Ml Sdv) 30 mg IVPUSH DAILY [facility] Last Admin: 06/15/21 08:24 Dose: 30 mg Documented by: Ondansetron HCl (Ondansetron 4 Mg/2 Ml Sdv) 4 mg IV Q6H PRN PRN Reason: Nausea/Vomiting Discontinued Medications Dexamethasone (Dexamethasone 4 Mg Tab) 6 mg PO ONETIME [facility] Stop: 06/01/21 06:31 Last Admin: 06/01/21 06:56 Dose: 6 mg Documented by: Dexamethasone (Dexamethasone 4 Mg Tab) 6 mg PO DAILY [facility] Stop: 06/10/21 09:01 Famotidine (Famotidine 20 Mg Tab) 20 mg PO BID [facility] Last Admin: 06/11/21 09:39 Dose: 20 mg Documented by: Magnesium Sulfate 2 gm/ Premix 50 mls @ 25 mls/hr IV ONETIME ONE Stop: 06/01/21 13:30 Last Admin: 06/01/21 13:30 Dose: 25 mls/hr Documented by: Remdesivir 200 mg/ Sodium (Chloride) 250 mls @ 250 mls/hr IV ONETIME ONE Stop: 06/01/21 16:29 Last Admin: 06/01/21 15:40 Dose: 250 mls/hr Documented by: Remdesivir 100 mg/ Sodium (Chloride) 100 mls @ 100 mls/hr IV Q24H [facility] Stop: 06/05/21 16:29 Last Admin: 06/05/21 14:56 Dose: 100 mls/hr Documented by: Tocilizumab 500 mg/ Sodium (Chloride) 105 mls @ 105 mls/hr IV ONETIME ONE Stop: 06/02/21 08:34 Last Admin: 06/02/21 09:28 Dose: 105 mls/hr Documented by: Lactated Ringer's (Ringers, Lactated) 500 mls @ 999 mls/hr IV .BOLUS ONE Stop: 06/07/21 15:46 Last Admin: 06/07/21 16:43 Dose: 999 mls/hr Documented by: Ceftriaxone Sodium 2 gm/ (Sodium Chloride) 100 mls @ 200 mls/hr IV Q24H [facility] Last Admin: 06/09/21 08:19 Dose: 200 mls/hr Documented by: Lactated Ringer's (Ringers, Lactated) 1,000 mls @ 75 mls/hr IV ASDIRECTED [facility] Stop: 06/08/21 21:04 Last Admin: 06/08/21 09:17 Dose: 75 mls/hr Documented by: Methylprednisolone Sodium Succinate (Methylprednisolone Sodium Succinate 125 Mg/2 Ml Sdv) 125 mg IVPUSH Q12H [facility] Last Admin: 06/04/21 08:07 Dose: 125 mg Documented by: Methylprednisolone Sodium Succinate (Methylprednisolone Sodium Succinate 125 Mg/2 Ml Sdv) 60 mg IVPUSH Q8H [facility] Last Admin: 06/08/21 04:38 Dose: 60 mg Documented by: Methylprednisolone Sodium Succinate (Methylprednisolone Sodium Succinate 125 Mg/2 Ml Sdv) 60 mg IVPUSH BID [facility] Last Admin: 06/09/21 08:19 Dose: 60 mg Documented by: Methylprednisolone Sodium Succinate (Methylprednisolone Sodium Succinate 125 Mg/2 Ml Sdv) 60 mg IVPUSH DAILY [facility] Last Admin: 06/11/21 19:39 Dose: Not Given Documented by: Methylprednisolone Sodium Succinate (Methylprednisolone Sodium Succinate 40 Mg/1 Ml Sdv) 40 mg IVPUSH DAILY [facility] Last Admin: 06/14/21 09:15 Dose: 40 mg Documented by: - Patient Data Lab Results Last 24 hrs: Laboratory Results - last 24 hr 06/14/21 06/14/21 06/15/21 Range/Units 16:58 21:00 06:00 POC Glucose 320 H 272 H 104 H (70-99) mg/dL 06/15/21 Range/Units 10:28 POC Glucose 133 H (70-99) mg/dL Result Diagrams: 06/13/21 07:10 06/13/21 07:10 Sepsis Event Note - Focused Exam Vital Signs: Vital Signs Temp Pulse Resp BP Pulse Ox Pulse Ox 06/15/21 09:08 97.5 F 103 H 16 95/67 90 L 06/15/21 08:42 86 L 06/15/21 07:51 95 06/15/21 07:27 29 H 06/15/21 06:22 96 06/15/21 01:40 98 - Plan Plan:: 06/15/2021 patient was seen and examined, agree with assessment and plan. No changes in present treatment management at this time. Exam: Pulmonary: Clear to auscultation bilaterally cardiovascular: Regular rate rhythm, S1-S2 Abdominal: Soft, nontender, nondistended. Extremity no edema Skin: No rash, warm, dry
[2021-06-15] MEDS: Albuterol 6.7 GM Inhaler INH PRN ×2 (07:50→15:03)
[2021-06-15] MEDS: Insulin Lispro 100 UNIT/ML 10 ML Vial SUBCUT SCH ×4 (07:58→21:28)
[2021-06-15] MEDS: Enoxaparin 40 MG/0.4 ML Syringe SUBCUT SCH (08:23)
[2021-06-15] MEDS: methylPREDNISolone Sodium Succinate 40 MG/1 ML SDV IVPUSH SCH (08:24)
[2021-06-15] MEDS: Famotidine 20 MG Tab PO SCH (08:24)
[2021-06-16] MEDS: Insulin Lispro 100 UNIT/ML 10 ML Vial SUBCUT SCH ×2 (06:48→12:31)
--- NOTE | 2021-06-16 07:17 | PCM.PN ---
- General Info Date of Service: 06/16/21 Admission Dx/Problem (Free Text): Admission Diagnosis/Problem Admission Diagnosis/Problem Hypoxia - Patient Data Vitals - Most Recent: Last Vital Signs Temp 98.1 F 06/16/21 06:27 Pulse 83 06/16/21 06:27 Resp 18 06/16/21 06:27 BP 123/87 06/16/21 06:27 Pulse Ox 89 L 06/16/21 06:27 Weight - Most Recent: 135 lb 6.4 oz I&O - Last 24 Hours: Intake & Output 06/15/21 06/16/21 06/16/21 22:59 06:59 14:59 Intake Total 800 Balance 800 Lab Results Last 24 Hours: Laboratory Results - last 24 hr 06/15/21 06/15/21 06/15/21 Range/Units 10:28 16:12 21:21 WBC (3.98-10.04) K/mm3 RBC (3.98-5.22) M/mm3 Hgb (11.2-15.7) gm/dl Hct (34.1-44.9) % MCV (79.4-94.8) fl MCH (25.6-32.2) pg MCHC (32.2-35.5) g/dl RDW Std Deviation (36.4-46.3) fL Plt Count (182-369) K/mm3 MPV (9.4-12.3) fl Neut % (Auto) (34.0-71.1) % Lymph % (Auto) (19.3-51.7) % Stokes % (Auto) (4.7-12.5) % Eos % (Auto) (0.7-5.8) Baso % (Auto) (0.1-1.2) % Neut # (Auto) (1.56-6.13) K/mm3 Lymph # (Auto) (1.18-3.74) K/mm3 Stokes # (Auto) (0.24-0.36) K/mm3 Eos # (Auto) (0.04-0.36) K/mm3 Baso # (Auto) (0.01-0.08) K/mm3 Sodium (136-145) mEq/L Potassium (3.5-5.1) mEq/L Chloride (98-107) mEq/L Carbon Dioxide (21-32) mEq/L Anion Gap (5-15) BUN (7-18) mg/dL Creatinine (0.55-1.02) mg/dL Est Cr Clr Drug Dosing mL/min Estimated GFR (MDRD) (>60) mL/min BUN/Creatinine Ratio (14-18) Glucose (70-99) mg/dL POC Glucose 133 H 336 H 233 H (70-99) mg/dL Calcium (8.5-10.1) mg/dL Magnesium (1.8-2.4) mg/dL Total Bilirubin (0.2-1.0) mg/dL AST (15-37) U/L ALT (14-59) U/L Alkaline Phosphatase (46-116) U/L Total Protein (6.4-8.2) g/dl Albumin (3.4-5.0) g/dl Globulin gm/dL Albumin/Globulin Ratio (1-2) 06/16/21 06/16/21 06/16/21 Range/Units 04:43 04:43 06:16 WBC 4.60 (3.98-10.04) K/mm3 RBC 4.22 (3.98-5.22) M/mm3 Hgb 12.7 (11.2-15.7) gm/dl Hct 37.9 (34.1-44.9) % MCV 89.8 (79.4-94.8) fl MCH 30.1 (25.6-32.2) pg MCHC 33.5 (32.2-35.5) g/dl RDW Std Deviation 43.0 (36.4-46.3) fL Plt Count 288 (182-369) K/mm3 MPV 10.0 (9.4-12.3) fl Neut % (Auto) 36.3 (34.0-71.1) % Lymph % (Auto) 45.0 (19.3-51.7) % Stokes % (Auto) 17.6 H (4.7-12.5) % Eos % (Auto) 0.4 L (0.7-5.8) Baso % (Auto) 0.0 L (0.1-1.2) % Neut # (Auto) 1.67 (1.56-6.13) K/mm3 Lymph # (Auto) 2.07 (1.18-3.74) K/mm3 Stokes # (Auto) 0.81 H (0.24-0.36) K/mm3 Eos # (Auto) 0.02 L (0.04-0.36) K/mm3 Baso # (Auto) 0.00 L (0.01-0.08) K/mm3 Sodium 143 (136-145) mEq/L Potassium 4.0 (3.5-5.1) mEq/L Chloride 106 (98-107) mEq/L Carbon Dioxide 30 (21-32) mEq/L Anion Gap 11.0 (5-15) BUN 16 (7-18) mg/dL Creatinine 0.8 (0.55-1.02) mg/dL Est Cr Clr Drug Dosing 55.06 mL/min Estimated GFR (MDRD) > 60 (>60) mL/min BUN/Creatinine Ratio 20.0 H (14-18) Glucose 102 H (70-99) mg/dL POC Glucose 110 H (70-99) mg/dL Calcium 8.2 L (8.5-10.1) mg/dL Magnesium 2.3 (1.8-2.4) mg/dL Total Bilirubin 0.6 (0.2-1.0) mg/dL AST 25 (15-37) U/L ALT 85 H (14-59) U/L Alkaline Phosphatase 57 (46-116) U/L Total Protein 6.1 L (6.4-8.2) g/dl Albumin 2.8 L (3.4-5.0) g/dl Globulin 3.3 gm/dL Albumin/Globulin Ratio 0.9 L (1-2) Med Orders - Current: Current Medications Acetaminophen (Acetaminophen 325 Mg Tab) 650 mg PO Q4H PRN PRN Reason: Pain (Mild 1-3)/fever Albuterol (Albuterol 6.7 Gm Inhaler) 0 gm INH Q2H PRN PRN Reason: SOB/Wheezing Last Admin: 06/15/21 15:03 Dose: 2 puff Documented by: Enoxaparin Sodium (Enoxaparin 40 Mg/0.4 Ml Syringe) 40 mg SUBCUT DAILY [facility] Last Admin: 06/15/21 08:23 Dose: 40 mg Documented by: Famotidine (Famotidine 20 Mg Tab) 20 mg PO DAILY [facility] Last Admin: 06/15/21 08:24 Dose: 20 mg Documented by: Insulin Human Lispro (Insulin Lispro 100 Unit/Ml 10 Ml Vial) 0 unit SUBCUT QIDACANDBED [facility]; Protocol Last Admin: 06/16/21 06:48 Dose: Not Given Documented by: Magnesium Hydroxide (Magnesium Hydroxide 400 Mg/5 Ml Susp 30 Ml Cup) 30 ml PO DAILY PRN PRN Reason: Constipation Last Admin: 06/07/21 17:56 Dose: 30 ml Documented by: Methylprednisolone Sodium Succinate (Methylprednisolone Sodium Succinate 40 Mg/1 Ml Sdv) 30 mg IVPUSH DAILY [facility] Last Admin: 06/15/21 08:24 Dose: 30 mg Documented by: Ondansetron HCl (Ondansetron 4 Mg/2 Ml Sdv) 4 mg IV Q6H PRN PRN Reason: Nausea/Vomiting Discontinued Medications Dexamethasone (Dexamethasone 4 Mg Tab) 6 mg PO ONETIME STA Stop: 06/01/21 06:31 Last Admin: 06/01/21 06:56 Dose: 6 mg Documented by: Dexamethasone (Dexamethasone 4 Mg Tab) 6 mg PO DAILY [facility] Stop: 06/10/21 09:01 Famotidine (Famotidine 20 Mg Tab) 20 mg PO BID [facility] Last Admin: 06/11/21 09:39 Dose: 20 mg Documented by: Magnesium Sulfate 2 gm/ Premix 50 mls @ 25 mls/hr IV ONETIME ONE Stop: 06/01/21 13:30 Last Admin: 06/01/21 13:30 Dose: 25 mls/hr Documented by: Remdesivir 200 mg/ Sodium (Chloride) 250 mls @ 250 mls/hr IV ONETIME ONE Stop: 06/01/21 16:29 Last Admin: 06/01/21 15:40 Dose: 250 mls/hr Documented by: Remdesivir 100 mg/ Sodium (Chloride) 100 mls @ 100 mls/hr IV Q24H [facility] Stop: 06/05/21 16:29 Last Admin: 06/05/21 14:56 Dose: 100 mls/hr Documented by: Tocilizumab 500 mg/ Sodium (Chloride) 105 mls @ 105 mls/hr IV ONETIME ONE Stop: 06/02/21 08:34 Last Admin: 06/02/21 09:28 Dose: 105 mls/hr Documented by: Lactated Ringer's (Ringers, Lactated) 500 mls @ 999 mls/hr IV .BOLUS ONE Stop: 06/07/21 15:46 Last Admin: 06/07/21 16:43 Dose: 999 mls/hr Documented by: Ceftriaxone Sodium 2 gm/ (Sodium Chloride) 100 mls @ 200 mls/hr IV Q24H [facility] Last Admin: 06/09/21 08:19 Dose: 200 mls/hr Documented by: Lactated Ringer's (Ringers, Lactated) 1,000 mls @ 75 mls/hr IV ASDIRECTED [facility] Stop: 06/08/21 21:04 Last Admin: 06/08/21 09:17 Dose: 75 mls/hr Documented by: Methylprednisolone Sodium Succinate (Methylprednisolone Sodium Succinate 125 Mg/2 Ml Sdv) 125 mg IVPUSH Q12H [facility] Last Admin: 06/04/21 08:07 Dose: 125 mg Documented by: Methylprednisolone Sodium Succinate (Methylprednisolone Sodium Succinate 125 Mg/2 Ml Sdv) 60 mg IVPUSH Q8H [facility] Last Admin: 06/08/21 04:38 Dose: 60 mg Documented by: Methylprednisolone Sodium Succinate (Methylprednisolone Sodium Succinate 125 Mg/2 Ml Sdv) 60 mg IVPUSH BID [facility] Last Admin: 06/09/21 08:19 Dose: 60 mg Documented by: Methylprednisolone Sodium Succinate (Methylprednisolone Sodium Succinate 125 Mg/2 Ml Sdv) 60 mg IVPUSH DAILY [facility] Last Admin: 06/11/21 19:39 Dose: Not Given Documented by: Methylprednisolone Sodium Succinate (Methylprednisolone Sodium Succinate 40 Mg/1 Ml Sdv) 40 mg IVPUSH DAILY [facility] Last Admin: 06/14/21 09:15 Dose: 40 mg Documented by: - Patient Data Lab Results Last 24 hrs: Laboratory Results - last 24 hr 06/15/21 06/15/21 06/15/21 Range/Units 10:28 16:12 21:21 WBC (3.98-10.04) K/mm3 RBC (3.98-5.22) M/mm3 Hgb (11.2-15.7) gm/dl Hct (34.1-44.9) % MCV (79.4-94.8) fl MCH (25.6-32.2) pg MCHC (32.2-35.5) g/dl RDW Std Deviation (36.4-46.3) fL Plt Count (182-369) K/mm3 MPV (9.4-12.3) fl Neut % (Auto) (34.0-71.1) % Lymph % (Auto) (19.3-51.7) % Stokes % (Auto) (4.7-12.5) % Eos % (Auto) (0.7-5.8) Baso % (Auto) (0.1-1.2) % Neut # (Auto) (1.56-6.13) K/mm3 Lymph # (Auto) (1.18-3.74) K/mm3 Stokes # (Auto) (0.24-0.36) K/mm3 Eos # (Auto) (0.04-0.36) K/mm3 Baso # (Auto) (0.01-0.08) K/mm3 Sodium (136-145) mEq/L Potassium (3.5-5.1) mEq/L Chloride (98-107) mEq/L Carbon Dioxide (21-32) mEq/L Anion Gap (5-15) BUN (7-18) mg/dL Creatinine (0.55-1.02) mg/dL Est Cr Clr Drug Dosing mL/min Estimated GFR (MDRD) (>60) mL/min BUN/Creatinine Ratio (14-18) Glucose (70-99) mg/dL POC Glucose 133 H 336 H 233 H (70-99) mg/dL Calcium (8.5-10.1) mg/dL Magnesium (1.8-2.4) mg/dL Total Bilirubin (0.2-1.0) mg/dL AST (15-37) U/L ALT (14-59) U/L Alkaline Phosphatase (46-116) U/L Total Protein (6.4-8.2) g/dl Albumin (3.4-5.0) g/dl Globulin gm/dL Albumin/Globulin Ratio (1-2) 06/16/21 06/16/21 06/16/21 Range/Units 04:43 04:43 06:16 WBC 4.60 (3.98-10.04) K/mm3 RBC 4.22 (3.98-5.22) M/mm3 Hgb 12.7 (11.2-15.7) gm/dl Hct 37.9 (34.1-44.9) % MCV 89.8 (79.4-94.8) fl MCH 30.1 (25.6-32.2) pg MCHC 33.5 (32.2-35.5) g/dl RDW Std Deviation 43.0 (36.4-46.3) fL Plt Count 288 (182-369) K/mm3 MPV 10.0 (9.4-12.3) fl Neut % (Auto) 36.3 (34.0-71.1) % Lymph % (Auto) 45.0 (19.3-51.7) % Stokes % (Auto) 17.6 H (4.7-12.5) % Eos % (Auto) 0.4 L (0.7-5.8) Baso % (Auto) 0.0 L (0.1-1.2) % Neut # (Auto) 1.67 (1.56-6.13) K/mm3 Lymph # (Auto) 2.07 (1.18-3.74) K/mm3 Stokes # (Auto) 0.81 H (0.24-0.36) K/mm3 Eos # (Auto) 0.02 L (0.04-0.36) K/mm3 Baso # (Auto) 0.00 L (0.01-0.08) K/mm3 Sodium 143 (136-145) mEq/L Potassium 4.0 (3.5-5.1) mEq/L Chloride 106 (98-107) mEq/L Carbon Dioxide 30 (21-32) mEq/L Anion Gap 11.0 (5-15) BUN 16 (7-18) mg/dL Creatinine 0.8 (0.55-1.02) mg/dL Est Cr Clr Drug Dosing 55.06 mL/min Estimated GFR (MDRD) > 60 (>60) mL/min BUN/Creatinine Ratio 20.0 H (14-18) Glucose 102 H (70-99) mg/dL POC Glucose 110 H (70-99) mg/dL Calcium 8.2 L (8.5-10.1) mg/dL Magnesium 2.3 (1.8-2.4) mg/dL Total Bilirubin 0.6 (0.2-1.0) mg/dL AST 25 (15-37) U/L ALT 85 H (14-59) U/L Alkaline Phosphatase 57 (46-116) U/L Total Protein 6.1 L (6.4-8.2) g/dl Albumin 2.8 L (3.4-5.0) g/dl Globulin 3.3 gm/dL Albumin/Globulin Ratio 0.9 L (1-2) Result Diagrams: 06/16/21 04:43 06/16/21 04:43 Sepsis Event Note - Evaluation Sepsis Screening Result: Possible Sepsis Risk - Focused Exam Vital Signs: Vital Signs Temp Pulse Resp BP Pulse Ox Pulse Ox 06/16/21 06:27 98.1 F 83 18 123/87 89 L 06/15/21 21:18 98.1 F 102 H 20 101/68 90 L 06/15/21 20:31 88 L - Problem List & Annotations (1) HTN (hypertension) SNOMED Code(s): 68356593 Code(s): I10 - ESSENTIAL (PRIMARY) HYPERTENSION Status: Chronic Priority: Medium Current Visit: Yes Qualifiers: Hypertension type: primary hypertension Qualified Code(s): I10 - Essential (primary) hypertension (2) S/P hysterectomy SNOMED Code(s): 905407548, 884623861, 806481252 Code(s): Z90.710 - ACQUIRED ABSENCE OF BOTH CERVIX AND UTERUS Status: Chronic Priority: Low Current Visit: No (3) History of cervical cancer Status: Chronic Priority: Low Current Visit: No (4) COVID-19 SNOMED Code(s): 393363473 Code(s): U07.1 - COVID-19 Status: Acute Priority: High Current Visit: Yes (5) Hyperglycemia SNOMED Code(s): 71527504 Code(s): R73.9 - HYPERGLYCEMIA, UNSPECIFIED Status: Acute Current Visit: No (6) Hypoxemia SNOMED Code(s): 208644664 Code(s): R09.02 - HYPOXEMIA Status: Acute Current Visit: No (7) New onset type 2 diabetes mellitus SNOMED Code(s): 92646957 Code(s): E11.9 - TYPE 2 DIABETES MELLITUS WITHOUT COMPLICATIONS Status: Chronic Priority: Medium Current Visit: Yes (8) Elevated d-dimer SNOMED Code(s): 561635854 Code(s): R79.89 - OTHER SPECIFIED ABNORMAL FINDINGS OF BLOOD CHEMISTRY Status: Resolved Priority: High Current Visit: Yes (9) Leukopenia SNOMED Code(s): 03808025, 504126540 Code(s): D72.819 - DECREASED WHITE BLOOD CELL COUNT, UNSPECIFIED Status: Resolved Priority: High Current Visit: Yes Qualifiers: Leukopenia type: neutropenia Neutropenia type: due to infection Qualified Code(s): D70.3 - Neutropenia due to infection (10) Elevated lactic acid level SNOMED Code(s): 4868062 Code(s): R79.89 - OTHER SPECIFIED ABNORMAL FINDINGS OF BLOOD CHEMISTRY Status: Acute Priority: High Current Visit: Yes - My Orders Last 24 Hours: My Active Orders 06/15/21 09:00 methylPREDNISolone Sod Succ [Solu-MEDROL] 30 mg IVPUSH DAILY 06/15/21 09:29 Consult to Diabetic Nurse Specialist [CONS] Routine - Assessment Assessment:: Assessment - day of admission 04/01/2021 * 56-year-old female who presents the ED with low saturations after testing positive for COVID-19 * History of hypertension and cervical cancer status post hysterectomy. * On 05/25/2021 she noted fever and chills. * Saw her PCP on 05/26/2021 and blood work was done which she states was normal, however she was not tested for COVID-19 * Utilizing Tylenol and ibuprofen but her symptoms continued * Returned to her PCP on 05/31/2021 where she tested positive for SARS-CoV-2 RNA. * Chest x-ray at that time was obtained and per the patient showed "pneumonia" h owever the patient is not sure what exactly was seen. * Noted saturations in the 80s this morning and came to the ED as instructed * Reports nonproductive cough but no acute dyspnea or chest pain. She feels weak. Denies any nausea or vomiting. * Has not received the Covid vaccine. * 12-lead EKG is obtained showing sinus tachycardia 107 bpm with no ischemic changes. Temp is 36.9 Celsius. Pulse 97. Respirations 29. Blood pressure 98/64. Pulse ox is 86%, rising to 96% on 1 L. * Labs are obtained: * WBC 4.89 * Hemoglobin 12.0 * Platelet 400,000 * Neutrophils 58% * Sodium 135 * Potassium 3.6 * Chloride 100 * Carbon dioxide 22 * Anion gap 16.6 * BUN 12. Creatinine 0.9. GFR greater than 60 * Glucose 188 * Lactic acid 1.3 * Magnesium 1.8 * Total bilirubin 0.3 * AST is 54, ALT 47, alkaline phosphatase 45. * Troponin less than 0.017 * Protein 8.0 * Albumin 3.1 * CRP 8.4 * Chest x-ray shows bilateral hazy infiltrates consistent with COVID-19 pneumonia * She is given 6 mg dexamethasone. * Admitted to floor on telemetry for management of COVID-19 PNA and hypoxia 06/02/2021: This is a 56-year-old female who presented to ED with low saturations. She is recently been diagnosed with COVID-19 and was sent home with home monitoring. Her saturations were noted to be very low when she presented to her ED and was admitted. In the ED she was noted to have saturations in the low 90s on 2 L of oxygen. On the floor glucose was noted to be high and has been high on prior visits and her A1c was obtained which was 7.7. She was started on sliding scale insulin. Ferritin was 1858. LDH was 408. Today WBC is 5.54. Hemoglobin 12.0. Platelet 441,000. Neutrophils 69.8. Sodium 140. Potassium 4.1. Chloride 105. Carbon dioxide 25. Anion gap 14.1. BUN 16. Creatinine 0.7. GFR greater than 60. Glucose 126-225. Magnesium 2.4. Bilirubin 0.2. AST is 44, ALT 41, alkaline phosphatase 48. CRP is 6.8. Albumin 2.9. Unfortunately patient overnight had significant rapidly deteriorating oxygen saturations and was requiring up to 10 L. She was placed on high flow oxygen and is currently on 50 L with an FiO2 of 50%. Actemra 8 mg/kg was ordered today and her steroids were increased from 6 mg dexamethasone to 125 mg twice daily Solu-Medrol. She has been proning and nursing was instructed to continue to push for this. She does have incentive spirometry and Acapella in the room and has been using it. We will otherwise continue Covid treatment. Chest x-ray today is slightly worse than yesterday. We will check a procalcitonin. Dr. Neal, attending hospitalist, in to discuss plan with patient. Unknown length of stay due to severity of Covid symptoms. 06/03/2021 This is a 56-year-old female admitted to the floor with Covid pneumonia. She also appears to be a new onset diabetic with an A1c of 7.7. UA was obtained and was cloudy with 1+ protein and trace ketones. Urine random microalbumin was obtained and was elevated at 29.7. Blood sugars have been 196-268. We will increase sliding scale insulin to medium intensity. She is neutropenic today with a WBC of 1.39. Hemoglobin 12.6. Platelet 470,000. Neutrophils are 50.4. Sodium 142. Potassium 4.3. Chloride 107. Carbon dioxide 25. Anion gap 14.3. BUN 23. Creatinine 0.8. GFR greater than 60. Calcium 8.5. Magnesium 2.3. Bilirubin 0.2. AST 38, ALT 41, alkaline phosphatase 48. CRP is 3.3. Protein 7.7. Albumin 2.8. We will continue current treatment plan with steroids, high flow, and respiratory exercises. If patient saturations continued to drop we will start her on BiPAP and likely admit her to the ICU at that time. At this point saturations have been in the upper 90s while patient is proning. We will continue to encourage this as well. Unknown length of stay due to duration and severity of Covid 19 pneumonia. 06/04/2021 This is a 56-year-old female admitted for COVID-19 pneumonia. She continues with treatment including Solu-Medrol and remdesivir. We will decrease Solu- Medrol dosing to 60 mg every 8 hours today. Remains on high flow oxygen 50 L and 65% FiO2. This is a improvement over yesterday. She has been proning and utilizing her incentive spirometry/Acapella. She states she feels pretty good overall. Labs today show a continued neutropenia at 2.43. Hemoglobin 13.0. Platelet 485,000. Neutrophils are 60.4%. D-dimer is 0.87. Sodium 144. Potassium 4.3. Chloride 108. Carbon dioxide 26. Anion gap 14.3. BUN 24. Creatinine 0.9. GFR greater than 60. Glucose has been 2 20-2 80 and we will increase her sliding scale tube high intensity. Calcium 8.3. Magnesium 2.4. T otal bilirubin 0.3. AST 28, ALT 36, alkaline phosphatase 45. CRP is 1.5. Protein 7.4. Albumin 2.7. We will continue to watch blood sugars and add long- acting insulin if indicated. We will address elevated A1c/diabetes more at discharge. Continue current treatment plan. Unknown length of stay pending continued improvement. 06/05/2021 The patient is a 56-year-old lady who is currently on back 3 of 4 of remdesivir. This will be continued. Her oxygen demands remain high and her oxygen saturations will be kept around 92% with oxygen support. We will attempt to taper oxygen. The patient will be kept on high-dose steroids and these will be tapered as necessary. The patient also has been instructed in the use of incentive spirometer as well as Acapella. The patient has been encouraged to ambulate within the confines of the room. The patient should be appropriate for discharge in 1 to 2 days when her oxygen demands have been improved. The patient will also be kept on the appropriate diabetic diet and insulin sliding scale. The patient has repeat laboratory studies ordered for the morning. 06/06/2021 The patient is a 56-year-old lady who is doing better today. She will remain in hospitalization for at least 1 more day. The patient still requires at least 6 L of oxygen via nasal cannula. It has been noted that she desaturates very quickly. The patient has been recommended to continue with the use of the incentive spirometer as well as the Acapella. The patient will continue on the IV steroids. The patient will continue on DVT prophylaxis. Repeat laboratory studies have been ordered. Her oxygen will remain to maintain her oxygen saturations around 92%. 06/07/2021 This is a 56-year-old female admitted to the floor for treatment of Covid pneumonia. She was doing better yesterday and was actually tolerating nasal cannula, although noted to desaturate quite quickly. Her saturations today have worsened and she is back on high flow 55 L with an FiO2 of 90. WBC is 3.71. Hemoglobin 13.3. Platelet 593,000. BMP has been stable. Blood glucose readings have been from 106 to 328. She remains on high-dose sliding scale insulin and this is ranged from 12 units to not given. She remains on 60 mg every 8 hour Solu-Medrol. We will recheck D-dimer today. Imaging yesterday was grossly stable. Will consider imaging tomorrow. Patient remains on high flow and will be switched to BiPAP if needed. If she does switch to BiPAP we will likely upgrade to ICU status. Unknown length of stay due to worsening Covid symptoms. Continue current treatment plan. 06/08/2021 56-year-old female admitted in continue treatment for COVID-19 pneumonia. Labs today show a WBC of 4.54. Hemoglobin 14.0. Platelet 583,000. D-dimer obtained yesterday was 0.87. Sodium 138. Potassium 4.7. Chloride 102. Carbon dioxide 30. Anion gap 10.7. BUN is 16. Creatinine 0.8. GFR greater than 60. Glucose was 90-306. Lactic acid was obtained yesterday and was elevated at 3.0. Repeat was 2.7 and repeat today was 2.2. CRP has been less than 0.2. Discussed with Dr. Kincaid, attending hospitalist, and patient is started on Rocephin 2 g. We will also give 1 L lactated Ringer's at 75 mL an hour. Chest x-ray obtained today shows slightly worsening Covid pneumonia. Clinically patient is doing better. She reports that she feels better. She reports her appetite is improving. She remains on high flow and we are working on weaning slowly. Currently she is on 50 L with 60% FiO2. She has been proning and utilizing her incentive spirometer and Acapella. Unknown length of stay due to severity of COVID-19 symptoms. Given her inflammatory markers are significantly improved we will start decreasing steroid dosing. 06/09/2021 56-year-old female admitted for COVID-19 pneumonia. Today her lung sounds remain diminished however they are greatly improved. She states her appetite continues to improve and overall she feels pretty good. She remains on high flow oxygen 50 L with an FiO2 of 65%. She has completed her remdesivir treatment. We continue to decrease her steroids. Procalcitonin from 2 days prior return less than 0.05. Therefore it is believed elevated lactic acid level was not due to any infectious cause. We will therefore discontinue IV Rocephin. Labs today show WBC of 5.38. Hemoglobin 13.5. Hematocrit 38.9. Platelets are 521,000. Neutrophils are elevated 76.3%. Sodium 140. Potassium 4.8. Chloride 102. Carbon dioxide 30. Anion gap 12.8. BUN is 20. Creatinine 0.9. GFR is greater than 60. Glucose is 212 273. Magnesium 2.4. CRP is less than 0.2. We will recheck D-dimer tomorrow however will stop daily labs as patient has been quite stable. We will therefore recheck labs as needed in the future. No length of stay due to continued need for high flow oxygenation due to Covid pneumonia. 06/10/2021 This is a 56-year-old female admitted to the floor for COVID-19 pneumonia. Blood sugars have been 128-297. D-dimer was obtained today and was 0.36. Other labs were not checked as she has been very stable. She remains on 50 L of high flow oxygen with FiO2 of 55%. We have been working on weaning this. She has been proning and utilizing her incentive spirometer and Acapella. Blood cultures remain negative. Overall she states she feels okay. She notes that her time to recover after walking to the restroom is improving. She has been eating better. We will hold off drawing labs tomorrow as she continues to do well. Unknown length of stay pending ability to wean off of high flow with stable saturations on nasal cannula. Will repeat chest x-ray tomorrow. 06/11/2021 56-year-old female admitted the floor with COVID-19 pneumonia who is currently on high flow 50 L with an FiO2 of 65%. Overnight she was on 40 L with an FiO2 of 45%. Her saturations do decrease rapidly when she exerts herself. No labs were drawn today as her labs have been stable and her inflammatory markers are within normal limits. We will decrease steroid to 40 mg methylprednisolone daily. She continues to utilize her incentive spirometer and Acapella. Her attitude has been very good. She is proning whenever able. Chest x-ray today shows worsening COVID-19 pneumonia on the left side. Unknown length of stay pending improvement in COVID-19 symptoms. 06/12/2021 The patient is a 56-year-old lady who is doing better today. Her oxygen demands still remain high. Last chest x-ray was showing worsening COVID-19 pneumonia. Repeat chest x-ray has been ordered for Monday, June 14, 2021. The patient has been stable today. The patient will have her oxygen titrated to keep her s aturations around 92%. We will try to wean the patient off high flow oxygen. Repeat laboratory studies have been ordered. Continue her regular diabetic diet as tolerated. She is on sliding scale insulin. We will continue to decrease the methylprednisolone as the patient continues to improve. The patient has been slow to heal but has been doing well otherwise. The patient will be appropriate to go home once her oxygen demands have improved to at least 2 L via nasal cannula. I explained to the patient that she would likely go home with oxygen. 06/13/2021 The patient is a 56-year-old lady who has been doing better today. The patient's oxygen demands will continue to be monitored and adjusted in an attempt to wean off high flow oxygen. The patient may likely have to go home on oxygen. The patient has completed remdesivir. Continue on current steroid dose. She is on DVT prophylaxis and this is to continue. Continue with diet as tolerated. Repeat laboratory studies will be ordered Monday as most of her laboratory studies have been within normal limits. The patient should be appropriate for discharge once her oxygen demands have improved. 06/14/2021 56-year-old female admitted to the floor for Covid pneumonia treatment. She has been weaned down to 6 L via nasal cannula off of high flow. We will continue to wean her steroid dosing down to 30 mg daily. No labs were obtained today and she remains clinically very stable. She states that her energy and breathing have continued to improve. She has been utilizing her incentive spirometer and Acapella. No acute concerns. She will remain hospitalized until her oxygen demand decreases down to a level appropriate for home. Goal would be 2 L or less. Unknown total length of stay. Per nursing she may come off of airborne and contact isolation tomorrow. 06/15/2021 This is a 56-year-old female who has been admitted to the floor for Covid pneumonia treatment. Today she is down to 3 L. We will continue her steroid to decrease. No labs were obtained today as she remains very stable. She is eating well and her energy is improving. She reports she has dyspnea on exertion but otherwise feels good. Isolation was discontinued today as it has been 20 days since her symptom onset. She will continue hospitalization until her oxygen demand has improved. Goal would be 2 L or less. Possible discharge in 1 to 2 days pending continued improvement. - Plan Plan:: 06/15/2021 patient was seen and examined, agree with assessment and plan. No changes in present treatment management at this time. Exam: Pulmonary: Clear to auscultation bilaterally cardiovascular: Regular rate rhythm, S1-S2 Abdominal: Soft, nontender, nondistended. Extremity no edema Skin: No rash, warm, dry
[2021-06-16] MEDS: Enoxaparin 40 MG/0.4 ML Syringe SUBCUT SCH (08:08)
[2021-06-16] MEDS: methylPREDNISolone Sodium Succinate 40 MG/1 ML SDV IVPUSH SCH (08:08)
[2021-06-16] MEDS: Famotidine 20 MG Tab PO SCH (08:09)
--- NOTE | 2021-06-16 10:44 | PCM.DCSUM1 ---
<Rommel Jacques - Last Filed: 06/16/21 11:36> Discharge Summary - Hospital Course HPI Initial Comments: This is a 56-year-old female who presents the ED with low saturations after testing positive for COVID-19. She reports on 05/25/2021 she noted fever and chills. She saw her PCP the next day, 05/26/2021 and blood work was done which she states was normal, however she was not tested for COVID-19. She try to get by utilizing Tylenol and ibuprofen but her symptoms continued and she returned to her PCP on 05/31/2021 where she tested positive for SARS-CoV-2 RNA. Chest x- ray at that time was obtained and per the patient showed "pneumonia" however the patient is not sure what exactly was seen. They talked about monoclonal antibody infusion but she ultimately refused. She was instructed to return home and monitor her oxygen saturations. She was told if her saturations drop she should return to the ED. She noted saturations in the 80s this morning and came to the ED as instructed. She reports nonproductive cough but no acute dyspnea or chest pain. She feels weak. Denies any nausea or vomiting. She has not received the Covid vaccine. In the ED twelve-lead EKG is obtained showing sinus tachycardia 107 bpm with no ischemic changes. Temp is 36.9 Celsius. Pulse 97. Respirations 29. Blood pressure 98/64. Pulse ox is 86%, rising to 96% on 1 L. Labs are obtained showing a WBC of 4.89. Hemoglobin 12.0. Platelet 400,000. Neutrophils 58%. Sodium 135. Potassium 3.6. Chloride 100. Carbon dioxide 22. Anion gap 16.6. BUN is 12. Creatinine 0.9. GFR greater than 60. Glucose 188. Lactic acid 1.3. Magnesium 1.8. Total bilirubin 0.3. AST is 54, ALT 47, alkaline phosphatase 45. Troponin less than 0.017. Protein 8.0. Albumin 3.1. CRP is 8.4 chest x-ray shows bilateral hazy infiltrates consistent with COVID-19 pneumonia. She is given 6 mg dexamethasone. She carries a history of hypertension and cervical cancer status post hysterectomy. She was never a smoker. Her PCP is Dr. Yao. After review patient is not outside remdesivir window, symptoms must have began within the past 10 days at her 7 7. We will therefore start patient on remdesivir as she is requiring 2 L to keep saturations in the 90s now. Ferritin and LDH are noted to be elevated along with CRP indicating a proinflammatory state. D-dimer is within normal limits. Diagnosis: Stroke: No - Discharge Data Discharge Date: 06/16/21 (Admit date: 06/01/2021) Discharge Disposition: Home, Self-Care 01 Condition: Good - Referral to Home Health Primary Care Physician: Jerman Davalos MD - Discharge Diagnosis/Problem(s) (1) HTN (hypertension) SNOMED Code(s): 07662398 ICD Code: I10 - ESSENTIAL (PRIMARY) HYPERTENSION Status: Chronic Priority: Medium Qualifiers: Hypertension type: primary hypertension Qualified Code(s): I10 - Essential (primary) hypertension (2) S/P hysterectomy SNOMED Code(s): 028460729, 133619156, 801355737 ICD Code: Z90.710 - ACQUIRED ABSENCE OF BOTH CERVIX AND UTERUS Status: Chronic Priority: Low (3) History of cervical cancer Status: Chronic Priority: Low (4) COVID-19 SNOMED Code(s): 752318089 ICD Code: U07.1 - COVID-19 Status: Acute Priority: High (5) Hyperglycemia SNOMED Code(s): 55168312 ICD Code: R73.9 - HYPERGLYCEMIA, UNSPECIFIED Status: Acute (6) Hypoxemia SNOMED Code(s): 467227231 ICD Code: R09.02 - HYPOXEMIA Status: Acute (7) New onset type 2 diabetes mellitus SNOMED Code(s): 07121394 ICD Code: E11.9 - TYPE 2 DIABETES MELLITUS WITHOUT COMPLICATIONS Status: Chronic Priority: Medium (8) Elevated d-dimer SNOMED Code(s): 628774848 ICD Code: R79.89 - OTHER SPECIFIED ABNORMAL FINDINGS OF BLOOD CHEMISTRY Status: Resolved Priority: High (9) Leukopenia SNOMED Code(s): 07925475, 560056466 ICD Code: D72.819 - DECREASED WHITE BLOOD CELL COUNT, UNSPECIFIED Status: Resolved Priority: High Qualifiers: Leukopenia type: neutropenia Neutropenia type: due to infection Qualified Code(s): D70.3 - Neutropenia due to infection (10) Elevated lactic acid level SNOMED Code(s): 5656192 ICD Code: R79.89 - OTHER SPECIFIED ABNORMAL FINDINGS OF BLOOD CHEMISTRY Status: Acute Priority: High - Patient Summary/Data Consults: Consultations 06/01/21 11:29 Respiratory Care Assess and Treatment [CONS] Routine 06/01/21 11:32 Consult to Case Management/Cat Skinner [CONS] Routine 06/01/21 15:17 Consult to Plating Engineer [CONS] Routine 06/15/21 09:29 Consult to Diabetic Nurse Specialist [CONS] Routine Labs Pending at D/C: None Recommended Follow-up Testing/Procedures: Follow-up with primary care provider within 7-10 days of discharge, sooner if needed. -Patient completed remdesivir and Actemra treatment while here -Discharged on 3L O2, 4L with activity. Please assist in weaning this down -Patient instructed to check pulse oximetry readings twice daily -Patient noted to have elevated blood glucose readings on prior visits and A1C was 7.7% -Patient started on metformin 500mg BIDAC -Patient given PRN albuterol inhaler on discharge. -Patient instructed to check blood glucose readings BID and record this in a journal. Please review journal. -Recommend repeat CBC, CMP, and magnesium on follow-up. Consider repeat CXR. Follow-up with outpatient picker machine operator as directed to review. Follow-up with outpatient adult educator follow-up. Hospital Course: This is a 56-year-old female who presented to ED on 04/01/2021 with low saturations, having already tested positive for Covid. Per her report symptoms began on 05/25/2021 with fever and chills. She saw her primary care provider the next day who performed blood work but did not reportedly check COVID-19. She returned to her PCP on 05/31/2021 where she tested positive for SARS-CoV-2 RNA. Chest x-ray was concerning for pneumonia and she was sent home and told to check her saturations. Prior to presenting to the emergency room she was noted to have saturations in the 80s and a nonproductive cough. Chest x-ray was obtained showing bilateral hazy infiltrates consistent with COVID-19 pneumonia. She was started on 6 mg dexamethasone admitted to the floor. Once on the floor she was started with 5 days of remdesivir treatment. Her oxygen saturations continued to decline and she ended up requiring high flow oxygen. Procalcitonin was negative. Patient was noted to have higher blood glucose readings on multiple prior visits and this visit was no exception, even prior to steroid treatment. A1c was obtained and was 7.7. She was placed on high-dose sliding scale insulin. Due to severity of her symptoms and rapidly increasing oxygen demand patient was given Actemra and steroid was increased to 125 mg methylprednisolone twice daily. Patient's inflammatory markers began to decrease in steroid stepdown was initiated. She continued to prone regularly and utilize her incentive spirometer and Acapella. She did ambulate around the room. There were no concerns to require physical therapy or occupational therapy. She did see our dietitian regarding her diabetes. At her worst she was requiring 60 L of oxygen with an FiO2 of 85%. Prior to discharge she was weaned down to 3 L at all times and 4 L with activity. She reportedly has a pulse oximeter from prior and was instructed to check with daily and record her readings. She was instructed to obtain a blood glucose meter and check her blood glucose readings twice a day, recording it in a journal and bring this with to all medical appointments. She was started on Metformin 500 mg twice daily AC at discharge. She was given a as needed albuterol inhaler. Given the duration and dosing of her steroids we will continue steroid taper at discharge. She should continue 30 mg prednisone daily for 2 days and then decrease to 20 mg daily for 2 days. She should continue 10 mg prednisone daily for 2 days and then complete her taper with 5 mg prednisone daily for 2 days. She was instructed to continue to utilize her incentive spirometry and Acapella. She was instructed to continue to prone. She was instructed to remain home from work until cleared by her primary care provider. She completed her duration of isolation/quarantine while here and this would not be required at discharge. Recommend follow-up with primary care provider within 7 to 10 days of discharge, sooner if needed. Recommend repeat CBC, CMP, and magnesium at that visit. Consider repeat chest x-ray. Recommend reviewing patient's oxygen saturation and blood glucose logs. Patient instructed follow-up outpatient with dietitian, as our dietitian did see her here and they discussed carb counting. Recommend outpatient adult educator follow-up as well. Patient discharged home today. - Patient Instructions Diet: Diabetic Diet Activity: As Tolerated Driving: Do Not Drive (until feeling better ) Showering/Bathing: May Shower Notify Provider of: Fever, Increased Pain, Nausea and/or Vomiting Other/Special Instructions: Follow-up with primary care provider within 7 to 10 days of discharge, sooner if needed. You were prescribed a steroid taper at discharge. You should take 30mg daily for 2 days, 20mg daily for 2 days, 10mg daily for 2 days, then 5mg dialy for 2 days. You were prescribed an albuterol inhaler. You can take 2 puffs every 2 hours as needed for shortness of breath or if you notice you are wheezing. You should wear your oxygen at all times. Use 2L and then increase to 3L with activity. Your primary care provider can help you wean this further. You should check your oxygen saturations twice a day and write the numbers down in a journal. Bring this journal with to all medical appointments. You completed your isolation/quarantine while here. You should take it easy. Stay active but listen to yourself. Rest when needed. Continue to prone (lay on your stomach) whenever able. Continue to utilize your incentive spirometer (Clear/blue device you inahle through) and acapella (green tube you blow through) for 1-2 more weeks or until symptoms develop. Continue your home medications as directed. On admisison your blood glucose readings were noted to be elevated. They have been elevated during piror visits. Your A1C (lab value) was checked here and was elevated. You were diagnosed with diabetes. You saw our picker machine operator and adult educator. You should obtain a glucometer and check your blood glucose readings twice a day and record this in a journal. Bring this journal with to all medical appointments. You were started on metformin, which is a medication used to treat diabetes. Take this twice a day with meals as directed. Should symptoms return or worsen contact your primary care provider or return to the Emergency Department. - Discharge Plan *PRESCRIPTION DRUG MONITORING PROGRAM REVIEWED*: Not Applicable *COPY OF PRESCRIPTION DRUG MONITORING REPORT IN PATIENT ANTONIO: Not Applicable Prescriptions/Med Rec: metFORMIN [Glucophage XR] 500 mg PO BIDMEALS #40 tab.er predniSONE [Prednisone] See Taper PO DAILY #26 tablet Albuterol [Proventil HFA] 2 puff INH Q2H PRN #1 inhaler PRN Reason: SOB/Wheezing Home Medications: Home Meds lisinopriL [Lisinopril] 20 mg PO DAILY 03/09/21 [History] Albuterol [Proventil HFA] 2 puff INH Q2H PRN #1 inhaler 06/16/21 [Rx] metFORMIN [Glucophage XR] 500 mg PO BIDMEALS #40 tab.er 06/16/21 [Rx] predniSONE [Prednisone] See Taper PO DAILY #26 tablet 06/16/21 [Rx] Oxygen Therapy Mode: Nasal Cannula Oxygen Flow Rate (L/min): 3 (3L at all times, 4L with activity) Maintain SpO2% greater than: 88 Patient Handouts: Type 2 Diabetes Mellitus, Diagnosis, Adult, COVID-19, Carbohydrate Counting for Diabetes Mellitus, Adult Forms: ED Department Discharge Referrals: Delmi Birch MD [Ordering Only Provider] - (Follow up as needed.) Marilin Victor MD [Physician] - (Follow up as needed.) Jerman Davalos MD [Primary Care Provider] - 06/24/21 9:15 am (please arrive at 9:00 for check in) - Discharge Summary/Plan Comment DC Time >30 min.: Yes Total # of Minutes for Discharge Time: 45 - General Info Date of Service: 06/16/21 Functional Status: Reports: Pain Controlled, Tolerating Diet, Ambulating, Urinating, Incentive Spirometry, Other (Acapella ). Denies: New Symptoms - Review of Systems General: Reports: No Symptoms. Denies: Fever, Weakness, Fatigue, Malaise, Chills HEENT: Reports: No Symptoms. Denies: Headaches, Sore Throat Pulmonary: Reports: No Symptoms. Denies: Shortness of Breath, Cough, Sputum, Wheezing Cardiovascular: Reports: Dyspnea on Exertion (improved ). Denies: Chest Pain, Palpitations, Edema Gastrointestinal: Reports: No Symptoms. Denies: Abdominal Pain, Constipation, Diarrhea, Nausea, Vomiting Genitourinary: Reports: No Symptoms. Denies: Pain Musculoskeletal: Reports: No Symptoms Skin: Reports: No Symptoms. Denies: Cyanosis Neurological: Reports: No Symptoms. Denies: Confusion, Dizziness, Headache, Numbness, Pre-Existing Deficit, Syncope, Tingling, Difficulty Walking, Weakness, Gait Disturbance Psychiatric: Reports: No Symptoms - Patient Data Vitals - Most Recent: Last Vital Signs Temp 98.1 F 06/16/21 09:20 Pulse 104 H 06/16/21 09:20 Resp 16 06/16/21 09:20 BP 115/65 06/16/21 09:20 Pulse Ox 92 L 06/16/21 09:20 Weight - Most Recent: 131 lb 8 oz I&O - Last 24 hours: Intake & Output 06/15/21 06/16/21 06/16/21 22:59 06:59 14:59 Intake Total 980 300 Balance 980 300 Lab Results - Last 24 hrs: Laboratory Results - last 24 hr 06/15/21 06/15/21 06/16/21 Range/Units 16:12 21:21 04:43 WBC 4.60 (3.98-10.04) K/mm3 RBC 4.22 (3.98-5.22) M/mm3 Hgb 12.7 (11.2-15.7) gm/dl Hct 37.9 (34.1-44.9) % MCV 89.8 (79.4-94.8) fl MCH 30.1 (25.6-32.2) pg MCHC 33.5 (32.2-35.5) g/dl RDW Std Deviation 43.0 (36.4-46.3) fL Plt Count 288 (182-369) K/mm3 MPV 10.0 (9.4-12.3) fl Neut % (Auto) 36.3 (34.0-71.1) % Lymph % (Auto) 45.0 (19.3-51.7) % [place] % (Auto) 17.6 H (4.7-12.5) % Eos % (Auto) 0.4 L (0.7-5.8) Baso % (Auto) 0.0 L (0.1-1.2) % Neut # (Auto) 1.67 (1.56-6.13) K/mm3 Lymph # (Auto) 2.07 (1.18-3.74) K/mm3 [place] # (Auto) 0.81 H (0.24-0.36) K/mm3 Eos # (Auto) 0.02 L (0.04-0.36) K/mm3 Baso # (Auto) 0.00 L (0.01-0.08) K/mm3 Sodium (136-145) mEq/L Potassium (3.5-5.1) mEq/L Chloride (98-107) mEq/L Carbon Dioxide (21-32) mEq/L Anion Gap (5-15) BUN (7-18) mg/dL Creatinine (0.55-1.02) mg/dL Est Cr Clr Drug Dosing mL/min Estimated GFR (MDRD) (>60) mL/min BUN/Creatinine Ratio (14-18) Glucose (70-99) mg/dL POC Glucose 336 H 233 H (70-99) mg/dL Calcium (8.5-10.1) mg/dL Magnesium (1.8-2.4) mg/dL Total Bilirubin (0.2-1.0) mg/dL AST (15-37) U/L ALT (14-59) U/L Alkaline Phosphatase (46-116) U/L Total Protein (6.4-8.2) g/dl Albumin (3.4-5.0) g/dl Globulin gm/dL Albumin/Globulin Ratio (1-2) 06/16/21 06/16/21 Range/Units 04:43 06:16 WBC (3.98-10.04) K/mm3 RBC (3.98-5.22) M/mm3 Hgb (11.2-15.7) gm/dl Hct (34.1-44.9) % MCV (79.4-94.8) fl MCH (25.6-32.2) pg MCHC (32.2-35.5) g/dl RDW Std Deviation (36.4-46.3) fL Plt Count (182-369) K/mm3 MPV (9.4-12.3) fl Neut % (Auto) (34.0-71.1) % Lymph % (Auto) (19.3-51.7) % [place] % (Auto) (4.7-12.5) % Eos % (Auto) (0.7-5.8) Baso % (Auto) (0.1-1.2) % Neut # (Auto) (1.56-6.13) K/mm3 Lymph # (Auto) (1.18-3.74) K/mm3 [place] # (Auto) (0.24-0.36) K/mm3 Eos # (Auto) (0.04-0.36) K/mm3 Baso # (Auto) (0.01-0.08) K/mm3 Sodium 143 (136-145) mEq/L Potassium 4.0 (3.5-5.1) mEq/L Chloride 106 (98-107) mEq/L Carbon Dioxide 30 (21-32) mEq/L Anion Gap 11.0 (5-15) BUN 16 (7-18) mg/dL Creatinine 0.8 (0.55-1.02) mg/dL Est Cr Clr Drug Dosing 55.06 mL/min Estimated GFR (MDRD) > 60 (>60) mL/min BUN/Creatinine Ratio 20.0 H (14-18) Glucose 102 H (70-99) mg/dL POC Glucose 110 H (70-99) mg/dL Calcium 8.2 L (8.5-10.1) mg/dL Magnesium 2.3 (1.8-2.4) mg/dL Total Bilirubin 0.6 (0.2-1.0) mg/dL AST 25 (15-37) U/L ALT 85 H (14-59) U/L Alkaline Phosphatase 57 (46-116) U/L Total Protein 6.1 L (6.4-8.2) g/dl Albumin 2.8 L (3.4-5.0) g/dl Globulin 3.3 gm/dL Albumin/Globulin Ratio 0.9 L (1-2) Med Orders - Current: Current Medications Acetaminophen (Acetaminophen 325 Mg Tab) 650 mg PO Q4H PRN PRN Reason: Pain (Mild 1-3)/fever Albuterol (Albuterol 6.7 Gm Inhaler) 0 gm INH Q2H PRN PRN Reason: SOB/Wheezing Last Admin: 06/15/21 15:03 Dose: 2 puff Documented by: Enoxaparin Sodium (Enoxaparin 40 Mg/0.4 Ml Syringe) 40 mg SUBCUT DAILY [facility] Last Admin: 06/16/21 08:08 Dose: 40 mg Documented by: Famotidine (Famotidine 20 Mg Tab) 20 mg PO DAILY [facility] Last Admin: 06/16/21 08:09 Dose: 20 mg Documented by: Insulin Human Lispro (Insulin Lispro 100 Unit/Ml 10 Ml Vial) 0 unit SUBCUT QIDACANDBED [facility]; Protocol Last Admin: 06/16/21 06:48 Dose: Not Given Documented by: Magnesium Hydroxide (Magnesium Hydroxide 400 Mg/5 Ml Susp 30 Ml Cup) 30 ml PO DAILY PRN PRN Reason: Constipation Last Admin: 06/07/21 17:56 Dose: 30 ml Documented by: Methylprednisolone Sodium Succinate (Methylprednisolone Sodium Succinate 40 Mg/1 Ml Sdv) 30 mg IVPUSH DAILY [facility] Last Admin: 06/16/21 08:08 Dose: 30 mg Documented by: Ondansetron HCl (Ondansetron 4 Mg/2 Ml Sdv) 4 mg IV Q6H PRN PRN Reason: Nausea/Vomiting Discontinued Medications Dexamethasone (Dexamethasone 4 Mg Tab) 6 mg PO ONETIME STA Stop: 06/01/21 06:31 Last Admin: 06/01/21 06:56 Dose: 6 mg Documented by: Dexamethasone (Dexamethasone 4 Mg Tab) 6 mg PO DAILY [facility] Stop: 06/10/21 09:01 Famotidine (Famotidine 20 Mg Tab) 20 mg PO BID [facility] Last Admin: 06/11/21 09:39 Dose: 20 mg Documented by: Magnesium Sulfate 2 gm/ Premix 50 mls @ 25 mls/hr IV ONETIME ONE Stop: 06/01/21 13:30 Last Admin: 06/01/21 13:30 Dose: 25 mls/hr Documented by: Remdesivir 200 mg/ Sodium (Chloride) 250 mls @ 250 mls/hr IV ONETIME ONE Stop: 06/01/21 16:29 Last Admin: 06/01/21 15:40 Dose: 250 mls/hr Documented by: Remdesivir 100 mg/ Sodium (Chloride) 100 mls @ 100 mls/hr IV Q24H [facility] Stop: 06/05/21 16:29 Last Admin: 06/05/21 14:56 Dose: 100 mls/hr Documented by: Tocilizumab 500 mg/ Sodium (Chloride) 105 mls @ 105 mls/hr IV ONETIME ONE Stop: 06/02/21 08:34 Last Admin: 06/02/21 09:28 Dose: 105 mls/hr Documented by: Lactated Ringer's (Ringers, Lactated) 500 mls @ 999 mls/hr IV .BOLUS ONE Stop: 06/07/21 15:46 Last Admin: 06/07/21 16:43 Dose: 999 mls/hr Documented by: Ceftriaxone Sodium 2 gm/ (Sodium Chloride) 100 mls @ 200 mls/hr IV Q24H [facility] Last Admin: 06/09/21 08:19 Dose: 200 mls/hr Documented by: Lactated Ringer's (Ringers, Lactated) 1,000 mls @ 75 mls/hr IV ASDIRECTED [facility] Stop: 06/08/21 21:04 Last Admin: 06/08/21 09:17 Dose: 75 mls/hr Documented by: Methylprednisolone Sodium Succinate (Methylprednisolone Sodium Succinate 125 Mg/2 Ml Sdv) 125 mg IVPUSH Q12H [facility] Last Admin: 06/04/21 08:07 Dose: 125 mg Documented by: Methylprednisolone Sodium Succinate (Methylprednisolone Sodium Succinate 125 Mg/2 Ml Sdv) 60 mg IVPUSH Q8H [facility] Last Admin: 06/08/21 04:38 Dose: 60 mg Documented by: Methylprednisolone Sodium Succinate (Methylprednisolone Sodium Succinate 125 Mg/2 Ml Sdv) 60 mg IVPUSH BID [facility] Last Admin: 06/09/21 08:19 Dose: 60 mg Documented by: Methylprednisolone Sodium Succinate (Methylprednisolone Sodium Succinate 125 Mg/2 Ml Sdv) 60 mg IVPUSH DAILY [facility] Last Admin: 06/11/21 19:39 Dose: Not Given Documented by: Methylprednisolone Sodium Succinate (Methylprednisolone Sodium Succinate 40 Mg/1 Ml Sdv) 40 mg IVPUSH DAILY [facility] Last Admin: 06/14/21 09:15 Dose: 40 mg Documented by: - Exam Quality Assessment: Reports: Supplemental Oxygen (3L), DVT Prophylaxis. Denies: Urine Catheter General: Reports: Alert, Oriented, Cooperative HEENT: Reports: Pupils Equal, Pupils Reactive, Mucous Membr. Moist/[place] Neck: Reports: Supple, Trachea Midline Lungs: Reports: Normal Respiratory Effort, Decreased Breath Sounds (improving ). Denies: Crackles, Rhonchi, Wheezing Cardiovascular: Reports: Regular Rate, Regular Rhythm GI/Abdominal Exam: Normal Bowel Sounds, Soft, Non-Tender, No Distention (Female) Exam: Deferred Rectal (Female) Exam: Deferred Back Exam: Reports: Normal Inspection, Full Range of Motion Extremities: Normal Inspection, Normal Range of Motion, Non-Tender, No Pedal Edema, Normal Capillary Refill Skin: Reports: Warm Neurological: Reports: No New Focal Deficit Psy/Mental Status: Reports: Alert, Normal Affect, Normal Mood <MooreJustina - Last Filed: 06/16/21 14:02> Discharge Summary - Referral to Home Health Primary Care Physician: Jerman Davalos MD - Patient Summary/Data Consults: Consultations 06/01/21 11:29 Respiratory Care Assess and Treatment [CONS] Routine 06/01/21 11:32 Consult to Case Management/Cat Skinner [CONS] Routine 06/01/21 15:17 Consult to Plating Engineer [CONS] Routine 06/15/21 09:29 Consult to Diabetic Nurse Specialist [CONS] Routine - Discharge Summary/Plan Comment Discharge Summary/Plan Comment: Patient was seen and examined. Patient is doing well on NC and improving daily and ready for dc home today on o2. PE: CVS: [id number] Resp: CTA Abd: s/nt/nd Ext" no edema - Patient Data Vitals - Most Recent: Last Vital Signs Temp 98.1 F 06/16/21 09:20 Pulse 104 H 06/16/21 09:20 Resp 16 06/16/21 09:20 BP 115/65 06/16/21 09:20 Pulse Ox 92 L 06/16/21 09:20 I&O - Last 24 hours: Intake & Output 06/15/21 06/16/21 06/16/21 22:59 06:59 14:59 Intake Total 980 300 440 Balance 980 300 440 Lab Results - Last 24 hrs: Laboratory Results - last 24 hr 06/15/21 06/15/21 06/16/21 Range/Units 16:12 21:21 04:43 WBC 4.60 (3.98-10.04) K/mm3 RBC 4.22 (3.98-5.22) M/mm3 Hgb 12.7 (11.2-15.7) gm/dl Hct 37.9 (34.1-44.9) % MCV 89.8 (79.4-94.8) fl MCH 30.1 (25.6-32.2) pg MCHC 33.5 (32.2-35.5) g/dl RDW Std Deviation 43.0 (36.4-46.3) fL Plt Count 288 (182-369) K/mm3 MPV 10.0 (9.4-12.3) fl Neut % (Auto) 36.3 (34.0-71.1) % Lymph % (Auto) 45.0 (19.3-51.7) % [place] % (Auto) 17.6 H (4.7-12.5) % Eos % (Auto) 0.4 L (0.7-5.8) Baso % (Auto) 0.0 L (0.1-1.2) % Neut # (Auto) 1.67 (1.56-6.13) K/mm3 Lymph # (Auto) 2.07 (1.18-3.74) K/mm3 [place] # (Auto) 0.81 H (0.24-0.36) K/mm3 Eos # (Auto) 0.02 L (0.04-0.36) K/mm3 Baso # (Auto) 0.00 L (0.01-0.08) K/mm3 Sodium (136-145) mEq/L Potassium (3.5-5.1) mEq/L Chloride (98-107) mEq/L Carbon Dioxide (21-32) mEq/L Anion Gap (5-15) BUN (7-18) mg/dL Creatinine (0.55-1.02) mg/dL Est Cr Clr Drug Dosing mL/min Estimated GFR (MDRD) (>60) mL/min BUN/Creatinine Ratio (14-18) Glucose (70-99) mg/dL POC Glucose 336 H 233 H (70-99) mg/dL Calcium (8.5-10.1) mg/dL Magnesium (1.8-2.4) mg/dL Total Bilirubin (0.2-1.0) mg/dL AST (15-37) U/L ALT (14-59) U/L Alkaline Phosphatase (46-116) U/L Total Protein (6.4-8.2) g/dl Albumin (3.4-5.0) g/dl Globulin gm/dL Albumin/Globulin Ratio (1-2) 06/16/21 06/16/21 06/16/21 Range/Units 04:43 06:16 10:39 WBC (3.98-10.04) K/mm3 RBC (3.98-5.22) M/mm3 Hgb (11.2-15.7) gm/dl Hct (34.1-44.9) % MCV (79.4-94.8) fl MCH (25.6-32.2) pg MCHC (32.2-35.5) g/dl RDW Std Deviation (36.4-46.3) fL Plt Count (182-369) K/mm3 MPV (9.4-12.3) fl Neut % (Auto) (34.0-71.1) % Lymph % (Auto) (19.3-51.7) % [place] % (Auto) (4.7-12.5) % Eos % (Auto) (0.7-5.8) Baso % (Auto) (0.1-1.2) % Neut # (Auto) (1.56-6.13) K/mm3 Lymph # (Auto) (1.18-3.74) K/mm3 [place] # (Auto) (0.24-0.36) K/mm3 Eos # (Auto) (0.04-0.36) K/mm3 Baso # (Auto) (0.01-0.08) K/mm3 Sodium 143 (136-145) mEq/L Potassium 4.0 (3.5-5.1) mEq/L Chloride 106 (98-107) mEq/L Carbon Dioxide 30 (21-32) mEq/L Anion Gap 11.0 (5-15) BUN 16 (7-18) mg/dL Creatinine 0.8 (0.55-1.02) mg/dL Est Cr Clr Drug Dosing 55.06 mL/min Estimated GFR (MDRD) > 60 (>60) mL/min BUN/Creatinine Ratio 20.0 H (14-18) Glucose 102 H (70-99) mg/dL POC Glucose 110 H 182 H (70-99) mg/dL Calcium 8.2 L (8.5-10.1) mg/dL Magnesium 2.3 (1.8-2.4) mg/dL Total Bilirubin 0.6 (0.2-1.0) mg/dL AST 25 (15-37) U/L ALT 85 H (14-59) U/L Alkaline Phosphatase 57 (46-116) U/L Total Protein 6.1 L (6.4-8.2) g/dl Albumin 2.8 L (3.4-5.0) g/dl Globulin 3.3 gm/dL Albumin/Globulin Ratio 0.9 L (1-2) Med Orders - Current: Current Medications Acetaminophen (Acetaminophen 325 Mg Tab) 650 mg PO Q4H PRN PRN Reason: Pain (Mild 1-3)/fever Albuterol (Albuterol 6.7 Gm Inhaler) 0 gm INH Q2H PRN PRN Reason: SOB/Wheezing Last Admin: 06/15/21 15:03 Dose: 2 puff Documented by: Enoxaparin Sodium (Enoxaparin 40 Mg/0.4 Ml Syringe) [facility]ILY [facility] [facility] Last Admin: 06/16/21 08:08 Dose: 40 mg Documented by: Famotidine (Famotidine 20 Mg Tab) 20 mg PO DAILY [facility] Last Admin: 06/16/21 08:09 Dose: 20 mg Documented by: Insulin Human Lispro (Insulin Lispro 100 Unit/Ml 10 Ml Vial) 0 unit SUBCUT QIDACANDBED [facility]; Protocol Last Admin: 06/16/21 12:31 Dose: Not Given Documented by: Magnesium Hydroxide (Magnesium Hydroxide 400 Mg/5 Ml Susp 30 Ml Cup) 30 ml PO DAILY PRN PRN Reason: Constipation Last Admin: 06/07/21 17:56 Dose: 30 ml Documented by: Methylprednisolone Sodium Succinate (Methylprednisolone Sodium Succinate 40 Mg/1 Ml Sdv) 30 mg IVPUSH DAILY [facility] Last Admin: 06/16/21 08:08 Dose: 30 mg Documented by: Ondansetron HCl (Ondansetron 4 Mg/2 Ml Sdv) 4 mg IV Q6H PRN PRN Reason: Nausea/Vomiting Discontinued Medications Dexamethasone (Dexamethasone 4 Mg Tab) 6 mg PO ONETIME [facility] Stop: 06/01/21 06:31 Last Admin: 06/01/21 06:56 Dose: 6 mg Documented by: Dexamethasone (Dexamethasone 4 Mg Tab) 6 mg PO DAILY [facility] Stop: 06/10/21 09:01 Famotidine (Famotidine 20 Mg Tab) 20 mg PO BID [facility] Last Admin: 06/11/21 09:39 Dose: 20 mg Documented by: Magnesium Sulfate 2 gm/ Premix 50 mls @ 25 mls/hr IV ONETIME ONE Stop: 06/01/21 13:30 Last Admin: 06/01/21 13:30 Dose: 25 mls/hr Documented by: Remdesivir 200 mg/ Sodium (Chloride) 250 mls @ 250 mls/hr IV ONETIME ONE Stop: 06/01/21 16:29 Last Admin: 06/01/21 15:40 Dose: 250 mls/hr Documented by: Remdesivir 100 mg/ Sodium (Chloride) 100 mls @ 100 mls/hr IV Q24H [facility] Stop: 06/05/21 16:29 Last Admin: 06/05/21 14:56 Dose: 100 mls/hr Documented by: Tocilizumab 500 mg/ Sodium (Chloride) 105 mls @ 105 mls/hr IV ONETIME ONE Stop: 06/02/21 08:34 Last Admin: 06/02/21 09:28 Dose: 105 mls/hr Documented by: Lactated Ringer's (Ringers, Lactated) 500 mls @ 999 mls/hr IV .BOLUS ONE Stop: 06/07/21 15:46 Last Admin: 06/07/21 16:43 Dose: 999 mls/hr Documented by: Ceftriaxone Sodium 2 gm/ (Sodium Chloride) 100 mls @ 200 mls/hr IV Q24H [facility] Last Admin: 06/09/21 08:19 Dose: 200 mls/hr Documented by: Lactated Ringer's (Ringers, Lactated) 1,000 mls @ 75 mls/hr IV ASDIRECTED [facility] Stop: 06/08/21 21:04 Last Admin: 06/08/21 09:17 Dose: 75 mls/hr Documented by: Methylprednisolone Sodium Succinate (Methylprednisolone Sodium Succinate 125 Mg/2 Ml Sdv) 125 mg IVPUSH Q12H [facility] Last Admin: 06/04/21 08:07 Dose: 125 mg Documented by: Methylprednisolone Sodium Succinate (Methylprednisolone Sodium Succinate 125 Mg/2 Ml Sdv) 60 mg IVPUSH Q8H [facility] Last Admin: 06/08/21 04:38 Dose: 60 mg Documented by: Methylprednisolone Sodium Succinate (Methylprednisolone Sodium Succinate 125 Mg/2 Ml Sdv) 60 mg IVPUSH BID [facility] Last Admin: 06/09/21 08:19 Dose: 60 mg Documented by: Methylprednisolone Sodium Succinate (Methylprednisolone Sodium Succinate 125 Mg/2 Ml Sdv) 60 mg IVPUSH DAILY [facility] Last Admin: 06/11/21 19:39 Dose: Not Given Documented by: Methylprednisolone Sodium Succinate (Methylprednisolone Sodium Succinate 40 Mg/1 Ml Sdv) 40 mg IVPUSH DAILY [facility] Last Admin: 06/14/21 09:15 Dose: 40 mg Documented by:
== END 2021-06-16 12:20 | disposition home or self-care (01) | DRG 177 ==
LOC: JD.ED 05:52 → JD.MS 11:32
PROVIDERS: ADMIT Hospitalist; ATTEND Hospitalist
PROC: XW033E5 Introduction of Remdesivir Anti-infective into Peripheral Vein, Percutaneous Approach, New Technology Group 5 (ICD-10-PCS; principal; 2021-06-01)
PROC: XW033H5 Introduction of Tocilizumab into Peripheral Vein, Percutaneous Approach, New Technology Group 5 (ICD-10-PCS; 2021-06-01)
PROC: 5A0955A Assistance with Respiratory Ventilation, Greater than 96 Consecutive Hours, High Flow/Velocity Cannula (ICD-10-PCS; 2021-06-01)
DX: U07.1 COVID-19 (principal); J12.82 Pneumonia due to coronavirus disease 2019; J96.01 Acute respiratory failure with hypoxia; I10 Essential (primary) hypertension; Z90.49 Acquired absence of other specified parts of digestive tract; R79.89 Other specified abnormal findings of blood chemistry; D70.3 Neutropenia due to infection; Z79.899 Other long term (current) drug therapy; E11.65 Type 2 diabetes mellitus with hyperglycemia; Z90.710 Acquired absence of both cervix and uterus; Z85.41 Personal history of malignant neoplasm of cervix uteri
CPT/HCPCS: 36415; 71045; 71045-26; 71046; 71046-26; 80048; 80053; 81003; 82044; 82728; 82947; 83036; 83605; 83615; 83735; 84145; 84484; 85007; 85025; 85027; 85379; 86140; 87040; 93005; 93010; 94640; 94667; 94668; 94760; 94761; 94762; 99222; 99232; 99233; 99239; 99285; 99285-25; A9270-GY; J0696; J1650; J1815-GY; J2920; J2930; J3475; J7050; J7120; J8540; M0249; Q0249